=== PATIENT | female | born 2000 ===

== ENCOUNTER 2021-09-25 12:14 | Emergency (ER) | payer MEDICAID, SELFPAY ==
[2021-09-25 13:21] LABS: Influenza A PCR NEGATIVE (Negative); Influenza B PCR NEGATIVE (Negative); Resp Syncy Virus RNA Qual PCR NEGATIVE (Negative); SARS COV2 PCR INHOUSE NEGATIVE (Negative)
[2021-09-25 17:22] VITALS: BP 135/73; PULSE 99; TEMP 37.2; O2SAT 98; BMI 23.0
== END 2021-09-25 23:09 | disposition left against medical advice (07) ==
PROVIDERS: Emergency Medicine; Emergency Provider Emergency Medicine
DX: R11.2 Nausea with vomiting, unspecified (principal); R19.7 Diarrhea, unspecified; Z20.822 Contact with and (suspected) exposure to COVID-19
CPT/HCPCS: 0241U; 99282; 99283

== ENCOUNTER 2023-07-13 08:10 | Emergency (ER) | payer MEDICAID, SELFPAY ==
--- NOTE | ~2023-07-13 | CT_ITS ---
EXAMINATION: CT ABDOMEN AND PELVIS WITHOUT CONTRAST CLINICAL INFORMATION: Left flank pain. COMPARISON: None available. TECHNIQUE: Multidetector volumetric imaging was performed from the superior aspect of the liver through the pubic symphysis. Sagittal and coronal reformatted images were obtained on the technologist's workstation. This CT examination was performed using dose optimization techniques as appropriate, variously including the following: *Automated exposure control *Adjustment of mA and/or kV according to patient size (this includes techniques or standardized protocols for targeted exams where dose is matched to indication/reason for exam; i.e. extremities or head) *Use of iterative reconstruction technique DLP: 406 mGy-cm FINDINGS: LUNG BASES: Normal. No pulmonary consolidation or pleural effusion. LIVER: The liver has normal size, shape, and attenuation. No evidence of liver mass. GALLBLADDER AND BILIARY TREE: Gallbladder is without radiopaque stones, wall thickening or pericholecystic fluid. No dilated bile ducts. PANCREAS: Normal. No edema, pancreatic ductal dilatation or mass. SPLEEN: Normal. ADRENAL GLANDS: Normal. KIDNEYS AND URETERS: The kidneys have normal size and cortical thickness. No perinephric edema or fluid collection. No urolithiasis or hydroureteronephrosis. BLADDER: Normal. No calculi or wall thickening. BOWEL AND PERITONEUM: Stomach is unremarkable. No dilated loops of bowel. The appendix is normal. No overt bowel wall thickening or mesenteric fat stranding. No pneumoperitoneum. ABDOMINAL WALL: Unremarkable. VASCULATURE: Normal for noncontrast examination. Incidentally noted is a retroaortic course of the left renal vein. LYMPH NODES: No pathologic sized lymph nodes in the abdomen or pelvis. No inguinal lymphadenopathy. PELVIC VISCERA: Uterus and adnexa have a normal appearance on this noncontrast examination. Small amount of free fluid is present in the posterior cul-de-sac. MUSCULOSKELETAL: Unremarkable. CT/CT abdomen pelvis wo IV con IMPRESSION: * No evidence of nephrolithiasis or hydronephrosis. No specific source of left flank pain is identified. * Small amount of free fluid is present within the posterior cul-de-sac of the pelvis. This is likely from recent rupture of an ovarian follicle.
[2023-07-13 08:15] VITALS: BP 104/60; PULSE 71; RESP 16; TEMP 36.7; O2SAT 100; BMI 23.5
--- NOTE | 2023-07-13 08:36 | ED.GENADULT ---
HPI - General Adult General Chief complaint: General Medical Stated complaint: abd pain Time Seen by Provider: 07/13/23 08:32 Source: patient and family (mother) Mode of arrival: ambulatory Limitations: no limitations History of Present Illness HPI narrative: Patient is a 23-year-old female presenting to the emergency department with complaint of sudden onset left flank pain, nausea, vomiting, and diarrhea since 04:30 am. Reports emesis is non-bloody, non-bilious. Denies any hematochezia. States pain is radiating to left lower abdomen. Also reports foul-smelling urine. Patient denies history of kidney stones.Mother reported personal history of kidney stones. Patient denies fevers. She denies any chest pain, dyspnea, palpitations. MD complaint: left flank pain Onset (ago): hour(s) Location: left Radiation: abdomen Severity: severe Severity scale (1-10): >10 Quality: sharp Pain Consistency: constant Relieving factors: none Exacerbating factors: none Associated symptoms: nausea/vomiting Treatments prior to arrival: none Related Data Previous Rx's Medication Instructions Recorded cefpodoxime 200 mg tablet 200 mg PO BID #28 tabs 07/13/23 ondansetron 4 mg disintegrating 4 mg PO Q8H PRN nausea and 07/13/23 tablet vomiting #10 tabs Allergies Allergy/AdvReac Type Severity Reaction Status Date / Time SEASONAL ALLERGIES Allergy Intermediate NASAL Uncoded 06/17/20 16:55 CONGESTION Review of Systems Review of Systems: As per HPI Yes all other systems are reviewed and are negative Constitutional: Constitutional: Reports as per HPI [facility] Social History Social History Advance Directives: No Advance Directives Information Provided: Yes Physical Exam ED Vital Signs: Vital Signs - 24 hr 07/13/23 08:15 07/13/23 08:54 07/13/23 09:33 Temperature 98.0 F 98.1 F Pulse Rate 71 57 55 Respiratory Rate 16 20 15 Blood Pressure 104/60 125/71 103/55 L Pulse Oximetry 100 98 99 Oxygen Delivery Method Room Air Room Air BMI result Body Mass Index 23.5 Vital signs have been reviewed and appear to be correct. Blood pressure normal. Heart rate normal. Respiratory rate normal. Temperature normal. Oxygen saturation normal. Const General: cooperative, healthy appearing and no acute distress Orientation/consciousness: oriented to person, oriented to place, oriented to time and patient oriented x3 Limitations: no limitations [facility] Head: Yes normocephalic and Yes atraumatic Ears: external ears normal General nose exam: Normal external nose present Face and sinus: Yes face symmetric Mouth: oropharynx normal and moist mucous membranes Throat: Yes uvula midline Eyes Pupils: Equal, round and reactive pupils present Neck Neck: Yes normal visual inspection and Yes supple Resp Effort & Inspection: normal respiratory effort and able to speak in complete sentences Auscultation: clear to auscultation bilaterally Cardio Rate: regular rate Rhythm: regular rhythm Heart sounds: S1 normal heart sound present and S2 normal heart sound present GI Inspection: Yes normal to inspection Palpation (GI): Soft to palpation and Tenderness to palpation present (GI) in the LLQ and in the LUQ Auscultation: normoactive bowel sounds General: Yes CVA tenderness on the left Back/Spine/Pelvis Back: CVA tenderness Skin General skin exam: elasticity normal and turgor normal Neuro General: oriented to person, oriented to place, oriented to time, patient oriented x3, moves all extremities, no focal motor deficits and CN's II-XI intact bilaterally Cranial nerves: Yes Equal, round and reactive pupils present Cognition (Neuro): normal cognition Extrem General: Yes full ROM, Yes no pedal edema and Yes no calf tenderness Psych Mental Status: mental status grossly normal Affect: normal affect Thought process: Normal thought process present Medications Administered Discontinued Medications Generic Name Dose Route Start Last Admin Trade Name Freq PRN Reason Stop Dose Admin Ceftriaxone Sodium 1 gm/ 50 mls @ 100 mls/hr 07/13/23 09:46 07/13/23 10:05 Sodium Chloride IV 07/13/23 10:15 100 mls/hr ONCE ONE Administration Morphine Sulfate 4 mg 07/13/23 08:55 07/13/23 09:00 Morphine Sulfate 4 Mg/Ml Cartridge IVPUSH 07/13/23 08:56 4 mg ONCE ONE Administration Protocol Ondansetron HCl 4 mg 07/13/23 08:53 07/13/23 09:00 Ondansetron Hcl 4 Mg/2 Ml Vial IVPUSH 07/13/23 08:54 4 mg ONCE ONE Administration Medical Decision Making Medical Decision Making [facility] Narrative: Patient is a 23-year-old female presenting to the emergency department with complaint of sudden onset left flank pain, nausea, vomiting, and diarrhea since 04:30 am. On exam patient is awake, A+Ox3, VS WNL, afebrile, normal neurological exam without focal deficits, physical exam findings as above. Given reported symptoms and physical exam findings, initial differential includes UTI, pyelonephritis, renal or ureteral calculi, gastroenteritis. Labs notable for leukocytosis without left shift, no significant electrolyte imbalances. urine positive for 2+ leukocytes, 3+ blood, greater than 50 wbc's, trace bacteria. Ceftriaxone ordered at this time for UTI/pyelo but will obtain CT to rule out calculi. CT notable for no evidence of calculi so symptoms likely related to pyelonephritis. My interpretation is in agreement with the radiologist's interpretation. Patient is afebrile with stable vital signs. Has been able to tolerate PO fluids in the ED. results discussed with patient and mother at bedside no questions answered. Return precautions discussed. Will discharge home With prescriptions for Zofran and cefpodoxime. discussed with patient the importance of completing full course of antibiotics. Instructed patient to follow-up with primary care provider this week. patient and mother verbalized understanding of and agreement with plan. Differential Diagnosis Differential Diagnoses: The differential diagnosis associated with the presentation includes As per MDM. Admission/Observation Consideration of admission/observation: Escalation of care including admission/observation considered Considered for pain management Lab Data [facility] Lab Attestation statement: I reviewed the patient's lab results. as per MDM. 07/13/23 08:35 07/13/23 08:35 Labs: Lab Results 07/13/23 07/13/23 07/13/23 Range/Units 08:23 08:35 08:57 WBC 15.2 H (4.8-10.8) X10*3/uL RBC 4.85 (4.20-5.50) X10*6/uL Hgb 15.1 (12.0-16.0) g/dl Hct 44.7 (37.0-47.0) % MCV 92.2 (80.0-98.0) fL MCH 31.1 (27.0-33.0) pg MCHC 33.8 (31.0-35.0) g/dl RDW 12.7 (11.0-16.0) % Plt Count 242 (160-400) X10*3/uL MPV 11.9 (9.4-12.3) fL Immature Gran % (Auto) 0.5 H (0.0-0.4) % Neut % (Auto) 71.0 (45-73) % Lymph % (Auto) 18.3 L (20-40) % [place] % (Auto) 8.8 (2-11) % Eos % (Auto) 0.7 (0-4) % Baso % (Auto) 0.7 (0-2) % Lymph # (Auto) 2.8 (1.2-4.9) X10*3/uL [place] # (Auto) 1.3 H (0.1-1.2) X10*3/uL Eos # (Auto) 0.1 (0.0-0.4) X10*3/uL Baso # (Auto) 0.1 (0.0-0.2) X10*3/uL Abs Immat Gran (auto) 0.08 H (0.00-0.03) X10*3/uL Absolute Neuts (auto) 10.8 H (2.0-8.3) x10*3/uL Absolute Nucleated RBC 0.000 (0.0-0.012) X10*3/uL Nucleated RBC % (auto) 0.0 (0.0-0.2) /100WBC Hold Purple Top SEE NOTE Sodium 139 (135-145) mmol/L Potassium 3.3 (3.3-5.1) mmol/L Chloride 106 (96-108) mmol/L Carbon Dioxide 19 L (22-29) mmol/L Anion Gap 17 (12-20) BUN 10 (9-16) mg/dL Creatinine 0.89 (0.5-1.4) mg/dL Estim Creat Clear Calc 81.9 Estimated GFR > 60 Random Glucose 111 (60-115) mg/dL Calcium 10.3 H (8.4-10.2) mg/dL Total Bilirubin 0.3 (0.0-1.0) mg/dL AST 21 (5-31) U/L ALT 13 (0-31) U/L Alkaline Phosphatase 68 (39-117) U/L Total Protein 8.5 H (6.5-8.0) g/dL Albumin 4.8 (3.5-5.0) g/dL Urine Color Yellow Urine Appearance Cloudy Urine pH 8.5 (5.0-9.0) Ur Specific [place] 1.015 (1.005-1.025) Urine Protein 100 (2+) H (Neg-Trace) mg/dL Urine Glucose (UA) Negative (Negative) mg/dL Urine Ketones Negative (Negative) mg/dL Urine Blood Large (3+) H (Negative) Urine Nitrite Negative (Negative) Ur Leukocyte Esterase Moderate (2+) H (Negative) Urine RBC >20 H (0-2) /HPF Urine WBC >50 H (0-5) /HPF Ur Squamous Epith Cells 0-2 (0-2) /HPF Urine Bacteria Trace (None Seen) Hyaline Casts 0-2 (0-2) /LPF Urine Test NEGATIVE (NEGATIVE) Independent Interpretation I performed an independent interpretation of an: CT Scan Interpretation: No evidence of calc Radiology Impression Discussion of test interpretation with radiology: I have reviewed the radiologist's reading. Radiologist Impression: CT/CT abdomen pelvis wo IV con IMPRESSION: * No evidence of nephrolithiasis or hydronephrosis. No specific source of left flank pain is identified. * Small amount of free fluid is present within the posterior cul-de-sac of the pelvis. This is likely from recent rupture of an ovarian follicle. Independent Historian Clinical information obtained from an independent historian. History obtained from or confirmed by: Parent ( mother) External Record Review External record reviewed: Inpatient record, Office record and Outpatient record Prescription Management I considered prescription management with: Antibiotic and Other Discharge Plan Discharge Clinical Impression: Pyelonephritis Patient Disposition: Home, Self-Care Instructions: Kidney Infection (ED) Additional Instructions: You have been evaluated in the emergency department today for your urinary symptoms and flank pain. Your evaluation, including urinalysis, suggests that your symptoms are due to a kidney infection, also called pyelonephritis. Please take your prescribed antibiotics for the full course of medication as directed. Please follow-up with your primary care provider within 2 days. Return to the emergency department if you experience fevers 100.4? F or greater, worsening or uncontrolled pain, vomiting, flank pain, or for any other concerning symptoms. Prescriptions: New ondansetron 4 mg tablet,disintegrating 4 mg PO Q8H PRN (Reason: nausea and vomiting) Qty: 10 0RF cefpodoxime 200 mg tablet 200 mg PO BID Qty: 28 0RF Rx Instructions: must administer with a meal/food
[2023-07-13 08:41] LABS: MANUAL DIFF FLAG NO
[2023-07-13 08:50] LABS: Basophils Absolute Auto 0.1 X10*3/uL (0.0-0.2); Basophils Percent Auto 0.7 % (0-2); Eosinophils Absolute Auto 0.1 X10*3/uL (0.0-0.4); Eosinophils Percent Auto 0.7 % (0-4); Hematocrit 44.7 % (37.0-47.0); Hemoglobin 15.1 g/dl (12.0-16.0); Imm Gran Abs Auto 0.08 X10*3/uL (0.00-0.03); Imm Gran Pct Auto 0.5 % (0.0-0.4); Lymphocytes Absolute Auto 2.8 X10*3/uL (1.2-4.9); Lymphocytes Percent Auto 18.3 % (20-40); Mean Corpuscular HGB Conc 33.8 g/dl (31.0-35.0); Mean Corpuscular Hemoglobin 31.1 pg (27.0-33.0); Mean Corpuscular Volume 92.2 fL (80.0-98.0); Mean Platelet Volume 11.9 fL (9.4-12.3); Monocytes Absolute Auto 1.3 X10*3/uL (0.1-1.2); Monocytes Percent Auto 8.8 % (2-11); Neutrophils Absolute Auto 10.8 x10*3/uL (2.0-8.3); Platelet Count 242 X10*3/uL (160-400); Red Blood Count 4.85 X10*6/uL (4.20-5.50); Red Cell Distribution Width 12.7 % (11.0-16.0); White Blood Count 15.2 X10*3/uL (4.8-10.8)
[2023-07-13 08:54] VITALS: BP 125/71; PULSE 57; RESP 20; TEMP 36.7; O2SAT 98
[2023-07-13] MEDS: Morphine Sulfate 4 MG/ML CARTRIDGE IVPUSH (09:00)
[2023-07-13] MEDS: ondansetron HCL 4 MG/2 ML VIAL IVPUSH (09:00)
[2023-07-13 09:01] LABS: Alanine Aminotransferase 13 U/L (0-31); Albumin Level 4.8 g/dL (3.5-5.0); Alkaline Phosphatase 68 U/L (39-117); Anion Gap 17 (12-20); Aspartate Amino Transferase 21 U/L (5-31); Bilirubin Total 0.3 mg/dL (0.0-1.0); Blood Urea Nitrogen 10 mg/dL (9-16); Calcium 10.3 mg/dL (8.4-10.2); Carbon Dioxide 19 mmol/L (22-29); Chloride 106 mmol/L (96-108); Creatinine Clr Calc Pharmacy 81.9; Estimated Glomerular Filt Rate > 60; Glucose Random 111 mg/dL (60-115); Potassium 3.3 mmol/L (3.3-5.1); Sodium 139 mmol/L (135-145); Total Protein 8.5 g/dL (6.5-8.0)
[2023-07-13 09:09] LABS: Appearance Urine Cloudy; Color Urine Yellow; Glucose Urine UA Negative (Negative); Leukocyte Esterase Urine Moderate (2+) (Negative); Nitrite Urine Negative (Negative); PH 8.5 (5.0-9.0); Specific Gravity - Urine 1.015 (1.005-1.025); UMIC TRIGGER UACC YES; Urine Blood Large (3+) (Negative); Urine Ketones Negative (Negative); Urine Protein 100 (2+) mg/dL (Neg-Trace)
[2023-07-13 09:14] LABS: Bacteria Urine Trace (None Seen); Hyaline Casts Urine 0-2 /LPF (0-2); RBC Urine >20 /HPF (0-2); Squamous Epithelial Cell Urine 0-2 /HPF (0-2); UACC Culture Trigger YES; WBC Urine >50 /HPF (0-5)
[2023-07-13 09:33] VITALS: BP 103/55; PULSE 55; RESP 15; O2SAT 99
[2023-07-13] MEDS: cefTRIAXone sodium 1 GM in 0.9 % Sodium Chloride 50 ML IV (10:05)
[2023-07-13 10:12] LABS: UPreg QC Valid YES; Urine Pregnancy NEGATIVE (NEGATIVE)
--- NOTE | 2023-07-13 10:33 | PC.NURSE ---
laughing and smiling, nad, skin wpd, speech clear, steady gait, aware of care plan, ct complete
[2023-07-13 15:27] LABS: HCG Quantitative < 2 mIU/mL
== END 2023-07-13 11:54 | disposition home or self-care (01) ==
PROVIDERS: Registered Nurse Emergency; Emergency Provider Student in an Organized Health Care Education/Training Program
DX: N12 Tubulo-interstitial nephritis, not specified as acute or chronic (principal); R10.9 Unspecified abdominal pain
CPT/HCPCS: 36415; 74176; 80053; 81001; 81025; 84702; 85025; 87086; 87088; 87186; 96374; 96375; 99283; 99284; J0696; J2270; J2405

== ENCOUNTER 2023-11-12 13:15 | Emergency (ER) | payer MEDICAID, SELFPAY ==
[2023-11-12 13:48] VITALS: BP 131/86; PULSE 92; RESP 22; TEMP 37.1; O2SAT 99; BMI 26.6
--- NOTE | 2023-11-12 13:49 | ED_ITS ---
HPI - General Adult General Chief complaint: General Medical Stated complaint: body is numb/pain Time Seen by Provider: 11/12/23 14:01 History of Present Illness HPI narrative: Patient is a 23-year-old female presents today with having total body numbness generalized malaise. Denies any coughing congestion. Patient is worried that she got lymphoma. She has been looking into the Internet she found a possible mass in her groin. He thinks he has more. Feels tingling sensation crying very upset came to the emergency department. No significant past medical history in the past. Currently on no medication. Related Data Previous Rx's Medication Instructions Recorded cefpodoxime 200 mg tablet 200 mg PO BID #28 tabs 07/13/23 ondansetron 4 mg disintegrating 4 mg PO Q8H PRN nausea and 07/13/23 tablet vomiting #10 tabs nirmatrelvir 300 mg (150 mg See Rx Instructions PO .COMPLEX 11/12/23 x2)-ritonavir 100 mg tablet,dose #30 ea pack (Paxlovid) Allergies Allergy/AdvReac Type Severity Reaction Status Date / Time SEASONAL ALLERGIES Allergy Intermediate NASAL Uncoded 11/12/23 13:53 CONGESTION Review of Systems 2 Review of Systems: No fever no chills no chest pain. Feels tingling in all her extremities. [facility] Past Medical History Attestation statement: The following information was validated with the patient. Social History Social History Smoked in Last 30 Days: Yes Use of substances other than those prescribed or required for medical reasons: Yes Advance Directives: No Advance Directives Information Provided: No Patient : No Physical Exam ED Vital Signs: Vital Signs - 24 hr 11/12/23 13:48 11/12/23 16:29 Temperature 98.8 F 100.4 F Pulse Rate 92 72 Respiratory Rate 22 H 16 Blood Pressure 131/86 110/50 L Pulse Oximetry 99 97 Oxygen Delivery Method Room Air Room Air BMI result Body Mass Index 26.6 Appearance: Alert. Oriented X3. No acute distress. Eyes: Pupils equal, round and reactive to light. ENT: Pharynx normal. Neck: Normal inspection. Neck supple. No lymph nodes noted. No crepitus CVS: Normal heart rate and rhythm. Pulses normal. Normal S1 and S2 Respiratory: No respiratory distress. Breath sounds normal. No Wheezing. No rales Abdomen: Soft and nontender. No rigidity. No distention. good BS x4 exam examined her groin with tech ryan present. There is lymph nodes that was palpable bilaterally none of which is over a cm in size. Clearly mobile. Skin: Skin warm and dry. Normal skin color. Normal skin turgor. Extremities: No lower extremity edema. Neurovascular intact to all extremities. No Lacerations. No Rash Neuro: Oriented X 3. No motor deficit. No sensory deficit. Moving all extermities. No slurred speech Course Course Course Narrative: RME performed by Haylee Romero PA-C. Patient is a 23 year old assigned female at presenting to the emergency department with full body aches. Detailed physical exam and review of systems are deferred to the metal furniture panel coverer. Labs and swabs ordered. Patient placed back in the waiting room pending room availability and results. Medications Administered Discontinued Medications Generic Name Dose Route Start Last Admin Trade Name Freq PRN Reason Stop Dose Admin Diazepam 5 mg 11/12/23 14:08 11/12/23 14:29 Diazepam 10 Mg/2 Ml Cartridge IVPUSH 11/12/23 14:09 5 mg STAT STA Administration Sodium Chloride 1,000 mls @ 999 mls/hr 11/12/23 14:15 11/12/23 15:30 Ns IV 11/12/23 15:15 Infused .Q1H1M RUDY Infusion Ketorolac Tromethamine 30 mg 11/12/23 16:35 11/12/23 16:42 Ketorolac Tromethamine 30 Mg/Ml Vial IVPUSH 11/12/23 16:36 30 mg ONCE ONE Administration Ondansetron HCl 4 mg 11/12/23 14:08 11/12/23 14:29 Ondansetron Hcl 4 Mg/2 Ml Vial IVPUSH 11/12/23 14:09 4 mg ONCE ONE Administration Medical Decision Making Medical Decision Making [facility] Narrative: Positive coughing upper respiratory symptoms patient also complaining of lymph nodes in the groin. I examined patient's groin with tech Ryan present. There is some lymph node that is mobile. Patient's urine showed no signs of infection. Patient COVID positive she has coughing upper respiratory symptoms. She is worried about lymphoma. Patient's electrolytes were normal. White count was normal. With a slight shift consistent with having an infection. No signs of lymphoma will still have patient follow-up on an outpatient basis. Upon explaining to the patient about her discharge she stated the worst of her symptoms started about 04:00 this morning. Ask patient again if he she took her vaccine. Patient stated that she never had COVID vaccine. Will go ahead and start patient on Paxlovid. A prescription was prescribed to the pharmacy of patient's choice. Currently in stable condition. Differential Diagnosis Upper respiratory tract infection COVID UTI , anxiety Admission/Observation Consideration of admission/observation: Escalation of care including admission/observation considered Lab Data [facility] Lab Attestation statement: I reviewed the patient's lab results. 11/12/23 14:18 11/12/23 14:18 Labs: Lab Results 11/12/23 11/12/23 Range/Units 14:17 14:18 WBC 10.4 (4.8-10.8) X10*3/uL RBC 4.42 (4.20-5.50) X10*6/uL Hgb 13.6 (12.0-16.0) g/dl Hct 39.6 (37.0-47.0) % MCV 89.6 (80.0-98.0) fL MCH 30.8 (27.0-33.0) pg MCHC 34.3 (31.0-35.0) g/dl RDW 13.4 (11.0-16.0) % Plt Count 171 D (160-400) X10*3/uL MPV 12.1 (9.4-12.3) fL Immature Gran % (Auto) 0.4 (0.0-0.4) % Neut % (Auto) 84.4 H (45-73) % Lymph % (Auto) 5.3 L (20-40) % [place] % (Auto) 9.1 (2-11) % Eos % (Auto) 0.3 (0-4) % Baso % (Auto) 0.5 (0-2) % Lymph # (Auto) 0.6 L (1.2-4.9) X10*3/uL [place] # (Auto) 1.0 (0.1-1.2) X10*3/uL Eos # (Auto) 0.0 (0.0-0.4) X10*3/uL Baso # (Auto) 0.1 (0.0-0.2) X10*3/uL Abs Immat Gran (auto) 0.04 H (0.00-0.03) X10*3/uL Absolute Neuts (auto) 8.8 H (2.0-8.3) x10*3/uL Absolute Nucleated RBC 0.000 (0.0-0.012) X10*3/uL Nucleated RBC % (auto) 0.0 (0.0-0.2) /100WBC Sodium 137 (135-145) mmol/L Potassium 3.4 (3.3-5.1) mmol/L Chloride 106 (96-108) mmol/L Carbon Dioxide 20 L (22-29) mmol/L Anion Gap 14 (12-20) BUN 9 (9-16) mg/dL Creatinine 0.88 (0.5-1.4) mg/dL Estim Creat Clear Calc 92.9 Estimated GFR > 60 Random Glucose 104 (60-115) mg/dL Calcium 9.4 D (8.4-10.2) mg/dL Magnesium 1.5 L (1.6-2.6) mg/dL Total Bilirubin 0.3 (0.0-1.0) mg/dL AST 17 (5-31) U/L ALT 10 (0-31) U/L Alkaline Phosphatase 57 (39-117) U/L Total Protein 7.6 (6.5-8.0) g/dL Albumin 4.3 (3.5-5.0) g/dL Beta HCG, Quant < 2 mIU/mL Urine Color RED Urine Appearance Turbid Urine pH 7.0 (5.0-9.0) Ur Specific [place] 1.025 (1.005-1.025) Urine Protein 300 (3+) H (Neg-Trace) mg/dL Urine Glucose (UA) Negative (Negative) mg/dL Urine Ketones 40 (Negative) mg/dL Urine Blood Large (3+) H (Negative) Urine Nitrite Negative (Negative) Ur Leukocyte Esterase Negative (Negative) Urine RBC >20 H (0-2) /HPF Urine WBC 6-10 (0-5) /HPF Ur Squamous Epith Cells 6-10 (0-2) /HPF Urine Bacteria 2+ (None Seen) Hyaline Casts 0-2 (0-2) /LPF COVID-19 (JACQUE) Positive A (Negative) COVID-19 Clin Com See Note Influenza Type A (SEBASTIAN) Negative (Negative) Influenza Type B (SEBASTIAN) Negative (Negative) Influenza A & B Note See Note Independent Historian Clinical information obtained from an independent historian. History obtained from or confirmed by: Parent Prescription Management No need for antibiotics. No need for antivirals. Patient's symptom improved. Will discharge patient home. Patient is vaccinated. She is 23 years old she has normal O2 sat she has not obese. [place] at this time antiviral not warranted especially were not exactly sure how many days she has had the coughing upper respiratory symptoms. Correction patient states now that she has not vaccinated. She knows her symptoms got much worse since 04:00. Will go ahead and give patient antiviral medication Discharge Plan Discharge Clinical Impression: COVID Patient Disposition: Home, Self-Care Prescriptions: New Paxlovid 300 mg (150 mg x 2)-100 mg tablets,dose pack See Rx Instructions .ROUTE .COMPLEX Qty: 30 0RF Rx Instructions: take TWO 150 mg tablets of nirmatrelvir with ONE 100 mg tablet of ritonavir twice daily for 5 days No Action ondansetron 4 mg tablet,disintegrating 4 mg PO Q8H PRN (Reason: nausea and vomiting) Qty: 10 0RF cefpodoxime 200 mg tablet 200 mg PO BID Qty: 28 0RF Rx Instructions: must administer with a meal/food
--- NOTE | 2023-11-12 14:20 | PC.NURSE ---
20gIV placed in the left AC - labs obtained/sent to lab.
[2023-11-12 14:26] LABS: MANUAL DIFF FLAG NO
[2023-11-12] MEDS: ondansetron HCL 4 MG/2 ML VIAL IVPUSH (14:29)
[2023-11-12] MEDS: diazePAM 10 MG/2 ML CARTRIDGE 5 MG IVPUSH (14:29)
[2023-11-12] MEDS: 0.9 % Sodium Chloride 1,000 ML 999 ML IV (14:29)
--- NOTE | 2023-11-12 14:30 | PC.NURSE ---
medication/IVF administered per provider order. effectiveness pending at this time.
[2023-11-12 14:32] LABS: Basophils Absolute Auto 0.1 X10*3/uL (0.0-0.2); Basophils Percent Auto 0.5 % (0-2); Eosinophils Percent Auto 0.3 % (0-4); Hematocrit 39.6 % (37.0-47.0); Hemoglobin 13.6 g/dl (12.0-16.0); Imm Gran Abs Auto 0.04 X10*3/uL (0.00-0.03); Imm Gran Pct Auto 0.4 % (0.0-0.4); Lymphocytes Absolute Auto 0.6 X10*3/uL (1.2-4.9); Lymphocytes Percent Auto 5.3 % (20-40); Mean Corpuscular HGB Conc 34.3 g/dl (31.0-35.0); Mean Corpuscular Hemoglobin 30.8 pg (27.0-33.0); Mean Corpuscular Volume 89.6 fL (80.0-98.0); Mean Platelet Volume 12.1 fL (9.4-12.3); Monocytes Percent Auto 9.1 % (2-11); Neutrophils Absolute Auto 8.8 x10*3/uL (2.0-8.3); Neutrophils Percent Auto 84.4 % (45-73); Platelet Count 171 X10*3/uL (160-400); Red Blood Count 4.42 X10*6/uL (4.20-5.50); Red Cell Distribution Width 13.4 % (11.0-16.0); White Blood Count 10.4 X10*3/uL (4.8-10.8)
[2023-11-12 14:35] LABS: COVID-19 Test Positive (Negative); IDNOW Serial# 08D9AD1C
[2023-11-12 14:36] LABS: Appearance Urine Turbid; Color Urine RED; Glucose Urine UA Negative (Negative); Leukocyte Esterase Urine Negative (Negative); Nitrite Urine Negative (Negative); Specific Gravity - Urine 1.025 (1.005-1.025); UMIC TRIGGER UACC YES; Urine Blood Large (3+) (Negative); Urine Ketones 40 mg/dL (Negative); Urine Protein 300 (3+) mg/dL (Neg-Trace)
[2023-11-12 14:44] LABS: Bacteria Urine 2+ (None Seen); Hyaline Casts Urine 0-2 /LPF (0-2); RBC Urine >20 /HPF (0-2); UACC Culture Trigger YES
[2023-11-12 14:44] LABS: IDNOW Serial# 152EDE1D; Influenza A Negative (Negative); Influenza B2 Negative (Negative)
[2023-11-12 14:48] LABS: Alanine Aminotransferase 10 U/L (0-31); Albumin Level 4.3 g/dL (3.5-5.0); Alkaline Phosphatase 57 U/L (39-117); Anion Gap 14 (12-20); Aspartate Amino Transferase 17 U/L (5-31); Bilirubin Total 0.3 mg/dL (0.0-1.0); Blood Urea Nitrogen 9 mg/dL (9-16); Calcium 9.4 mg/dL (8.4-10.2); Carbon Dioxide 20 mmol/L (22-29); Chloride 106 mmol/L (96-108); Creatinine Clr Calc Pharmacy 92.9; Estimated Glomerular Filt Rate > 60; Glucose Random 104 mg/dL (60-115); HCG Quantitative < 2 mIU/mL; Magnesium 1.5 mg/dL (1.6-2.6); Potassium 3.4 mmol/L (3.3-5.1); Sodium 137 mmol/L (135-145); Total Protein 7.6 g/dL (6.5-8.0)
[2023-11-12 16:29] VITALS: BP 110/50; PULSE 72; RESP 16; TEMP 38; O2SAT 97
--- NOTE | 2023-11-12 16:29 | PC.NURSE ---
pt febrile w/ oral temp of 100.4. otherwise vss and up to date aside from pt being slightly hypotensive. pt still verbalizing 10/10 headache and back pain at this time. respirations remain even and unlabored. call mireles placed within reach.
[2023-11-12] MEDS: Ketorolac Tromethamine 30 MG/ML VIAL IVPUSH (16:42)
--- NOTE | 2023-11-12 16:43 | PC.NURSE ---
medication administered per provider order. effectiveness pending.
== END 2023-11-12 17:28 | disposition home or self-care (01) ==
PROVIDERS: Physician Assistant Medical; Emergency Provider Emergency Medicine Emergency Medical Services
DX: U07.1 COVID-19 (principal); M79.10 Myalgia, unspecified site; R53.81 Other malaise; Z79.899 Other long term (current) drug therapy
CPT/HCPCS: 80053; 81001; 83735; 84702; 85025; 87086; 87502; 87635; 96361; 96374; 96375; 99284; J1885; J2405; J3360

== ENCOUNTER 2024-04-23 15:26 | Outpatient (REF) | payer MEDICAID, SELFPAY ==
[2024-04-23 16:16] LABS: MANUAL DIFF FLAG NO
[2024-04-23 16:32] LABS: Basophils Absolute Auto 0.1 X10*3/uL (0.0-0.2); Basophils Percent Auto 0.7 % (0-2); Eosinophils Absolute Auto 0.1 X10*3/uL (0.0-0.4); Eosinophils Percent Auto 0.8 % (0-4); Hematocrit 41.2 % (37.0-47.0); Hemoglobin 14.1 g/dl (12.0-16.0); Imm Gran Abs Auto 0.05 X10*3/uL (0.00-0.03); Imm Gran Pct Auto 0.5 % (0.0-0.4); Lymphocytes Absolute Auto 2.3 X10*3/uL (1.2-4.9); Lymphocytes Percent Auto 21.7 % (20-40); Mean Corpuscular HGB Conc 34.2 g/dl (31.0-35.0); Mean Corpuscular Hemoglobin 31.4 pg (27.0-33.0); Mean Corpuscular Volume 91.8 fL (80.0-98.0); Mean Platelet Volume 12.4 fL (9.4-12.3); Monocytes Absolute Auto 0.9 X10*3/uL (0.1-1.2); Neutrophils Absolute Auto 7.3 x10*3/uL (2.0-8.3); Neutrophils Percent Auto 68.3 % (45-73); Platelet Count 241 X10*3/uL (160-400); Red Blood Count 4.49 X10*6/uL (4.20-5.50); Red Cell Distribution Width 13.5 % (11.0-16.0); White Blood Count 10.7 X10*3/uL (4.8-10.8)
[2024-04-23 17:13] LABS: TSH reflex Free T4 0.66 uIU/mL (0.32-4.0)
[2024-04-24 05:17] LABS: HIV AB/AG Nonreactive (Nonreactive); HIV Num 1 0.05 S/CO (0.00-0.99); ~Hepatitis C Antibody Nonreactive (Nonreactive)
[2024-04-25 06:53] LABS: RPR Rapid Plasma Reagin NON-REACTIVE (NON-REACTIVE)
== END 2024-04-23 15:27 | disposition home or self-care (01) ==
LOC: HO.HHCL 15:26
PROVIDERS: Visit Provider General Practice
DX: Z11.3 Encounter for screening for infections with a predominantly sexual mode of transmission (principal)
CPT/HCPCS: 36415; 84443; 85025; 86592; 86803; 87389

== ENCOUNTER 2024-07-04 21:18 | Emergency (ER) | payer MEDICAID, SELFPAY ==
--- NOTE | ~2024-07-04 | US_ITS ---
EXAMINATION: US OBSTETRICAL ULTRASOUND CLINICAL INFORMATION: Six-week question of COMPARISON: None available. LMP: 05/20/2024, but uncertain. Gestational age by maternal dates is 6 weeks 3 days. Estimated date of delivery by maternal dates is 12/25/2024. TECHNIQUE: Ultrasound of the maternal pelvis is performed using transabdominal and transvaginal transducers. Transvaginal imaging is performed due to inadequate visualization transabdominally. M-mode Doppler is also performed. FINDINGS: A tiny fluid collection question sac is present in the endometrial canal measuring 3.5 mm which would correspond to a gestational age of only 4 weeks 6 days. There is no pole or yolk sac seen. No heart activity is detected MATERNAL ADNEXA: The right maternal ovary measures 2.4 x 1.5 x 1.2 cm. The left maternal ovary measures 2.6 x 2.0 x 2.5 cm. A 1.3 x 1.1 x 1.4 cm corpus luteal cyst appears to be present with a single large or dominant follicle measuring 1.6 cm. There is no significant maternal adnexal mass. There is a tiny bit of fluid seen in the cul-de-sac. US/US OB <= 14 weeks fetus IMPRESSION: A gestational sac is present without a pole. Correlation with beta hCG levels is recommended, as nonvisualization of a pole could be due to an early stage of . Alternatively, lack of pole may also be seen with missed or ectopic , although no adnexal mass is seen to strongly suggest ectopic . Short-term sonographic follow-up and serial beta hCG levels are recommended to assess for development of a pole. Electronically signed by: Andi Aguirre MD 07/05/2024 12:02 AM EDT
[2024-07-04 21:24] VITALS: BP 128/86; PULSE 95; O2SAT 98
[2024-07-04 21:30] VITALS: BP 112/73; PULSE 95; RESP 16; TEMP 36.4; O2SAT 100
[2024-07-04 21:34] VITALS: BP 112/73; PULSE 95; RESP 16; TEMP 36.4; O2SAT 100; BMI 23.0
--- NOTE | 2024-07-04 21:36 | ED_ITS ---
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 no history of ovarian cyst Related Data Previous Rx's ?Medication ?Instructions ?Recorded cefpodoxime 200 mg tablet 200 mg PO BID #28 tabs 07/13/23 ondansetron 4 mg disintegrating 4 mg PO Q8H PRN nausea and 07/13/23 tablet vomiting #10 tabs nirmatrelvir 300 mg (150 mg See Rx Instructions PO .COMPLEX 11/12/23 x2)-ritonavir 100 mg tablet,dose #30 ea pack (Paxlovid) nitrofurantoin 100 mg PO BID #20 caps 07/04/24 monohydrate/macrocrystals 100 mg capsule (Macrobid) Allergies Allergy/AdvReac Type Severity Reaction Status Date / Time SEASONAL ALLERGIES Allergy Intermediate NASAL Uncoded 07/04/24 21:35 CONGESTION Review of Systems Review of Systems Yes all other systems are reviewed and are negative [facility] Social History Social History Alcohol intake: current Alcohol intake frequency: holidays/special occasions only Smoked in Last 30 Days: Yes Use of substances other than those prescribed or required for medical reasons: Yes Substance Use Type: Marijuana Advance Directives: No Advance Directives Information Provided: Yes Do you have a plan to hurt others: No Plan Physical Exam ED Vital Signs: Vital Signs - 24 hr 07/04/24 21:30 07/04/24 21:34 07/04/24 23:42 Temperature 97.5 F 97.5 F 0 F L Pulse Rate 95 95 0 L Respiratory Rate 16 16 0 L Blood Pressure 112/73 112/73 0/0 L Pulse Oximetry 100 100 0 L Oxygen Delivery Method Room Air Room Air BMI result Body Mass Index 23.0 Appearance: Alert. Oriented X3. No acute distress. Eyes: PERRLA, No Nystagmus ENT: Pharynx normal. Oral Mucosa moist Neck: Normal inspection. Neck supple. CVS: Normal heart rate and rhythm. Pulses normal. Respiratory: No respiratory distress. Equal air entry bilateral, no wheezing/rales/rhonchi Abdomen: Soft and mild suprapubic tenderness Bowel sounds are present, no mass palpable, no CVA tenderness Skin: Skin warm and dry. Normal skin color. Normal skin turgor. Extremities: No lower extremity edema. No calf tenderness Neuro: Oriented X 3. Medical Decision Making Differential Diagnosis Differential Diagnoses: The differential diagnosis associated with the presentation includes UTI/ectopic/miscarriage Lab Data [facility] Lab Attestation statement: I reviewed the patient's lab results. 07/04/24 21:56 07/04/24 21:56 Labs: Lab Results 07/04/24 07/04/24 Range/Units 21:42 21:56 WBC 18.4 H (4.8-10.8) X10*3/uL RBC 4.33 (4.20-5.50) X10*6/uL Hgb 13.7 (12.0-16.0) g/dl Hct 38.9 (37.0-47.0) % MCV 89.8 (80.0-98.0) fL MCH 31.6 (27.0-33.0) pg MCHC 35.2 H (31.0-35.0) g/dl RDW 13.1 (11.0-16.0) % Plt Count 273 (160-400) X10*3/uL MPV 11.4 (9.4-12.3) fL Immature Gran % (Auto) 0.5 H (0.0-0.4) % Neut % (Auto) 79.6 H (45-73) % Lymph % (Auto) 12.2 L (20-40) % [place] % (Auto) 7.0 (2-11) % Eos % (Auto) 0.2 (0-4) % Baso % (Auto) 0.5 (0-2) % Lymph # (Auto) 2.3 (1.2-4.9) X10*3/uL [place] # (Auto) 1.3 H (0.1-1.2) X10*3/uL Eos # (Auto) 0.0 (0.0-0.4) X10*3/uL Baso # (Auto) 0.1 (0.0-0.2) X10*3/uL Abs Immat Gran (auto) 0.09 H (0.00-0.03) X10*3/uL Absolute Neuts (auto) 14.6 H (2.0-8.3) x10*3/uL Absolute Nucleated RBC 0.000 (0.0-0.012) X10*3/uL Nucleated RBC % (auto) 0.0 (0.0-0.2) /100WBC Sodium 135 (135-145) mmol/L Potassium 3.5 (3.3-5.1) mmol/L Chloride 106 (96-108) mmol/L Carbon Dioxide 20 L (22-29) mmol/L Anion Gap 13 (12-20) BUN 10 (9-16) mg/dL Creatinine 0.80 (0.5-1.4) mg/dL Estim Creat Clear Calc 90.4 Estimated GFR > 60 Random Glucose 110 (60-115) mg/dL Calcium 9.7 (8.4-10.2) mg/dL Total Bilirubin 0.7 (0.0-1.0) mg/dL Direct Bilirubin 0.3 (0.0-0.5) mg/dL AST 15 (5-31) U/L ALT 11 (0-31) U/L Alkaline Phosphatase 69 (39-117) U/L Total Protein 8.1 H (6.5-8.0) g/dL Albumin 4.6 (3.5-5.0) g/dL Lipase 11 (8-78) U/L Beta HCG, Quant 2092 mIU/mL Urine Color Dark Yellow Urine Appearance Turbid Urine pH 5.5 (5.0-9.0) Ur Specific [place] 1.020 (1.005-1.025) Urine Protein 300 (3+) H (Neg-Trace) mg/dL Urine Glucose (UA) Negative (Negative) mg/dL Urine Ketones 80 (Negative) mg/dL Urine Blood Large (3+) H (Negative) Urine Nitrite Negative (Negative) Ur Leukocyte Esterase Moderate (2+) H (Negative) Urine RBC >20 H (0-2) /HPF Urine WBC >50 H (0-5) /HPF Ur Squamous Epith Cells 3-5 (0-2) /HPF Urine Bacteria None Seen (None Seen) Hyaline Casts 0-2 (0-2) /LPF Urine Test POSITIVE H (NEGATIVE) Radiology Impression Discussion of test interpretation with radiology: I have reviewed the radiologist's reading. Radiologist Impression: [address] [address] Ultrasound Report Signed Patient: Autumn Aggarwal MR#: [id number] : 2000 Acct:[id number] Age/Sex: 24 / F ADM Date: 07/04/24 Loc: HO.ED Attending Dr: Ordering Physician: lFako Patel MD Date of Service: 07/04/24 Procedure(s): US OB <= 14 weeks fetus Accession Number(s): [id number] cc: [facility]; Flako Patel MD~ EXAMINATION: US OBSTETRICAL ULTRASOUND CLINICAL INFORMATION: Six-week question of COMPARISON: None available. LMP: 05/20/2024, but uncertain. Gestational age by maternal dates is 6 weeks 3 days. Estimated date of delivery by maternal dates is 12/25/2024. TECHNIQUE: Ultrasound of the maternal pelvis is performed using transabdominal and transvaginal transducers. Transvaginal imaging is performed due to inadequate visualization transabdominally. M-mode Doppler is also performed. FINDINGS: A tiny fluid collection question sac is present in the endometrial canal measuring 3.5 mm which would correspond to a gestational age of only 4 weeks 6 days. There is no pole or yolk sac seen. No heart activity is detected MATERNAL ADNEXA: The right maternal ovary measures 2.4 x 1.5 x 1.2 cm. The left maternal ovary measures 2.6 x 2.0 x 2.5 cm. A 1.3 x 1.1 x 1.4 cm corpus luteal cyst appears to be present with a single large or dominant follicle measuring 1.6 cm. There is no significant maternal adnexal mass. There is a tiny bit of fluid seen in the cul-de-sac. US/US OB <= 14 weeks fetus IMPRESSION: A gestational sac is present without a pole. Correlation with beta hCG levels is recommended, as nonvisualization of a pole could be due to an early stage of . Alternatively, lack of pole may also be seen with missed or ectopic , although no adnexal mass is seen to strongly suggest ectopic . Short-term sonographic follow-up and serial beta hCG levels are recommended to assess for development of a pole. Electronically signed by: Andi Aguirre MD 07/05/2024 12:02 AM EDT Medications Administered Discontinued Medications Generic Name Dose Route Start Last Admin Trade Name Freq PRN Reason Stop Dose Admin Acetaminophen 650 mg 07/04/24 22:16 07/04/24 23:22 Acetaminophen 325 Mg Tablet PO 07/04/24 22:17 Not Given ONCE ONE Nitrofurantoin Macrocrystals 100 mg 07/04/24 22:15 07/04/24 23:22 Nitrofurantoin Monohyd/M-Cryst 100 Mg Capsule PO 07/04/24 22:16 100 mg ONCE ONE Administration Discharge Plan Discharge Clinical Impression: Early stage of , Urinary tract infection Patient Disposition: Home, Self-Care Instructions: (ED), Urinary Tract Infection in (ED) Additional Instructions: Drink plenty of fluids Take antibiotic as prescribed 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 Prescriptions: New nitrofurantoin monohyd/m-cryst [Macrobid] 100 mg capsule 100 mg PO BID Qty: 20 0RF Rx Instructions: must administer with a meal/food No Action ondansetron 4 mg tablet,disintegrating 4 mg PO Q8H PRN (Reason: nausea and vomiting) Qty: 10 0RF cefpodoxime 200 mg tablet 200 mg PO BID Qty: 28 0RF Rx Instructions: must administer with a meal/food Paxlovid 300 mg (150 mg x 2)-100 mg tablets,dose pack See Rx Instructions .ROUTE .COMPLEX Qty: 30 0RF Rx Instructions: take TWO 150 mg tablets of nirmatrelvir with ONE 100 mg tablet of ritonavir twice daily for 5 days Interventions: ED Discharge Assessment Last Done: 07/04/24 23:42 Discharge Date/Time: 07/04/24 23:45 Print Language: Surinamese
[2024-07-04 21:51] LABS: Appearance Urine Turbid; Color Urine Dark Yellow; Glucose Urine UA Negative (Negative); Leukocyte Esterase Urine Moderate (2+) (Negative); Nitrite Urine Negative (Negative); PH 5.5 (5.0-9.0); UMIC TRIGGER UACC YES; UPreg QC Valid YES; Urine Blood Large (3+) (Negative); Urine Ketones 80 mg/dL (Negative); Urine Pregnancy POSITIVE (NEGATIVE); Urine Protein 300 (3+) mg/dL (Neg-Trace)
[2024-07-04 21:59] LABS: Bacteria Urine None Seen (None Seen); Hyaline Casts Urine 0-2 /LPF (0-2); RBC Urine >20 /HPF (0-2); UACC Culture Trigger YES; WBC Urine >50 /HPF (0-5)
[2024-07-04 22:05] LABS: Hemoglobin 13.7 g/dl (12.0-16.0); Mean Platelet Volume 11.4 fL (9.4-12.3); WBC ABN SCTR 1
[2024-07-04 22:10] LABS: Basophils Absolute Auto 0.1 X10*3/uL (0.0-0.2); Basophils Percent Auto 0.5 % (0-2); Eosinophils Percent Auto 0.2 % (0-4); Hematocrit 38.9 % (37.0-47.0); Imm Gran Abs Auto 0.09 X10*3/uL (0.00-0.03); Imm Gran Pct Auto 0.5 % (0.0-0.4); Lymphocytes Absolute Auto 2.3 X10*3/uL (1.2-4.9); Lymphocytes Percent Auto 12.2 % (20-40); Mean Corpuscular HGB Conc 35.2 g/dl (31.0-35.0); Mean Corpuscular Hemoglobin 31.6 pg (27.0-33.0); Mean Corpuscular Volume 89.8 fL (80.0-98.0); Monocytes Absolute Auto 1.3 X10*3/uL (0.1-1.2); Neutrophils Absolute Auto 14.6 x10*3/uL (2.0-8.3); Neutrophils Percent Auto 79.6 % (45-73); Platelet Count 273 X10*3/uL (160-400); Red Blood Count 4.33 X10*6/uL (4.20-5.50); Red Cell Distribution Width 13.1 % (11.0-16.0)
[2024-07-04 22:14] LABS: WBC ABN SCTR FOR CBC 1; White Blood Count 18.4 X10*3/uL (4.8-10.8)
[2024-07-04 22:15] LABS: MANUAL DIFF FLAG NO
[2024-07-04 22:34] LABS: Alanine Aminotransferase 11 U/L (0-31); Albumin Level 4.6 g/dL (3.5-5.0); Alkaline Phosphatase 69 U/L (39-117); Anion Gap 13 (12-20); Aspartate Amino Transferase 15 U/L (5-31); Bilirubin Direct 0.3 mg/dL (0.0-0.5); Bilirubin Total 0.7 mg/dL (0.0-1.0); Blood Urea Nitrogen 10 mg/dL (9-16); Calcium 9.7 mg/dL (8.4-10.2); Carbon Dioxide 20 mmol/L (22-29); Chloride 106 mmol/L (96-108); Creatinine Clr Calc Pharmacy 90.4; Estimated Glomerular Filt Rate > 60; Glucose Random 110 mg/dL (60-115); Lipase 11 U/L (8-78); Potassium 3.5 mmol/L (3.3-5.1); Sodium 135 mmol/L (135-145); Total Protein 8.1 g/dL (6.5-8.0)
[2024-07-04 22:35] LABS: HCG Quantitative 2092 mIU/mL
[2024-07-04] MEDS: Nitrofurantoin Monohyd/M-Cryst 100 MG CAPSULE PO (23:22)
[2024-07-04 23:42] VITALS: BP 0/0; PULSE 0; RESP 0; TEMP -17.7; TEMP 0; O2SAT 0
== END 2024-07-04 23:45 | disposition home or self-care (01) ==
LOC: HO.ED 23:40
PROVIDERS: Emergency Provider Internal Medicine
DX: O23.41 Unspecified infection of urinary tract in pregnancy, first trimester (principal); N39.0 Urinary tract infection, site not specified; Z3A.01 Less than 8 weeks gestation of pregnancy
CPT/HCPCS: 36415; 76801; 80048; 80076; 81001; 81025; 83690; 84702; 85025; 87086; 87088; 87186; 99284

== ENCOUNTER 2024-07-17 15:15 | Outpatient (REF) | payer MEDICAID, SELFPAY ==
--- NOTE | ~2024-07-17 | US_ITS ---
EXAMINATION: US OBSTETRICAL PELVIC AND TRANSVAGINAL CLINICAL INFORMATION: First trimester with spotting. Evaluate for viability. COMPARISON: [employer] ultrasound dated 07/04/2024. LMP: Uncertain. TECHNIQUE: Transabdominal and transvaginal imaging was obtained. FINDINGS: There is a single intrauterine gestational sac with visible yolk sac. The gestational sac measures approximately 1.5 cm, which corresponds to gestational age of 6 weeks 3 days. Small echogenic focus adjacent to the yolk sac without a definite pole. This measures approximately 0.1 cm and could indicate a pole, too early to characterize. Hypoechoic focus along the inferior aspect of the gestational sac measuring up to 2.1 x 0.7 x 1.3 cm, consistent with subchorionic hemorrhage. Findings are new when compared to the prior examination. MATERNAL ADNEXA: The right maternal ovary measures 1.8 x 1.2 x 1.4 cm. The left maternal ovary measures 2.7 x 1.3 x 3.1 cm. There is no significant maternal adnexal mass. No maternal pelvic ascites. US/US OB pelvic and transvaginal IMPRESSION: 1. Intrauterine gestational sac with interval development of a yolk sac. Tiny echogenic focus adjacent to the sac, which could represent a tiny pole, too small to characterize. 2. Subchorionic hemorrhage along the inferior aspect of the gestational sac measuring up to 2.1 cm, new when compared to the prior examination. 3. Serial beta hCG and short-term interval follow-up ultrasound is recommended in approximately 7 days to help further evaluate for viability and development of a pole. Electronically signed by: Chapo Brower MD 07/18/2024 09:05 AM EDT
[2024-07-17 16:25] LABS: MANUAL DIFF FLAG NO
[2024-07-17 16:29] LABS: Basophils Absolute Auto 0.1 X10*3/uL (0.0-0.2); Basophils Percent Auto 0.7 % (0-2); Eosinophils Absolute Auto 0.1 X10*3/uL (0.0-0.4); Eosinophils Percent Auto 0.6 % (0-4); Hematocrit 39.5 % (37.0-47.0); Hemoglobin 13.5 g/dl (12.0-16.0); Imm Gran Abs Auto 0.03 X10*3/uL (0.00-0.03); Imm Gran Pct Auto 0.3 % (0.0-0.4); Lymphocytes Absolute Auto 2.3 X10*3/uL (1.2-4.9); Lymphocytes Percent Auto 21.1 % (20-40); Mean Corpuscular HGB Conc 34.2 g/dl (31.0-35.0); Mean Corpuscular Hemoglobin 31.4 pg (27.0-33.0); Mean Corpuscular Volume 91.9 fL (80.0-98.0); Mean Platelet Volume 11.7 fL (9.4-12.3); Monocytes Absolute Auto 0.7 X10*3/uL (0.1-1.2); Monocytes Percent Auto 6.4 % (2-11); Neutrophils Absolute Auto 7.6 x10*3/uL (2.0-8.3); Neutrophils Percent Auto 70.9 % (45-73); Platelet Count 234 X10*3/uL (160-400); Red Cell Distribution Width 13.2 % (11.0-16.0); White Blood Count 10.7 X10*3/uL (4.8-10.8)
[2024-07-17 17:39] LABS: HCG Quantitative 36352 mIU/mL
== END 2024-07-17 15:16 | disposition home or self-care (01) ==
LOC: HO.HMGCX 15:15
PROVIDERS: PCP Student in an Organized Health Care Education/Training Program; Visit Provider Student in an Organized Health Care Education/Training Program
DX: Z34.90 Encounter for supervision of normal pregnancy, unspecified, unspecified trimester (principal)
CPT/HCPCS: 36415; 76801; 76817; 84702; 85025

== ENCOUNTER 2024-07-22 11:09 | Outpatient (AMB) | payer MEDICAID, SELFPAY ==
[2024-07-22 11:10] VITALS: BP 98/60; BMI 23.0
--- NOTE | 2024-07-22 11:10 | MHC.OFFVIS ---
Vital Signs 07/22/24 11:10 Height 5 ft 3 in Weight 130 lb BMI 23.0 BP 98/60 Intake Visit Reasons: ob Problem visit Mortgage Loan Originator Required: No Information Interpreted: non-clinical & clinical Accompanied by: Mother Allergies SEASONAL ALLERGIES Allergy (Intermediate, Uncoded 07/22/24 11:13) NASAL CONGESTION Is last menstrual period known: Yes HPI Comments Details: Presenting for emergency room follow-up complaining of mild pelvic cramping and or mild spotting. On vitamins OB ultrasound done on 07/17 showed the following: IMPRESSION: 1. Intrauterine gestational sac with interval development of a yolk sac. Tiny echogenic focus adjacent to the sac, which could represent a tiny pole, too small to characterize. 2. Subchorionic hemorrhage along the inferior aspect of the gestational sac measuring up to 2.1 cm, new when compared to the prior examination. 3. Serial beta hCG and short-term interval follow-up ultrasound is recommended in approximately 7 days to help further evaluate for viability and development of a pole. 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 Review of Systems Const All systems reviewed & are unremarkable except as noted in HPI and below Physical Exam Vital Signs: Last Vital Signs BP 98/60 07/22/24 11:10 BMI result Body Mass Index 23.0 General: Yes no CVA tenderness External Female Exam: normal external appearance and normal appearance of the urethra Speculum Exam - Vagina: normal appearance of the vagina, normal palpation, no lesions and no masses Speculum Exam - Cervix: normal appearance of the cervix, normal palpation, no lesions, no masses and nontender Bimanual exam- vagina & uterus: normal bimanual exam, normal palpation, uterine size normal, normal palpation, uterine shape normal, No Cervical tenderness present and non-tender Bimanual Exam- Adnexa, other: normal adnexae Back/Spine/Pelvis Back: no CVA tenderness Assessment & Plan Assessment & Plan (1) Early stage of : Comment: History of pyelonephritis last Subchorionic hemorrhage on early ultrasound Code(s): Z34.90 - Encounter for supervision of normal , unspecified, unspecified trimester Category: Medical Plan: Urine dip done in the office was negative because of her history of previous pyelonephritis last . Discussed with the patient the finding on ultrasound showing subchorionic hemorrhage and no pole, recommended repeat ultrasound on 07/28 for viability. SAB warnings given to patient, she is to call or go to emergency room in case of pelvic cramping and or bleeding vitamin tablet p.o. q.d. Instructions given the patient to schedule an ultrasound and a follow-up appointment in 10 days. All questions answered, the patient verbalized understanding Orders: Orders US OB <= 14 weeks fetus 07/28/24 Z34.90 - Encounter for supervision of normal , unspecified, unspecified trimester Medications: Discontinued ondansetron Discontinued Reason: Patient Completed Course 4 mg PO Q8H PRN 10 tabs 0RF nausea and vomiting nirmatrelvir-ritonavir 300 mg (150 mg x 2)-100 mg (Paxlovid) Discontinued Reason: Patient Completed Course take TWO 150 mg tablets of nirmatrelvir with ONE 100 mg tablet of ritonavir twice daily for 5 days 30 ea 0RF nitrofurantoin monohyd/m-cryst 100 mg (Macrobid) must administer with a meal/food Discontinued Reason: Patient Completed Course 100 mg PO BID 20 caps 0RF cefpodoxime must administer with a meal/food Discontinued Reason: Patient Completed Course 200 mg PO BID 28 tabs 0RF Coding Level of Care Code Est Pt Level 3 (26299) Diagnoses Early stage of Z34.90
== END 2024-07-22 11:41 | disposition home or self-care (01) ==
PROVIDERS: PCP Student in an Organized Health Care Education/Training Program; Visit Provider Obstetrics & Gynecology
DX: Z34.90 Encounter for supervision of normal pregnancy, unspecified, unspecified trimester (principal)
CPT/HCPCS: 99213

== ENCOUNTER 2024-07-22 11:09 | Outpatient (REF) | payer MEDICAID, SELFPAY ==
[2024-07-23 12:18] LABS: CT PCR NOT DETECTED (Not Detect.); NG PCR NOT DETECTED (Not Detect.)
== END 2024-07-22 11:10 | disposition home or self-care (01) ==
LOC: HO.LNP 11:09
PROVIDERS: PCP Student in an Organized Health Care Education/Training Program; Visit Provider Obstetrics & Gynecology
DX: Z34.90 Encounter for supervision of normal pregnancy, unspecified, unspecified trimester (principal)
CPT/HCPCS: 87086; 87491; 87591; 99212

== ENCOUNTER 2024-07-28 13:53 | Outpatient (REF) | payer MEDICAID, SELFPAY ==
--- NOTE | ~2024-07-28 | US_ITS ---
EXAMINATION: US OBSTETRICAL ULTRASOUND CLINICAL INFORMATION: ; for dating and viability. COMPARISON: Prior ultrasound examinations dated 07/28/2024, 07/17/2024 and 07/04/2024. LMP: 05/10/2024. Gestational age by maternal dates is 11 weeks and 2 days. Estimated date of delivery by maternal dates is 02/14/2025. TECHNIQUE: Ultrasound of the maternal pelvis is performed using transabdominal and transvaginal transducers. Transvaginal imaging is performed due to inadequate visualization transabdominally. M-mode Doppler is also performed. FINDINGS: There is a single intrauterine gestational sac with visible yolk sac and no embryo/fetus or cardiac activity. There is no significant subchorionic hemorrhage or hematoma. HR: None detected. Mean sac diameter: 1.79 cm (6 weeks and 5 days +/- 4 days). [place] (estimated date of delivery): 03/18/2025 +/- 4 days. MATERNAL ADNEXA: The right maternal ovary measures 3.0 x 1.7 x 1.4 cm. The left maternal ovary measures 3.4 x 1.9 x 2.2 cm. There is no significant maternal adnexal mass. No maternal pelvic ascites. US/US OB pelvic and transvaginal IMPRESSION: Again, an intrauterine gestational sac is seen, with mean sac diameter measurement consistent with a 6 week and 5 day intrauterine gestation. No pole or heart rate is noted, raising the possibility of a blighted ovum. Recommend clinical correlation, including serial beta hCG measurements and short-term follow-up obstetrical ultrasound to assess for viability and appearance of a pole. Electronically signed by: Leo Serrano MD 08/12/2024 05:02 PM [facility]EL[facility]
== END 2024-07-28 13:54 | disposition home or self-care (01) ==
LOC: HO.US 13:53
PROVIDERS: PCP Student in an Organized Health Care Education/Training Program; Visit Provider Obstetrics & Gynecology
DX: Z3A.01 Less than 8 weeks gestation of pregnancy (principal)
CPT/HCPCS: 76801; 76817

== ENCOUNTER 2024-07-30 12:55 | Outpatient (REF) | payer MEDICAID, SELFPAY ==
[2024-07-30 15:11] LABS: HCG Quantitative 52473 mIU/mL
== END 2024-07-30 12:56 | disposition home or self-care (01) ==
LOC: HO.LAB 12:55
PROVIDERS: PCP Student in an Organized Health Care Education/Training Program; Visit Provider Obstetrics & Gynecology
DX: Z34.01 Encounter for supervision of normal first pregnancy, first trimester (principal); Z3A.00 Weeks of gestation of pregnancy not specified
CPT/HCPCS: 36415; 84702; 99212

== ENCOUNTER 2024-07-30 12:55 | Outpatient (AMB) | payer MEDICAID, SELFPAY ==
[2024-07-30 13:02] VITALS: BP 130/72; BMI 23.0
--- NOTE | 2024-07-30 13:02 | MHC.OFFVIS ---
Vital Signs 07/30/24 13:02 Height 5 ft 3 in Weight 130 lb 2 oz BMI 23.0 BP 130/72 Blood Pressure Location Rt brachial Position Sitting Intake Visit Reasons: OB US follow up Allergies SEASONAL ALLERGIES Allergy (Intermediate, Uncoded 07/30/24 13:06) NASAL CONGESTION HPI Comments Details: Presenting for ultrasound follow-up with no complaints no pelvic cramping and or bleeding. Blood type A positive, GC/CT negative HCG on 07/17 was 36,352 Repeat OB Ultrasound done on 07/28 , 11 days from previous ultrasound where it showed an IUP and subchorionic hemorrhage was gestational sac and yolk sac no , official report not available. Unofficial reading shows gestational sac with a yolk sac seen no pole no heart rate min sac diameter is 1.179 cm, mentioned to 6 weeks and 5 days of gestation On vitamin 1 tablet p.o. q.d. 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 Review of Systems Const All systems reviewed & are unremarkable except as noted in HPI and below Reports as per HPI and Reports no additional complaints GI Reports no additional complaints Reports no additional complaints Assessment & Plan Assessment & Plan (1) Early stage of : Comment: History of pyelonephritis last No pole, no heart rate, MSD 17.9 mm Code(s): Z34.90 - Encounter for supervision of normal , unspecified, unspecified trimester Category: Medical Plan: Discussed with the patient the results the ultrasound showing no pole no heart rate 11 days from previous ultrasound with gestational sac and yolk sac,, pointing towards possible SAB In addition discussed with the patient the size of mean sac diameter being below the cut of 0.25 mm, the radiologic ultrasonographic criteria for missed AB SAB warning of the patient she is to call or come back to emergency room in case of cramping and or bleeding Instructions given the patient to have HCG today and in 48 hours and schedule a repeat ultrasound on 08/01 and follow-up appointment afterwards All questions answered, the patient verbalized understanding Orders: Orders US OB pelvic and transvaginal 08/04/24 Z34.90 - Encounter for supervision of normal , unspecified, unspecified trimester HCG Quantitative Today Z34.90 - Encounter for supervision of normal , unspecified, unspecified trimester HCG Quantitative 08/01/24 Z34.90 - Encounter for supervision of normal , unspecified, unspecified trimester Coding Level of Care Code Est Pt Level 3 (60902) Diagnoses Early stage of Z34.90
== END 2024-07-30 13:24 | disposition home or self-care (01) ==
LOC: HO.HWS 12:55
PROVIDERS: PCP Student in an Organized Health Care Education/Training Program; Visit Provider Obstetrics & Gynecology
DX: Z34.90 Encounter for supervision of normal pregnancy, unspecified, unspecified trimester (principal)
CPT/HCPCS: 99213

== ENCOUNTER 2024-08-01 12:02 | Outpatient (REF) | payer MEDICAID, SELFPAY ==
[2024-08-01 15:04] LABS: HCG Quantitative 48742 mIU/mL
== END 2024-08-01 12:03 | disposition home or self-care (01) ==
LOC: HO.LAB 12:02
PROVIDERS: PCP General Practice; Visit Provider Obstetrics & Gynecology
DX: Z34.90 Encounter for supervision of normal pregnancy, unspecified, unspecified trimester (principal)
CPT/HCPCS: 36415; 84702

== ENCOUNTER 2024-08-04 12:33 | Outpatient (REF) | payer MEDICAID, SELFPAY ==
--- NOTE | ~2024-08-04 | US_ITS ---
EXAMINATION: US OBSTETRICAL ULTRASOUND CLINICAL INFORMATION: Follow-up absent pole. COMPARISON: Prior pelvic ultrasound examinations, most recently 07/28/2024. LMP: 05/10/2024. Gestational age by maternal dates is 12 weeks and 2 days. Estimated date of delivery by maternal dates is 02/14/2025. TECHNIQUE: Ultrasound of the maternal pelvis is performed using transabdominal and transvaginal transducers. Transvaginal imaging is performed due to inadequate visualization transabdominally. M-mode Doppler is also performed. FINDINGS: There is a single intrauterine gestational sac with visible yolk sac, and no embryo/fetus or cardiac activity. There is no significant subchorionic hemorrhage or hematoma. There is a small amount of nonspecific free fluid within the endocervical canal. HR: None detected. Mean sac diameter: 1.66 cm (6 weeks and 4 days +/- 4 days). [place] (estimated date of delivery): 03/26/2025 +/- 4 days. MATERNAL ADNEXA: The right maternal ovary measures 1.2 x 2.0 x 1.2 cm. The left maternal ovary measures 1.6 x 2.3 x 1.1 cm. There is no significant maternal adnexal mass. There is a small amount of nonspecific free fluid in the cul-de-sac. US/US OB pelvic and transvaginal IMPRESSION: An intrauterine gestational sac is redemonstrated, with mean sac diameter measurements consistent with a 6 week and 4 day intrauterine gestation. Again, there is no pole or heart rate, suggesting a possible blighted ovum. Recommend continued obstetrical evaluation and management, including serial beta-hCG levels and short-term follow-up ultrasound imaging as clinically indicated. Electronically signed by: Leo Serrano MD 08/12/2024 05:34 PM [facility]
== END 2024-08-04 12:34 | disposition home or self-care (01) ==
LOC: HO.US 12:33
PROVIDERS: PCP Student in an Organized Health Care Education/Training Program; Visit Provider Obstetrics & Gynecology
DX: Z34.90 Encounter for supervision of normal pregnancy, unspecified, unspecified trimester (principal)
CPT/HCPCS: 76801; 76817

== ENCOUNTER 2024-08-05 10:46 | Outpatient (AMB) | payer MEDICAID, SELFPAY ==
[2024-08-05 11:09] VITALS: BP 120/66; BMI 23.8
--- NOTE | 2024-08-05 11:09 | A.OFFVIS_ITS ---
Vital Signs 08/05/24 11:09 Height 5 ft 3 in Weight 134 lb 6 oz BMI 23.8 BP 120/66 Blood Pressure Location Rt brachial Position Sitting Intake Visit Reasons: OB US/labs follow up Allergies SEASONAL ALLERGIES Allergy (Intermediate, Uncoded 08/05/24 11:09) NASAL CONGESTION HPI Comments Details: Presenting for follow-up. No pelvic cramping and or bleeding. On vitamin 1 tablet p.o. q.d. On 07/17 HCG on 07/17 was 36,352 OB ultrasound done showed the following: IMPRESSION: 1. Intrauterine gestational sac with interval development of a yolk sac. Tiny echogenic focus adjacent to the sac, which could represent a tiny pole, too small to characterize. 2. Subchorionic hemorrhage along the inferior aspect of the gestational sac measuring up to 2.1 cm, new when compared to the prior examination. 3. Serial beta hCG and short-term interval follow-up ultrasound is recommended in approximately 7 days to help further evaluate for viability and development of a pole. Discussed with the patient the finding on ultrasound showing subchorionic hemorrhage and no pole, recommended repeat ultrasound on 07/28 for viability. SAB warnings given to patient, she is to call or go to emergency room in case of pelvic cramping and or bleeding 07/28 OB ultrasound was done, no official report was available at thetime of the visit, unofficial reading showed gestational sac with yolk sac seen with questionable pole appears similar to previous exam on 07/17 without a heart rate ,mean sac diameter measuring 1.79 cm, commensurate with 6 weeks and 5 days of gestation period During the visit , discussed with the patient the results the ultrasound showing no pole no heart rate 11 days from previous ultrasound with gestational sac and yolk sac, pointing towards possible SAB. In addition discussed with the patient the size of mean sac diameter being below the cut off point of 25 mm, the radiologic ultrasonographic criteria for missed AB . Recommended to repeat HCG and another hCG level in 48 hours and schedule a repeat ultrasound on 08/01 and follow-up appointment afterwards . On 07/30 hCG was 52,473 On 08/01 hCG went down to 48,742 Blood type A positive GC/CT were negative On 08/04, repeat pelvic ultrasound was done, official reading is not available At the time of the visit but unofficial reading showed the following: Gestational sac measuring 6 weeks and 4 days of gestation with a mean sac diameter measuring 1.66 cm previously measuring 1.79 cm, commansurate with 6 weeks and 5 days of gestation.No pole seen. No heart rate detected . 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 Review of Systems Const All systems reviewed & are unremarkable except as noted in HPI and below Reports as per HPI and Reports no additional complaints GI Reports no additional complaints Reports no additional complaints Physical Exam Vital Signs: Last Vital Signs BP 120/66 08/05/24 11:09 BMI result Body Mass Index 23.8 Assessment & Plan Assessment & Plan (1) Missed : Code(s): O02.1 - Missed Category: Medical Plan: Discussed with the patient the finding on ultrasound showing absence of an embryo with a heartbeat more than 11 days after a scan that showed gestational sac with a yolk sac is a diagnostic finding for failure by ultrasound according to the Society of radiologists in ultrasound multi specialty consensus conference on early 1st trimester diagnosis of miscarriage and exclusion of a viable intrauterine . Discussed with the patient options of treatment including expectant management, medical termination of or suction D&C. Discussed with the patient the following options: Option 1: Expectant management consists of watchful waiting for tissue to pass. Clinical issues that were addressed & discussed with the patient include the following but not limited to: -frequency of follow-up visits should be every 1-2 weeks until completion. -confirmation of an empty uterus will follow-up afterwards. -the time at which consideration for a different treatment being not more than 2-3 weeks of expectant management, -options if the does not pass include medical versus surgical treatment . -and any symptoms that require prompt evaluation including but not limited to: vaginal bleeding, pelvic pain, fever, nausea or vomiting and others. -In addition, discussed with the patient complications of expectant management including but not limited to: incomplete emptying, hemorrhage and infection which warrants timely evaluation and likely progression to medication was surgical management . -Discussed with the patient a rare possible complication with expectant mentioned called DIC, I explained to the patient that with prolonged expectant management demise can lead to hematological abnormality causing increase in bleeding tendency and other complications, the risk of which is around 10% at 4 weeks post diagnosis and can increase with further delayed management. Explained to the patient the DIC is a very serious condition that he, as care for an prompt management to prevent significant morbidity and mortality. Option 2. Medical termination of : Explained to the patient that with mifepristone and misoprostol, this option results in a higher rate of successful termination of , lower risk of bleeding and infection and surgical intervention. Comprehensive counseling about the expected experience, symptoms, recovery, and the possibility of needing a surgical procedure if medication is unsuccessful was provided. I reviewed typical symptoms and the experience of passing gestational tissue with the patient. I emphasized concerning symptoms to watch for, to call the office or go to emergency room for including but not limited: If nothing /no symptoms occurred after taking both medications , severe abdominal pain that persists after passing tissue, persistent pain without bleeding or tissue passage, bleeding that does not decrease after passing tissue, or soaking two maxi pads per hour for two consecutive hours. Lastly, I explained to the patient that after taking Misoprostol, is likely to occur within the next several hours, with a 93% proportion of patients aborting within four hours after taking vaginal Misoprostol. Options 3 includes suction D&C , which is a surgical procedure done in the operating room under anesthesia , discussed with the patient benefits and the risks of the surgical procedure . Explained to the patient the risks including but not limited to: Risk of bleeding, infection, uterine perforation and possible injury to bladder, bowel, ureter, blood vessels , possible need for blood transfusion, possible development of intrauterine adhesions affecting future fertility . At the end the patient became upset and angry questioning the diagnosis of a missed and the management over the last 2 weeks and the lack of medical intervention to alter the outcome . At this point, I offered the patient to refer her for a 2nd opinion with [facility] as soon as possible for the confirmation of the diagnosis and to discuss the different management options, the patient walked out without a follow-up appointment. A letter summarizing the clinical situation and discussion regarding options of treatment was sent to the patient's Will reach out to schedule an a close follow-up appointment and/or schedule a 2nd opinion as soon as possible at [facility]. Coding Level of Care Code Est Pt Level 3 (03586) Diagnoses Missed O02.1
== END 2024-08-05 11:47 | disposition home or self-care (01) ==
LOC: HO.HWS 10:46
PROVIDERS: PCP General Practice; Visit Provider Obstetrics & Gynecology
DX: O02.1 Missed abortion (principal)
CPT/HCPCS: 99213

== ENCOUNTER → 2024-08-05 10:46 | Outpatient (BNVA) | payer MEDICAID, SELFPAY | PROVIDERS: PCP General Practice; Visit Provider Obstetrics & Gynecology | DX: O02.1 Missed abortion (principal); Z3A.01 Less than 8 weeks gestation of pregnancy | CPT/HCPCS: 99212 ==

== ENCOUNTER 2024-08-13 10:34 | Emergency (ER) | payer MEDICAID, SELFPAY ==
--- NOTE | ~2024-08-13 | US_ITS ---
EXAMINATION: US TRANSVAGINAL US TRANSABDOMINAL INDICATION: miscarriage. COMPARISON: Pelvic ultrasound 08/04/2024. TECHNIQUE: Transabdominal and transvaginal pelvic ultrasound was performed. Color and spectral Doppler evaluation of the vasculature. FINDINGS: UTERUS: Anteverted. Uterus measures 10 x 4.8 x 5.3 cm (cervix to fundus x AP x transverse). No gestational sac identified. The upper endometrial stripe measures 0.7 cm. Endometrial products are seen to be moving into the lower uterine segment as compared to 08/04/24. RIGHT OVARY: Not visualized. LEFT OVARY: Not visualized. US/US OB pelvic and transvaginal IMPRESSION: Absence of intrauterine gestational sac with movement of endometrial products into the lower uterine segment. Findings are most consistent with spontaneous . Electronically signed by: Chani Tam DO 08/13/2024 05:01 PM [facility]
--- NOTE | 2024-08-13 10:40 | ED.GENADULT ---
HPI - General Adult General Chief complaint: Vaginal Bleeding Stated complaint: possible miscarriage Time Seen by Provider: 08/13/24 10:40 Source: patient, family (patient's mother) and EMS Mode of arrival: EMS Limitations: no limitations History of Present Illness ED Provider: Haylee Romero PA-C HPI narrative: Patient is a 24 year old assigned female at with a history of current presenting to the emergency department today with abdominal pain and vaginal bleeding. Patient states that she is approximately 7 weeks and is now having much worse lower abdominal pain and vaginal bleeding. Patient states that she passed a large clot that she bagged and brought with her. Patient denies any dizziness, lightheadedness, fever, chills, blurry vision, double vision, loss of vision, chest pain, difficulty breathing, shortness of breath, back pain, night sweats, pain with urination, increased urinary frequency, increased urinary urgency, blood in her stool, syncope or a near syncopal episode, recent trauma or falls, bowel incontinence, bladder incontinence, or any other complaints at this time. Relieving factors: none Exacerbating factors: none Associated symptoms: nausea/vomiting Treatments prior to arrival: none Related Data Home Medications ?Medication ?Instructions ?Recorded ?Confirmed vit no.95-ferrous 1 tab PO DAILY 07/30/24 fumarate 28 mg-folic acid 800 mcg tablet () Allergies Allergy/AdvReac Type Severity Reaction Status Date / Time SEASONAL ALLERGIES Allergy Intermediate NASAL Uncoded 08/13/24 10:59 CONGESTION Review of Systems Constitutional: Constitutional: Reports no additional constitutional complaints, Denies chills, Denies fever(s) and Denies night sweats Eyes: Eyes: Reports no additional eye complaints, Denies blurry vision, Denies change in vision, Denies diplopia, Denies eye discharge, Denies loss of vision and Denies eye pain ENT: Denies dizziness Cardiovascular: Cardiovascular: Reports no additional cardiovascular complaints, Denies chest pain, Denies lightheadedness, Denies Loss of Consciousness and Denies dyspnea Respiratory: Respiratory: Reports no additional respiratory complaints and Denies dyspnea Gastrointestinal: Gastrointestinal: Reports no additional gastrointestinal complaints, Reports abdominal pain, Denies melena, Denies hematochezia, Denies change in bowel habits, Denies change in stool character, Reports nausea and Reports vomiting Genitourinary: Genitourinary: Denies hematuria, Denies urinary frequency, Denies dysuria, Denies urinary incontinence, Denies urinary hesitancy and Denies urinary urgency Comments: vaginal bleeding Musculoskeletal: Musculoskeletal: Reports no additional musculoskeletal complaints, Denies numbness and Denies tingling Neurologic: Denies dizziness, Denies loss of vision, Denies numbness and Denies tingling Psychiatric: Psychiatric: Reports no additional psychiatric complaints Endocrine: Endocrine: Reports no additional endocrine complaints Hematologic/Lymphatic: Hematologic/Lymphatic: Reports no additional hematologic/lymphatic complaints Allergic/Immunologic: Allergic/Immunologic: Reports no additional allergic/immunologic complaints PMFSH Past Medical History Attestation statement: The following information was validated with the patient. (all information validated with the patient's mother) Source: old records reviewed, obtained from family (patient's mother provided additional history and confirmed the history provided by the patient) and nursing notes reviewed Family History Family History Mother Uterus cancer Maternal Aunt Breast cancer Father HTN (hypertension) Diabetes Maternal Grandfather HTN (hypertension) Maternal Grandfather Diabetes Social History Social History Household Members: Family Housing: Apartment Alcohol intake: former Patient Tobacco Use Status: Current everyday Tobacco user Cigarettes Per Day: 2 Years Smoked: 4 Smoked in Last 30 Days: No Use of substances other than those prescribed or required for medical reasons: No Substance Use Type: Marijuana Advance Directives: No Advance Directives Information Provided: Yes Patient : Yes Current occupational status: employed 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 [employer] Physical Exam ED Vital Signs: Vital Signs - 24 hr 08/13/24 10:48 08/13/24 10:53 08/13/24 12:00 Temperature 98.1 F Pulse Rate 68 70 51 Respiratory Rate 18 12 Blood Pressure 108/59 L 115/58 L 108/67 Pulse Oximetry 100 100 100 Oxygen Delivery Method Room Air Room Air Room Air 08/13/24 14:55 Temperature 98.1 F Pulse Rate 51 Respiratory Rate 12 Blood Pressure 108/67 Pulse Oximetry 100 Oxygen Delivery Method Room Air BMI result Body Mass Index 22.1 Const General: cooperative, no acute distress, alert and awake Nutritional Appearance: well nourished Orientation/consciousness: patient oriented x3 Limitations: no limitations HENMT Head: Yes normal to inspection and Yes atraumatic Ears: hearing grossly normal bilaterally and external ears normal General nose exam: Normal external nose present, no nasal discharge noted and no epistaxis Face and sinus: Yes normal facial exam, No abrasion and No laceration Mouth: Normal oral and palatal mucosa present, no drooling and no muffled voice Eyes General: appearance normal, both eyes and all related structures Periorbital: periorbital findings normal Eyelids: Yes eyelids normal Conjunctivae: conjunctivae normal Pupils: Equal, round and reactive pupils present EOM: EOMs intact bilaterally Neck Neck: Yes normal visual inspection, Yes full ROM and Yes no lymphadenopathy Chest Chest palpation & inspection: normal inspection of the chest Resp Effort & Inspection: normal respiratory effort and able to speak in complete sentences GI Inspection: Yes normal to inspection Neuro General: patient oriented x3 and moves all extremities Cranial nerves: Yes Equal, round and reactive pupils present Cognition (Neuro): normal cognition Extrem General: Yes normal to inspection, Yes full ROM and Yes capillary refill normal Psych Appearance: grossly normal Mental Status: mental status grossly normal Affect: normal affect Attitude: cooperative Thought process: Normal thought process present Thought content: Normal thought content present Insight: Good insight present (Psych) Medications Administered Discontinued Medications Generic Name Dose Route Start Last Admin Trade Name Freq PRN Reason Stop Dose Admin Sodium Chloride 1,000 mls @ 999 mls/hr 08/13/24 11:30 08/13/24 13:38 Ns IV 08/13/24 12:30 Infused .Q1H1M RUDY Infusion Metoclopramide HCl 10 mg 08/13/24 11:51 08/13/24 12:46 Metoclopramide Hcl 10 Mg/2 Ml Vial IVPUSH 08/13/24 11:52 10 mg ONCE ONE Administration Morphine Sulfate 4 mg 08/13/24 10:40 08/13/24 10:52 Morphine Sulfate 4 Mg/Ml Cartridge IVPUSH 08/13/24 10:41 4 mg ONCE ONE Administration Protocol Medical Decision Making Medical Decision Making MDM Narrative: Patient is a 24 year old assigned female at with a history of current presenting to the emergency department today with abdominal pain and vaginal bleeding. Patient's physical exam was as noted in the physical exam portion of this note. Patient's blood work showed an elevated WBC count and decreasing HCG. Patient's US showed evidence of a complete miscarriage. I consulted with Dr. Morris, the OBGYN filtration plant mechanic, who came and examined the patient. He stated that he was able to remove some tissue and would monitor her closely then re-examine in 2 hours. Upon re-examination he stated the bleeding was controlled and the patient was clear for discharge. I explained my physical exam findings as well as all test results to the patient and the patient's mother. I answered all questions asked by the patient and the patient's mother. Patient received IV morphine, reglan, and zofran which, upon re-evaluation, she stated it helped her symptoms significantly. I stressed the importance of the patient taking her medication as directed (either prescribed or as the over the counter packaging recommends). I stressed the importance of the patient following up with her primary care provider and an OBGYN. I stressed the importance of the patient returning to the emergency department immediately if her symptoms were to worsen or if she were to develop any dizziness, shortness of breath, difficulty breathing, chest pain, blurry vision, loss of vision, nausea, vomiting, abdominal pain, fever, chills, back pain, or any other complaints. Patient and the patient's mother verbalized agreement and understanding with this treatment plan and discharge. The tissue / clot the patient brought to the department was sent down to pathology. Differential Diagnosis Differential Diagnoses: The differential diagnosis associated with the presentation includes Incomplete Miscarriage Admission/Observation Consideration of admission/observation: Escalation of care including admission/observation considered Patient would have been admitted to the hospital had her work up had any findings where hospital admission was appropriate and her clinical presentation warranted hospital admission. Consult Healthcare Provider Management of the patient was discussed with: Machine Assembler (spoke with the OBGYN as noted in the MDM Rationale portion of this note.) Lab Data [facility] Lab Attestation statement: I reviewed the patient's lab results. My interpretation of these results are in the MDM Rationale portion of this note. 08/13/24 11:47 08/13/24 11:47 Labs: Lab Results 08/13/24 Range/Units 11:47 WBC 18.0 H (4.8-10.8) X10*3/uL RBC 4.08 L (4.20-5.50) X10*6/uL Hgb 13.0 (12.0-16.0) g/dl Hct 37.7 (37.0-47.0) % MCV 92.4 (80.0-98.0) fL MCH 31.9 (27.0-33.0) pg MCHC 34.5 (31.0-35.0) g/dl RDW 13.5 (11.0-16.0) % Plt Count 221 (160-400) X10*3/uL MPV 11.4 (9.4-12.3) fL Immature Gran % (Auto) 0.8 H (0.0-0.4) % Neut % (Auto) 88.1 H (45-73) % Lymph % (Auto) 6.3 L (20-40) % Whitfield % (Auto) 4.1 (2-11) % Eos % (Auto) 0.3 (0-4) % Baso % (Auto) 0.4 (0-2) % Lymph # (Auto) 1.1 L (1.2-4.9) X10*3/uL Whitfield # (Auto) 0.7 (0.1-1.2) X10*3/uL Eos # (Auto) 0.1 (0.0-0.4) X10*3/uL Baso # (Auto) 0.1 (0.0-0.2) X10*3/uL Abs Immat Gran (auto) 0.14 H (0.00-0.03) X10*3/uL Absolute Neuts (auto) 15.9 H (2.0-8.3) x10*3/uL Absolute Nucleated RBC 0.000 (0.0-0.012) X10*3/uL Nucleated RBC % (auto) 0.0 (0.0-0.2) /100WBC Sodium 138 (135-145) mmol/L Potassium 3.8 (3.3-5.1) mmol/L Chloride 110 H (96-108) mmol/L Carbon Dioxide 19 L (22-29) mmol/L Anion Gap 13 (12-20) BUN 7 L (9-16) mg/dL Creatinine 0.70 (0.5-1.4) mg/dL Estim Creat Clear Calc 103.4 Estimated GFR > 60 Random Glucose 127 H (60-115) mg/dL Calcium 9.3 (8.4-10.2) mg/dL Magnesium 1.6 (1.6-2.6) mg/dL Total Bilirubin 0.5 (0.0-1.0) mg/dL AST 20 (5-31) U/L ALT 14 (0-31) U/L Alkaline Phosphatase 51 (39-117) U/L Total Protein 7.5 (6.5-8.0) g/dL Albumin 4.4 (3.5-5.0) g/dL Beta HCG, Quant 33455 mIU/mL Blood Type A Positive Antibody Screen NEGATIVE Independent Interpretation I performed an independent interpretation of an: Ultrasound Interpretation: My interpretation is in agreement with the radiologist's impression of this imaging study. EXAMINATION: US TRANSVAGINAL US TRANSABDOMINAL INDICATION: miscarriage. COMPARISON: Pelvic ultrasound 08/04/2024. TECHNIQUE: Transabdominal and transvaginal pelvic ultrasound was performed. Color and spectral Doppler evaluation of the vasculature. FINDINGS: UTERUS: Anteverted. Uterus measures 10 x 4.8 x 5.3 cm (cervix to fundus x AP x transverse). No gestational sac identified. The upper endometrial stripe measures 0.7 cm. Endometrial products are seen to be moving into the lower uterine segment as compared to 08/04/24. RIGHT OVARY: Not visualized. LEFT OVARY: Not visualized. US/US OB pelvic and transvaginal IMPRESSION: Absence of intrauterine gestational sac with movement of endometrial products into the lower uterine segment. Findings are most consistent with spontaneous . Electronically signed by: Chani Tam DO 08/13/2024 05:01 PM [facility] [place] Dictated By: Chani Tam Signed By: Electronically signed by Chani Tam 08/13/24 [id number] Independent Historian Clinical information obtained from an independent historian. History obtained from or confirmed by: Parent (patient's mother provided additional history and confirmed the history provided by the patient.) and EMS (EMS provided additional history and confirmed the history provided by the patient) Discharge Plan Discharge Clinical Impression: Incomplete miscarriage Patient Disposition: Home, Self-Care Instructions: Miscarriage (ED) Additional Instructions: Follow up with your primary care provider and an OBGYN. Return to the emergency department immediately if your symptoms worsen or if you develop any dizziness, shortness of breath, difficulty breathing, chest pain, blurry vision, loss of vision, nausea, vomiting, abdominal pain, fever, chills, back pain, or any other complaints. Prescriptions: No Action PNV cmb#95-ferrous fumarate-FA [] 28 mg iron- 800 mcg tablet 1 tab PO DAILY Referrals: [facility] [Primary Care Provider] - Anthony Morris MD [Physician] - (Call to establish and follow up with an OBGYN. ) Stand Alone Forms: Work/School Release Interventions: ED Discharge Assessment Last Done: 08/13/24 14:55 Discharge Date/Time: 08/13/24 14:57 Print Language: Other
[2024-08-13 10:45] VITALS: BP 130/80; PULSE 76; O2SAT 99
[2024-08-13 10:48] VITALS: BP 108/59; PULSE 68; O2SAT 100
[2024-08-13] MEDS: Morphine Sulfate 4 MG/ML CARTRIDGE IVPUSH (10:52)
[2024-08-13 10:53] VITALS: BP 115/58; PULSE 70; RESP 18; O2SAT 100; BMI 22.1
--- NOTE | 2024-08-13 11:20 | P.CONOB_ITS ---
INVOICE CHECKER - CN: HPI Data of Consult Consult date: 08/13/24 Primary Care Provider: [facility] Consult Narrative Narrative: I was consulted on Autumn Aggarwal who is a 24 year old female presented to emergency room with heavy vaginal bleeding and passage of products of conception and blood clots with pelvic cramping, the cramps and bleeding started at 07:00 this morning. On 08/04 the patient had pelvic ultrasound which showed the following: IMPRESSION: An intrauterine gestational sac is redemonstrated, with mean sac diameter measurements consistent with a 6 week and 4 day intrauterine gestation. Again, there is no pole or heart rate, suggesting a possible blighted ovum. Recommend continued obstetrical evaluation and management, including serial beta-hCG levels and short-term follow-up ultrasound imaging as clinically indicated. On 07/30 hCG was 52,473 On 08/01 hCG went down to 48,742 Blood type A positive GC/CT were negative On 08/05/24 The patient was seen in the office for a visit and was counseled with different options of treatment including expectant management, medical termination of or suction D&C, at the end of the counseling the patient left without follow-up appointment and after multiple phone calls the patient declined follow-up treatment and a 2nd opinion. 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 Meds Allergies Allergy/AdvReac Type Severity Reaction Status Date / Time SEASONAL ALLERGIES Allergy Intermediate NASAL Uncoded 08/13/24 10:59 CONGESTION Active Medications: Current Medications Sodium Chloride (Ns) 1,000 mls @ 999 mls/hr IV .Q1H1M RUDY Stop: 08/13/24 12:30 Home Medications ?Medication ?Instructions ?Recorded ?Confirmed ?Last Taken ?Type vit no.95-ferrous 1 tab PO DAILY 07/30/24 Unknown History fumarate 28 mg-folic acid 800 mcg tablet () INVOICE CHECKER Physical Exam Vitals Vital signs: Pulse Resp BP Pulse Ox O2 Del Method 70 18 115/58 L 100 Room Air 08/13/24 10:53 08/13/24 10:53 08/13/24 10:53 08/13/24 10:53 08/13/24 10:53 BMI result Body Mass Index 22.1 Abdomen Auscultation/Inspection/Palpation: Soft, Non-distended and No tenderness Female Genitalia (Pelvic) Vulva: No lesions Lesion: Pustule Cervix: Grossly normal Uterus: Normal size Adnexa/Parametria: Adnexal Tenderness: Bilateral, Adnexal Mass: Bilateral, Parametrial Tenderness: Bilateral and Parametrial Mass: Bilateral Additional Comments: Blood per vagina, tissues coming out of the cervical os were removed using ring forceps INVOICE CHECKER - Results Labs 08/13/24 11:47 08/13/24 11:47 Assessment and Plan (1) SAB (spontaneous ): Status: Acute Plan 11:00 real-time ultrasound at the bedside showed products of conception/blood clot moving from the fundus to the lower uterine segment/cervix 11:35 pelvic exam showed blood per vagina, products of conception coming out of the cervical os were pulled out of the cervix, bleeding stopped, pathology sent 12:24 the patient has been doing well with no cramping and no more bleeding, repeat pelvic exam no blood per vagina. Discussed with the patient that impression is complete at this point, the Plan is to observe the patient the coming 2 hours if bleeding/cramping recurs will consider suction D&C 14:40 the patient is doing well with no more bleeding or cramping. Recommended to discharge the patient home. Instructions given the patient to schedule a follow-up appointment in the office in 1 week with repeat hCG quantitative in an effort to follow it down to non level. Instructions given the patient to call if fever above 100.4, pelvic cramping and or bleeding, nausea or vomiting. All questions answered, the patient verbalized understanding and agreed with the plan
[2024-08-13] MEDS: 0.9 % Sodium Chloride 1,000 ML 999 ML IV (11:57)
[2024-08-13 11:59] LABS: MANUAL DIFF FLAG NO
[2024-08-13 12:00] VITALS: BP 108/67; PULSE 51; RESP 12; TEMP 36.7; O2SAT 100
[2024-08-13 12:00] LABS: Basophils Absolute Auto 0.1 X10*3/uL (0.0-0.2); Basophils Percent Auto 0.4 % (0-2); Eosinophils Absolute Auto 0.1 X10*3/uL (0.0-0.4); Eosinophils Percent Auto 0.3 % (0-4); Hematocrit 37.7 % (37.0-47.0); Imm Gran Abs Auto 0.14 X10*3/uL (0.00-0.03); Imm Gran Pct Auto 0.8 % (0.0-0.4); Lymphocytes Absolute Auto 1.1 X10*3/uL (1.2-4.9); Lymphocytes Percent Auto 6.3 % (20-40); Mean Corpuscular HGB Conc 34.5 g/dl (31.0-35.0); Mean Corpuscular Hemoglobin 31.9 pg (27.0-33.0); Mean Corpuscular Volume 92.4 fL (80.0-98.0); Mean Platelet Volume 11.4 fL (9.4-12.3); Monocytes Absolute Auto 0.7 X10*3/uL (0.1-1.2); Monocytes Percent Auto 4.1 % (2-11); Neutrophils Absolute Auto 15.9 x10*3/uL (2.0-8.3); Neutrophils Percent Auto 88.1 % (45-73); Platelet Count 221 X10*3/uL (160-400); Red Blood Count 4.08 X10*6/uL (4.20-5.50); Red Cell Distribution Width 13.5 % (11.0-16.0)
[2024-08-13 12:22] LABS: Alanine Aminotransferase 14 U/L (0-31); Albumin Level 4.4 g/dL (3.5-5.0); Alkaline Phosphatase 51 U/L (39-117); Anion Gap 13 (12-20); Aspartate Amino Transferase 20 U/L (5-31); Bilirubin Total 0.5 mg/dL (0.0-1.0); Blood Urea Nitrogen 7 mg/dL (9-16); Calcium 9.3 mg/dL (8.4-10.2); Carbon Dioxide 19 mmol/L (22-29); Chloride 110 mmol/L (96-108); Creatinine Clr Calc Pharmacy 103.4; Estimated Glomerular Filt Rate > 60; Glucose Random 127 mg/dL (60-115); Magnesium 1.6 mg/dL (1.6-2.6); Potassium 3.8 mmol/L (3.3-5.1); Sodium 138 mmol/L (135-145); Total Protein 7.5 g/dL (6.5-8.0)
[2024-08-13 12:28] LABS: HCG Quantitative 13471 mIU/mL
[2024-08-13] MEDS: Metoclopramide HCl 10 MG/2 ML VIAL IVPUSH (12:46)
--- NOTE | 2024-08-13 13:56 | PC.NURSE ---
Patient sitting upright in bed observed with smile on face talking on phone and denies any pain or discomfort at this time. Patient relief of pain, nausea and headache. minimal discharge on bed of about 5ML blood. patient denies any other clots coming out. will continue to monitor closely.
[2024-08-13 14:55] VITALS: BP 108/67; PULSE 51; RESP 12; TEMP 36.7; O2SAT 100
== END 2024-08-13 14:57 | disposition home or self-care (01) ==
PROVIDERS: Physician Assistant Medical; Emergency Provider Student in an Organized Health Care Education/Training Program
DX: O03.4 Incomplete spontaneous abortion without complication (principal); O21.0 Mild hyperemesis gravidarum; Z3A.01 Less than 8 weeks gestation of pregnancy; Z79.899 Other long term (current) drug therapy
CPT/HCPCS: 36415; 76801; 76817; 80053; 83735; 84702; 85025; 86850; 86900; 86901; 88305; 96361; 96374; 96375; 99284; J2270; J2765

== ENCOUNTER → 2024-08-13 11:16 | Outpatient (BNV) | payer MEDICAID, SELFPAY | PROVIDERS: Emergency Provider Student in an Organized Health Care Education/Training Program; Visit Provider Obstetrics & Gynecology | DX: O03.9 Complete or unspecified spontaneous abortion without complication (principal) | CPT/HCPCS: 99283 ==

== ENCOUNTER 2024-08-19 09:01 | Outpatient (REF) | payer MEDICAID, SELFPAY ==
[2024-08-19 09:51] LABS: HCG Quantitative 331 mIU/mL
== END 2024-08-19 09:02 | disposition home or self-care (01) ==
LOC: HO.LAB 09:01
PROVIDERS: PCP General Practice; Visit Provider Obstetrics & Gynecology
DX: O03.9 Complete or unspecified spontaneous abortion without complication (principal); N96 Recurrent pregnancy loss; Z30.09 Encounter for other general counseling and advice on contraception
CPT/HCPCS: 36415; 84702; 99212

== ENCOUNTER 2024-08-19 09:32 | Outpatient (AMB) | payer MEDICAID, SELFPAY ==
--- NOTE | 2024-08-19 09:34 | A.OFFVIS_ITS ---
Vital Signs 08/19/24 09:36 BP 102/62 Intake Visit Reasons: HCG follow up Financial Investment Manager: Financial Investment Manager Present (Ashly) Accompanied by: Mother Allergies SEASONAL ALLERGIES Allergy (Intermediate, Uncoded 08/13/24 10:59) NASAL CONGESTION HPI Comments Details: Presenting for emergency room follow-up after complete doing well with no complaints minimal pelvic cramping and bleeding. 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 All the pros, cons, risks and benefits of each were discussed with the patient. The patient decided to do nothing at this point. Instructions given the patient to use condoms till hCG is down to 0. All questions answered, the patient verbalized understanding (3) Complete : Code(s): O03.9 - Complete or unspecified spontaneous without complication Category: Medical Plan: Will repeat hCG in a week. Instructions given the patient to call in case of pe lvic cramping and or bleeding, fever above 100.4 and to schedule 1 week hCG follow-up appointment. All questions answered, the patient verbalized understanding. Orders: Orders HCG Quantitative 1 Week O03.9 - Complete or unspecified spontaneous without complication Referrals Reproductive Endocrinology N96 - Recurrent loss Coding Level of Care Code Est Pt Level 3 (70389) Diagnoses Recurrent loss N96 Family planning Z30.09 Complete O03.9
[2024-08-19 09:36] VITALS: BP 102/62
== END 2024-08-19 10:01 | disposition home or self-care (01) ==
LOC: HO.HWS 09:32
PROVIDERS: PCP General Practice; Visit Provider Obstetrics & Gynecology
DX: N96 Recurrent pregnancy loss (principal); Z30.09 Encounter for other general counseling and advice on contraception; O03.9 Complete or unspecified spontaneous abortion without complication
CPT/HCPCS: 99213

== ENCOUNTER 2024-08-25 16:08 | Outpatient (REF) | payer MEDICAID, SELFPAY ==
[2024-08-25 17:43] LABS: HCG Quantitative 53 mIU/mL
== END 2024-08-25 16:09 | disposition home or self-care (01) ==
LOC: HO.LAB 16:08
PROVIDERS: PCP General Practice; Visit Provider Obstetrics & Gynecology
DX: O03.9 Complete or unspecified spontaneous abortion without complication (principal)
CPT/HCPCS: 36415; 84702

== ENCOUNTER 2024-08-26 12:35 | Outpatient (AMB) | payer MEDICAID, SELFPAY ==
--- NOTE | 2024-08-26 12:36 | MHC.OFFVIS ---
Intake Visit Reasons: tv hcg follow up ok per Dr. morris Allergies SEASONAL ALLERGIES Allergy (Intermediate, Uncoded 08/13/24 10:59) NASAL CONGESTION HPI Comments Details: The patient is scheduled tele health visit for follow-up hCG. Doing well with no complaints no pelvic cramping and or bleeding. HCG done yesterday dropped to 53 from 333 on 08/19. 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 Review of Systems Const All systems reviewed & are unremarkable except as noted in HPI and below Reports as per HPI and Reports no additional complaints GI Reports no additional complaints Reports no additional complaints Telehealth Telehealth Telehealth Platform: Telephone Location of provider rendering services: practice address Location of patient: address on file Patient Identification confirmed using: Name, : Yes Telehealth method: video Patient verbally consented to treatment: Yes Patient verbally consented to billing insurance company: Yes Patient informed of any privacy concerns related to visit: Yes Assessment & Plan Assessment & Plan (1) Complete : Code(s): O03.9 - Complete or unspecified spontaneous without complication Category: Medical Plan: Repeat hCG ordered in a week. Instructions given the patient to call in case of pelvic cramping and or bleeding, fever above 100.4 and to have hCG drawn and to schedule 1 week hCG follow-up appointment. Discussed with the patient the different options of control including control pills/Nuvaring, Depo Medroxy Progesterone Acetate, IUD ( levonorgestrel, Copper), sterilization. All the pros, cons, risks and benefits of each were discussed with the patient. The patient decided to do nothing at this point. Instructions given the patient to use condoms till hCG is down to 0. All questions answered, the patient verbalized understandingll questions answered, the patient verbalized understanding I spent a total of 20 minutes reviewing the chart, talking to the patient via video and documenting in the medical record. Orders: Orders HCG Quantitative Today O03.9 - Complete or unspecified spontaneous without complication Coding Level of Care Code Tele Est Pt Level 3 (74427) Diagnoses Complete O03.9
== END 2024-08-26 13:46 | disposition home or self-care (01) ==
LOC: HO.HWS 12:35
PROVIDERS: PCP General Practice; Visit Provider Obstetrics & Gynecology
DX: O03.9 Complete or unspecified spontaneous abortion without complication (principal)
CPT/HCPCS: 99213

== ENCOUNTER → 2024-08-26 12:35 | Outpatient (BNVA) | payer MEDICAID, SELFPAY | PROVIDERS: PCP General Practice; Visit Provider Obstetrics & Gynecology ==

== ENCOUNTER 2024-09-02 12:07 | Outpatient (REF) | payer MEDICAID, SELFPAY ==
[2024-09-02 12:45] LABS: HCG Quantitative 16 mIU/mL
== END 2024-09-02 12:08 | disposition home or self-care (01) ==
LOC: HO.LAB 12:07
PROVIDERS: PCP Student in an Organized Health Care Education/Training Program; Visit Provider Obstetrics & Gynecology
DX: O03.9 Complete or unspecified spontaneous abortion without complication (principal)
CPT/HCPCS: 36415; 84702

== ENCOUNTER 2024-09-02 14:16 | Outpatient (AMB) | payer MEDICAID, SELFPAY ==
--- NOTE | 2024-09-02 14:18 | A.OFFVIS_ITS ---
Intake Visit Reasons: HCG follow up Allergies SEASONAL ALLERGIES Allergy (Intermediate, Uncoded 08/13/24 10:59) NASAL CONGESTION HPI Comments Details: The patient is scheduled tele health visit for follow-up hCG. Doing well with no complaints no pelvic cramping and or bleeding. 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 Review of Systems Const All systems reviewed & are unremarkable except as noted in HPI and below Reports as per HPI and Reports no additional complaints GI Reports no additional complaints Reports no additional complaints Telehealth Telehealth Telehealth Platform: Telephone Location of provider rendering services: practice address Location of patient: address on file Patient Identification confirmed using: Name, : Yes Telehealth method: video Patient verbally consented to treatment: Yes Patient verbally consented to billing insurance company: Yes Patient informed of any privacy concerns related to visit: Yes Assessment & Plan Assessment & Plan (1) Complete : Code(s): O03.9 - Complete or unspecified spontaneous without complication Category: Medical Plan: Discussed with the patient the results of hCG down to 16, recommended repeat hCG in 2 weeks to follow it down to 0. Signs and symptoms of incomplete were discussed with the patient. Instructions given the patient to call in case of irregular menstrual cycles or pelvic cramping. All questions answered, the patient verbalized understanding. I spent a total of 20 minutes reviewing the chart, talking to the patient via video and documenting in the medical record. Orders: Orders HCG Quantitative 2 Weeks O03.9 - Complete or unspecified spontaneous without complication Coding Level of Care Code Tele Est Pt Level 3 (75538) Diagnoses Complete O03.9
== END 2024-09-02 14:51 | disposition home or self-care (01) ==
LOC: HO.HWS 14:16
PROVIDERS: PCP Student in an Organized Health Care Education/Training Program; Visit Provider Obstetrics & Gynecology
DX: O03.9 Complete or unspecified spontaneous abortion without complication (principal)
CPT/HCPCS: 99213

== ENCOUNTER 2024-09-10 09:12 | Outpatient (REF) | payer MEDICAID, SELFPAY ==
[2024-09-10 09:49] LABS: HCG Quantitative 6 mIU/mL
== END 2024-09-10 09:13 | disposition home or self-care (01) ==
LOC: HO.LAB 09:12
PROVIDERS: PCP Student in an Organized Health Care Education/Training Program; Visit Provider Obstetrics & Gynecology
DX: O03.9 Complete or unspecified spontaneous abortion without complication (principal)
CPT/HCPCS: 36415; 84702; 99212; 99459

== ENCOUNTER 2024-09-10 09:28 | Outpatient (AMB) | payer MEDICAID, SELFPAY ==
--- NOTE | 2024-09-10 09:38 | MHC.OFFVIS ---
Intake Visit Reasons: STD test /HCG follow up Accompanied by: Mother Allergies SEASONAL ALLERGIES Allergy (Intermediate, Uncoded 08/13/24 10:59) NASAL CONGESTION HPI Comments Details: Presenting for hCG follow-up. HCG done today was 6. 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 Review of Systems Const All systems reviewed & are unremarkable except as noted in HPI and below Physical Exam General: Yes no CVA tenderness External Female Exam: normal external appearance and normal appearance of the urethra Speculum Exam - Vagina: normal appearance of the vagina, normal palpation, no lesions and no masses Speculum Exam - Cervix: normal appearance of the cervix, normal palpation, no lesions, no masses and nontender Bimanual exam- vagina & uterus: normal bimanual exam, normal palpation, uterine size normal, normal palpation, uterine shape normal, No Cervical tenderness present and non-tender Bimanual Exam- Adnexa, other: normal adnexae Back/Spine/Pelvis Back: no CVA tenderness Assessment & Plan Assessment & Plan (1) Complete : Code(s): O03.9 - Complete or unspecified spontaneous without complication Category: Medical Plan: Discussed with the patient the results hCG down to 6, recommended instructions given the patient to repeat hCG in 2 weeks. All questions answered, the patient verbalized understanding (2) Screen for STD (sexually transmitted disease): Code(s): Z11.3 - Encounter for screening for infections with a predominantly sexual mode of transmission Category: Medical Plan: STD screening tests done includes: BV panel for trichomonas, GC/CT will send patient for serology std screening for HIV, RPR, Hep b s Ag, HepC Ab. Instructions given the patient to schedule a follow-up appointment for repeat serology screen in 6 months for possible false negatives. Orders: Orders HCG Quantitative 2 Weeks O03.9 - Complete or unspecified spontaneous without complication Hepatitis C Antibody Today Z20.2 - Contact with and (suspected) exposure to infections with a predominantly sexual mode of transmission Hepatitis B Surface Antigen Today Z20.2 - Contact with and (suspected) exposure to infections with a predominantly sexual mode of transmission HIV Ab/Ag Today Z20.2 - Contact with and (suspected) exposure to infections with a predominantly sexual mode of transmission Syphilis Screen Today Z20.2 - Contact with and (suspected) exposure to infections with a predominantly sexual mode of transmission Coding Level of Care Code Est Pt Level 3 (34907) Diagnoses Complete O03.9 Screen for STD (sexually transmitted disease) Z11.3
== END 2024-09-10 10:21 | disposition home or self-care (01) ==
LOC: HO.HWS 09:28
PROVIDERS: PCP Student in an Organized Health Care Education/Training Program; Visit Provider Obstetrics & Gynecology
DX: O03.9 Complete or unspecified spontaneous abortion without complication (principal); Z11.3 Encounter for screening for infections with a predominantly sexual mode of transmission
CPT/HCPCS: 99213

== ENCOUNTER 2024-09-10 10:45 | Outpatient (REF) | payer MEDICAID, SELFPAY ==
[2024-09-11 02:32] LABS: CT PCR NOT DETECTED (Not Detect.); NG PCR NOT DETECTED (Not Detect.)
[2024-09-11 08:56] LABS: Bacterial Vaginosis PCR POSITIVE (Negative); Candida Group PCR NOT DETECTED (Not Detect); Candida glab krusei PCR NOT DETECTED (Not Detect); Trichomonas vaginalis PCR NOT DETECTED (Not Detect)
== END 2024-09-10 10:46 | disposition home or self-care (01) ==
LOC: HO.LNP 10:45
PROVIDERS: Visit Provider Obstetrics & Gynecology
DX: Z11.3 Encounter for screening for infections with a predominantly sexual mode of transmission (principal)
CPT/HCPCS: 0352U; 87491; 87591

== ENCOUNTER 2024-11-06 19:07 | Emergency (ER) | payer MEDICAID, SELFPAY ==
--- NOTE | ~2024-11-06 | US_ITS ---
CLINICAL HISTORY: right pelvic pain US OB 1st trimester transabdominal and transvaginal Comparison: None Findings: Partially imaged uterus is anteverted and measures 6.5 cm long axis. Majority of the cervix is obscured. Indeterminate cystic structure may represent gestational sac of early intrauterine gestation (less than 5 weeks). No definite pole or yolk sac at this time. Differential considerations include pseudo sac in the setting of ectopic and early findings of rare heterotopic . Reported last menstrual period is 10/03/2024. The right kidney measures 3.3 x 1.5 x 1.4 cm. Of the left kidney measures 4.1 x 2.7 x 2.5 cm. Follicles demonstrated in both ovaries. No definite ectopic or heterotopic is confirmed by ultrasound. Small amount of free fluid is nonspecific within the imaged pelvis. IMPRESSION: 1. Cystic structure in the endometrium is indeterminate. No definite pole or heart rate to confirm intrauterine gestation at this time. Recommend continued trending quantitative beta HCG data. Timing for follow-up pelvic ultrasound can be determined on a clinical basis. 2. No ultrasound findings of ovarian torsion. 3. Mild free fluid in the pelvis. This document has been electronically signed by: Osvaldo Tan MD on 11/07/2024 01:37:29
[2024-11-06 19:13] VITALS: BP 111/54; PULSE 85; RESP 18; TEMP 37.6; O2SAT 99; BMI 23.2
--- NOTE | 2024-11-06 19:20 | ED.ABDPAIN ---
HPI - Abdominal Pain General Chief Complaint: Abdominal Pain Stated Complaint: flu like symptoms Time Seen by Provider: 11/06/24 23:17 Source: patient, RN notes reviewed and old records reviewed Mode of arrival: ambulatory Limitations: no limitations History of Present Illness ED Provider: Latoya WILKINS narrative: 24-year-old female presents for evaluation of lower abdominal pain that radiates to her back. She reports that she woke up this morning with nausea vomiting and describes it as ?morning sickness. ? The patient states that she was aware that she was with a last menstrual cycle being 10/03/24 She is with 4 previous spontaneous miscarriages She denies any fevers, chills pain She does not have any history of ectopic pregnancies Her pain is 4/10 She also has some burning with urination and concerned for a UTI Denies any vaginal bleeding or discharge Related Data Home Medications ?Medication ?Instructions ?Recorded ?Confirmed vit no.95-ferrous 1 tab PO DAILY 07/30/24 fumarate 28 mg-folic acid 800 mcg tablet () Allergies Allergy/AdvReac Type Severity Reaction Status Date / Time SEASONAL ALLERGIES Allergy Intermediate NASAL Uncoded 11/06/24 19:16 CONGESTION Review of Systems Constitutional: Reports chills and Denies headache(s) Eyes: Denies blurry vision Denies vertigo, Denies dizziness and Denies headache(s) Cardiovascular: Denies chest pain and Denies dyspnea Respiratory: Denies cough and Denies dyspnea Gastrointestinal: Reports abdominal pain, Reports nausea and Reports vomiting Musculoskeletal: Denies back pain Denies vertigo, Denies dizziness and Denies headache(s) Psychiatric: Denies anxiety PMFSH Family History Family History Mother Uterus cancer Maternal Aunt Breast cancer Father HTN (hypertension) Diabetes Maternal Grandfather HTN (hypertension) Maternal Grandfather Diabetes Social History Social History Household Members: Family Housing: Apartment Alcohol intake: former Patient Tobacco Use Status: Current everyday Tobacco user Cigarettes Per Day: 2 Years Smoked: 4 Substance Use Type: Marijuana Advance Directives: No Advance Directives Information Provided: Yes Do you have a plan to hurt others: No Plan Current occupational status: employed 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 Physical Exam ED Vital Signs: Vital Signs - 24 hr 11/06/24 19:13 02/06/25 22:53 Temperature 99.6 F 98.0 F Pulse Rate 85 84 Respiratory Rate 18 16 Blood Pressure 111/54 L 127/70 Pulse Oximetry 99 99 Oxygen Delivery Method Room Air Room Air BMI result Body Mass Index 23.2 Const General: healthy appearing, comfortable, no acute distress, alert and awake Nutritional Appearance: well nourished Orientation/consciousness: patient oriented x3 HENMT Head: Yes normocephalic and Yes atraumatic Eyes Eyelids: Yes eyelids normal Conjunctivae: conjunctivae normal Sclerae: sclerae normal Corneas: corneas normal Pupils: Equal, round and reactive pupils present EOM: EOMs intact bilaterally Neck Neck: Yes full ROM Resp Effort & Inspection: normal respiratory effort, able to speak in complete sentences and not labored Cardio Rate: regular rate Rhythm: regular rhythm GI Inspection: No distended Palpation (GI): Soft to palpation, not firm, Tenderness to palpation present (GI) in the LLQ, in the RLQ and suprapubicly, no guarding and not rigid Skin General skin exam: elasticity normal Neuro General: patient oriented x3 Cranial nerves: Yes Equal, round and reactive pupils present and Yes Bilaterally intact EOM present Cognition (Neuro): normal cognition Extrem Other: Moving all extremities well without any obvious deformities Course Course Course Narrative: This is a rapid medical exam performed by Imani Galvez PA-C. The patient is a 24-year-old female with a history of multiple miscarriages, who presents with nausea vomiting diarrhea. Patient's symptoms started today. Denies cough and cold symptoms, fever or sick contacts with similar symptoms. We will be screening basic labs, viral panel. The patient is stable and can return to the waiting room pending her full medical assessment. Reevaluation(s) Reevaluation #1: Ultrasound shows a likely intrauterine with a gestational sac but no pole. This may be related to early . The patient will be discharged to follow up with her OBGYN. She was given strict return precautions and advised to have repeat hCG in 48-72 hours Time: 01:35 Medical Decision Making Medical Decision Making MDM Narrative: 24-year-old female presents for evaluation of lower abdominal pain. She was with an hCG of 2282. Given that she has lower abdominal pain that radiates to the back, there is concern for ectopic. Her vital signs are stable and she was quite early in . We will get an ultrasound to evaluate for ectopic . I add on a urinalysis as the patient complains of UTI symptoms with burning and frequency as well as foul-smelling urine. Her labs are quite unremarkable. Differential Diagnosis Differential Diagnoses: The differential diagnosis associated with the presentation includes Ectopic UTI Pyelonephritis Lab Data MDM Lab Attestation statement: I reviewed the patient's lab results. Leukocytosis to 14.5 which may be reactive to , no significant anemia. Normal platelet count. No significant electrolyte abnormalities warranting intervention 11/06/24 21:09 11/06/24 21:10 Labs: Lab Results 11/06/24 11/06/24 11/07/24 Range/Units 21:09 21:10 00:56 WBC 14.5 H (4.8-10.8) X10*3/uL RBC 4.26 (4.20-5.50) X10*6/uL Hgb 13.4 (12.0-16.0) g/dl Hct 39.5 (37.0-47.0) % MCV 92.7 (80.0-98.0) fL MCH 31.5 (27.0-33.0) pg MCHC 33.9 (31.0-35.0) g/dl RDW 12.4 (11.0-16.0) % Plt Count 236 (160-400) X10*3/uL MPV 11.4 (9.4-12.3) fL Immature Gran % (Auto) 0.5 H (0.0-0.4) % Neut % (Auto) 85.0 H (45-73) % Lymph % (Auto) 7.4 L (20-40) % [place] % (Auto) 6.6 (2-11) % Eos % (Auto) 0.2 (0-4) % Baso % (Auto) 0.3 (0-2) % Lymph # (Auto) 1.1 L (1.2-4.9) X10*3/uL [place] # (Auto) 1.0 (0.1-1.2) X10*3/uL Eos # (Auto) 0.0 (0.0-0.4) X10*3/uL Baso # (Auto) 0.1 (0.0-0.2) X10*3/uL Abs Immat Gran (auto) 0.07 H (0.00-0.03) X10*3/uL Absolute Neuts (auto) 12.3 H (2.0-8.3) x10*3/uL Absolute Nucleated RBC 0.000 (0.0-0.012) X10*3/uL Nucleated RBC % (auto) 0.0 (0.0-0.2) /100WBC Sodium 135 (135-145) mmol/L Potassium 4.2 (3.3-5.1) mmol/L Chloride 107 (96-108) mmol/L Carbon Dioxide 21 L (22-29) mmol/L Anion Gap 11 L (12-20) BUN 9 (9-16) mg/dL Creatinine 0.66 (0.5-1.4) mg/dL Estim Creat Clear Calc 109.7 Estimated GFR > 60 Random Glucose 90 (60-115) mg/dL Calcium 9.1 (8.4-10.2) mg/dL Magnesium 1.8 (1.6-2.6) mg/dL Total Bilirubin 0.7 (0.0-1.0) mg/dL AST 25 (5-31) U/L ALT 15 (0-31) U/L Alkaline Phosphatase 61 (39-117) U/L Total Protein 7.9 (6.5-8.0) g/dL Albumin 4.4 (3.5-5.0) g/dL Beta HCG, Quant 2262 mIU/mL Urine Color Dark Yellow Urine Appearance Clear Urine pH 5.5 (5.0-9.0) Ur Specific [place] >= 1.030 H (1.005-1.025) Urine Protein Trace (Neg-Trace) mg/dL Urine Glucose (UA) Negative (Negative) mg/dL Urine Ketones 40 (Negative) mg/dL Urine Blood Negative (Negative) Urine Nitrite Negative (Negative) Ur Leukocyte Esterase Negative (Negative) Urine RBC 0-2 (0-2) /HPF Urine WBC 0-5 (0-5) /HPF Ur Squamous Epith Cells 11-20 (0-2) /HPF Urine Bacteria Trace (None Seen) Hyaline Casts 0-2 (0-2) /LPF Influenza Type A (PCR) NEGATIVE (Negative) Influenza Type B (PCR) NEGATIVE (Negative) RSV RNA Qual (PCR) NEGATIVE (Negative) SARS-CoV-2 RNA (RT-PCR) NEGATIVE (Negative) Discharge Plan Discharge Clinical Impression: Patient Disposition: Home, Self-Care Instructions: (ED) Additional Instructions: Your ultrasound shows what looks like an intrauterine , but it is too early to tell for sure Should have a repeat hCG in 48-72 hours Return to the ER sooner if you are having worsening lower abdominal pain You may take Tylenol for pain, avoid ibuprofen or aspirin. Avoid drinking alcohol I recommend that you start taking vitamins daily Follow-up with your OBGYN Prescriptions: No Action PNV cmb#95-ferrous fumarate-FA [] 28 mg iron- 800 mcg tablet 1 tab PO DAILY Print Language: Argentine
[2024-11-06 21:14] LABS: MANUAL DIFF FLAG NO
[2024-11-06 21:21] LABS: Basophils Absolute Auto 0.1 X10*3/uL (0.0-0.2); Basophils Percent Auto 0.3 % (0-2); Eosinophils Percent Auto 0.2 % (0-4); Hematocrit 39.5 % (37.0-47.0); Hemoglobin 13.4 g/dl (12.0-16.0); Imm Gran Abs Auto 0.07 X10*3/uL (0.00-0.03); Imm Gran Pct Auto 0.5 % (0.0-0.4); Lymphocytes Absolute Auto 1.1 X10*3/uL (1.2-4.9); Lymphocytes Percent Auto 7.4 % (20-40); Mean Corpuscular HGB Conc 33.9 g/dl (31.0-35.0); Mean Corpuscular Hemoglobin 31.5 pg (27.0-33.0); Mean Corpuscular Volume 92.7 fL (80.0-98.0); Mean Platelet Volume 11.4 fL (9.4-12.3); Monocytes Percent Auto 6.6 % (2-11); Neutrophils Absolute Auto 12.3 x10*3/uL (2.0-8.3); Platelet Count 236 X10*3/uL (160-400); Red Blood Count 4.26 X10*6/uL (4.20-5.50); Red Cell Distribution Width 12.4 % (11.0-16.0); White Blood Count 14.5 X10*3/uL (4.8-10.8)
[2024-11-06 21:59] LABS: Alanine Aminotransferase 15 U/L (0-31); Albumin Level 4.4 g/dL (3.5-5.0); Alkaline Phosphatase 61 U/L (39-117); Anion Gap 11 (12-20); Aspartate Amino Transferase 25 U/L (5-31); Bilirubin Total 0.7 mg/dL (0.0-1.0); Blood Urea Nitrogen 9 mg/dL (9-16); Calcium 9.1 mg/dL (8.4-10.2); Carbon Dioxide 21 mmol/L (22-29); Chloride 107 mmol/L (96-108); Creatinine Clr Calc Pharmacy 109.7; Estimated Glomerular Filt Rate > 60; Glucose Random 90 mg/dL (60-115); HCG Quantitative 2262 mIU/mL; Magnesium 1.8 mg/dL (1.6-2.6); Potassium 4.2 mmol/L (3.3-5.1); Sodium 135 mmol/L (135-145); Total Protein 7.9 g/dL (6.5-8.0)
[2024-11-06 22:53] VITALS: BP 127/70; PULSE 84; RESP 16; TEMP 36.7; O2SAT 99
[2024-11-06 22:53] LABS: Influenza A PCR NEGATIVE (Negative); Influenza B PCR NEGATIVE (Negative); Resp Syncy Virus RNA Qual PCR NEGATIVE (Negative); SARS COV2 PCR INHOUSE NEGATIVE (Negative)
[2024-11-07 01:01] LABS: Appearance Urine Clear; Color Urine Dark Yellow; Glucose Urine UA Negative (Negative); Leukocyte Esterase Urine Negative (Negative); Nitrite Urine Negative (Negative); PH 5.5 (5.0-9.0); Specific Gravity - Urine >= 1.030 (1.005-1.025); Urine Blood Negative (Negative); Urine Ketones 40 mg/dL (Negative); Urine Protein Trace mg/dL (Neg-Trace)
[2024-11-07 01:04] LABS: Bacteria Urine Trace (None Seen); Hyaline Casts Urine 0-2 /LPF (0-2); RBC Urine 0-2 /HPF (0-2); WBC Urine 0-5 /HPF (0-5)
[2024-11-07 01:40] VITALS: BP 137/66; PULSE 67; RESP 18; TEMP 37.2; O2SAT 100
[2024-11-07 01:47] VITALS: BP 137/66; PULSE 67; RESP 18; TEMP 37.2; O2SAT 100
== END 2024-11-07 01:48 | disposition home or self-care (01) ==
PROVIDERS: Physician Assistant; Physician Assistant Medical; Emergency Provider Emergency Medicine; PCP Student in an Organized Health Care Education/Training Program
DX: R10.2 Pelvic and perineal pain (principal); M54.50 Low back pain, unspecified; R11.2 Nausea with vomiting, unspecified; F17.210 Nicotine dependence, cigarettes, uncomplicated; Z03.818 Encounter for observation for suspected exposure to other biological agents ruled out; Z79.899 Other long term (current) drug therapy
CPT/HCPCS: 0241U; 36415; 76801; 76817; 80053; 81001; 83735; 84702; 85025; 99283; 99284

== ENCOUNTER 2024-11-11 12:52 | Outpatient (REF) | payer MEDICAID, SELFPAY ==
--- OUTSIDE RECORDS SUMMARY | 2024-11-11 13:55 | XMS_ITS | Encounter Summary ---
Author Organization [employer] Address [address] [place] [address] Care Team Providers Care Manager Dental Name Role Phone Shaneka Howard MD Primary Care Provider [phone] Encounter Details Date Type Department Care Team ([facility] st Contact Info) Description 11/06/2024 Orders Only GENERIC EXTERNAL DATA DEPARTMENT Provider, Generic External Data Social History Tobacco Use Types Packs/Day Years Used Date Smoking Tobacco: Every Day Cigarettes Depression Answer Date Recorded Patient Health Questionnaire-9 Score 24 04/23/2024 Patient Health Questionnaire-9 Score 24 04/23/2024 Last PHQ-9: Questionnaire Data Not on file 0 04/23/2024 Housing Stability Answer Date Recorded What is your housing situation today? I do not have housing (Staying with others, in a hotel, in a care home, living outside on the street, on a beach, in a car, or in a park 12/26/[address] you li ve. Do you have problems with any of the following? Not on file 12/26/2023 Food Insecurity Answer Date Recorded Within the past 12 months, y ou worried that your food would run out before you got money to buy more: Never True 12/26/2023 Within the past 12 months,th e food you bought just didn't last and you didn't have enough money to get more: Never True Transportation Answer Date Recorded In the past 12 months, has l ack of transportation kept you from medical appts, meetings, work or from getting things needed for daily living? No 12/26/2023 Depression Answer Date Recorded Patient Health Questionnaire-2 Score 6 04/23/2024 Comments Yes Sex and Gender Information Value Date Recorded Sex Assigned at Female 07/31/2022 10:16 AM EDT Legal Sex Female 10:16 AM EDT Gender Identity Female 07/31/2022 10:16 AM EDT Sexual Orientation Straight 07/31/2022 10 :16 AM EDT documented as of this encounter Plan of Treatment Not on file documented as of this encounter Procedures Procedure Name Priority Date/Time Associated Diagnosis Comments US OB PELVIS TRANSVAGINAL Routine 11/07/2024 1:37 AM EST HCG, TOTAL, QN Routine 11/06/2024 9:10 PM EST MAGNESIUM Routine 11/06/2024 9:10 PM EST COMPREHENSIVE METABOLIC PANEL Routine 11/06/2024 9:10 PM EST SARS COV2/INFLUENZA A/B AND RSV RNA QL NAAT Routine 11/06/2024 9:09 PM EST CBC WITH AUTO DIFFERENTIAL Routine 11/06/2024 9:09 PM EST documented in this encounter Results * US OB Pelvis with Transvaginal (11/07/2024 1:37 AM EST) Anatomical Region Laterality Modality Pelvis Ultrasound 11/07/2024 1:37 AM EST Narrative 11/07/2024 1:39 AM EST ? [facility] ?[address] ?[place] [address] ? Ultrasound Report ? Signed ? Patient: Jasen,Autumn ?MR#: [id number] ?? 68 ? : 2000 ?Acct:[id number] ? Age/Sex: 24 / F ?ADM Date: 11/06/24 ? Loc: HO.ED ? Attending Dr: ? Ordering Physician: Praful Klein ?? Date of Service: 11/06/24 ?? Procedure(s): US OB pelvic and transvaginal ?? Accession Number(s): [id number] ? cc: Praful Klein; Kaylen Juarez MD ? CLINICAL HISTORY: right pelvic pain ? US OB 1st trimester transabdominal and transvaginal ? Comparison: None ? Findings: ?? Partially imaged uterus is anteverted and measures 6.5 cm long axis. ?? Majority of the cervix is obscured. Indeterminate cystic structure may ?? represent gestational sac of early intrauterine gestation (less than 5 ?? weeks). No definite pole or yolk sac at this time. Differential ?? considerations include pseudo sac in the setting of ectopic and ?? early findings of rare heterotopic . Reported last menstrual ?? period is 10/03/2024. ?? The right kidney measures 3.3 x 1.5 x 1.4 cm. ?? Of the left kidney measures 4.1 x 2.7 x 2.5 cm. ?? Follicles demonstrated in both ovaries. No definite ectopic or heterotopic ?? is confirmed by ultrasound. ?? Small amount of free fluid is nonspecific within the imaged pelvis. ? IMPRESSION: ?? 1. Cystic structure in the endometrium is indeterminate. No definite ?? pole or heart rate to confirm intrauterine gestation at this time. ?? Recommend continued trending quantitative beta HCG data. Timing for ?? follow-up pelvic ultrasound can be determined on a clinical basis. ?? 2. No ultrasound findings of ovarian torsion. ?? 3. Mild free fluid in the pelvis. ? This document has been electronically signed by: Osvaldo Tan MD on ?? 11/07/2024 01:37:29 ? Dictated By: ?Osvaldo Tan MD ? Signed By: ?<Electronically signed by Osvaldo Tan MD in OV> ? 11/07/24138 ? DD/ 6 ? TD/TT: 11/07/24136 ? Hospice Educator: ? Procedure Note Priscilla Fonseca - 11/07/[address] [address] Ultrasound Report Signed Patient: Jamal Aggarwal#: [id number] : 2000Acct:[id number] Age/Sex: 24 / FADM Date: 11/06/24 Loc: HO.ED Attending Dr: Ordering Physician: Praful Klein Date of Service: 11/06/24 Procedure(s): US OB pelvic and transvaginal Accession Number(s): [id number] cc: Praful Klein; Kaylen Juarez MD CLINICAL HISTORY: right pelvic pain US OB 1st trimester transabdominal and transvaginal Comparison: None Findings: Partially imaged uterus is anteverted and measures 6.5 cm long axis. Majority of the cervix is obscured. Indeterminate cystic structure may represent gestational sac of early intrauterine gestation (less than 5 weeks). No definite pole or yolk sac at this time. Differential considerations include pseudo sac in the setting of ectopic and early findings of rare heterotopic . Reported last menstrual period is 10/03/2024. The right kidney measures 3.3 x 1.5 x 1.4 cm. Of the left kidney measures 4.1 x 2.7 x 2.5 cm. Follicles demonstrated in both ovaries. No definite ectopic or heterotopic is confirmed by ultrasound. Small amount of free fluid is nonspecific within the imaged pelvis. IMPRESSION: 1. Cystic structure in the endometrium is indeterminate. No definite pole or heart rate to confirm intrauterine gestation at this time. Recommend continued trending quantitative beta HCG data. Timing for follow-up pelvic ultrasound can be determined on a clinical basis. 2. No ultrasound findings of ovarian torsion. 3. Mild free fluid in the pelvis. This document has been electronically signed by: Osvaldo Tan MD on 11/07/2024 01:37:29 Dictated By: Osvaldo Tan MD Signed By: <Electronically signed by Osvaldo Tan MD in OV> 11/07/24138 DD/ 6 TD/TT: 11/07/24136 Hospice Educator: us [facility] External Provider IMG US PROCEDURES Edited Result - Final * hCG, Total, Quantitative (11/06/2024 9:10 PM EST) HCG Quantitative 2,262 mIU/mL [facility] Comment:Weeks post LMP Appro ximate hCG(Last Menstrual Period) Range (mIU/ml)3 - 4 weeks 9 - 1304 - 5 weeks 75 - 2,6005 - 6 weeks 850 - 20,8006 - 7 weeks 4000 - 100,2007 - 12 weeks 11,500 - 289,70362 - 16 weeks 18,300 - 137,00574 - 29 weeks (2nd trimester) 1,400 - 53,05407 - 41 weeks (3rd trimester) 940 - 60,000The [employer] B- hCG assay is used for the early detection ofpregnancy; it cannot be used to diagnose any conditionunrelated to . If a B-hCG level is not supportedby the clinical evidence, results should be confirmed by analternative method (qualitative urine hCG, for example). 11/06/2024 9:10 PM EST 11/06/2024 9:13 PM EST Generic External Data Provider LAB BLOOD ORDERAB LES Final Result Performing Organization Address [facility]/ZIP Co de Phone Number [facility] [address] [place] [phone] * Magnesium (11/06/2024 9:10 PM EST) Pathologist [facility] Magnesium 1.8 1.6 - 2.6 mg/dL [facility] 11/06/2024 9:10 PM EST 11/06/2024 9:13 PM EST Generic External Data Provider LAB BLOOD ORDERAB LES Final Result Performing Organization Address [facility] Co de Phone Number [facility] [address] [place] [phone] * (ABNORMAL) Comprehensive Metabolic Panel (11/06/2024 9:10 PM EST) Pathologist [facility] Sodium 135 135 - 145 mmol/L [facility] Potassium 4.2 3.3 - 5.1 mmol/L [facility] Chloride 107 96 - 108 mmol/L [facility] Carbon Dioxide 21(L) 22 - 29 mmol/L [facility] Anion Gap 11(L) 12 - 20 [facility] Urea Nitrogen (BUN) 9 9 - 16 mg/dL [facility] Creatinine, Serum 0.66 0.5 - 1.4 mg/dL [facility] Creatinine Clr Calc Pharmacy 109.7 [facility] Comment:Provided height and weight: 160.02 cm,59.4 kg.eGFR (calculated from the MDRD study equation) and eCrCl(calculated from the Cockcroft-Gault equation) are based ondifferent parameters and may not yield comparable results.If eCrCl result is absurd, please check patient'sheight/weight. Estimated Glomerular Filt Rate >60 [facility] Comment:Chronic Kidney Disea se: Estimated GFR < 60 mL/min/1.61w3Hkpjee Kidney Disease: Estimated GFR < 15 mL/min/1.73m2 Glucose 90 60 - 115 mg/dL [facility] Calcium 9.1 8.4 - 10.2 mg/dL [facility] Bilirubin, Total 0.7 0.0 - 1.0 mg/dL [facility] Aspartate Amino Transferase 25 5 - 31 U/L [facility] Alanine Aminotransferase 15 0 - 31 U/L [facility] Total Protein 7.9 6.5 - 8.0 g/dL [facility] Albumin Level 4.4 3.5 - 5.0 g/dL [facility] Alkaline Phosphatase 61 39 - 117 U/L [facility] 11/06/2024 9:10 PM EST 11/06/2024 9:13 PM EST us Generic External Data Provider LAB BLOOD ORDERAB LES Final Result [facility] [address] [place] [phone] * SARS-CoV-2 RNA, Influenza A/B, and RSV RNA, Ql NAAT (11/06/2024 9:09 PM EST) Influenza A PCR NEGATIVE Negative [facility] Influenza B PCR NEGATIVE Negative [facility] Resp Syncy Virus RNA Qual PCR NEGATIVE Negative [facility] SARS COV2 PCR NEGATIVE Negative [facility] Comment:All test results mus t be correlated with clinical findings.Negative results do not preclude SARS-CoV2, influenza Avirus, influenza B virus and/or RSV infectionand should not be used as the sole basis for treatment orother patient management decisions. Negative results must becombined with clinical observations, patient history, andepidemiological information.This test has not been evaluated for monitoring treatment ofinfection.This test has been authorized by the FDA under an EmergencyUse Authorization (EUA) for use by authorized laboratories.Testing performed on the [employer] GeneXpert utilizingreal-time RT-PCR.All SARS CoV2 and positive influenza A/B results arereported to [facility]. 11/06/2024 9:09 PM EST 11/06/2024 9:13 PM EST us Generic External Data Provider LAB MICROBIOLOGY - GENERAL ORDERABLES Final Result [facility] [address] [place] [phone] * (ABNORMAL) CBC auto differential (11/06/2024 9:09 PM EST) White Blood Count 14.5(H) 4.8 - 10.8 X10*3/uL [facility] Red Blood Count 4.26 4.20 - 5.50 X10*6/uL [facility] Hemoglobin 13.4 12.0 - 16.0 g/dl [facility] Hematocrit 39.5 37.0 - 47.0 % [facility] Mean Corpuscular Volume 92.7 80.0 - 98.0 fL [facility] Mean Corpuscular Hemoglobin 31.5 27.0 - 33.0 pg [facility] Mean Corpuscular HGB Conc 33.9 31.0 - 35.0 g/dl [facility] Red Cell Distribution Width 12.4 11.0 - 16.0 % [facility] Platelet Count 236 160 - 400 X10*3/uL [facility] Mean Platelet Volume 11.4 9.4 - 12.3 fL [facility] Neutrophils Percent Auto 85.0(H) 45 - 73 % [facility] Imm Gran Pct Auto 0.5(H) 0.0 - 0.4 % [facility] Lymphocytes Percent Auto 7.4(L) 20 - 40 % [facility] Monocytes Percent Auto 6.6 2 - 11 % [facility] Eosinophils Percent Auto 0.2 0 - 4 % [facility] Basophils Percent Auto 0.3 0 - 2 % [facility] NRBC Pct Auto 0.0 0.0 - 0.2 /100WBC [facility] Neutrophils Absolute Auto 12.3(H) 2.0 - 8.3 x10*3/uL [facility] Imm Gran Abs Auto 0.07(H) 0.00 - 0.03 X10*3/uL [facility] Lymphocytes Absolute Auto 1.1(L) 1.2 - 4.9 X10*3/uL [facility] Monocytes Absolute Auto 1.0 0.1 - 1.2 X10*3/uL [facility] Eosinophils Absolute Auto 0.0 0.0 - 0.4 X10*3/uL [facility] Basophils Absolute Auto 0.1 0.0 - 0.2 X10*3/uL [facility] NRBC Abs Auto 0.000 0.0 - 0.012 X10*3/uL [facility] 11/06/2024 9:09 PM EST 11/06/2024 9:13 PM EST us Generic External Data Provider LAB BLOOD ORDERAB LES Final Result Performing Organization Address City/State/[facility] Co de Phone Number [facility] [address] [place] [phone] documented in this encounter Visit Diagnoses Not on filedocumented in this encounter Additional Health Concerns Assessment Noted Time PHQ-9 Depression Total Score: 24 024 2:26 PM EDT documented as of this encounter Care Teams Manager Dental Relationship Specialty Start Date End Date Shaneka Howard MD [address] [place] [address] PCP - General Family Medicine 11/14/23 documented as of this encounter
--- OUTSIDE RECORDS SUMMARY | 2024-11-11 13:55 | XMS_ITS | Encounter Summary ---
Author Organization [employer] Address [address] [place] [address] Care Team Providers Care Social Economist Name Role Phone [facility] Primary Care Provider [phone] Shaneka Howard MD Primary Care Provider [phone] Reason for Visit * Reason Onset Date Comments Nurse Triage 04/09/2023 Encounter Details Date Type Department Care Team ([facility] st Contact Info) Description 04/09/2023 Telephone [facility] MEDICINE [address] [place] [address] [facility] [address] [place] [address] Nurse Triage Social History Tobacco Use Types Packs/Day Years Used Date Smoking Tobacco: Every Day Cigarettes Comments Unknown Sex and Gender Information Value Date Recorded Sex Assigned at Female 07/31/2022 10:16 AM EDT Legal Sex Female 10:16 AM EDT Gender Identity Female 07/31/2022 10:16 AM EDT Sexual Orientation Straight 07/31/2022 10 :16 AM EDT documented as of this encounter Miscellaneous Notes * Telephone Encounter - Dorie Jorge RN - 04/09/2023 2:38 PM EDT Triage call , Pt didn't answer x2. Left voice message to call [facility] triage line at [phone] . * Telephone Encounter - Jaimie Solis - 04/09/2023 2:06 PM EDT Symptom: Skin Lump (left pelvic area) Outcome: Schedule an urgent appointment (within 4 hours) or talk to a nurse or provider soon Reason: Growing rapidly and Painful The caller accepted this outcome documented in this encounter Plan of Treatment Not on file documented as of this encounter Visit Diagnoses Not on filedocumented in this encounter Care Teams Social Economist Relationship Specialty Start Date End Date Gogo Giordano FNP [address] [place] [address] PCP - General Family Medicine 05/27/22 11/13/23 Shaneka Howard MD [address] [place] [address] PCP - General Family Medicine 11/14/23 documented as of this encounter
--- OUTSIDE RECORDS SUMMARY | 2024-11-11 13:55 | XMS_ITS | Encounter Summary ---
Author Organization [employer] Address [address] [place] [address] Care Team Providers Care Mill Recorder Name Role Phone Shaneka Howard MD Primary Care Provider [phone] Reason for Visit * Reason Onset Date Comments dental emergency/ 07/25/2024 Encounter Details Date Type Department Care Team ([facility] st Contact Info) Description 07/25/2024 Telephone [facility] D[facility] [address] [place] [address] Diana Rob DDS [address] [place] [address] dental emergency/ Social History Tobacco Use Types Packs/Day Years Used Date Smoking Tobacco: Every Day Cigarettes Depression Answer Date Recorded Patient Health Questionnaire-9 Score 24 04/23/2024 Patient Health Questionnaire-9 Score 24 04/23/2024 Last PHQ-9: Questionnaire Data Not on file 0 04/23/2024 Housing Stability Answer Date Recorded What is your housing situation today? I do not have housing (Staying with others, in a hotel, in a long term, living outside on the street, on a [...] encounter Miscellaneous Notes * Telephone Encounter - Key Bess - 07/25/2024 9:22 AM EDT Patient is coming in for emergency visit. Patient states she is about 2 months along in . Patient informed she must contact her OB and get information to office of what can and cannot be done. (Xrays, medication, dental work with novacaine and any other information they are able to providefor dental treatment). Provided fax number [phone] to have OB office send in clearance. Patient understands without information from OB office being sent in, treatment may be limited as to what provider can and cannot do and up to provider discretion as to how to treat DR documented in this encounter Plan of Treatment Not on file documented as of this encounter Visit Diagnoses Not on filedocumented in this encounter Additional Health Concerns Assessment Noted Time PHQ-9 Depression Total Score: 24 024 2:26 PM EDT documented as of this encounter Care Teams Mill Recorder Relationship Specialty Start Date End Date Shaneka Howard MD [address] [place] [address] PCP - General Family Medicine 11/14/23 documented as of this encounter
--- OUTSIDE RECORDS SUMMARY | 2024-11-11 13:55 | XMS_ITS | Clinical Summary ---
Demographics Address [address] [facility] [address] [place] [address] Home Phone Mobile Phone Preferred Language en Marital Status Single Hinduism Affiliation Unknown Race Other Race Ethnic Group or Author Organization [employer] Address [address] [place] [address] Care Team Providers Care Computer Technical Specialist Name Role Phone Shaneka Howard MD Primary Care Provider [phone] Allergies No known active allergies Medications * This document contains information received from the source organization and may not represent a complete record from that organization. cetirizine (ZyrTEC) 10 MG tablet Take 1 tablet (10 mg) by mouth Once per day. 90 tablet 3 4 04/23/20 25 Active Additional Information Patient not taking.Reported on 07/25/2024 28-0.8 MG tablet Take 1 tablet by mouth Once per day. 90 tablet 1 4 07/17/20 Active albuterol 108 (90 Base) MCG/ACT inhaler Inhale 1 puff every 6 (six) hours if needed for wheezing. 18 g 1 4 Active Active Problems Problem Noted Date Diagnosed Date 07/18/2024 Vaginal bleeding 07/18/2024 Assessment & Plan (07/18/2024 12:57 PM EDT): Pt abd exam is benign,reports ongoing vaginal spotting but improved Urinedisptick here is neg today, urine preg + -refuse ED evaluation today for ongoing bleeding -explained pt about possible miscarriage -explained alarm signs and symptoms -ordered today HCG blood and CBC -STAT pelvic/TV US -STAT DISMANTLER referral requested to referral at [facility] by pt prefernce- will inform pt results -start prenatals -has apt w PCP 08/01/2024 Other constipation 05/02/2024 Assessment & Plan (05/02/2024 10:33 AM EDT): Colace and miralax prn Infertility counseling 05/02/2024 Assessment & Plan (05/02/2024 10:35 AM EDT): Recommend PNV daily, decrease or better yet quit smoking and crack cocaine use Daily exercise Whole foods as much as possible Due for pap and STI screening, schedule pap next available Screening examination for STI 05/02/2024 Borderline personality disorder 04/23/2024 Assessment & Plan (04/29/2024 10:14 AM EDT): During [facility] Consult Autumn presenting with depressed mood, loss of interests/pleasure , changes in sleep difficulty falling asleep, change in appetite or weight reduce appetite, psychomotor retardation, trouble concentrating, thoughts of worthlessness or guilt, fatigue/loss of energy, inappropriate guilt , hopelessness, difficulty concentrating;unstable and intense interpersonal relationships, persistent and unstable self-image, chronic feeling of emptiness, inappropriate, intense and constant anger and affective instability due to irritability constant mood; for a period of 18+ mo, for all symptoms in the context of chronic mental health conditions. Autumn reports experiencing symptoms since younger years. She is unable to manage impulsivity and anger outburst. She was under DCF custody until she was 19 y/o and now she's currently living with her mother and step-dad. During today's consult, clinician engaged Autumn with active, reflective listening and validation of emotions. Explored coping mechanisms that she's willing to try. Autumn would like to get connected with services. Pt is aware of the negative impact that sxs have in her interpersonal relationships. Reviewed and assessed for risk, current stressors, and protective factors. PLAN: (check all that apply) New/Additional Services needed On-site non-integrated services Off-site services for Behavioral Health Integration Plan Internal Follow up with [facility] External OP therapy referral and OP psychiatry Referral Patient Self Plan Patient to utilize skills provided in intervention , Patient to reach out to [facility] team as needed, Patient to engage in OP therapy , and Patient to reach out to [facility] as needed Severe episode of recurrent major depressive disorder, without psychotic features 04/23/2024 Assessment & Plan (05/02/2024 10:35 AM EDT): BE performed today No acute safety concerns Referral for OP therapy and pysch prescriber Assessment & Plan (04/29/2024 10:14 AM EDT): During [facility] Consult Autumn presenting with depressed mood, loss of interests/pleasure , changes in sleep difficulty falling asleep, change in appetite or weight reduce appetite, psychomotor retardation, trouble concentrating, thoughts of worthlessness or guilt, fatigue/loss of energy, inappropriate guilt , hopelessness, difficulty concentrating;unstable and intense interpersonal relationships, persistent and unstable self-image, chronic feeling of emptiness, inappropriate, intense and constant anger and affective instability due to irritability constant mood; for a period of 18+ mo, for all symptoms in the context of chronic mental health conditions. Autumn reports experiencing symptoms since younger years. She is unable to manage impulsivity and anger outburst. She was under DCF custody until she was 19 y/o and now she's currently living with her mother and step-dad. During today's consult, clinician engaged Autumn with active, reflective listening and validation of emotions. Explored coping mechanisms that she's willing to try. Autumn would like to get connected with services. Pt is aware of the negative impact that raymundo have in her interpersonal relationships. Reviewed and assessed for risk, current stressors, and protective factors. PLAN: (check all that apply) New/Additional Services needed On-site non-integrated services Off-site services for Behavioral Health Integration Plan Internal Follow up with [facility] External OP BH therapy referral and OP psychiatry Referral Patient Self Plan Patient to utilize skills provided in intervention , Patient to reach out to [facility] team as needed, Patient to engage in OP therapy , and Patient to reach out to [facility] as needed Vitamin D deficiency 06/07/2018 Allergic rhinitis 06/18/2017 Mild intermittent asthma 11/27/2016 Developmental academic disorder 06/28/2015 Dyssomnia 06/08/2014 Impulse control disorder 06/08/2014 Comments Yes Encounters Date Type Department Care Team Description 11/07/2024 Orders Only GENERIC EXTERNAL DATA DEPARTMENT Provider, Generic External Data 11/06/2024 Orders Only GENERIC EXTERNAL DATA DEPARTMENT Provider, Generic External Data 10/09/2024 Telephone [facility] [address] [place] [phone] Janneth Dale [place] RECALL 09/29/2024 Telephone [facility] [address] [place] [address] [place] Hwang 09/10/2024 Orders Only GENERIC EXTERNAL DATA DEPARTMENT Provider, Generic External Data 09/08/2024 Telephone [facility] [address] [facility] [place] [address] [place] Hwang 09/02/2024 Orders Only GENERIC EXTERNAL DATA DEPARTMENT Provider, Generic External Data 08/25/2024 Orders Only GENERIC EXTERNAL DATA DEPARTMENT Provider, Generic External Data 08/19/2024 Orders Only GENERIC EXTERNAL DATA DEPARTMENT Provider, Generic External Data 08/13/2024 Orders Only GENERIC EXTERNAL DATA DEPARTMENT Provider, Generic External Data from Last 3 Months Immunizations Name Administration Dates Next Due DTaP 05/11/2006, 3,2001,08/27,2001 DTaP / HiB / IPV 06/10/2002, 2,2001,06/18 HPV 9-Valent 11/24/2015 HPV, Quadrivalent 11/17/2014,08/31/2014 Hep A, ped/adol, 2 dose 11/24/2015,08/31/2014 Hep B, Adolescent or Pediatric 2,2001,2001,05/07,2001 Hib (PRP-T) 06/10/2002, 2,2001,06/18 IPV 05/11/2006, 3,2001,06/18 Influenza injectable quadriv alent preservative free 11/14/2017,06/26/2016,11/24/2015,12/16 Influenza live intranasal qu adrivalent LIAV4 08/31/2014 MMR 05/11/2006,06/10/2002 Meningococcal MCV4P ACYW-135 04/06/2017,08/31/20 14 Pneumococcal Conjugate PCV 13 04/07/2003, 001 Pneumococcal Conjugate PCV 7 2001,06/18/20 01 Tdap 08/31/2014 Varicella 11/13/2011,06/10/2002 Family History Medical History Relation Name Comments Macular degeneration Maternal Grandmother Relation Name Status Comments Maternal Grandmother Social History Tobacco Use Types Packs/Day Years Used Date Smoking Tobacco: Every Day Cigarettes Tobacco Cessation:Ready to Q uit: Not Asked; Counseling Given: Not Answered Depression Answer Date Recorded Patient Health Questionnaire-9 Score 24 04/23/2024 Patient Health Questionnaire-9 Score 24 04/23/2024 Last PHQ-9: Questionnaire Data Not on file 0 04/23/2024 Housing Stability Answer Date Recorded What is your housing situation today? I do not have housing (Staying with others, in a hotel, in a longterm, living outside on the street, on a [...] Orientation Straight 07/31/2022 10 :16 AM EDT Last Filed Vital Signs Vital Sign Reading Time Taken Comments Blood Pressure 118/56 07/17/2024 1:12 PM EDT Pulse 64 07/17/2024 1:12 PM EDT Temperature 36.3 ??C (97.3 ??F) 07/17/2024 1:12 PM ED T Respiratory Rate 20 07/17/2024 1:12 PM EDT Oxygen Saturation 99% 07/17/2024 1:12 PM EDT Inhaled Oxygen Concentration - - Weight 60.1 kg (132 lb 9.6 oz) 07/17/2024 1:12 P M EDT Height 160 cm (5' 3 ) 07/17/2024 1:12 PM EDT Body Mass Index 23.49 07/17/2024 1:12 PM EDT Plan of Treatment Health Maintenance Due Date Last Done Comments Dental Oral Exam 2001 Dental Prophylaxis 2001 Dental X-Ray: Bitewings 2001 Dental X-Ray: Full Mouth 2001 Lipid Panel 2001 Pneumococcal Vaccine: Pediatrics (0 to 5 Years) and At-Risk Patients (6 to 49) Years) (1 of 1 - PPSV23) 2007 04/07/2003, 2001, 2001, Additional history exists Alcohol/Substance Use Screening 2013 Family Planning (PISQ) 2016 Pap Smear 2022 COVID-19 Vaccine ( - season) 2024 Influenza Vaccine (#1) 2024 8, 06/26/2016, 11/24/2015, Additional history exists DTaP/Tdap/Td Vaccines (7 - Td or Tdap) 08/31/2024 08/31/2014, 05/11/2006, 04/07/2003, Additional history exists Depression Monitoring (PHQ-9) 10/24/2024 04/23/2024, 04/23/2024 SDOH Screening 12/25/2024 12/26/2023 Depression Screening 04/23/2025 04/23/2024, 04/23/20 Chlamydia and Gonorrhea Screening 07/22/2025 07/22/2024, 11/01/2022, 12/25/2021 Tobacco Screening 07/25/2025 07/25/2024 Zoster Vaccines (1 of 2) 2051 RSV Patients and Patients Aged 60 years or older (1 - 1-dose 75+ series) 2076 HIB Vaccines Completed 06/10/2002, 06/01, 2001, Additional history exists Hepatitis B Vaccines Completed 08/22/2002, 2001, 2001, Additional history exists IPV Vaccines Completed 05/11/2006, 07/0 05/2003, 06/10/2002, Additional history exists HPV Vaccines Completed 11/24/2015, 11/01, 08/31/2014 Hepatitis A Vaccines Completed 11/24/2015, 08/31/20 14 Meningococcal Vaccine Completed 04/06/2017, 014 HIV Screening Completed 04/23/2024 Hepatitis C Screening Completed 04/23/2024 RSV under 20 months Aged Out No longe r eligible based on patient's age to complete this topic Rotavirus Vaccines Aged Out No longer eligible based on patient's age to complete this topic Procedures Procedure Name Priority Date/Time Associated Diagnosis Comments US OB PELVIS TRANSVAGINAL Routine 11/07/2024 1:37 AM EST URINALYSIS, COMPLETE, WITH REFLEX TO CULTURE Routine 11/07/2024 12:56 AM EST HCG, TOTAL, QN Routine 11/06/2024 9:10 PM EST MAGNESIUM Routine 11/06/2024 9:10 PM EST COMPREHENSIVE METABOLIC PANEL Routine 11/06/2024 9:10 PM EST CBC WITH AUTO DIFFERENTIAL Routine 11/06/2024 9:09 PM EST SARS COV2/INFLUENZA A/B AND RSV RNA QL NAAT Routine 11/06/2024 9:09 PM EST HCG, TOTAL, QN Routine 09/10/2024 9:23 AM EST HCG, TOTAL, QN Routine 09/02/2024 12:12 PM EST HCG, TOTAL, QN Routine 08/25/2024 4:32 PM EST HCG, TOTAL, QN Routine 08/19/2024 9:27 AM EST TYPE AND SCREEN Routine 08/13/2024 11:47 AM EST HCG, TOTAL, QN Routine 08/13/2024 11:47 AM EST MAGNESIUM Routine 08/13/2024 11:47 AM EST COMPREHENSIVE METABOLIC PANEL Routine 08/13/2024 11:47 AM EST CBC WITH AUTO DIFFERENTIAL Routine 08/13/2024 11:47 AM EST US OB PELVIS TRANSVAGINAL Routine 08/13/2024 11:11 AM EST GROSS AND MICROSCOPIC LEVEL 4 Routine 08/13/2024 10:54 AM EST CHLAMYDIA/N. GONORRHOEAE RNA, TMA, UROGENITAL Routine 07/22/2024 11:09 AM EDT HEPATITIS C AB W/REFL TO HCV RNA, QN, PCR Routine 04/23/2024 3:30 PM EDT Screening examination for STI HIV 1/2 ANTIGEN/ANTIBODY, FOURTH GENERATION W/RFL Routine 04/23/2024 3:30 PM EDT Screening examination for STI from Last 3 Months or Most Recently Relevant to Health Maintenance Results * US OB Pelvis with Transvaginal (11/07/2024 1:37 AM EST) Only the most recent of2 resultswithin the time period is included. Anatomical Region Laterality Modality Pelvis Ultrasound 11/07/2024 1:37 AM EST Narrative 11/07/2024 1:39 AM EST ? [facility] ?[address] ?[place] [address] ? Ultrasound Report ? Signed ? Patient: Jasen,Autumn ?MR#: [id number] ?? 68 ? : 2000 ?Acct:[id number] ? Age/Sex: 24 / F ?ADM Date: 02/06/25 ? Loc: HO.ED ? Attending Dr: ? Ordering Physician: Praful Klein ?? Date of Service: 11/06/24 ?? Procedure(s): US OB pelvic and transvaginal ?? Accession Number(s): [id number] ? cc: Praful Klein; Kayeln Juarez MD ? CLINICAL HISTORY: right pelvic [...] ?? 11/07/2024 01:37:29 ? Dictated By: ?Osvaldo Tna MD ? Signed By: ?<Electronically signed by Osvaldo Tan MD in OV> ? 11/07/24 0139 ? DD/ 6 ? TD/TT: 11/07/24136 ? Clamp Forklift Operator: ? Procedure Note Priscilla Fonseca - 11/07/[address] [address] Ultrasound Report Signed Patient: Autumn Aggarwal#: [id number] [birth year] : 2000Acct:[id number] Age/Sex: 24 / FADM Date: 11/06/24 Loc: HO.ED Attending Dr: Ordering Physician: Praful Klein Date of Service: 11/06/24 Procedure(s): US OB pelvic and transvaginal Accession Number(s): [id number] cc: Praful Klein; Kaylen Juarez MD CLINICAL [...] signed by Osvaldo Tan MD in OV> 11/07/24 0139 DD/ 6 TD/TT: 11/07/24136 Clamp Forklift Operator: us [facility] External Provider IMG US PROCEDURES Edited Result - Final * (ABNORMAL) Urinalysis, Complete, with Reflex to Culture (11/07/2024 12:56 AM EST) Color Urine Dark Yellow [facility] Appearance Urine Clear [facility] PH 5.5 5.0 - 9.0 [facility] Glucose Urine UA Negative Negative mg/dL [facility] Urine Blood Negative Negative [facility] Specific [place] - Urine >=1.030(H) 1.005 - 1.025 [facility] Urine Protein Trace Neg-Trace mg/dL [facility] Urine Ketones 40 Negative mg/dL [facility] Nitrite Urine Negative Negative [facility] Leukocyte Esterase Urine Negative Negative [facility] RBC Urine 0-2 0 - 2 /HPF [facility] Urine WBC 0-5 0 - 5 /HPF [facility] Urine Squamous Epithelial Cell 11-20 0 - 2 /HPF [facility] Urine Bacteria Trace None Seen [facility] Hyaline Casts, Urine 0-2 0 - 2 /LPF [facility] 11/07/2024 12:5 6 AM EST 11/07/2024 12:59 AM EST Narrative [facility] - 11/07/2024 1:08 AM EST Urine, Clean Catch us Generic External Data Provider LAB URINE ORDERAB LES Final Result [facility] [address] [place] [address] [phone] * hCG, Total, Quantitative (11/06/2024 9:10 PM EST) Only the most recent of6 resultswithin the time period is included. HCG Quantitative 2,262 mIU/mL [facility] Comment:Weeks post LMP Appro ximate hCG(Last Menstrual Period) Range (mIU/ml)3 - 4 weeks 9 - 1304 - 5 weeks 75 - 2,6005 - 6 weeks 850 - 20,8006 - 7 weeks 4000 - 100,2007 - 12 weeks 11,500 - 289,58177 - 16 weeks 18,300 - 137,54720 - 29 weeks (2nd trimester) 1,400 - 53,50740 - 41 weeks (3rd trimester) 940 - [...] ORDERAB LES Final Result Performing Organization Address [facility]/ZIP Co de Phone Number [facility] [address] [place] [phone] * Magnesium (11/06/2024 9:10 PM EST) Only the most recent of2 resultswithin the time period is included. Magnesium 1.8 1.6 - 2.6 mg/dL [facility] 11/06/2024 9:10 PM EST 11/06/2024 9:13 PM EST Generic External Data Provider LAB BLOOD ORDERAB LES Final Result Performing Organization Address [facility] Co de Phone Number [facility] [address] [place] [phone] * (ABNORMAL) Comprehensive Metabolic Panel (11/06/2024 9:10 PM EST) Only the most recent of2 resultswithin the time period is included. Sodium 135 135 - 145 mmol/L [facility] Potassium 4.2 3.3 - 5.1 mmol/L [facility] Chloride 107 96 - 108 mmol/L [facility] Carbon Dioxide 21(L) 22 - 29 mmol/L [facility] Anion Gap 11(L) 12 - 20 [facility] Urea Nitrogen (BUN) 9 9 - 16 mg/dL [facility] Creatinine, Serum 0.66 0.5 - 1.4 mg/dL [facility] Creatinine Clr Calc Pharmacy 109.7 [facility] Comment:Provided height and weight: 160.02 cm,59.4 kg.eGFR (calculated from the MDRD study equation) and eCrCl(calculated from the Cockcroft-Gault equation) are based ondifferent parameters and may not yield comparable results.If eCrCl result is absurd, please check patient'sheight/weight. Estimated Glomerular Filt Rate >60 [facility] Comment:Chronic Kidney Disea se: Estimated GFR < 60 mL/min/1.12w9Xemtke Kidney Disease: Estimated GFR < 15 mL/min/1.73m2 Glucose 90 60 - 115 mg/dL [facility] Calcium 9.1 8.4 - 10.2 mg/dL [facility] Bilirubin, Total 0.7 0.0 - 1.0 mg/dL [facility] Aspartate Amino Transferase 25 5 - 31 U/L [facility] Alanine Aminotransferase 15 0 - 31 U/L [facility] Total Protein 7.9 6.5 - 8.0 g/dL [facility] Albumin Level 4.4 3.5 - 5.0 g/dL [facility] Alkaline Phosphatase 61 39 - 117 U/L [facility] 11/06/2024 9:10 PM EST 11/06/2024 9:13 PM EST us Generic External Data Provider LAB BLOOD ORDERAB LES Final Result [facility] [address] [place] [phone] * SARS-CoV-2 RNA, Influenza A/B, and RSV RNA, Ql NAAT (11/06/2024 9:09 PM EST) Influenza A PCR NEGATIVE Negative [facility] Influenza B PCR NEGATIVE Negative [facility] Resp Syncy Virus RNA Qual PCR NEGATIVE Negative [facility] SARS COV2 PCR NEGATIVE Negative [facility] Comment:All test results mus t [...] use by authorized laboratories.Testing performed on the [facility] GeneXpert utilizingreal-time RT-PCR.All SARS CoV2 and positive influenza A/B results arereported to [facility]. 11/06/2024 9:09 PM EST 11/06/2024 9:13 PM EST us Generic External Data Provider LAB MICROBIOLOGY - GENERAL ORDERABLES Final Result [facility] [address] [place] [phone] * (ABNORMAL) CBC auto differential (11/06/2024 9:09 PM EST) Only the most recent of2 resultswithin the time period is included. White Blood Count 14.5(H) 4.8 - 10.8 X10*3/uL [facility] Red Blood Count 4.26 4.20 - 5.50 X10*6/uL [facility] Hemoglobin 13.4 12.0 - 16.0 g/dl [facility] Hematocrit 39.5 37.0 - 47.0 % [facility] Mean Corpuscular Volume 92.7 80.0 - 98.0 fL [facility] Mean Corpuscular Hemoglobin 31.5 27.0 - 33.0 pg [facility] Mean Corpuscular HGB Conc 33.9 31.0 - 35.0 g/dl [facility] Red Cell Distribution Width 12.4 11.0 - 16.0 % [facility] Platelet Count 236 160 - 400 X10*3/uL [facility] Mean Platelet Volume 11.4 9.4 - 12.3 fL [facility] Neutrophils Percent Auto 85.0(H) 45 - 73 % [facility] Imm Gran Pct Auto 0.5(H) 0.0 - 0.4 % [facility] Lymphocytes Percent Auto 7.4(L) 20 - 40 % [facility] Monocytes Percent Auto 6.6 2 - 11 % [facility] Eosinophils Percent Auto 0.2 0 - 4 % [facility] Basophils Percent Auto 0.3 0 - 2 % [facility] NRBC Pct Auto 0.0 0.0 - 0.2 /100WBC [facility] Neutrophils Absolute Auto 12.3(H) 2.0 - 8.3 x10*3/uL [facility] Imm Gran Abs Auto 0.07(H) 0.00 - 0.03 X10*3/uL [facility] Lymphocytes Absolute Auto 1.1(L) 1.2 - 4.9 X10*3/uL [facility] Monocytes Absolute Auto 1.0 0.1 - 1.2 X10*3/uL [facility] Eosinophils Absolute Auto 0.0 0.0 - 0.4 X10*3/uL [facility] Basophils Absolute Auto 0.1 0.0 - 0.2 X10*3/uL [facility] NRBC Abs Auto 0.000 0.0 - 0.012 X10*3/uL [facility] 11/06/2024 9:09 PM EST 11/06/2024 9:13 PM EST us Generic External Data Provider LAB BLOOD ORDERAB LES Final Result Performing Organization Address [facility]/ZIP Co de Phone Number [facility] [address] [place] [phone] * Type and screen (08/13/2024 11:47 AM EST) Blood Type AP [facility] Antibody Screen NEGATIVE [facility] 08/13/2024 11:4 7 AM EST 08/13/2024 12:00 PM EST Generic External Data Provider LAB BLOOD BANK TE ST ORDERABLES Final Result Performing Organization Address [facility] Co de Phone Number [facility] [address] [place] [address] [phone] * Gross and Microscopic Level 4 (08/13/2024 10:54 AM EST) 08/13/2024 10:5 4 AM EST 08/13/2024 11:39 AM EST Narrative [facility] - 08/15/2024 1:50 PM EST ----- ------- Name: Autumn Aggarwal ? Age/Sex: 24/F ? : 2000 Unit#: [id number] ?? Attend Dr: Sivan Little MD ?Re08/13/24 ?Status: DEP ER ?Location: HO.ED ? Disch: ? ----- ------- SPEC : [id number] ? RECD: 08/13/24-937 ? STATUS: ??SOUT ? REQ NUM: [id number] ? ELISA: 08/13/24-1054 ? SUBM DR: Haylee Romero ? ENTERED: ??08/13/24 ?SP TYPE: Surgical ? OTHR DR: [facility] ? ORDERED: ??Gross Micro L4 ? Diagnosis ?? Labeled products of conception , removal: ??Predominantly blood and fibrin material; no ?? chorionic villi or gestational tissue is seen. ? COMMENT: ??The specimen has been entirely submitted and microscopically examined. ?Clinical History Miscarriage ?Microscopic Description Microscopic sections reviewed. ? Material Received ?? POC collected in field ? Gross Description Received in formalin labeled ?POC? is a 5.0 x 4.0 x 0.5-0.8 cm aggregate of red-maroon clotted blood. ??Sectioning reveals homogeneous red-maroon clot. ??No membranous or papilliferous tissue is identified. ??No embryonic or tissue is identified. Top And Seat Cover Fitter sections are submitted in cassettes A1-A3. ??The remainder of the specimen is entirely submitted in cassettes A4-A14. CEDS Copies To: ?? Haylee Romero ?? [address] ?? [place] [address] ?? [phone] ?? [facility] ?? [address] ?? [place] [address] ?? ----- ------- Signed (signature on file) Lucia Menjivar MD 08/15/24 1350 ? ----- ------- ? END OF REPORT ? us Generic External Data Provider LAB CYTOLOGY LUIS ARMANDO REYES Final Result [facility] [address] [place] [phone] * Chlamydia/N. Gonorrhoeae RNA, TMA, Urogenitial (07/22/2024 11:09 AM EDT) [facility] CT PCR NOT DETECTED Not Detect. [facility] Comment:A not detected test result does not exclude the possibilityof infection because test results can be affected byimproper specimen collection, concurrent antibiotic therapy,or the number of organisms in the specimen which may bebelow the sensitivity of the test. As with many diagnostictests, results from the Xpert CT/NG assay should beinterpreted in conjunction with other laboratory andclinical data available to the clinician.Xpert CT/NG performance has not been evaluated in patientsless than 14 years of age. The assay should not be used forthe evaluationof suspected sexual abuse or for other medico-legalindications. Additional testing is recommended in anycircumstance when false positive or false negative resultscould lead to adverse medical, social or psychologicalconsequences. NG PCR NOT DETECTED Not Detect. [facility] Comment:A not detected test result does not exclude the possibilityof infection because test results can be affected byimproper specimen collection, concurrent antibiotic therapy,or the number of organisms in the specimen which may bebelow the sensitivity of the test. As with many diagnostictests, results from the Xpert CT/NG assay should beinterpreted in conjunction with other laboratory andclinical data available to the clinician.Xpert CT/NG performance has not been evaluated in patientsless than 14 years of age. The assay should not be used forthe evaluationof suspected sexual abuse or for other medico-legalindications. Additional testing is recommended in anycircumstance when false positive or false negative resultscould lead to adverse medical, social or psychologicalconsequences. 07/22/2024 11:0 9 AM EDT 07/22/2024 6:23 PM EDT Narrative [facility] - 07/23/2024 12:18 PM EDT Vaginal us Generic External Data Provider LAB MICROBIOLOGY - GENERAL ORDERABLES Final Result Performing Organization Address [facility] Co de Phone Number [facility] [address] [place] [phone] * Hepatitis C Antibody with Reflex to HCV, RNA, Quantitative, Real-Time PCR (04/23/2024 3:30 PM EDT) Pathologist [facility] Hepatitis C Antibody Nonreactive Nonreactive [facility] Comment:Antibodies to HCV no t detected; does not exclude early acuteHCV infection. Blood Venous blood specimen / Unknown 04/23/2024 3:30 PM EDT 04/23/2024 4:10 PM EDT us Shaneka Howard MD LAB BLOOD ORDERABLES Final Res ult Performing Organization Address [facility] Co de Phone Number [facility] [address] [place] [phone] * HIV-1/2 Antigen and Antibodies, Fourth Generation, with Reflexes (04/23/2024 3:30 PM EDT) HIV AB/AG Nonreactive Nonreactive [facility] Comment:HIV-1 p24 Ag and/or HIV-1/HIV-2 Ab not detected.A test result that is nonreactive does not exclude thepossibility of exposure to or infection with HIV-1 and/orHIV-2. Nonreactive results in this assay for individualswith prior exposure to HIV-1 and/or HIV-2 may be due toantigen and antibody levels that are below the limit ofdetection of this assay.The [employer] HIV Ag/Ab Combo assay result andsupplemental assay results should be interpreted inconjunction with the patient's clinical presentation,history and other laboratory results. If the results areinconsistent with clinical evidence, additional testing issuggested to confirm the result. Blood Venous blood specimen / Unknown 04/23/2024 3:30 PM EDT 04/23/2024 4:10 PM EDT us Shaneka Howard MD LAB BLOOD ORDERABLES Final Res ult [facility] [address] [place] [phone] [phone] from Last 3 Months or Most Recently Relevant to Health Maintenance Insurance C[employer] [employer]ICA[employer] STAND ADULT Care Teams Computer Technical Specialist Relationship Specialty Start Date End Date Shaneka Howard MD [address] [place] [phone] PCP - General Family Medicine 11/14/23
--- OUTSIDE RECORDS SUMMARY | 2024-11-11 13:55 | XMS_ITS | Encounter Summary ---
Author Organization [employer] Address [address] [place] [address] Care Team Providers Care Engineer Remote Control Diesel Name Role Phone Shaneka Howard MD Primary Care Provider [phone] Reason for Visit * Reason Onset Date Comments Nurse Triage 11/14/2023 Encounter Details Date Type Department Care Team ([facility] st Contact Info) Description 11/14/2023 Telephone [facility] [address] [place] [address] [facility] [address] [place] [address] Nurse Triage Social History Tobacco Use Types [...] Telephone Encounter - Dorie Jorge RN - 11/14/2023 1:14 PM EST Triage call Pt reports skin lump in vaginal area, right side . Pt reports it is painful, larger than a marble and it is difficult to go about daily activities due to the pain. Pt reports has had thisbefore and it just went away at that time without complications. Now this lump is not going away. Pt is advised to come to [facility] today open till 8pm and provider can see Pt. Home care advised and insurance is not verified as active, Pt is advised to contact insurance first. Pt reponds I was already told about this . Pt also requests not to call on [phone] number it is an emergency number. Protocol Used: Boil (Skin Abscess) (Adult) Protocol-Based Disposition: See in Office or Video Visit Today or Tomorrow Video visit not offered Positive Triage Question: * Patient wants to be seen * All higher-acuity triage questions were negative Care Advice Discussed: * Reassurance and Education - Boil * Treatment - General * Treatment for a Boil - Apply Moist Heat * Pain Medicines * Preventing Spread to Yourself and Others * Reasons To Call Back - Severe pain or fever occurs - Widespread rash occurs - You become worse * Telephone Encounter - Sudheer Mann - 11/14/2023 12:18 PM EST Symptom: Skin Lump Outcome: Schedule an urgent appointment (within 4 hours) or talk to a nurse or provider soon Reason: Red and larger than 1 inch The caller accepted this outcome documented in this encounter Plan of Treatment Not on file documented as of this encounter Visit Diagnoses Not on filedocumented in this encounter Care Teams Engineer Remote Control Diesel Relationship Specialty Start Date End Date Shaneka Howard MD [address] [place] [address] PCP - General Family Medicine 11/14/23 documented as of this encounter
--- OUTSIDE RECORDS SUMMARY | 2024-11-11 13:55 | XMS_ITS | Encounter Summary ---
Author Organization [employer] Address [address] [place] [address] Care Team Providers Care Grade Teacher Name Role Phone Shaneka Howard MD Primary Care Provider [phone] Encounter Details Date Type Department Care Team ([facility] st Contact Info) Description 11/07/2024 Orders Only GENERIC EXTERNAL DATA [...] with others, in a hotel, in a [facility], living outside on the street, on a [...] Procedure Name Priority Date/Time Associated Diagnosis Comments URINALYSIS, COMPLETE, WITH REFLEX TO CULTURE Routine 11/07/2024 12:56 AM EST documented in this encounter Results * (ABNORMAL) Urinalysis, Complete, with Reflex to Culture (11/07/2024 12:56 AM EST) Color Urine Dark Yellow [facility] Appearance Urine Clear [facility] PH 5.5 5.0 - 9.0 [facility] Glucose Urine UA Negative Negative mg/dL [facility] Urine Blood Negative Negative [facility] Specific [place] - Urine >=1.030(H) 1.005 - 1.025 [facility] Urine Protein Trace Neg-Trace mg/dL [facility] Urine Ketones 40 Negative mg/dL [facility] Nitrite Urine Negative Negative [facility] Leukocyte Esterase Urine Negative Negative [facility] RBC Urine 0-2 0 - 2 /HPF [facility] Urine WBC 0-5 0 - 5 /HPF [facility] Urine Squamous Epithelial Cell 11-20 0 - 2 /HPF [facility] Urine Bacteria Trace None Seen [facility] Hyaline Casts, Urine 0-2 0 - 2 /LPF [facility] 11/07/2024 12:5 6 AM EST 11/07/2024 12:59 AM EST Narrative [facility] - 11/07/2024 1:08 AM EST Urine, Clean Catch us Generic External Data Provider LAB URINE ORDERAB LES Final Result [facility] [address] [place] [address] [phone] documented in this encounter Visit Diagnoses Not on filedocumented in this encounter Additional Health Concerns Assessment Noted Time PHQ-9 Depression Total Score: 04/23/ 024 2:26 PM EDT documented as of this encounter Care Teams Grade Teacher Relationship Specialty Start Date End Date Shaneka Howard MD [address] [place] [phone] PCP - General Family Medicine 11/14/23 documented as of this encounter
--- OUTSIDE RECORDS SUMMARY | 2024-11-11 13:56 | XMS_ITS | Clinical Summary ---
Author Organization [facility] ity Address [address] [place] [address] Care Team Providers Care Computer Aided Design Drafter Name Role Phone Unavailable Primary Care Provider Unavailabl e Social History Tobacco Use Types Packs/Day Years Used Date Smoking Tobacco: Never Assessed Comments Unknown Sex and Gender Information Value Date Recorded Sex Assigned at Not on file Legal Sex Female 4:52 AM EST Gender Identity Not on file Sexual Orientation Not on file Plan of Treatment Health Maintenance Due Date Last Done Comments Gonorrhea/Chlamydia Screening 2001 DTaP,Tdap,and Td Vaccines (6 - Tdap) 2012 05/11/2006, 04/07/2003, 06/10/2002, Additional history exists HPV Vaccines (1 - 3-dose series) 2016 Meningococcal B Vacine (1 of 2 - Standard) 2017 Cervical Cancer Screening: Pap Smear 2022 COVID-19 Vaccine (2023- season) 2024 Influenza Vaccine (#1) 2024 HIB Vaccines Completed 06/10/2002, 10/02, 2001, Additional history exists Hepatitis B Vaccines Completed 08/22/2002, 2001, 2001 Pneumococcal Vaccine: Pediatrics (0 to 5 Years) and At-Risk Patients (6 to 64 Years) Completed 04/07/2003, 2001, 2001, Additional history exists IPV Vaccines Completed 05/11/2006, 05/2003, 06/10/2002, Additional history exists MMR Vaccines Completed 05/11/2006, 06/10/2002 Varicella Vaccines Completed 11/13/2011, 06/10/2002 Hepatitis A Vaccines Aged Out No long er eligible based on patient's age to complete this topic Meningococcal ACWY Vaccine Aged Out N o longer eligible based on patient's age to complete this topic RSV Immunization Patients Under 20 months Aged Out No longer eligible based on patient's age to complete this topic
[2024-11-11 14:12] LABS: HCG Quantitative 6184 mIU/mL
[2024-11-12 03:45] LABS: Syphilis Screen Nonreactive (Nonreactive)
[2024-11-12 03:52] LABS: HBsAGNum1 0.39 S/CO (0.00-0.99); HIV AB/AG Nonreactive (Nonreactive); HIV Num 1 0.07 S/CO (0.00-0.99); Hepatitis B Surface Antigen Negative (Negative); ~HepC Num1 0.22 S/CO (0.00-0.79); ~Hepatitis C Antibody Nonreactive (Nonreactive)
== END 2024-11-11 12:53 | disposition home or self-care (01) ==
LOC: HO.LAB 12:52
PROVIDERS: PCP General Practice; Visit Provider Obstetrics & Gynecology
DX: O03.9 Complete or unspecified spontaneous abortion without complication (principal); Z20.2 Contact with and (suspected) exposure to infections with a predominantly sexual mode of transmission
CPT/HCPCS: 36415; 84702; 86780; 86803; 87340; 87389

== ENCOUNTER 2024-11-12 09:46 | Outpatient (REF) | payer MEDICAID, SELFPAY ==
--- NOTE | ~2024-11-12 | US_ITS ---
EXAMINATION: US OBSTETRICAL ULTRASOUND CLINICAL INFORMATION: Encounter for supervision off normal COMPARISON: November 06, 2024. LMP: 10/03/2024. Gestational age by maternal dates is 5 weeks and 5 days. Estimated date of delivery by maternal dates is 07/10/2025. TECHNIQUE: Real-time transabdominal and transvaginal obstetrical pelvic ultrasound performed using grayscale and color Doppler technique. FINDINGS: There is an intrauterine ovoid shaped gestational sac which measures 1.4 cm in maximum dimension. No yolk sac. No pole/embryo. MATERNAL ADNEXA: The right maternal ovary measures 2 x 1 x 1 cm. No solid or cystic lesion. There is flow on color Doppler interrogation to the ovary. The left maternal ovary measures 4 x 3 x 3 cm. There is a 1.9 cm anechoic lesion without flow on color Doppler interrogation. There is flow on color Doppler interrogation of the ovary. There is no significant maternal adnexal mass. No maternal pelvic ascites. US/US OB pelvic and transvaginal IMPRESSION: Empty intrauterine gestational sac. No yolk sac or pole. Recommend correlation with subsequent calcification beta-hCG. No ovarian torsion. Electronically signed by: Jorje Villalta MD 11/12/2024 10:58 AM EST
--- OUTSIDE RECORDS SUMMARY | 2024-11-12 11:18 | XMS_ITS | Clinical Summary ---
Demographics Address [address] [place] [address] Home Phone Mobile Phone Preferred Language en Marital Status Single Adventist Affiliation Unknown Race Other Race Ethnic Group or Author Organization [employer] Address [address] [place] [address] Care Team Providers Care Statistics Manager Name Role Phone Shaneka Howard MD Primary Care Provider [phone] Allergies No known active allergies Medications * [...] blood and CBC -STAT pelvic/TV US -STAT DATA CENTER TECHNICIAN referral requested to referral at [facility] by pt prefernce- will inform pt [...] & Plan (04/29/2024 10:14 AM EDT): During [facility] Consult Autumn presenting with depressed mood, [...] Health Integration Plan Internal Follow up with [facility] External OP therapy referral and OP psychiatry Referral Patient Self Plan Patient to utilize skills provided in intervention , Patient to reach out to [facility] team as needed, Patient to engage in [...] Health Integration Plan Internal Follow up with [facility] External OP BH therapy referral and OP psychiatry Referral Patient Self Plan Patient to utilize skills provided in intervention , Patient to reach out to [facility] team as needed, Patient to engage in OP therapy , and Patient to reach out to [facility] as needed Vitamin D deficiency 06/07/2018 Allergic rhinitis 06/18/2017 Mild intermittent asthma 11/27/2016 Developmental academic disorder 06/28/2015 Dyssomnia 06/08/2014 Impulse control disorder 06/08/2014 Comments Yes Encounters Date Type Department Care Team Description 11/12/2024 Orders Only [facility] External Provider, [facility] 11/11/2024 Orders Only GENERIC EXTERNAL DATA DEPARTMENT Provider, Generic External Data 11/07/2024 Orders Only GENERIC EXTERNAL DATA DEPARTMENT Provider, Generic External Data 11/06/2024 Orders Only GENERIC EXTERNAL DATA DEPARTMENT Provider, Generic External Data 10/09/2024 Telephone [facility] [address] [place] [address] Chito Janneth, [place] REC[place] 09/29/2024 Telephone [facility] ADULT DENTAL [address] [place] [address] Ja[place], [place] 09/10/2024 Orders Only GENERIC EXTERNAL DATA DEPARTMENT Provider, Generic External Data 09/08/2024 Telephone [facility] ADULT DENTAL [address] [place] [address] Ja[place], [place] 09/02/2024 Orders Only GENERIC EXTERNAL DATA DEPARTMENT [...] with others, in a hotel, in a assisted, living outside on the street, on a [...] 2016 Pap Smear 2022 COVID-19 Vaccine ( season) 2024 Influenza Vaccine (#1) 2024 8, [...] Completed 05/11/2006, 05/2003, 06/10/2002, Additional history exists HPV Vaccines Completed 11/24/2015, 11/01, 08/31/2014 Hepatitis A Vaccines Completed 11/24/2015, 08/31/20 14 Meningococcal Vaccine Completed 04/06/2017, 014 HIV Screening Completed 11/11/2024, 04/23/2024 Hepatitis C Screening Completed 11/11/2024, 024 RSV under 20 months Aged Out No longe r eligible based on patient's age to complete this topic Rotavirus Vaccines Aged Out No longer eligible based on patient's age to complete this topic Procedures Procedure Name Priority Date/Time Associated Diagnosis Comments US OB PELVIS TRANSVAGINAL Routine 11/12/2024 10:10 AM EST HEPATITIS B SURFACE ANTIGEN, EIA Routine 11/11/2024 1:05 PM EST HIV 1/2 ANTIGEN/ANTIBODY, FOURTH GENERATION W/RFL Routine 11/11/2024 1:05 PM EST HEPATITIS C ANTIBODY Routine 11/11/2024 1:05 PM EST SYPHILIS SCREEN Routine 11/11/2024 1:05 PM EST HCG, TOTAL, QN Routine 11/11/2024 1:05 PM EST US OB PELVIS TRANSVAGINAL Routine 11/07/2024 1:37 [...] TMA, UROGENITAL Routine 07/22/2024 11:09 AM EDT from Last 3 Months or Most Recently Relevant to Health Maintenance Results * US OB Pelvis with Transvaginal (11/12/2024 10:10 AM EST) Only the most recent of3 resultswithin the time period is included. Anatomical Region Laterality Modality Pelvis Ultrasound 11/12/2024 10:1 0 AM EST Narrative 11/12/2024 11:01 AM EST ? [facility] ?[address] ?[place], [place] [address] ? Ultrasound Report ? Signed ? Patient: Jasen,Autumn ?MR#: [id number] ?? 68 ? : 2000 ?Acct:[id number] ? Age/Sex: 24 / F ?ADM Date: 11/12/24 ? Loc: HO.US ? Attending Dr: Anthony Morris MD ? Ordering Physician: Anthony Morris MD ?? Date of Service: 11/12/24 ?? Procedure(s): US OB pelvic and transvaginal ?? Accession Number(s): [id number] ? cc: Shaneka Howard; Anthony Morris MD ? EXAMINATION: ? US OBSTETRICAL ULTRASOUND ? CLINICAL INFORMATION: ? Encounter for supervision off normal ? COMPARISON: ? November 06, 2024. ? LMP: 10/03/2024. ?? Gestational age by maternal dates is 5 weeks and 5 days. ?? Estimated date of delivery by maternal dates is 07/10/2025. ? TECHNIQUE: ?? Real-time transabdominal and transvaginal obstetrical pelvic ultrasound ?? performed using grayscale and color Doppler technique. ? FINDINGS: ?? There is an intrauterine ovoid shaped gestational sac which measures ?? 1.4 cm in maximum dimension. No yolk sac. No pole/embryo. ? MATERNAL ADNEXA: ? The right maternal ovary measures 2 x 1 x 1 cm. ??No solid or cystic ?? lesion. There is flow on color Doppler interrogation to the ovary. ? The left maternal ovary measures 4 x 3 x 3 cm. ??There is a 1.9 cm ?? anechoic lesion without flow on color Doppler interrogation. There is ?? flow on color Doppler interrogation of the ovary. ? There is no significant maternal adnexal mass. ??No maternal pelvic ?? ascites. ? US/US OB pelvic and transvaginal ?? IMPRESSION: ?? Empty intrauterine gestational sac. No yolk sac or pole. ?? Recommend correlation with subsequent calcification beta-hCG. ?? No ovarian torsion. ? Electronically signed by: ??Jorje Villalta MD ??11/12/2024 10:58 AM ?? EST ? Dictated By: ?Jorje Asif MD ? Signed By: ?<Electronically signed by Jorje Aiken MD in OV> ? 11/12/24 1058 ? DD/ 1010 ? TD/TT: 11/12/24 1029 ? Mine Technician: ? Procedure Note Donotuseinterpreter, Image - 11/12/[address] [address] Ultrasound Report Signed Patient: Jamal Aggarwal#: [id number] : 2000Acct:[id number] Age/Sex: 24 / FADM Date: 11/12/24 Loc: HO.US Attending Dr: Anthony Morris MD Ordering Physician: Anthony Morris MD Date of Service: 11/12/24 Procedure(s): US OB pelvic and transvaginal Accession Number(s): [id number] cc: Shaneka Howard; Anthony Morris MD EXAMINATION: US OBSTETRICAL ULTRASOUND CLINICAL INFORMATION: Encounter for supervision off normal COMPARISON: November 06, 2024. LMP: 10/03/2024. Gestational age by maternal dates is 5 weeks and 5 days. Estimated date of delivery by maternal dates is 07/10/2025. TECHNIQUE: Real-time transabdominal and transvaginal obstetrical pelvic ultrasound performed using grayscale and color Doppler technique. FINDINGS: There is an intrauterine ovoid shaped gestational sac which measures 1.4 cm in maximum dimension. No yolk sac. No pole/embryo. MATERNAL ADNEXA: The right maternal ovary measures 2 x 1 x 1 cm. No solid or cystic lesion. There is flow on color Doppler interrogation to the ovary. The left maternal ovary measures 4 x 3 x 3 cm. There is a 1.9 cm anechoic lesion without flow on color Doppler interrogation. There is flow on color Doppler interrogation of the ovary. There is no significant maternal adnexal mass. No maternal pelvic ascites. US/US OB pelvic and transvaginal IMPRESSION: Empty intrauterine gestational sac. No yolk sac or pole. Recommend correlation with subsequent calcification beta-hCG. No ovarian torsion. Electronically signed by: Jorje Villalta MD 11/12/2024 10:58 AM EST Dictated By: Jorje Asif MD Signed By: <Electronically signed by Jorje Aiken MDin OV> 11/12/24 1058 DD/ 1010 TD/TT: 11/12/24 1029 Mine Technician: [facility] External Provider IMG US PROCEDURES Final Result * Syphilis Screen (11/11/2024 1:05 PM EST) Syphilis Screen Nonreactive Nonreactive [facility] 11/11/2024 1:05 PM EST 11/11/2024 1:05 PM EST Generic External Data Provider LAB BLOOD ORDERAB LES Final Result Performing Organization Address [facility] Co de Phone Number [facility] [address] [place] [address] [phone] * Hepatitis C Ab (11/11/2024 1:05 PM EST) Pathologist [facility] Hepatitis C Antibody Nonreactive Nonreactive [facility] Comment:Antibodies to HCV no t detected; does not exclude early acuteHCV infection. 11/11/2024 1:05 PM EST 11/11/2024 1:05 PM EST Generic External Data Provider LAB BLOOD ORDERAB LES Final Result Performing Organization Address [facility] Co de Phone Number [facility] [address] [place] [phone] * Hepatitis B surface antigen, EIA (11/11/2024 1:05 PM EST) Hepatitis B Surface Ag Negative Negative [facility] 11/11/2024 1:05 PM EST 11/11/2024 1:05 PM EST us Generic External Data Provider LAB BLOOD ORDERAB LES Final Result Performing Organization Address [facility] Co de Phone Number [facility] [address] [place] [address] [phone] * HIV-1/2 Antigen and Antibodies, Fourth Generation, with Reflexes (11/11/2024 1:05 PM EST) HIV AB/AG Nonreactive Nonreactive [facility] Comment:HIV-1 p24 Ag and/or HIV-1/HIV-2 Ab not detected.A test result that is nonreactive does not exclude thepossibility of exposure to or infection with HIV-1 and/orHIV-2. Nonreactive results in this assay for individualswith prior exposure to HIV-1 and/or HIV-2 may be due toantigen and antibody levels that are below the limit ofdetection of this assay.The [employer] HIV Ag/Ab Combo assay result andsupplemental assay results should be interpreted inconjunction with the patient's clinical presentation,history and other laboratory results. If the results areinconsistent with clinical evidence, additional testing issuggested to confirm the result. 11/11/2024 1:05 PM EST 11/11/2024 1:05 PM EST us Generic External Data Provider LAB BLOOD ORDERAB LES Final Result Performing Organization Address City/[facility]/ZIP Co de Phone Number [facility] [address] [place] [address] [phone] * hCG, Total, Quantitative (11/11/2024 1:05 PM EST) Only the most recent of7 resultswithin the time period is included. HCG Quantitative 6,184 mIU/mL [facility] Comment:Weeks post LMP Appro ximate hCG(Last Menstrual Period) Range (mIU/ml)3 - 4 weeks 9 - 1304 - 5 weeks 75 - 2,6005 - 6 weeks 850 - 20,8006 - 7 weeks 4000 - 100,2007 - 12 weeks 11,500 - 289,58531 - 16 weeks 18,300 - 137,68822 - 29 weeks (2nd trimester) 1,400 - 53,96250 - 41 weeks (3rd trimester) 940 - 60,000The [employer] B- hCG assay is used for the early detection ofpregnancy; it cannot be used to diagnose any conditionunrelated to . If a B-hCG level is not supportedby the clinical evidence, results should be confirmed by analternative method (qualitative urine hCG, for example). 11/11/2024 1:05 PM EST 11/11/2024 1:05 PM EST us Generic External Data Provider LAB BLOOD ORDERAB LES Final Result [facility] [address] [place] [phone] * (ABNORMAL) Urinalysis, Complete, with Reflex to Culture (11/07/2024 12:56 AM EST) Color Urine Dark Yellow [facility] Appearance Urine Clear [facility] PH 5.5 5.0 - 9.0 [facility] Glucose Urine UA Negative Negative mg/dL [facility] Urine Blood Negative Negative [facility] Specific Whiteside - Urine >=1.030(H) 1.005 - 1.025 [facility] Urine Protein Trace Neg-Trace mg/dL [facility] Urine Ketones 40 Negative mg/dL [facility] Nitrite Urine Negative Negative [facility] Leukocyte Esterase Urine Negative Negative [facility] RBC Urine 0-2 0 - 2 /HPF [facility] Urine WBC 0-5 0 - 5 /HPF [facility] Urine Squamous Epithelial Cell 11-20 0 - 2 /HPF [facility] Urine Bacteria Trace None Seen [facility] Hyaline Casts, Urine 0-2 0 - 2 /LPF [facility] 11/07/2024 12:5 6 AM EST 11/07/2024 12:59 AM EST Narrative [facility] - 11/07/2024 1:08 AM EST Urine, Clean Catch Generic External Data Provider LAB URINE ORDERAB LES Final Result Performing Organization Address [facility] Co de Phone Number [facility] [address] [place] [phone] * Magnesium (11/06/2024 9:10 PM EST) Only the most recent of2 resultswithin the time period is included. Magnesium 1.8 1.6 - 2.6 mg/dL [facility] 11/06/2024 9:10 PM EST 11/06/2024 9:13 PM EST Generic External Data Provider LAB BLOOD ORDERAB LES Final Result Performing Organization Address [facility] de Phone Number [facility] [address] [place] [phone] * (ABNORMAL) Comprehensive Metabolic Panel (11/06/2024 9:10 PM EST) Only the most recent of2 resultswithin the time period is included. Sodium 135 135 - 145 mmol/L [facility] Potassium 4.2 3.3 - 5.1 mmol/L [facility] Chloride 107 96 - 108 mmol/L [facility] Carbon Dioxide 21(L) 22 - 29 mmol/L [facility] Anion Gap 11(L) 12 - 20 [facility] Urea Nitrogen (BUN) 9 9 - 16 mg/dL [facility] Creatinine, Serum 0.66 0.5 - 1.4 mg/dL [facility] Creatinine Clr Calc Pharmacy 109.7 [facility] Comment:Provided height and weight: 160.02 cm,59.4 kg.eGFR (calculated from the MDRD study equation) and eCrCl(calculated from the Cockcroft-Gault equation) are based ondifferent parameters and may not yield comparable results.If eCrCl result is absurd, please check patient'sheight/weight. Estimated Glomerular Filt Rate >60 [facility] Comment:Chronic Kidney Disea se: Estimated GFR < 60 mL/min/1.19c5Vnapdg Kidney Disease: Estimated GFR < 15 mL/min/1.73m2 Glucose 90 60 - 115 mg/dL [facility] Calcium 9.1 8.4 - 10.2 mg/dL [facility] Bilirubin, Total 0.7 0.0 - 1.0 mg/dL [facility] Aspartate Amino Transferase 25 5 - 31 U/L [facility] Alanine Aminotransferase 15 0 - 31 U/L [facility] Total Protein 7.9 6.5 - 8.0 g/dL [facility] Albumin Level 4.4 3.5 - 5.0 g/dL [facility] Alkaline Phosphatase 61 39 - 117 U/L [facility] 11/06/2024 9:10 PM EST 11/06/2024 9:13 PM EST us Generic External Data Provider LAB BLOOD ORDERAB LES Final Result [facility] [address] [place] [phone] * SARS-CoV-2 RNA, Influenza A/B, and RSV RNA, Ql NAAT (11/06/2024 9:09 PM EST) Influenza A PCR NEGATIVE Negative [facility] Influenza B PCR NEGATIVE Negative [facility] Resp Syncy Virus RNA Qual PCR NEGATIVE Negative [facility] SARS COV2 PCR NEGATIVE Negative [facility] Comment:All test results mus t be [...] use by authorized laboratories.Testing performed on the [employer] GeneXpert utilizingreal-time RT-PCR.All SARS CoV2 and positive influenza A/B results arereported to [facility]. 11/06/2024 9:09 PM EST 11/06/2024 9:13 PM EST us Generic External Data Provider LAB MICROBIOLOGY - GENERAL ORDERABLES Final Result [facility] [address] [place] [address] [phone] * (ABNORMAL) CBC auto differential (11/06/2024 9:09 PM EST) Only the most recent of2 resultswithin the time period is included. White Blood Count 14.5(H) 4.8 - 10.8 X10*3/uL [facility] Red Blood Count 4.26 4.20 - 5.50 X10*6/uL [facility] Hemoglobin 13.4 12.0 - 16.0 g/dl [facility] Hematocrit 39.5 37.0 - 47.0 % [facility] Mean Corpuscular Volume 92.7 80.0 - 98.0 fL [facility] Mean Corpuscular Hemoglobin 31.5 27.0 - 33.0 pg [facility] Mean Corpuscular HGB Conc 33.9 31.0 - 35.0 g/dl [facility] Red Cell Distribution Width 12.4 11.0 - 16.0 % [facility] Platelet Count 236 160 - 400 X10*3/uL [facility] Mean Platelet Volume 11.4 9.4 - 12.3 fL [facility] Neutrophils Percent Auto 85.0(H) 45 - 73 % [facility] Imm Gran Pct Auto 0.5(H) 0.0 - 0.4 % [facility] Lymphocytes Percent Auto 7.4(L) 20 - 40 % [facility] Monocytes Percent Auto 6.6 2 - 11 % [facility] Eosinophils Percent Auto 0.2 0 - 4 % [facility] Basophils Percent Auto 0.3 0 - 2 % [facility] NRBC Pct Auto 0.0 0.0 - 0.2 /100WBC [facility] Neutrophils Absolute Auto 12.3(H) 2.0 - 8.3 x10*3/uL [facility] Imm Gran Abs Auto 0.07(H) 0.00 - 0.03 X10*3/uL [facility] Lymphocytes Absolute Auto 1.1(L) 1.2 - 4.9 X10*3/uL [facility] Monocytes Absolute Auto 1.0 0.1 - 1.2 X10*3/uL [facility] Eosinophils Absolute Auto 0.0 0.0 - 0.4 X10*3/uL [facility] Basophils Absolute Auto 0.1 0.0 - 0.2 X10*3/uL [facility] NRBC Abs Auto 0.000 0.0 - 0.012 X10*3/uL [facility] 11/06/2024 9:09 PM EST 11/06/2024 9:13 PM EST us Generic External Data Provider LAB BLOOD ORDERAB LES Final Result Performing Organization Address [facility]/ZIP Co de Phone Number [facility] [address] [place] [phone] * Type and screen (08/13/2024 11:47 AM EST) Blood Type AP [facility] Antibody Screen NEGATIVE [facility] 08/13/2024 11:4 7 AM EST 08/13/2024 12:00 PM EST Generic External Data Provider LAB BLOOD BANK TE ST ORDERABLES Final Result Performing Organization Address [facility] Co de Phone Number [facility] [address] [place] [address] [phone] * Gross and Microscopic Level 4 (08/13/2024 10:54 AM EST) 08/13/2024 10:5 4 AM EST 08/13/2024 11:39 AM EST Narrative [facility] - 08/15/2024 1:50 PM EST ----- ------- Name: Autumn Aggarwal ? Age/Sex: 24/F ? : 2000 Unit#: [id number] ?? Attend Dr: Sivan Little MD ?Re08/13/24 ?Status: DEP ER ?Location: HO.ED ? Disch: ? ----- ------- SPEC : [id number] ? RECD: 08/13/24-839 ? STATUS: ??SOUT ? REQ NUM: [id number] ? ELISA: 08/13/24-1054 ? SUBM DR: Haylee Romero ? ENTERED: ??08/13/24-1138 ?SP TYPE: Surgical ? OTHR : [facility] ? ORDERED: ??Gross Micro L4 ? Diagnosis [...] identified. ??No embryonic or tissue is identified. Trimming Machine Operator sections are submitted in cassettes [id number]. ??The remainder of the specimen is entirely submitted in cassettes [id number]. CEDS Copies To: ?? Haylee Romero ?? [address] ?? [place] [address] ?? [phone] ?? [facility] ?? [address] ?? [place] [address] ?? ----- ------- Signed (signature on file) Lucia Menjivar MD 08/15/24 1350 ? ----- ------- ? END OF REPORT ? us Generic External Data Provider LAB CYTOLOGY LUIS ARMANDO REYES Final Result [facility] [address] [place] [phone] * Chlamydia/N. Gonorrhoeae RNA, TMA, Urogenitial (07/22/2024 11:09 AM EDT) [facility] CT PCR NOT DETECTED Not Detect. [facility] Comment:A not detected test result [...] psychologicalconsequences. NG PCR NOT DETECTED Not Detect. [facility] Comment:A not detected test result [...] AM EDT 07/22/2024 6:23 PM EDT Narrative [facility] - 07/23/2024 12:18 PM EDT Vaginal us Generic External Data Provider LAB MICROBIOLOGY - GENERAL ORDERABLES Final Result Performing Organization Address City/State/[facility] Co de Phone Number [facility] [address] [place] [phone] from Last 3 Months or Most Recently Relevant to Health Maintenance Insurance [facility] MEDICAID STAND ADULT Care Teams Statistics Manager Relationship Specialty Start Date End Date Shaneka Howard MD [address] [place] [phone] PCP - General Family Medicine 11/14/23
--- OUTSIDE RECORDS SUMMARY | 2024-11-12 11:18 | XMS_ITS | Encounter Summary ---
Author Organization [employer] Address [address] [place] [address] Care Team Providers Care Fireworks Maker Name Role Phone Shaneka Howard MD Primary Care Provider Reason for Visit * Reason Onset Date Comments Nurse Triage 11/14/2023 Encounter Details Date Type Department Care Team ([facility] st Contact Info) Description 11/14/2023 Telephone [facility] [address] [place] [address] [facility] [address] [place] [address] Nurse Triage Social History Tobacco Use Types [...] away. Pt is advised to come to [facility] today open till 8pm and provider can see Pt. Home care advised and insurance is not verified as active, Pt is advised to contact insurance first. Pt reponds I was already told about this . Pt also requests not to call on [phone] number it is an emergency number. Protocol [...] on filedocumented in this encounter Care Teams Fireworks Maker Relationship Specialty Start Date End Date Shaneka Howard MD [address] [place] [address] PCP - General Family Medicine 11/14/23 documented as of this encounter
--- OUTSIDE RECORDS SUMMARY | 2024-11-12 11:18 | XMS_ITS | Encounter Summary ---
Author Organization [employer] Address [address] 7[address] [place] [address] Care Team Providers Care Data Capture Specialist Name Role Phone Shaneka Howard MD Primary Care Provider [phone] Encounter Details Date Type Department Care Team ([facility] st Contact Info) Description 11/11/2024 Orders Only GENERIC EXTERNAL DATA DEPARTMENT [...] Procedure Name Priority Date/Time Associated Diagnosis Comments SYPHILIS SCREEN Routine 11/11/2024 1:05 PM EST HEPATITIS C ANTIBODY Routine 11/11/2024 1:05 PM EST HEPATITIS B SURFACE ANTIGEN, EIA Routine 11/11/2024 1:05 PM EST HIV 1/2 ANTIGEN/ANTIBODY, FOURTH GENERATION W/RFL Routine 11/11/2024 1:05 PM EST HCG, TOTAL, QN Routine 11/11/2024 1:05 PM EST documented in this encounter Results * Hepatitis B surface antigen, EIA (11/11/2024 1:05 PM EST) Hepatitis B Surface Ag Negative Negative [facility] 11/11/2024 1:05 PM EST 11/11/2024 1:05 PM EST us Generic External Data Provider LAB BLOOD ORDERAB LES Final Result [facility] [address] [place] [phone] * HIV-1/2 Antigen and Antibodies, Fourth Generation, with Reflexes (11/11/2024 1:05 PM EST) HIV AB/AG Nonreactive Nonreactive [facility] Comment:HIV-1 p24 Ag and/or HIV-1/HIV-2 Ab not detected.A test result that is nonreactive does not exclude thepossibility of exposure to or infection with HIV-1 and/orHIV-2. Nonreactive results in this assay for individualswith prior exposure to HIV-1 and/or HIV-2 may be due toantigen and antibody levels that are below the limit ofdetection of this assay.The [employer] HIV Ag/Ab Combo assay result andsupplemental assay results should be interpreted inconjunction with the patient's clinical presentation,history and other laboratory results. If the results areinconsistent with clinical evidence, additional testing issuggested to confirm the result. 11/11/2024 1:05 PM EST 11/11/2024 1:05 PM EST Generic External Data Provider LAB BLOOD ORDERAB LES Final Result Performing Organization Address [facility] Co de Phone Number [facility] [address] [place] [phone] * Hepatitis C Ab (11/11/2024 1:05 PM EST) [facility] Hepatitis C Antibody Nonreactive Nonreactive [facility] Comment:Antibodies to HCV no t detected; does not exclude early acuteHCV infection. 11/11/2024 1:05 PM EST 11/11/2024 1:05 PM EST Generic External Data Provider LAB BLOOD ORDERAB LES Final Result Performing Organization Address [facility] Phone Number [facility] [address] [place] [phone] * Syphilis Screen (11/11/2024 1:05 PM EST) [facility] Syphilis Screen Nonreactive Nonreactive [facility] 11/11/2024 1:05 PM EST 11/11/2024 1:05 PM EST Generic External Data Provider LAB BLOOD ORDERAB LES Final Result Performing Organization Address [facility] de Phone Number [facility] [address] [place] [phone] * hCG, Total, Quantitative (11/11/2024 1:05 PM EST) HCG Quantitative 6,184 mIU/mL [facility] Comment:Weeks post LMP Appro ximate hCG(Last Menstrual Period) Range (mIU/ml)3 - 4 weeks 9 - 1304 - 5 weeks 75 - 2,6005 - 6 weeks 850 - 20,8006 - 7 weeks 4000 - 100,2007 - 12 weeks 11,500 - 289,59932 - 16 weeks 18,300 - 137,45468 - 29 weeks (2nd trimester) 1,400 - 53,14296 - 41 weeks (3rd trimester) 940 - [...] Provider LAB BLOOD ORDERAB LES Final Result [facility] [address] [place] [address] [phone] documented in this encounter Visit Diagnoses Not on filedocumented in this encounter Additional Health Concerns Assessment Noted Time PHQ-9 Depression Total Score: 24 04/23/ 024 2:26 PM EDT documented as of this encounter Care Teams Data Capture Specialist Relationship Specialty Start Date End Date Shaneka Howard MD [address] [place] [address] PCP - General Family Medicine 11/14/23 documented as of this encounter
--- OUTSIDE RECORDS SUMMARY | 2024-11-12 11:18 | XMS_ITS | Encounter Summary ---
Author Organization [employer] Address [address] 7[address] [place] [address] Care Team Providers Care Reference Librarian Name Role Phone Shaneka Howard MD Primary Care Provider [phone] Reason for Visit * Reason Onset Date Comments dental emergency/ 07/25/2024 Encounter Details Date Type Department Care Team ([facility] st Contact Info) Description 07/25/2024 Telephone [facility] [address] [place] [address] Diana Rob DDS [address] [place] [address] dental emergency/ Social History Tobacco Use Types [...] with others, in a hotel, in a jail, living outside on the street, on a [...] to providefor dental treatment). Provided fax number [phone] to have OB office send in clearance. [...] documented as of this encounter Care Teams Reference Librarian Relationship Specialty Start Date End Date Shaneka Howard MD [address] [place] [address] PCP - General Family Medicine 11/14/23 documented as of this encounter
--- OUTSIDE RECORDS SUMMARY | 2024-11-12 11:18 | XMS_ITS | Clinical Summary ---
Author Organization [facility] ity Address [address] [place] [address] Care Team Providers Care Cut And Print Machine Operator Name Role Phone Unavailable Primary Care Provider [...]
--- OUTSIDE RECORDS SUMMARY | 2024-11-12 11:18 | XMS_ITS | Encounter Summary ---
Author Organization [employer] Address [address] 7[address] [place] [address] Care Team Providers Care Flat Cutter Name Role Phone Shaneka Howard MD Primary Care Provider [phone] Encounter Details Date Type Department Care Team ([facility] st Contact Info) Description 11/06/2024 Orders Only [...] with others, in a hotel, in a correction, living outside on the street, on a [...] EST Narrative 11/07/2024 1:39 AM EST ? [facility] ?[address] ?[place] [address] ? Ultrasound Report ? Signed ? Patient: Jasen,Autumn ?MR#: [id number] ?? 68 ? : 2000 ?Acct:[id number] ? Age/Sex: 24 / F ?ADM Date: 11/06/24 ? Loc: HO.ED ? Attending Dr: ? Ordering Physician: Praful Klein ?? Date of Service: 11/06/24 ?? Procedure(s): US OB pelvic and transvaginal ?? Accession Number(s): [id number] ? cc: Praful Klein; Kaylen Juarez MD [...] ? DD/ 6 ? TD/TT: 11/07/24136 ? Pneumatic Riveter: ? Procedure Note Priscilla Fonseca - 11/07/[address] [address] Ultrasound Report Signed Patient: Jamal Aggarwal#: [id number] 68 : 2000Acct:[id number] Age/Sex: 24 / FADM Date: 11/06/24 Loc: HO.ED Attending Dr: Ordering Physician: Praful Klein Date of Service: 11/06/24 Procedure(s): US OB pelvic and transvaginal Accession Number(s): [id number] cc: Praful Klein; Kaylen Juarez MD CLINICAL [...] in OV> 11/07/24138 DD/ 6 TD/TT: 11/07/24136 Pneumatic Riveter: us [facility] External Provider IMG US PROCEDURES Edited Result - Final * hCG, Total, Quantitative (11/06/2024 9:10 PM EST) HCG Quantitative 2,262 mIU/mL [facility] Comment:Weeks post LMP Appro ximate hCG(Last Menstrual Period) Range (mIU/ml)3 - 4 weeks 9 - 1304 - 5 weeks 75 - 2,6005 - 6 weeks 850 - 20,8006 - 7 weeks 4000 - 100,2007 - 12 weeks 11,500 - 289,85065 - 16 weeks 18,300 - 137,88776 - 29 weeks (2nd trimester) 1,400 - 53,81526 - 41 weeks (3rd trimester) 940 - [...] ORDERAB LES Final Result Performing Organization Address [facility]/ZIP Co de Phone Number [facility] [address] [place] [phone] * Magnesium (11/06/2024 9:10 PM EST) Pathologist [facility] Magnesium 1.8 1.6 - 2.6 mg/dL [facility] 11/06/2024 9:10 PM EST 11/06/2024 9:13 PM EST Generic External Data Provider LAB BLOOD ORDERAB LES Final Result Performing Organization Address [facility] Co de Phone Number [facility] [address] [place] [phone] * (ABNORMAL) Comprehensive Metabolic Panel (11/06/2024 9:10 PM EST) Pathologist [facility] Sodium 135 135 - 145 mmol/L [facility] Potassium 4.2 3.3 - 5.1 mmol/L [facility] Chloride 107 96 - 108 mmol/L [facility] Carbon Dioxide 21(L) 22 - 29 mmol/L [facility] Anion Gap 11(L) 12 - 20 [facility] Urea Nitrogen (BUN) 9 9 - 16 mg/dL [facility] Creatinine, Serum 0.66 0.5 - 1.4 mg/dL [facility] Creatinine Clr Calc Pharmacy 109.7 [facility] Comment:Provided height and weight: 160.02 cm,59.4 kg.eGFR (calculated from the MDRD study equation) and eCrCl(calculated from the Cockcroft-Gault equation) are based ondifferent parameters and may not yield comparable results.If eCrCl result is absurd, please check patient'sheight/weight. Estimated Glomerular Filt Rate >60 [facility] Comment:Chronic Kidney Disea se: Estimated GFR < 60 mL/min/1.76e8[place] Kidney Disease: Estimated GFR < 15 mL/min/1.73m2 Glucose 90 60 - 115 mg/dL [facility] Calcium 9.1 8.4 - 10.2 mg/dL [facility] Bilirubin, Total 0.7 0.0 - 1.0 mg/dL [facility] Aspartate Amino Transferase 25 5 - 31 U/L [facility] Alanine Aminotransferase 15 0 - 31 U/L [facility] Total Protein 7.9 6.5 - 8.0 g/dL [facility] Albumin Level 4.4 3.5 - 5.0 g/dL [facility] Alkaline Phosphatase 61 39 - 117 U/L [facility] 11/06/2024 9:10 PM EST 11/06/2024 9:13 PM EST us Generic External Data Provider LAB BLOOD ORDERAB LES Final Result [facility] [address] [place] [phone] * SARS-CoV-2 RNA, Influenza A/B, and RSV RNA, Ql NAAT (11/06/2024 9:09 PM EST) Influenza A PCR NEGATIVE Negative [facility] Influenza B PCR NEGATIVE Negative [facility] Resp Syncy Virus RNA Qual PCR NEGATIVE Negative [facility] SARS COV2 PCR NEGATIVE Negative [facility] Comment:All test results mus t be [...] use by authorized laboratories.Testing performed on the [employer] GeneXpert utilizingreal-time RT-PCR.All SARS CoV2 and positive influenza A/B results arereported to [facility]. 11/06/2024 9:09 PM EST 11/06/2024 9:13 PM EST us Generic External Data Provider LAB MICROBIOLOGY - GENERAL ORDERABLES Final Result [facility] [address] [place] [phone] * (ABNORMAL) CBC auto differential (11/06/2024 9:09 PM EST) White Blood Count 14.5(H) 4.8 - 10.8 X10*3/uL [facility] Red Blood Count 4.26 4.20 - 5.50 X10*6/uL [facility] Hemoglobin 13.4 12.0 - 16.0 g/dl [facility] Hematocrit 39.5 37.0 - 47.0 % [facility] Mean Corpuscular Volume 92.7 80.0 - 98.0 fL [facility] Mean Corpuscular Hemoglobin 31.5 27.0 - 33.0 pg [facility] Mean Corpuscular HGB Conc 33.9 31.0 - 35.0 g/dl [facility] Red Cell Distribution Width 12.4 11.0 - 16.0 % [facility] Platelet Count 236 160 - 400 X10*3/uL [facility] Mean Platelet Volume 11.4 9.4 - 12.3 fL [facility] Neutrophils Percent Auto 85.0(H) 45 - 73 % [facility] Imm Gran Pct Auto 0.5(H) 0.0 - 0.4 % [facility] Lymphocytes Percent Auto 7.4(L) 20 - 40 % [facility] Monocytes Percent Auto 6.6 2 - 11 % [facility] Eosinophils Percent Auto 0.2 0 - 4 % [facility] Basophils Percent Auto 0.3 0 - 2 % [facility] NRBC Pct Auto 0.0 0.0 - 0.2 /100WBC [facility] Neutrophils Absolute Auto 12.3(H) 2.0 - 8.3 x10*3/uL [facility] Imm Gran Abs Auto 0.07(H) 0.00 - 0.03 X10*3/uL [facility] Lymphocytes Absolute Auto 1.1(L) 1.2 - 4.9 X10*3/uL [facility] Monocytes Absolute Auto 1.0 0.1 - 1.2 X10*3/uL [facility] Eosinophils Absolute Auto 0.0 0.0 - 0.4 X10*3/uL [facility] Basophils Absolute Auto 0.1 0.0 - 0.2 X10*3/uL [facility] NRBC Abs Auto 0.000 0.0 - 0.012 X10*3/uL [facility] 11/06/2024 9:09 PM EST 11/06/2024 9:13 PM EST us Generic External Data Provider LAB BLOOD ORDERAB LES Final Result Performing Organization Address City/State/[facility] Co de Phone Number [facility] [address] [place] [phone] documented in this encounter Visit Diagnoses Not on filedocumented in this encounter Additional Health Concerns Assessment Noted Time PHQ-9 Depression Total Score: 24 024 2:26 PM EDT documented as of this encounter Care Teams Flat Cutter Relationship Specialty Start Date End Date Shaneka Howard MD [address] [place] [address] PCP - General Family Medicine 11/14/23 documented as of this encounter
--- OUTSIDE RECORDS SUMMARY | 2024-11-12 11:18 | XMS_ITS | Encounter Summary ---
Author Organization [employer] Address [address] [place] [address] Care Team Providers Care Business Analyst Ecommerce Name Role Phone Shaneka Howard MD Primary Care Provider [phone] Encounter Details Date Type Department Care Team ([facility] st Contact Info) Description 11/07/2024 Orders Only [...] with others, in a hotel, in a penitentiary, living outside on the street, on a [...] 12:56 AM EST) Color Urine Dark Yellow [facility] Appearance Urine Clear [facility] PH 5.5 5.0 - 9.0 [facility] Glucose Urine UA Negative Negative mg/dL [facility] Urine Blood Negative Negative [facility] Specific Gilbert - Urine >=1.030(H) 1.005 - 1.025 [facility] Urine Protein Trace Neg-Trace mg/dL [facility] Urine Ketones 40 Negative mg/dL [facility] Nitrite Urine Negative Negative [facility] Leukocyte Esterase Urine Negative Negative [facility] RBC Urine 0-2 0 - 2 /HPF [facility] Urine WBC 0-5 0 - 5 /HPF [facility] Urine Squamous Epithelial Cell 11-20 0 - 2 /HPF [facility] Urine Bacteria Trace None Seen [facility] Hyaline Casts, Urine 0-2 0 - 2 /LPF [facility] 11/07/2024 12:5 6 AM EST 11/07/2024 12:59 AM EST Narrative [facility] - 11/07/2024 1:08 AM EST Urine, Clean Catch us Generic External Data Provider LAB URINE ORDERAB LES Final Result [facility] [address] [place] [phone] documented in this encounter Visit Diagnoses Not on filedocumented in this encounter Additional Health Concerns Assessment Noted Time PHQ-9 Depression Total Score: 04/23/ 024 2:26 PM EDT documented as of this encounter Care Teams Business Analyst Ecommerce Relationship Specialty Start Date End Date Shaneka Howard MD [address] [place] [address] PCP - General Family Medicine 11/14/23 documented as of this encounter
--- OUTSIDE RECORDS SUMMARY | 2024-11-12 11:18 | XMS_ITS | Encounter Summary ---
Author Organization [employer] Address [address] 7t [place] [address] Care Team Providers Care Sterile Processing Technologist Name Role Phone [facility] Primary Care Provider [phone] Shaneka Howard MD Primary Care Provider [phone] Reason for Visit * Reason Onset Date Comments Nurse Triage 04/09/2023 Encounter Details Date Type Department Care Team ([facility] st Contact Info) Description 04/09/2023 Telephone [facility] [address] [place] [address] [facility] [address] [place] [address] Nurse Triage Social History Tobacco Use Types [...] answer x2. Left voice message to call [facility] triage line at [phone] . * Telephone Encounter - Jaimie Solis [...] on filedocumented in this encounter Care Teams Sterile Processing Technologist Relationship Specialty Start Date End Date Gogo Giordano FNP [address] [place] [address] PCP - General Family Medicine 05/27/22 11/13/23 Shaneka Howard MD [address] [place] [address] PCP - General Family Medicine 11/14/23 documented as of this encounter
== END 2024-11-12 09:47 | disposition home or self-care (01) ==
LOC: HO.US 09:46
PROVIDERS: PCP General Practice; Visit Provider Obstetrics & Gynecology
DX: Z34.90 Encounter for supervision of normal pregnancy, unspecified, unspecified trimester (principal)
CPT/HCPCS: 76801; 76817; 99212

== ENCOUNTER 2024-11-12 10:44 | Outpatient (AMB) | payer MEDICAID, SELFPAY ==
[2024-11-12 10:51] VITALS: BP 118/66; BMI 23.0
--- NOTE | 2024-11-12 10:51 | A.OFFVIS_ITS ---
Vital Signs 11/12/24 10:51 Height 5 ft 3 in Weight 130 lb BMI 23.0 BP 118/66 Intake Visit Reasons: Ultrasound results Pig Machine Operator Required: No Information Interpreted: non-clinical & clinical Accompanied by: Mother Allergies SEASONAL ALLERGIES Allergy (Intermediate, Uncoded 11/06/24 19:16) NASAL CONGESTION HPI Comments Details: Presenting for ultrasound follow-up. The patient is doing well with no complaints no pelvic cramping and or bleeding. Ultrasound done today showed the following: IMPRESSION: Empty intrauterine gestational sac. No yolk sac or pole. Recommend correlation with subsequent calcification beta-hCG. No ovarian torsion. 11/06 hCG 2262 11/11 hCG 6084 Blood type is A positive [facility] Family History Mother Uterus cancer Maternal Aunt Breast cancer Father HTN (hypertension) Diabetes Maternal Grandfather HTN (hypertension) Maternal Grandfather Diabetes Social History Household Members: Family Housing: Apartment Alcohol intake: former Patient Tobacco Use Status: Current everyday Tobacco user Cigarettes Per Day: 2 Years Smoked: 4 Substance Use Type: Marijuana Current occupational status: employed Current occupation: [employer]RE[employer] Physical Exam Vital Signs: Last Vital Signs BP 118/66 11/12/24 10:51 BMI result Body Mass Index 23.0 Assessment & Plan Assessment & Plan (1) Early stage of : Code(s): Z34.90 - Encounter for supervision of normal , unspecified, unspecified trimester Category: Medical Plan: Discussed with the patient the results the ultrasound showing an empty gestational sac with no pole or yolk sac. Explained to the patient the differential diagnosis includes but not limited to early , threatened AB or ectopic because of possibility of pseudo sac, in addition, explained to the patient the importance of repeat hCG quantitative tomorrow on 11/13/2024 (order placed) and the importance of the timing of beta hCG quantitative specifically not to be done more than 48 hours from previous hCG quantitative level. Instructions given the patient to have her hCG done tomorrow and schedule a follow-up appointment afterwards. Recommended vitamin 1 tablet p.o. q.d. SAB/ectopic warnings given to patient, instructions were given to patient to call or go to emergency room in case of vaginal bleeding and /or pelvic cramping and to schedule follow-up appointment tomorrow. The patient is upset about possibility of abnormal possible recurrent miscarriage or ectopic . All questions answered, the patient v erbalized understanding Orders: Orders HCG Quantitative 11/13/24 Z34.90 - Encounter for supervision of normal , unspecified, unspecified trimester Coding Level of Care Code Est Pt Level 3 (25382) Diagnoses Early stage of Z34.90
--- OUTSIDE RECORDS SUMMARY | 2024-11-12 12:32 | XMS_ITS | Encounter Summary ---
Author Organization [employer] Address [address] [place] [address] Care Team Providers Care Blood Typer Name Role Phone Shaneka Howard MD Primary Care Provider [phone] Reason for Visit * Reason Onset Date Comments dental emergency/ 07/25/2024 Encounter Details Date Type Department Care Team ([facility] st Contact Info) Description 07/25/[address] [facility] [address] [place] [address] Diana Rob DDS [address] [place] [address] dental emergency/ Social History Tobacco Use Types [...] with others, in a hotel, in a halfway, living outside on the street, on a [...] to providefor dental treatment). Provided fax number [phone] to have OB office send in clearance. [...] documented as of this encounter Care Teams Blood Typer Relationship Specialty Start Date End Date Shaneka Howard MD [address] [place] [address] PCP - General Family Medicine 11/14/23 documented as of this encounter
--- OUTSIDE RECORDS SUMMARY | 2024-11-12 12:32 | XMS_ITS | Encounter Summary ---
Author Organization [employer] Address [address] [place] [address] Care Team Providers Care Supervisor Gate Services Name Role Phone Shaneka Howard MD Primary Care Provider [phone] Reason for Visit * Reason Onset Date Comments Nurse Triage 11/14/2023 Encounter Details Date Type Department Care Team ([facility] st Contact Info) Description 11/14/2023 Telephone [facility] [address] [place] [address] [facility] [address] [place] [address] Nurse Triage Social History Tobacco Use Types [...] away. Pt is advised to come to [facility] today open till 8pm and provider can see Pt. Home care advised and insurance is not verified as active, Pt is advised to contact insurance first. Pt reponds I was already told about this . Pt also requests not to call on [phone] number it is an emergency number. Protocol [...] on filedocumented in this encounter Care Teams Supervisor Gate Services Relationship Specialty Start Date End Date Shaneka Howard MD [address] [place] [address] PCP - General Family Medicine 11/14/23 documented as of this encounter
--- OUTSIDE RECORDS SUMMARY | 2024-11-12 12:32 | XMS_ITS | Encounter Summary ---
Demographics Address [address] [place] [address] Home Phone Mobile Phone Preferred Language en Marital Status Single Orthodoxy Affiliation Unknown Race Other Race Ethnic Group or Author Organization [employer] Address [address] [place] [address] Care Team Providers Care Technology Resource Teacher Name Role Phone Shaneka Howard MD Primary Care Provider [phone] Encounter Details Date Type Department Care Team ([facility] st Contact Info) Description 11/12/2024 Orders Only [facility] External Provider, [facility] Social History Tobacco Use Types Packs/Day Years Used Date Smoking Tobacco: Every Day Cigarettes Depression Answer Date Recorded Patient Health Questionnaire-9 Score 24 04/23/2024 Patient Health Questionnaire-9 Score 24 04/23/2024 Last PHQ-9: Questionnaire Data Not on file 0 04/23/2024 Housing Stability Answer Date Recorded What is your housing situation today? I do not have housing (Staying with others, in a hotel, in a detention, living outside on the street, on a [...] PELVIS TRANSVAGINAL Routine 11/12/2024 10:10 AM EST documented in this encounter Results * US OB Pelvis with Transvaginal (11/12/2024 10:10 AM EST) Anatomical Region Laterality Modality Pelvis Ultrasound 11/12/2024 10:1 0 AM EST Narrative 11/12/2024 11:01 AM EST ? [facility] ?[address] ?[place] [address] ? Ultrasound Report ? Signed ? Patient: Autumn Aggarwal ?MR#: [id number] ?? 68 ? : 2000 ?Acct:[id number] ? Age/Sex: 24 / F ?ADM Date: 11/12/24 ? Loc: HO.US ? Attending Dr: Anthony Morris MD ? Ordering Physician: Anthony Morris MD ?? Date of Service: 11/12/24 ?? Procedure(s): US OB pelvic and transvaginal ?? Accession Number(s): [id number] ? cc: Shaneka Howard; Anthony Morris MD [...] DD/ 1010 ? TD/TT: 11/12/24 1029 ? Air Tank Assembler: ? Procedure Note Donotdottyinterpreter, Image - 11/12/2024 [place] [address] Ultrasound Report Signed Patient: Jamal Aggarwal#: [id number] 68 : 2000Acct:[id number] Age/Sex: 24 / FADM Date: 11/12/24 Loc: HO.US Attending Dr: Anthony Morris MD Ordering Physician: Anthony Morris MD Date of Service: 11/12/24 Procedure(s): US OB pelvic and transvaginal Accession Number(s): [id number] cc: Shaneka Howard; Anthony Morris MD EXAMINATION: [...] 11/12/24 1058 DD/ 1010 TD/TT: 11/12/24 1029 Air Tank Assembler: [facility] External Provider IMG US PROCEDURES Final Result documented in this encounter Visit Diagnoses Not on filedocumented in this encounter Additional Health Concerns Assessment Noted Time PHQ-9 Depression Total Score: 04/23/ 024 2:26 PM EDT documented as of this encounter Care Teams Technology Resource Teacher Relationship Specialty Start Date End Date Shaneka Howard MD [address] [place] [phone] PCP - General Family Medicine 11/14/23 documented as of this encounter
--- OUTSIDE RECORDS SUMMARY | 2024-11-12 12:32 | XMS_ITS | Clinical Summary ---
Demographics Address [address] [place] [address] Home Phone Mobile Phone Preferred Language en Marital Status Single Anabaptist Affiliation Unknown Race Other Race Ethnic Group or Author Organization [employer] Address [address] [place] [address] Care Team Providers Care Group Fitness Assistant Department Head Name Role Phone Shaneka Howard MD Primary Care Provider [phone] Allergies No known active allergies Medications * [...] blood and CBC -STAT pelvic/TV US -STAT MASTER PILOT referral requested to referral at [facility] by pt prefernce- will inform pt [...] & Plan (04/29/2024 10:14 AM EDT): During [facility] Consult Autumn presenting with depressed mood, loss [...] Health Integration Plan Internal Follow up with [facility] External OP therapy referral and OP psychiatry Referral Patient Self Plan Patient to utilize skills provided in intervention , Patient to reach out to [facility] team as needed, Patient to [...] Health Integration Plan Internal Follow up with [facility] External OP BH therapy referral and OP psychiatry Referral Patient Self Plan Patient to utilize skills provided in intervention , Patient to reach out to [facility] team as needed, Patient to engage in OP therapy , and Patient to reach out to [facility] as needed Vitamin D deficiency 06/07/2018 Allergic rhinitis 06/18/2017 Mild intermittent asthma 11/27/2016 Developmental academic disorder 06/28/2015 Dyssomnia 06/08/2014 Impulse control disorder 06/08/2014 Comments Yes Encounters Date Type Department Care Team Description 11/12/2024 Orders Only [facility] External Provider, [facility] 11/11/2024 Orders Only GENERIC EXTERNAL DATA DEPARTMENT Provider, Generic External Data 11/07/2024 Orders Only GENERIC EXTERNAL DATA DEPARTMENT Provider, Generic External Data 11/06/2024 Orders Only GENERIC EXTERNAL DATA DEPARTMENT Provider, Generic External Data 10/09/2024 Telephone [facility] MEDICINE [address] [place] [address] Chito Janneth, [place] 09/29/2024 Telephone [facility] ADULT DENTAL [address] [place] [address] Ja[place], [place] 09/10/2024 Orders Only GENERIC EXTERNAL DATA DEPARTMENT Provider, Generic External Data 09/08/2024 Telephone [facility] ADULT DENTAL [address] [place] [address] Jaiden, [place] 09/02/2024 Orders Only GENERIC EXTERNAL [...] with others, in a hotel, in a senior living, living outside on the street, on a [...] EST Narrative 11/12/2024 11:01 AM EST ? [facility] ?[address] ?[place], [place] [address] ? Ultrasound Report ? Signed ? Patient: Jasen,Autumn ?MR#: [id number] ?? 68 ? : 2000 ?Acct:[id number] ? Age/Sex: 24 / F ?ADM Date: 11/12/24 ? Loc: HO.US ? Attending Dr: Anthony Morris MD ? Ordering Physician: Anthony Morris MD ?? Date of Service: 11/12/24 ?? Procedure(s): US OB pelvic and transvaginal ?? Accession Number(s): [id number] ? cc: Shaneka Howard; Anthony Morris MD [...] DD/ 1010 ? TD/TT: 11/12/24 1029 ? Advertiser: ? Procedure Note Donotuseinterpreter, Image - 11/12/[address] [address] Ultrasound Report Signed Patient: Jamal Aggarwal#: [id number] : 2000Acct:[id number] Age/Sex: 24 / FADM Date: 11/12/24 Loc: HO.US Attending Dr: Anthony Morris MD Ordering Physician: Anthony Morris MD Date of Service: 11/12/24 Procedure(s): US OB pelvic and transvaginal Accession Number(s): [id number] cc: Shaneka Howard; Anthony Morris MD EXAMINATION: [...] 11/12/24 1058 DD/ 1010 TD/TT: 11/12/24 1029 Advertiser: [facility] External Provider IMG US PROCEDURES Final Result * Syphilis Screen (11/11/2024 1:05 PM EST) Syphilis Screen Nonreactive Nonreactive [facility] 11/11/2024 1:05 PM EST 11/11/2024 1:05 PM EST Generic External Data Provider LAB BLOOD ORDERAB LES Final Result Performing Organization Address [facility] Co de Phone Number [facility] [address] [place] [address] [phone] * Hepatitis C Ab (11/11/2024 1:05 PM EST) Pathologist [facility] Hepatitis C Antibody Nonreactive Nonreactive [facility] Comment:Antibodies to HCV no t detected; does not exclude early acuteHCV infection. 11/11/2024 1:05 PM EST 11/11/2024 1:05 PM EST Generic External Data Provider LAB BLOOD ORDERAB LES Final Result Performing Organization Address [facility] Co de Phone Number [facility] [address] [place] [phone] * Hepatitis B surface antigen, EIA (11/11/2024 1:05 PM EST) Hepatitis B Surface Ag Negative Negative [facility] 11/11/2024 1:05 PM EST 11/11/2024 1:05 PM EST us Generic External Data Provider LAB BLOOD ORDERAB LES Final Result Performing Organization Address [facility] Co de Phone Number [facility] [address] [place] [address] [phone] * HIV-1/2 Antigen and Antibodies, Fourth Generation, with Reflexes (11/11/2024 1:05 PM EST) HIV AB/AG Nonreactive Nonreactive [facility] Comment:HIV-1 p24 Ag and/or HIV-1/HIV-2 Ab not detected.A test result that is nonreactive does not exclude thepossibility of exposure to or infection with HIV-1 and/orHIV-2. Nonreactive results in this assay for individualswith prior exposure to HIV-1 and/or HIV-2 may be due toantigen and antibody levels that are below the limit ofdetection of this assay.The [employer] HIV Ag/Ab Combo assay result andsupplemental assay results should be interpreted inconjunction with the patient's clinical presentation,history and other laboratory results. If the results areinconsistent with clinical evidence, additional testing issuggested to confirm the result. 11/11/2024 1:05 PM EST 11/11/2024 1:05 PM EST us Generic External Data Provider LAB BLOOD ORDERAB LES Final Result Performing Organization Address City/[facility]/ZIP Co de Phone Number [facility] [address] [place] [address] [phone] * hCG, Total, Quantitative (11/11/2024 1:05 PM EST) Only the most recent of7 resultswithin the time period is included. HCG Quantitative 6,184 mIU/mL [facility] Comment:Weeks post LMP Appro ximate hCG(Last Menstrual Period) Range (mIU/ml)3 - 4 weeks 9 - 1304 - 5 weeks 75 - 2,6005 - 6 weeks 850 - 20,8006 - 7 weeks 4000 - 100,2007 - 12 weeks 11,500 - 289,98630 - 16 weeks 18,300 - 137,77864 - 29 weeks (2nd trimester) 1,400 - 53,24308 - 41 weeks (3rd trimester) 940 - [...] Provider LAB BLOOD ORDERAB LES Final Result [facility] [address] [place] [phone] * (ABNORMAL) Urinalysis, Complete, with Reflex to Culture (11/07/2024 12:56 AM EST) Color Urine Dark Yellow [facility] Appearance Urine Clear [facility] PH 5.5 5.0 - 9.0 [facility] Glucose Urine UA Negative Negative mg/dL [facility] Urine Blood Negative Negative [facility] Specific [place] - Urine >=1.030(H) 1.005 - 1.025 [facility] Urine Protein Trace Neg-Trace mg/dL [facility] Urine Ketones 40 Negative mg/dL [facility] Nitrite Urine Negative Negative [facility] Leukocyte Esterase Urine Negative Negative [facility] RBC Urine 0-2 0 - 2 /HPF [facility] Urine WBC 0-5 0 - 5 /HPF [facility] Urine Squamous Epithelial Cell 11-20 0 - 2 /HPF [facility] Urine Bacteria Trace None Seen [facility] Hyaline Casts, Urine 0-2 0 - 2 /LPF [facility] 11/07/2024 12:5 6 AM EST 11/07/2024 12:59 AM EST Narrative [facility] - 11/07/2024 1:08 AM EST Urine, Clean Catch Generic External Data Provider LAB URINE ORDERAB LES Final Result Performing Organization Address [facility] Co de Phone Number [facility] [address] [place] [phone] * Magnesium (11/06/2024 9:10 PM EST) Only the most recent of2 resultswithin the time period is included. Magnesium 1.8 1.6 - 2.6 mg/dL [facility] 11/06/2024 9:10 PM EST 11/06/2024 9:13 PM EST Generic External Data Provider LAB BLOOD ORDERAB LES Final Result Performing Organization Address [facility] de Phone Number [facility] [address] [place] [phone] * (ABNORMAL) Comprehensive Metabolic Panel (11/06/2024 9:10 PM EST) Only the most recent of2 resultswithin the time period is included. Sodium 135 135 - 145 mmol/L [facility] Potassium 4.2 3.3 - 5.1 mmol/L [facility] Chloride 107 96 - 108 mmol/L [facility] Carbon Dioxide 21(L) 22 - 29 mmol/L [facility] Anion Gap 11(L) 12 - 20 [facility] Urea Nitrogen (BUN) 9 9 - 16 mg/dL [facility] Creatinine, Serum 0.66 0.5 - 1.4 mg/dL [facility] Creatinine Clr Calc Pharmacy 109.7 [facility] Comment:Provided height and weight: 160.02 cm,59.4 kg.eGFR (calculated from the MDRD study equation) and eCrCl(calculated from the Cockcroft-Gault equation) are based ondifferent parameters and may not yield comparable results.If eCrCl result is absurd, please check patient'sheight/weight. Estimated Glomerular Filt Rate >60 [facility] Comment:Chronic Kidney Disea se: Estimated GFR < 60 mL/min/1.47d5Xmawpo Kidney Disease: Estimated GFR < 15 mL/min/1.73m2 Glucose 90 60 - 115 mg/dL [facility] Calcium 9.1 8.4 - 10.2 mg/dL [facility] Bilirubin, Total 0.7 0.0 - 1.0 mg/dL [facility] Aspartate Amino Transferase 25 5 - 31 U/L [facility] Alanine Aminotransferase 15 0 - 31 U/L [facility] Total Protein 7.9 6.5 - 8.0 g/dL [facility] Albumin Level 4.4 3.5 - 5.0 g/dL [facility] Alkaline Phosphatase 61 39 - 117 U/L [facility] 11/06/2024 9:10 PM EST 11/06/2024 9:13 PM EST us Generic External Data Provider LAB BLOOD ORDERAB LES Final Result [facility] [address] [place] [phone] * SARS-CoV-2 RNA, Influenza A/B, and RSV RNA, Ql NAAT (11/06/2024 9:09 PM EST) Influenza A PCR NEGATIVE Negative [facility] Influenza B PCR NEGATIVE Negative [facility] Resp Syncy Virus RNA Qual PCR NEGATIVE Negative [facility] SARS COV2 PCR NEGATIVE Negative [facility] Comment:All test results mus t [...] use by authorized laboratories.Testing performed on the [employer] GeneXpert utilizingreal-time RT-PCR.All SARS CoV2 and positive influenza A/B results arereported to [facility]. 11/06/2024 9:09 PM EST 11/06/2024 9:13 PM EST us Generic External Data Provider LAB MICROBIOLOGY - GENERAL ORDERABLES Final Result [facility] [address] [place] [address] [phone] * (ABNORMAL) CBC auto differential (11/06/2024 9:09 PM EST) Only the most recent of2 resultswithin the time period is included. White Blood Count 14.5(H) 4.8 - 10.8 X10*3/uL [facility] Red Blood Count 4.26 4.20 - 5.50 X10*6/uL [facility] Hemoglobin 13.4 12.0 - 16.0 g/dl [facility] Hematocrit 39.5 37.0 - 47.0 % [facility] Mean Corpuscular Volume 92.7 80.0 - 98.0 fL [facility] Mean Corpuscular Hemoglobin 31.5 27.0 - 33.0 pg [facility] Mean Corpuscular HGB Conc 33.9 31.0 - 35.0 g/dl [facility] Red Cell Distribution Width 12.4 11.0 - 16.0 % [facility] Platelet Count 236 160 - 400 X10*3/uL [facility] Mean Platelet Volume 11.4 9.4 - 12.3 fL [facility] Neutrophils Percent Auto 85.0(H) 45 - 73 % [facility] Imm Gran Pct Auto 0.5(H) 0.0 - 0.4 % [facility] Lymphocytes Percent Auto 7.4(L) 20 - 40 % [facility] Monocytes Percent Auto 6.6 2 - 11 % [facility] Eosinophils Percent Auto 0.2 0 - 4 % [facility] Basophils Percent Auto 0.3 0 - 2 % [facility] NRBC Pct Auto 0.0 0.0 - 0.2 /100WBC [facility] Neutrophils Absolute Auto 12.3(H) 2.0 - 8.3 x10*3/uL [facility] Imm Gran Abs Auto 0.07(H) 0.00 - 0.03 X10*3/uL [facility] Lymphocytes Absolute Auto 1.1(L) 1.2 - 4.9 X10*3/uL [facility] Monocytes Absolute Auto 1.0 0.1 - 1.2 X10*3/uL [facility] Eosinophils Absolute Auto 0.0 0.0 - 0.4 X10*3/uL [facility] Basophils Absolute Auto 0.1 0.0 - 0.2 X10*3/uL [facility] NRBC Abs Auto 0.000 0.0 - 0.012 X10*3/uL [facility] 11/06/2024 9:09 PM EST 11/06/2024 9:13 PM EST us Generic External Data Provider LAB BLOOD ORDERAB LES Final Result Performing Organization Address [facility]/ZIP Co de Phone Number [facility] [address] [place] [phone] * Type and screen (08/13/2024 11:47 AM EST) Blood Type AP [facility] Antibody Screen NEGATIVE [facility] 08/13/2024 11:4 7 AM EST 08/13/2024 12:00 PM EST Generic External Data Provider LAB BLOOD BANK TE ST ORDERABLES Final Result Performing Organization Address [facility] Co de Phone Number [facility] [address] [place] [address] [phone] * Gross and Microscopic Level 4 (08/13/2024 10:54 AM EST) 08/13/2024 10:5 4 AM EST 08/13/2024 11:39 AM EST Narrative [facility] - 08/15/2024 1:50 PM EST ----- ------- Name: Autumn Aggarwal ? Age/Sex: 24/F ? : 2000 Unit#: [id number] ?? Attend Dr: Sivan Little MD ?Re08/13/24 ?Status: DEP ER ?Location: HO.ED ? Disch: ? ----- ------- SPEC : [id number] ? RECD: 08/13/24-529 ? STATUS: ??SOUT ? REQ NUM: [id number] ? ELISA: 08/13/24-1054 ? SUBM DR: Haylee Romero ? ENTERED: ??08/13/24-1138 ?SP TYPE: Surgical ? OTHR : [facility] ? ORDERED: ??Gross Micro L4 ? [...] identified. ??No embryonic or tissue is identified. Carbon Cutter sections are submitted in cassettes [id number]. ??The remainder of the specimen is entirely submitted in cassettes [id number]. CEDS Copies To: ?? Haylee Romero ?? [address] ?? [place] [address] ?? [phone] ?? [facility] ?? [address] ?? [place] [address] ?? ----- ------- Signed (signature on file) Lucia Menjivar MD 08/15/24 1350 ? ----- ------- ? END OF REPORT ? us Generic External Data Provider LAB CYTOLOGY LUIS ARMANDO REYES Final Result [facility] [address] [place] [phone] * Chlamydia/N. Gonorrhoeae RNA, TMA, Urogenitial (07/22/2024 11:09 AM EDT) [facility] CT PCR NOT DETECTED Not Detect. [facility] Comment:A not detected test result [...] psychologicalconsequences. NG PCR NOT DETECTED Not Detect. [facility] Comment:A not detected test result [...] AM EDT 07/22/2024 6:23 PM EDT Narrative [facility] - 07/23/2024 12:18 PM EDT Vaginal us Generic External Data Provider LAB MICROBIOLOGY - GENERAL ORDERABLES Final Result Performing Organization Address City/State/[facility] Co de Phone Number [facility] [address] [place] [phone] from Last 3 Months or Most Recently Relevant to Health Maintenance Insurance C[facility] MEDICAID STAND ADULT Care Teams Group Fitness Assistant Department Head Relationship Specialty Start Date End Date Shaneka Howard MD [address] [place] [phone] PCP - General Family Medicine 11/14/23
--- OUTSIDE RECORDS SUMMARY | 2024-11-12 12:32 | XMS_ITS | Encounter Summary ---
Author Organization [employer] Address [address] [place] [address] Care Team Providers Care Motel Keeper Name Role Phone Shaneka Howard MD Primary Care Provider [phone] Encounter Details Date Type Department Care Team ([facility] st Contact Info) Description 11/11/2024 Orders Only [...] with others, in a hotel, in a retirement, living outside on the street, on a [...] EST) Hepatitis B Surface Ag Negative Negative [facility] 11/11/2024 1:05 PM EST 11/11/2024 1:05 PM EST us Generic External Data Provider LAB BLOOD ORDERAB LES Final Result [facility] [address] [place] [phone] * HIV-1/2 Antigen and Antibodies, Fourth Generation, with Reflexes (11/11/2024 1:05 PM EST) HIV AB/AG Nonreactive Nonreactive [facility] Comment:HIV-1 p24 Ag and/or HIV-1/HIV-2 Ab not detected.A test result that is nonreactive does not exclude thepossibility of exposure to or infection with HIV-1 and/orHIV-2. Nonreactive results in this assay for individualswith prior exposure to HIV-1 and/or HIV-2 may be due toantigen and antibody levels that are below the limit ofdetection of this assay.The [employer] HIV Ag/Ab Combo assay result andsupplemental assay results should be interpreted inconjunction with the patient's clinical presentation,history and other laboratory results. If the results areinconsistent with clinical evidence, additional testing issuggested to confirm the result. 11/11/2024 1:05 PM EST 11/11/2024 1:05 PM EST Generic External Data Provider LAB BLOOD ORDERAB LES Final Result Performing Organization Address [facility] Co de Phone Number [facility] [address] [place] [phone] * Hepatitis C Ab (11/11/2024 1:05 PM EST) [facility] Hepatitis C Antibody Nonreactive Nonreactive [facility] Comment:Antibodies to HCV no t detected; does not exclude early acuteHCV infection. 11/11/2024 1:05 PM EST 11/11/2024 1:05 PM EST Generic External Data Provider LAB BLOOD ORDERAB LES Final Result Performing Organization Address [facility] Phone Number [facility] [address] [place] [phone] * Syphilis Screen (11/11/2024 1:05 PM EST) [facility] Syphilis Screen Nonreactive Nonreactive [facility] 11/11/2024 1:05 PM EST 11/11/2024 1:05 PM EST Generic External Data Provider LAB BLOOD ORDERAB LES Final Result Performing Organization Address [facility] de Phone Number [facility] [address] [place] [phone] * hCG, Total, Quantitative (11/11/2024 1:05 PM EST) HCG Quantitative 6,184 mIU/mL [facility] Comment:Weeks post LMP Appro ximate hCG(Last Menstrual Period) Range (mIU/ml)3 - 4 weeks 9 - 1304 - 5 weeks 75 - 2,6005 - 6 weeks 850 - 20,8006 - 7 weeks 4000 - 100,2007 - 12 weeks 11,500 - 289,68460 - 16 weeks 18,300 - 137,80775 - 29 weeks (2nd trimester) 1,400 - 53,88596 - 41 weeks (3rd trimester) 940 - [...] Provider LAB BLOOD ORDERAB LES Final Result [facility] [address] [place] [address] [phone] documented in this encounter Visit Diagnoses Not on filedocumented in this encounter Additional Health Concerns Assessment Noted Time PHQ-9 Depression Total Score: 24 04/23/ 024 2:26 PM EDT documented as of this encounter Care Teams Motel Keeper Relationship Specialty Start Date End Date Shaneka Howard MD [address] [place] [address] PCP - General Family Medicine 11/14/23 documented as of this encounter
--- OUTSIDE RECORDS SUMMARY | 2024-11-12 12:32 | XMS_ITS | Encounter Summary ---
Author Organization [employer] Address [address] [place] [address] Care Team Providers Care Perianesthesia Manager Name Role Phone Shaneka Howard MD Primary Care Provider [phone] Encounter Details Date Type Department Care Team ([facility] st Contact Info) Description 11/06/2024 Orders Only [...] with others, in a hotel, in a usp, living outside on the street, on a [...] EST Narrative 11/07/2024 1:39 AM EST ? [facility] ?[address] ?[place] [address] ? Ultrasound Report ? Signed ? Patient: Jasen,Autumn ?MR#: [id number] ?? [id number] ? : 2000 ?Acct:[id number] ? Age/Sex: 24 / F ?ADM Date: 11/06/24 ? Loc: HO.ED ? Attending Dr: ? Ordering Physician: Praful Klein ?? Date of Service: 11/06/24 ?? Procedure(s): US OB pelvic and transvaginal ?? Accession Number(s): [id number] ? cc: Praful Klein; Kaylen Juarez MD [...] ? DD/ 6 ? TD/TT: 11/07/24136 ? Soft Drink Powder Mixer: ? Procedure Note Priscilla Fonseca - 11/07/[address] [address] Ultrasound Report Signed Patient: Jamal Aggarwal#: [id number] 68 : 2000Acct:[id number] Age/Sex: 24 / FADM Date: 11/06/24 Loc: HO.ED Attending Dr: Ordering Physician: Praful Klein Date of Service: 11/06/24 Procedure(s): US OB pelvic and transvaginal Accession Number(s): [id number] cc: Praful Klein; Kaylen Juarez MD CLINICAL [...] in OV> 11/07/24138 DD/ 6 TD/TT: 11/07/24136 Soft Drink Powder Mixer: us [facility] External Provider IMG US PROCEDURES Edited Result - Final * hCG, Total, Quantitative (11/06/2024 9:10 PM EST) HCG Quantitative 2,262 mIU/mL [facility] Comment:Weeks post LMP Appro ximate hCG(Last Menstrual Period) Range (mIU/ml)3 - 4 weeks 9 - 1304 - 5 weeks 75 - 2,6005 - 6 weeks 850 - 20,8006 - 7 weeks 4000 - 100,2007 - 12 weeks 11,500 - 289,65470 - 16 weeks 18,300 - 137,52975 - 29 weeks (2nd trimester) 1,400 - 53,74939 - 41 weeks (3rd trimester) 940 - [...] Final Result Performing Organization Address [facility]/ZIP Co de Phone Number [facility] [address] [place] [phone] * Magnesium (11/06/2024 9:10 PM EST) Pathologist [facility] Magnesium 1.8 1.6 - 2.6 mg/dL [facility] 11/06/2024 9:10 PM EST 11/06/2024 9:13 PM EST Generic External Data Provider LAB BLOOD ORDERAB LES Final Result Performing Organization Address [facility] Co de Phone Number [facility] [address] [place] [phone] * (ABNORMAL) Comprehensive Metabolic Panel (11/06/2024 9:10 PM EST) Pathologist [facility] Sodium 135 135 - 145 mmol/L [facility] Potassium 4.2 3.3 - 5.1 mmol/L [facility] Chloride 107 96 - 108 mmol/L [facility] Carbon Dioxide 21(L) 22 - 29 mmol/L [facility] Anion Gap 11(L) 12 - 20 [facility] Urea Nitrogen (BUN) 9 9 - 16 mg/dL [facility] Creatinine, Serum 0.66 0.5 - 1.4 mg/dL [facility] Creatinine Clr Calc Pharmacy 109.7 [facility] Comment:Provided height and weight: 160.02 cm,59.4 kg.eGFR (calculated from the MDRD study equation) and eCrCl(calculated from the Cockcroft-Gault equation) are based ondifferent parameters and may not yield comparable results.If eCrCl result is absurd, please check patient'sheight/weight. Estimated Glomerular Filt Rate >60 [facility] Comment:Chronic Kidney Disea se: Estimated GFR < 60 mL/min/[id number] Kidney Disease: Estimated GFR < 15 mL/min/1.73m2 Glucose 90 60 - 115 mg/dL [facility] Calcium 9.1 8.4 - 10.2 mg/dL [facility] Bilirubin, Total 0.7 0.0 - 1.0 mg/dL [facility] Aspartate Amino Transferase 25 5 - 31 U/L [facility] Alanine Aminotransferase 15 0 - 31 U/L [facility] Total Protein 7.9 6.5 - 8.0 g/dL [facility] Albumin Level 4.4 3.5 - 5.0 g/dL [facility] Alkaline Phosphatase 61 39 - 117 U/L [facility] 11/06/2024 9:10 PM EST 11/06/2024 9:13 PM EST us Generic External Data Provider LAB BLOOD ORDERAB LES Final Result [facility] [address] [place] [phone] * SARS-CoV-2 RNA, Influenza A/B, and RSV RNA, Ql NAAT (11/06/2024 9:09 PM EST) Influenza A PCR NEGATIVE Negative [facility] Influenza B PCR NEGATIVE Negative [facility] Resp Syncy Virus RNA Qual PCR NEGATIVE Negative [facility] SARS COV2 PCR NEGATIVE Negative [facility] Comment:All test results mus t [...] use by authorized laboratories.Testing performed on the [employer] GeneXpert utilizingreal-time RT-PCR.All SARS CoV2 and positive influenza A/B results arereported to [facility]. 11/06/2024 9:09 PM EST 11/06/2024 9:13 PM EST us Generic External Data Provider LAB MICROBIOLOGY - GENERAL ORDERABLES Final Result [facility] [address] [place] [phone] * (ABNORMAL) CBC auto differential (11/06/2024 9:09 PM EST) White Blood Count 14.5(H) 4.8 - 10.8 X10*3/uL [facility] Red Blood Count 4.26 4.20 - 5.50 X10*6/uL [facility] Hemoglobin 13.4 12.0 - 16.0 g/dl [facility] Hematocrit 39.5 37.0 - 47.0 % [facility] Mean Corpuscular Volume 92.7 80.0 - 98.0 fL [facility] Mean Corpuscular Hemoglobin 31.5 27.0 - 33.0 pg [facility] Mean Corpuscular HGB Conc 33.9 31.0 - 35.0 g/dl [facility] Red Cell Distribution Width 12.4 11.0 - 16.0 % [facility] Platelet Count 236 160 - 400 X10*3/uL [facility] Mean Platelet Volume 11.4 9.4 - 12.3 fL [facility] Neutrophils Percent Auto 85.0(H) 45 - 73 % [facility] Imm Gran Pct Auto 0.5(H) 0.0 - 0.4 % [facility] Lymphocytes Percent Auto 7.4(L) 20 - 40 % [facility] Monocytes Percent Auto 6.6 2 - 11 % [facility] Eosinophils Percent Auto 0.2 0 - 4 % [facility] Basophils Percent Auto 0.3 0 - 2 % [facility] NRBC Pct Auto 0.0 0.0 - 0.2 /100WBC [facility] Neutrophils Absolute Auto 12.3(H) 2.0 - 8.3 x10*3/uL [facility] Imm Gran Abs Auto 0.07(H) 0.00 - 0.03 X10*3/uL [facility] Lymphocytes Absolute Auto 1.1(L) 1.2 - 4.9 X10*3/uL [facility] Monocytes Absolute Auto 1.0 0.1 - 1.2 X10*3/uL [facility] Eosinophils Absolute Auto 0.0 0.0 - 0.4 X10*3/uL [facility] Basophils Absolute Auto 0.1 0.0 - 0.2 X10*3/uL [facility] NRBC Abs Auto 0.000 0.0 - 0.012 X10*3/uL [facility] 11/06/2024 9:09 PM EST 11/06/2024 9:13 PM EST us Generic External Data Provider LAB BLOOD ORDERAB LES Final Result Performing Organization Address City/State/[facility] Co de Phone Number [facility] [address] [place] [phone] documented in this encounter Visit Diagnoses Not on filedocumented in this encounter Additional Health Concerns Assessment Noted Time PHQ-9 Depression Total Score: 24 024 2:26 PM EDT documented as of this encounter Care Teams Perianesthesia Manager Relationship Specialty Start Date End Date Shaneka Howard MD [address] [place] [address] PCP - General Family Medicine 11/14/23 documented as of this encounter
--- OUTSIDE RECORDS SUMMARY | 2024-11-12 12:32 | XMS_ITS | Encounter Summary ---
Author Organization [employer] Address [address] [facility] [address] [place] [address] Care Team Providers Care Hypoid Gear Generator Name Role Phone [facility] Primary Care Provider [phone] Shaneka Howard MD Primary Care Provider [phone] Reason for Visit * Reason Onset Date Comments Nurse Triage 04/09/2023 Encounter Details Date Type Department Care Team ([facility] st Contact Info) Description 04/09/2023 Telephone [facility] MEDICINE [address] [place] [address] [facility] [address] [place] [address] Nurse Triage Social History Tobacco Use Types [...] answer x2. Left voice message to call [facility] triage line at [phone] . * Telephone Encounter - Jaimie Solis [...] on filedocumented in this encounter Care Teams Hypoid Gear Generator Relationship Specialty Start Date End Date Gogo Giordano FNP [address] [place] [address] PCP - General Family Medicine 05/27/22 11/13/23 Shaneka Howard MD [address] [place] [address] PCP - General Family Medicine 11/14/23 documented as of this encounter
--- OUTSIDE RECORDS SUMMARY | 2024-11-12 12:33 | XMS_ITS | Clinical Summary ---
Author Organization [facility] ity Address [address] [place] [address] Care Team Providers Care Electrician Bus Name Role Phone Unavailable Primary Care Provider [...]
--- OUTSIDE RECORDS SUMMARY | 2024-11-12 12:33 | XMS_ITS | Encounter Summary ---
Author Organization [employer] Address [address] [place] [address] Care Team Providers Care Tractor Technician Name Role Phone Shaneka Howard MD Primary Care Provider [phone] Encounter Details Date Type Department Care Team ([facility] st Contact Info) Description 11/07/2024 Orders [...] with others, in a hotel, in a chcf, living outside on the street, on a [...] 12:56 AM EST) Color Urine Dark Yellow [facility] Appearance Urine Clear [facility] PH 5.5 5.0 - 9.0 [facility] Glucose Urine UA Negative Negative mg/dL [facility] Urine Blood Negative Negative [facility] Specific [place] - Urine >=1.030(H) 1.005 - 1.025 [facility] Urine Protein Trace Neg-Trace mg/dL [facility] Urine Ketones 40 Negative mg/dL [facility] Nitrite Urine Negative Negative [facility] Leukocyte Esterase Urine Negative Negative [facility] RBC Urine 0-2 0 - 2 /HPF [facility] Urine WBC 0-5 0 - 5 /HPF [facility] Urine Squamous Epithelial Cell 11-20 0 - 2 /HPF [facility] Urine Bacteria Trace None Seen [facility] Hyaline Casts, Urine 0-2 0 - 2 /LPF [facility] 11/07/2024 12:5 6 AM EST 11/07/2024 12:59 AM EST Narrative [facility] - 11/07/2024 1:08 AM EST Urine, Clean Catch us Generic External Data Provider LAB URINE ORDERAB LES Final Result [facility] [address] [place] [phone] documented in this encounter Visit Diagnoses Not on filedocumented in this encounter Additional Health Concerns Assessment Noted Time PHQ-9 Depression Total Score: 04/23/ 024 2:26 PM EDT documented as of this encounter Care Teams Tractor Technician Relationship Specialty Start Date End Date Shaneka Howard MD [address] [place] [address] PCP - General Family Medicine 11/14/23 documented as of this encounter
== END 2024-11-12 11:21 | disposition home or self-care (01) ==
LOC: HO.HWS 10:44
PROVIDERS: PCP General Practice; Visit Provider Obstetrics & Gynecology
DX: Z34.90 Encounter for supervision of normal pregnancy, unspecified, unspecified trimester (principal)
CPT/HCPCS: 99213

== ENCOUNTER 2024-11-13 11:03 | Outpatient (REF) | payer MEDICAID, SELFPAY ==
--- OUTSIDE RECORDS SUMMARY | 2024-11-13 12:06 | XMS_ITS | Encounter Summary ---
Author Organization [employer] Address [address] [facility] [address] [place] [address] Care Team Providers Care Driver Service Technician Name Role Phone [facility] Primary Care Provider [phone] Shaneka Howard MD Primary Care Provider [phone] Reason for Visit * Reason Onset Date Comments Nurse Triage 04/09/2023 Encounter Details Date Type Department Care Team ([facility] st Contact Info) Description 04/09/2023 Telephone [facility] MEDICINE [address] [place] [address] [facility] [address] [place] [address] Nurse Triage Social History Tobacco Use Types [...] answer x2. Left voice message to call [facility] triage line at [phone] . * Telephone Encounter - Jaimie Solis [...] on filedocumented in this encounter Care Teams Driver Service Technician Relationship Specialty Start Date End Date Gogo Giordano FNP [address] [place] [address] PCP - General Family Medicine 05/27/22 11/13/23 Shaneka Howard MD [address] [place] [address] PCP - General Family Medicine 11/14/23 documented as of this encounter
--- OUTSIDE RECORDS SUMMARY | 2024-11-13 12:06 | XMS_ITS | Clinical Summary ---
Demographics Address [address] [place] [address] Home Phone Mobile Phone Preferred Language en Marital Status Single Sikh Affiliation Unknown Race Other Race Ethnic Group or Author Organization [employer] Address [address] [place] [address] Care Team Providers Care Machine Packager Name Role Phone Shaneka Howard MD Primary Care Provider [phone] Allergies No known active allergies Medications * [...] blood and CBC -STAT pelvic/TV US -STAT E COMMERCE PROJECT MANAGER referral requested to referral at [facility] by pt prefernce- will inform pt [...] & Plan (04/29/2024 10:14 AM EDT): During [facility] Consult Autumn presenting with depressed mood, [...] Health Integration Plan Internal Follow up with [facility] External OP therapy referral and OP psychiatry Referral Patient Self Plan Patient to utilize skills provided in intervention , Patient to reach out to [facility] team as needed, Patient to engage in [...] Health Integration Plan Internal Follow up with [facility] External OP BH therapy referral and OP psychiatry Referral Patient Self Plan Patient to utilize skills provided in intervention , Patient to reach out to [facility] team as needed, Patient to engage in OP therapy , and Patient to reach out to [facility] as needed Vitamin D deficiency 06/07/2018 Allergic rhinitis 06/18/2017 Mild intermittent asthma 11/27/2016 Developmental academic disorder 06/28/2015 Dyssomnia 06/08/2014 Impulse control disorder 06/08/2014 Comments Yes Encounters Date Type Department Care Team Description 11/12/2024 Orders Only [facility] External Provider, [facility] 11/11/2024 Orders Only GENERIC EXTERNAL DATA DEPARTMENT Provider, Generic External Data 11/07/2024 Orders Only GENERIC EXTERNAL DATA DEPARTMENT Provider, Generic External Data 11/06/2024 Orders Only GENERIC EXTERNAL DATA DEPARTMENT Provider, Generic External Data 10/09/2024 Telephone [facility] MEDICINE [address] [place] [place] [address] Chito Janneth, [place] 09/29/2024 Telephone [facility] ADULT DENTAL [address] [place] [address] Ja[place], [place] 09/10/2024 Orders Only GENERIC EXTERNAL DATA DEPARTMENT Provider, Generic External Data 09/08/2024 Telephone [facility] ADULT DENTAL [address] [place] [place] [address] Jaiden, [place] 09/02/2024 Orders Only GENERIC EXTERNAL [...] EST Narrative 11/12/2024 11:01 AM EST ? [facility] ?[address] ?[place], [place] [address] ? Ultrasound Report ? Signed ? Patient: Jasen,Autumn ?MR#: [id number] ?? 68 ? : 2000 ?Acct:[id number] ? Age/Sex: 24 / F ?ADM Date: 11/12/24 ? Loc: HO.US ? Attending Dr: Anthony Morris MD ? Ordering Physician: Anthony Morris MD ?? Date of Service: 11/12/24 ?? Procedure(s): US OB pelvic and transvaginal ?? Accession Number(s): [id number] ? cc: Shaneka Howard; Anthony Morris MD [...] DD/ 1010 ? TD/TT: 11/12/24 1029 ? Director Automotive: ? Procedure Note Donotuseinterpreter, Image - 11/12/[address] [address] Ultrasound Report Signed Patient: Jamal Aggarwal#: [id number] 68 : 2000Acct:[id number] Age/Sex: 24 / FADM Date: 11/12/24 Loc: HO.US Attending Dr: Anthony Morris MD Ordering Physician: Anthony Morris MD Date of Service: 11/12/24 Procedure(s): US OB pelvic and transvaginal Accession Number(s): [id number] cc: Shaneka Howard; Anthony Morris MD EXAMINATION: [...] 11/12/24 1058 DD/ 1010 TD/TT: 11/12/24 1029 Director Automotive: [facility] External Provider IMG US PROCEDURES Final Result * Syphilis Screen (11/11/2024 1:05 PM EST) Syphilis Screen Nonreactive Nonreactive [facility] 11/11/2024 1:05 PM EST 11/11/2024 1:05 PM EST Generic External Data Provider LAB BLOOD ORDERAB LES Final Result Performing Organization Address [facility] Co de Phone Number [facility] [address] [place] [address] [phone] * Hepatitis C Ab (11/11/2024 1:05 PM EST) Pathologist [facility] [place] Hepatitis C Antibody Nonreactive Nonreactive [facility] Comment:Antibodies to HCV no t detected; does not exclude early acuteHCV infection. 11/11/2024 1:05 PM EST 11/11/2024 1:05 PM EST Generic External Data Provider LAB BLOOD ORDERAB LES Final Result Performing Organization Address [facility] Co de Phone Number [facility] [address] [place] [phone] * Hepatitis B surface antigen, EIA (11/11/2024 1:05 PM EST) Hepatitis B Surface Ag Negative Negative [facility] 11/11/2024 1:05 PM EST 11/11/2024 1:05 PM EST us Generic External Data Provider LAB BLOOD ORDERAB LES Final Result Performing Organization Address [facility] Co de Phone Number [facility] [address] [place] [address] [phone] * HIV-1/2 Antigen and Antibodies, Fourth Generation, with Reflexes (11/11/2024 1:05 PM EST) HIV AB/AG Nonreactive Nonreactive [facility] Comment:HIV-1 p24 Ag and/or HIV-1/HIV-2 Ab not detected.A test result that is nonreactive does not exclude thepossibility of exposure to or infection with HIV-1 and/orHIV-2. Nonreactive results in this assay for individualswith prior exposure to HIV-1 and/or HIV-2 may be due toantigen and antibody levels that are below the limit ofdetection of this assay.The ImageSpike HIV Ag/Ab Combo assay result andsupplemental assay results should be interpreted inconjunction with the patient's clinical presentation,history and other laboratory results. If the results areinconsistent with clinical evidence, additional testing issuggested to confirm the result. 11/11/2024 1:05 PM EST 11/11/2024 1:05 PM EST us Generic External Data Provider LAB BLOOD ORDERAB LES Final Result Performing Organization Address City/[facility]/ZIP Co de Phone Number [facility] [address] [place] [address] [phone] * hCG, Total, Quantitative (11/11/2024 1:05 PM EST) Only the most recent of7 resultswithin the time period is included. HCG Quantitative 6,184 mIU/mL [facility] Comment:Weeks post LMP Appro ximate hCG(Last Menstrual Period) Range (mIU/ml)3 - 4 weeks 9 - 1304 - 5 weeks 75 - 2,6005 - 6 weeks 850 - 20,8006 - 7 weeks 4000 - 100,2007 - 12 weeks 11,500 - 289,84341 - 16 weeks 18,300 - 137,66658 - 29 weeks (2nd trimester) 1,400 - 53,37507 - 41 weeks (3rd trimester) 940 - [...] Provider LAB BLOOD ORDERAB LES Final Result [facility] [address] [place] [phone] * (ABNORMAL) Urinalysis, Complete, with Reflex to Culture (11/07/2024 12:56 AM EST) Color Urine Dark Yellow [facility] Appearance Urine Clear [facility] PH 5.5 5.0 - 9.0 [facility] Glucose Urine UA Negative Negative mg/dL [facility] Urine Blood Negative Negative [facility] Specific [place] - Urine >=1.030(H) 1.005 - 1.025 [facility] Urine Protein Trace Neg-Trace mg/dL [facility] Urine Ketones 40 Negative mg/dL [facility] Nitrite Urine Negative Negative [facility] Leukocyte Esterase Urine Negative Negative [facility] RBC Urine 0-2 0 - 2 /HPF [facility] Urine WBC 0-5 0 - 5 /HPF [facility] Urine Squamous Epithelial Cell 11-20 0 - 2 /HPF [facility] Urine Bacteria Trace None Seen [facility] Hyaline Casts, Urine 0-2 0 - 2 /LPF [facility] 11/07/2024 12:5 6 AM EST 11/07/2024 12:59 AM EST Narrative [facility] - 11/07/2024 1:08 AM EST Urine, Clean Catch Generic External Data Provider LAB URINE ORDERAB LES Final Result Performing Organization Address [facility] Co de Phone Number [facility] [address] [place] [phone] * Magnesium (11/06/2024 9:10 PM EST) Only the most recent of2 resultswithin the time period is included. Magnesium 1.8 1.6 - 2.6 mg/dL [facility] 11/06/2024 9:10 PM EST 11/06/2024 9:13 PM EST Generic External Data Provider LAB BLOOD ORDERAB LES Final Result Performing Organization Address [facility] de Phone Number [facility] [address] [place] [phone] * (ABNORMAL) Comprehensive Metabolic Panel (11/06/2024 9:10 PM EST) Only the most recent of2 resultswithin the time period is included. Sodium 135 135 - 145 mmol/L [facility] Potassium 4.2 3.3 - 5.1 mmol/L [facility] Chloride 107 96 - 108 mmol/L [facility] Carbon Dioxide 21(L) 22 - 29 mmol/L [facility] Anion Gap 11(L) 12 - 20 [facility] Urea Nitrogen (BUN) 9 9 - 16 mg/dL [facility] Creatinine, Serum 0.66 0.5 - 1.4 mg/dL [facility] Creatinine Clr Calc Pharmacy 109.7 [facility] Comment:Provided height and weight: 160.02 cm,59.4 kg.eGFR (calculated from the MDRD study equation) and eCrCl(calculated from the Cockcroft-Gault equation) are based ondifferent parameters and may not yield comparable results.If eCrCl result is absurd, please check patient'sheight/weight. Estimated Glomerular Filt Rate >60 [facility] Comment:Chronic Kidney Disea se: Estimated GFR < 60 mL/min/1.22m8Zddpmm Kidney Disease: Estimated GFR < 15 mL/min/1.73m2 Glucose 90 60 - 115 mg/dL [facility] Calcium 9.1 8.4 - 10.2 mg/dL [facility] Bilirubin, Total 0.7 0.0 - 1.0 mg/dL [facility] Aspartate Amino Transferase 25 5 - 31 U/L [facility] Alanine Aminotransferase 15 0 - 31 U/L [facility] Total Protein 7.9 6.5 - 8.0 g/dL [facility] Albumin Level 4.4 3.5 - 5.0 g/dL [facility] Alkaline Phosphatase 61 39 - 117 U/L [facility] 11/06/2024 9:10 PM EST 11/06/2024 9:13 PM EST us Generic External Data Provider LAB BLOOD ORDERAB LES Final Result [facility] [address] [place] [phone] * SARS-CoV-2 RNA, Influenza A/B, and RSV RNA, Ql NAAT (11/06/2024 9:09 PM EST) Influenza A PCR NEGATIVE Negative [facility] Influenza B PCR NEGATIVE Negative [facility] Resp Syncy Virus RNA Qual PCR NEGATIVE Negative [facility] SARS COV2 PCR NEGATIVE Negative [facility] Comment:All test results mus t be [...] use by authorized laboratories.Testing performed on the [employer] GeneXpert utilizingreal-time RT-PCR.All SARS CoV2 and positive influenza A/B results arereported to [facility]. 11/06/2024 9:09 PM EST 11/06/2024 9:13 PM EST us Generic External Data Provider LAB MICROBIOLOGY - GENERAL ORDERABLES Final Result [facility] [address] [place] [address] [phone] * (ABNORMAL) CBC auto differential (11/06/2024 9:09 PM EST) Only the most recent of2 resultswithin the time period is included. White Blood Count 14.5(H) 4.8 - 10.8 X10*3/uL [facility] Red Blood Count 4.26 4.20 - 5.50 X10*6/uL [facility] Hemoglobin 13.4 12.0 - 16.0 g/dl [facility] Hematocrit 39.5 37.0 - 47.0 % [facility] Mean Corpuscular Volume 92.7 80.0 - 98.0 fL [facility] Mean Corpuscular Hemoglobin 31.5 27.0 - 33.0 pg [facility] Mean Corpuscular HGB Conc 33.9 31.0 - 35.0 g/dl [facility] Red Cell Distribution Width 12.4 11.0 - 16.0 % [facility] Platelet Count 236 160 - 400 X10*3/uL [facility] Mean Platelet Volume 11.4 9.4 - 12.3 fL [facility] Neutrophils Percent Auto 85.0(H) 45 - 73 % [facility] Imm Gran Pct Auto 0.5(H) 0.0 - 0.4 % [facility] Lymphocytes Percent Auto 7.4(L) 20 - 40 % [facility] Monocytes Percent Auto 6.6 2 - 11 % [facility] Eosinophils Percent Auto 0.2 0 - 4 % [facility] Basophils Percent Auto 0.3 0 - 2 % [facility] NRBC Pct Auto 0.0 0.0 - 0.2 /100WBC [facility] Neutrophils Absolute Auto 12.3(H) 2.0 - 8.3 x10*3/uL [facility] Imm Gran Abs Auto 0.07(H) 0.00 - 0.03 X10*3/uL [facility] Lymphocytes Absolute Auto 1.1(L) 1.2 - 4.9 X10*3/uL [facility] Monocytes Absolute Auto 1.0 0.1 - 1.2 X10*3/uL [facility] Eosinophils Absolute Auto 0.0 0.0 - 0.4 X10*3/uL [facility] Basophils Absolute Auto 0.1 0.0 - 0.2 X10*3/uL [facility] NRBC Abs Auto 0.000 0.0 - 0.012 X10*3/uL [facility] 11/06/2024 9:09 PM EST 11/06/2024 9:13 PM EST us Generic External Data Provider LAB BLOOD ORDERAB LES Final Result Performing Organization Address [facility]/ZIP Co de Phone Number [facility] [address] [place] [phone] * Type and screen (08/13/2024 11:47 AM EST) Blood Type AP [facility] Antibody Screen NEGATIVE [facility] 08/13/2024 11:4 7 AM EST 08/13/2024 12:00 PM EST Generic External Data Provider LAB BLOOD BANK TE ST ORDERABLES Final Result Performing Organization Address [facility] Co de Phone Number [facility] [address] [place] [address] [phone] * Gross and Microscopic Level 4 (08/13/2024 10:54 AM EST) 08/13/2024 10:5 4 AM EST 08/13/2024 11:39 AM EST Narrative [facility] - 08/15/2024 1:50 PM EST ----- ------- Name: Autumn Aggarwal ? Age/Sex: 24/F ? : 2000 Unit#: [id number] ?? Attend Dr: Sivan Little MD ?Re08/13/24 ?Status: DEP ER ?Location: HO.ED ? Disch: ? ----- ------- SPEC : [id number] ? RECD: 08/13/24-297 ? STATUS: ??SOUT ? REQ NUM: [id number] ? ELISA: 08/13/24-1054 ? SUBM DR: Haylee Romero ? ENTERED: ??08/13/24-1138 ?SP TYPE: Surgical ? OTHR : [facility] ? ORDERED: ??Gross Micro L4 ? [...] identified. ??No embryonic or tissue is identified. Ui Programmer sections are submitted in cassettes A1-A3. ??The remainder of the specimen is entirely submitted in cassettes [id number]. CEDS Copies To: ?? Haylee Romero ?? [address] ?? [place] [address] ?? [phone] ?? [facility] ?? [address] ?? [place] [address] ?? ----- ------- Signed (signature on file) Lucia Menjivar MD 08/15/24 1350 ? ----- ------- ? END OF REPORT ? us Generic External Data Provider LAB CYTOLOGY LUIS ARMANDO REYES Final Result [facility] [address] [place] [phone] * Chlamydia/N. Gonorrhoeae RNA, TMA, Urogenitial (07/22/2024 11:09 AM EDT) [facility] CT PCR NOT DETECTED Not Detect. [facility] Comment:A not detected test result [...] psychologicalconsequences. NG PCR NOT DETECTED Not Detect. [facility] Comment:A not detected test result [...] AM EDT 07/22/2024 6:23 PM EDT Narrative [facility] - 07/23/2024 12:18 PM EDT Vaginal us Generic External Data Provider LAB MICROBIOLOGY - GENERAL ORDERABLES Final Result Performing Organization Address City/State/[facility] Co de Phone Number [facility] [address] [place] [phone] from Last 3 Months or Most Recently Relevant to Health Maintenance Insurance [facility] MEDICAID STAND ADULT Care Teams Machine Packager Relationship Specialty Start Date End Date Shaneka Howard MD [address] [place] [phone] PCP - General Family Medicine 11/14/23
--- OUTSIDE RECORDS SUMMARY | 2024-11-13 12:06 | XMS_ITS | Clinical Summary ---
Author Organization [facility] ity Address [address] [place] [address] Care Team Providers Care Or Scrub Tech Name Role Phone Unavailable Primary Care Provider [...]
--- OUTSIDE RECORDS SUMMARY | 2024-11-13 12:06 | XMS_ITS | Encounter Summary ---
Author Organization [employer] Address [address] 7[address] [place] [address] Care Team Providers Care Airplane Dispatch Clerk Name Role Phone Shaneka Howard MD Primary Care Provider [phone] Encounter Details Date Type Department Care Team ([facility] st Contact Info) Description 11/06/2024 Orders [...] EST Narrative 11/07/2024 1:39 AM EST ? [facility] ?[address] ?[place] [address] ? Ultrasound Report ? Signed ? Patient: Jasen,Autumn ?MR#: [id number] ?? 68 ? : 2000 ?Acct:[id number] ? Age/Sex: 24 / F ?ADM Date: 11/06/24 ? Loc: HO.ED ? Attending Dr: ? Ordering Physician: Praful Klein ?? Date of Service: 11/06/24 ?? Procedure(s): US OB pelvic and transvaginal ?? Accession Number(s): [id number] ? cc: Praful Klein; Kaylen Juarez MD [...] ? DD/ 6 ? TD/TT: 11/07/24136 ? Wired Sweatband Cutter: ? Procedure Note Priscilla Fonseca - 11/07/[address] [address] Ultrasound Report Signed Patient: Jamal Aggarwal#: [id number] [birth year] : 2000Acct:[id number] Age/Sex: 24 / FADM Date: 11/06/24 Loc: HO.ED Attending Dr: Ordering Physician: Praful Klein Date of Service: 11/06/24 Procedure(s): US OB pelvic and transvaginal Accession Number(s): [id number] cc: Praful Klein; Kaylen Juarez MD CLINICAL [...] in OV> 11/07/24138 DD/ 6 TD/TT: 11/07/24136 Wired Sweatband Cutter: us [facility] External Provider IMG US PROCEDURES Edited Result - Final * hCG, Total, Quantitative (11/06/2024 9:10 PM EST) HCG Quantitative 2,262 mIU/mL [facility] Comment:Weeks post LMP Appro ximate hCG(Last Menstrual Period) Range (mIU/ml)3 - 4 weeks 9 - 1304 - 5 weeks 75 - 2,6005 - 6 weeks 850 - 20,8006 - 7 weeks 4000 - 100,2007 - 12 weeks 11,500 - 289,79443 - 16 weeks 18,300 - 137,66370 - 29 weeks (2nd trimester) 1,400 - 53,45119 - 41 weeks (3rd trimester) 940 - [...] ORDERAB LES Final Result Performing Organization Address [facility]/ZIP Co de Phone Number [facility] [address] [place] [phone] * Magnesium (11/06/2024 9:10 PM EST) Pathologist [facility] Magnesium 1.8 1.6 - 2.6 mg/dL [facility] 11/06/2024 9:10 PM EST 11/06/2024 9:13 PM EST Generic External Data Provider LAB BLOOD ORDERAB LES Final Result Performing Organization Address [facility] Co de Phone Number [facility] [address] [place] [phone] * (ABNORMAL) Comprehensive Metabolic Panel (11/06/2024 9:10 PM EST) Pathologist [facility] Sodium 135 135 - 145 mmol/L [facility] Potassium 4.2 3.3 - 5.1 mmol/L [facility] Chloride 107 96 - 108 mmol/L [facility] Carbon Dioxide 21(L) 22 - 29 mmol/L [facility] Anion Gap 11(L) 12 - 20 [facility] Urea Nitrogen (BUN) 9 9 - 16 mg/dL [facility] Creatinine, Serum 0.66 0.5 - 1.4 mg/dL [facility] Creatinine Clr Calc Pharmacy 109.7 [facility] Comment:Provided height and weight: 160.02 cm,59.4 kg.eGFR (calculated from the MDRD study equation) and eCrCl(calculated from the Cockcroft-Gault equation) are based ondifferent parameters and may not yield comparable results.If eCrCl result is absurd, please check patient'sheight/weight. Estimated Glomerular Filt Rate >60 [facility] Comment:Chronic Kidney Disea se: Estimated GFR < 60 mL/min/1.50g6Hkhqwx Kidney Disease: Estimated GFR < 15 mL/min/1.73m2 Glucose 90 60 - 115 mg/dL [facility] Calcium 9.1 8.4 - 10.2 mg/dL [facility] Bilirubin, Total 0.7 0.0 - 1.0 mg/dL [facility] Aspartate Amino Transferase 25 5 - 31 U/L [facility] Alanine Aminotransferase 15 0 - 31 U/L [facility] Total Protein 7.9 6.5 - 8.0 g/dL [facility] Albumin Level 4.4 3.5 - 5.0 g/dL [facility] Alkaline Phosphatase 61 39 - 117 U/L [facility] 11/06/2024 9:10 PM EST 11/06/2024 9:13 PM EST us Generic External Data Provider LAB BLOOD ORDERAB LES Final Result [facility] [address] [place] [phone] * SARS-CoV-2 RNA, Influenza A/B, and RSV RNA, Ql NAAT (11/06/2024 9:09 PM EST) Influenza A PCR NEGATIVE Negative [facility] Influenza B PCR NEGATIVE Negative [facility] Resp Syncy Virus RNA Qual PCR NEGATIVE Negative [facility] SARS COV2 PCR NEGATIVE Negative [facility] Comment:All test results mus t [...] use by authorized laboratories.Testing performed on the [employer] GeneXpert utilizingreal-time RT-PCR.All SARS CoV2 and positive influenza A/B results arereported to [facility]. 11/06/2024 9:09 PM EST 11/06/2024 9:13 PM EST us Generic External Data Provider LAB MICROBIOLOGY - GENERAL ORDERABLES Final Result [facility] [address] [place] [phone] * (ABNORMAL) CBC auto differential (11/06/2024 9:09 PM EST) White Blood Count 14.5(H) 4.8 - 10.8 X10*3/uL [facility] Red Blood Count 4.26 4.20 - 5.50 X10*6/uL [facility] Hemoglobin 13.4 12.0 - 16.0 g/dl [facility] Hematocrit 39.5 37.0 - 47.0 % [facility] Mean Corpuscular Volume 92.7 80.0 - 98.0 fL [facility] Mean Corpuscular Hemoglobin 31.5 27.0 - 33.0 pg [facility] Mean Corpuscular HGB Conc 33.9 31.0 - 35.0 g/dl [facility] Red Cell Distribution Width 12.4 11.0 - 16.0 % [facility] Platelet Count 236 160 - 400 X10*3/uL [facility] Mean Platelet Volume 11.4 9.4 - 12.3 fL [facility] Neutrophils Percent Auto 85.0(H) 45 - 73 % [facility] Imm Gran Pct Auto 0.5(H) 0.0 - 0.4 % [facility] Lymphocytes Percent Auto 7.4(L) 20 - 40 % [facility] Monocytes Percent Auto 6.6 2 - 11 % [facility] Eosinophils Percent Auto 0.2 0 - 4 % [facility] Basophils Percent Auto 0.3 0 - 2 % [facility] NRBC Pct Auto 0.0 0.0 - 0.2 /100WBC [facility] Neutrophils Absolute Auto 12.3(H) 2.0 - 8.3 x10*3/uL [facility] Imm Gran Abs Auto 0.07(H) 0.00 - 0.03 X10*3/uL [facility] Lymphocytes Absolute Auto 1.1(L) 1.2 - 4.9 X10*3/uL [facility] Monocytes Absolute Auto 1.0 0.1 - 1.2 X10*3/uL [facility] Eosinophils Absolute Auto 0.0 0.0 - 0.4 X10*3/uL [facility] Basophils Absolute Auto 0.1 0.0 - 0.2 X10*3/uL [facility] NRBC Abs Auto 0.000 0.0 - 0.012 X10*3/uL [facility] 11/06/2024 9:09 PM EST 11/06/2024 9:13 PM EST us Generic External Data Provider LAB BLOOD ORDERAB LES Final Result Performing Organization Address City/State/[facility] Co de Phone Number [facility] [address] [place] [phone] [phone] documented in this encounter Visit Diagnoses Not on filedocumented in this encounter Additional Health Concerns Assessment Noted Time PHQ-9 Depression Total Score: 24 024 2:26 PM EDT documented as of this encounter Care Teams Airplane Dispatch Clerk Relationship Specialty Start Date End Date Shaneka Howard MD [address] [place] [address] PCP - General Family Medicine 11/14/23 documented as of this encounter
--- OUTSIDE RECORDS SUMMARY | 2024-11-13 12:06 | XMS_ITS | Encounter Summary ---
Author Organization [employer] Address [address] [place] [address] Care Team Providers Care Dynamic Etching Processor Name Role Phone Shaneka Howard MD Primary Care Provider [phone] Reason for Visit * Reason Onset Date Comments Nurse Triage 11/14/2023 Encounter Details Date Type Department Care Team ([facility] st Contact Info) Description 11/14/2023 Telephone [facility] [address] [place] [address] [facility] [address] [place] [address] Nurse Triage Social History Tobacco Use Types [...] away. Pt is advised to come to [facility] today open till 8pm and provider can see Pt. Home care advised and insurance is not verified as active, Pt is advised to contact insurance first. Pt reponds I was already told about this . Pt also requests not to call on [phone] number it is an emergency number. Protocol [...] on filedocumented in this encounter Care Teams Dynamic Etching Processor Relationship Specialty Start Date End Date Shaneka Howard MD [address] [place] [address] PCP - General Family Medicine 11/14/23 documented as of this encounter
--- OUTSIDE RECORDS SUMMARY | 2024-11-13 12:06 | XMS_ITS | Encounter Summary ---
Demographics Address [address] [place] [address] Home Phone Mobile Phone Preferred Language en Marital Status Single Roman Catholic Affiliation Unknown Race Other Race Ethnic Group or Author Organization [employer] Address [address] [facility] [address] [place] [address] Care Team Providers Care Night Clerk Name Role Phone Shaneka Howard MD Primary Care Provider [phone] Encounter Details Date Type Department Care Team ([facility] st Contact Info) Description 11/12/2024 Orders Only [facility] External Provider, [facility] Social History Tobacco Use Types Packs/Day Years Used Date Smoking Tobacco: Every Day Cigarettes Depression Answer Date Recorded Patient Health Questionnaire-9 Score 24 04/23/2024 Patient Health Questionnaire-9 Score 24 04/23/2024 Last PHQ-9: Questionnaire Data Not on file 0 04/23/2024 Housing Stability Answer Date Recorded What is your housing situation today? I do not have housing (Staying with others, in a hotel, in a group home, living outside on the street, on [...] EST Narrative 11/12/2024 11:01 AM EST ? [facility] ?[address] ?[place] [address] ? Ultrasound Report ? Signed ? Patient: Autumn Aggarwal ?MR#: [id number] ?? 68 ? : 2000 ?Acct:[id number] ? Age/Sex: 24 / F ?ADM Date: 11/12/24 ? Loc: HO.US ? Attending Dr: Anthony Morris MD ? Ordering Physician: Anthony Morris MD ?? Date of Service: 11/12/24 ?? Procedure(s): US OB pelvic and transvaginal ?? Accession Number(s): [id number] ? cc: Shaneka Howard; Anthony Morris MD [...] DD/ 1010 ? TD/TT: 11/12/24 1029 ? Airplane Captain: ? Procedure Note Donotdottyinterpreter, Image - 11/12/2024 [place] [address] Ultrasound Report Signed Patient: Jamal Aggarwal#: [id number] 68 : 2000Acct:[id number] Age/Sex: 24 / FADM Date: 11/12/24 Loc: HO.US Attending Dr: Anthony Morris MD Ordering Physician: Anthony Morris MD Date of Service: 11/12/24 Procedure(s): US OB pelvic and transvaginal Accession Number(s): [id number] cc: Shaneka Howard; Anthony Morris MD EXAMINATION: [...] 11/12/24 1058 DD/ 1010 TD/TT: 11/12/24 1029 Airplane Captain: [facility] External Provider IMG US PROCEDURES Final Result documented in this encounter Visit Diagnoses Not on filedocumented in this encounter Additional Health Concerns Assessment Noted Time PHQ-9 Depression Total Score: 04/23/ 024 2:26 PM EDT documented as of this encounter Care Teams Night Clerk Relationship Specialty Start Date End Date Shaneka Howard MD [address] [place] [phone] PCP - General Family Medicine 11/14/23 documented as of this encounter
--- OUTSIDE RECORDS SUMMARY | 2024-11-13 12:06 | XMS_ITS | Encounter Summary ---
Author Organization [employer] Address [address] [place] [address] Care Team Providers Care Advisor Advocate Angel Co Founder Name Role Phone Shaneka Howard MD Primary Care Provider [phone] Encounter Details Date Type Department Care Team ([facility] st Contact Info) Description 11/07/2024 Orders Only [...] 12:56 AM EST) Color Urine Dark Yellow [facility] Appearance Urine Clear [facility] PH 5.5 5.0 - 9.0 [facility] Glucose Urine UA Negative Negative mg/dL [facility] Urine Blood Negative Negative [facility] Specific [place] - Urine >=1.030(H) 1.005 - 1.025 [facility] Urine Protein Trace Neg-Trace mg/dL [facility] Urine Ketones 40 Negative mg/dL [facility] Nitrite Urine Negative Negative [facility] Leukocyte Esterase Urine Negative Negative [facility] RBC Urine 0-2 0 - 2 /HPF [facility] Urine WBC 0-5 0 - 5 /HPF [facility] Urine Squamous Epithelial Cell 11-20 0 - 2 /HPF [facility] Urine Bacteria Trace None Seen [facility] Hyaline Casts, Urine 0-2 0 - 2 /LPF [facility] 11/07/2024 12:5 6 AM EST 11/07/2024 12:59 AM EST Narrative [facility] - 11/07/2024 1:08 AM EST Urine, Clean Catch us Generic External Data Provider LAB URINE ORDERAB LES Final Result [facility] [address] [place] [phone] documented in this encounter Visit Diagnoses Not on filedocumented in this encounter Additional Health Concerns Assessment Noted Time PHQ-9 Depression Total Score: 04/23/ 024 2:26 PM EDT documented as of this encounter Care Teams Advisor Advocate Angel Co Founder Relationship Specialty Start Date End Date Shaneka Howard MD [address] [place] [address] PCP - General Family Medicine 11/14/23 documented as of this encounter
--- OUTSIDE RECORDS SUMMARY | 2024-11-13 12:06 | XMS_ITS | Encounter Summary ---
Author Organization [employer] Address [address] [place] [address] Care Team Providers Care Director Of Perioperative Services Name Role Phone Shaneka Howard MD Primary Care Provider [phone] Reason for Visit * Reason Onset Date Comments dental emergency/ 07/25/2024 Encounter Details Date Type Department Care Team ([facility] st Contact Info) Description 07/25/2024 Telephone [facility] ADULT DENTAL [address] [place] [address] Diana Rob DDS [address] [place] [address] dental emergency/ Social History Tobacco Use Types [...] with others, in a hotel, in a skilled nursing, living outside on the street, on a [...] to providefor dental treatment). Provided fax number [phone] to have OB office send in clearance. [...] documented as of this encounter Care Teams Director Of Perioperative Services Relationship Specialty Start Date End Date Shaneka Howard MD [address] [place] [address] PCP - General Family Medicine 11/14/23 documented as of this encounter
--- OUTSIDE RECORDS SUMMARY | 2024-11-13 12:06 | XMS_ITS | Encounter Summary ---
Author Organization [employer] Address [address] [facility] [address] [place] [address] Care Team Providers Care Machine Cloth Trimmer Name Role Phone Shaneka Howard MD Primary Care Provider [phone] Encounter Details Date Type Department Care Team ([facility] st Contact Info) Description 11/11/2024 Orders [...] with others, in a hotel, in a mcc, living outside on the street, on a [...] EST) Hepatitis B Surface Ag Negative Negative [facility] 11/11/2024 1:05 PM EST 11/11/2024 1:05 PM EST us Generic External Data Provider LAB BLOOD ORDERAB LES Final Result [facility] [address] [place] [phone] * HIV-1/2 Antigen and Antibodies, Fourth Generation, with Reflexes (11/11/2024 1:05 PM EST) HIV AB/AG Nonreactive Nonreactive [facility] Comment:HIV-1 p24 Ag and/or HIV-1/HIV-2 Ab not detected.A test result that is nonreactive does not exclude thepossibility of exposure to or infection with HIV-1 and/orHIV-2. Nonreactive results in this assay for individualswith prior exposure to HIV-1 and/or HIV-2 may be due toantigen and antibody levels that are below the limit ofdetection of this assay.The [employer] HIV Ag/Ab Combo assay result andsupplemental assay results should be interpreted inconjunction with the patient's clinical presentation,history and other laboratory results. If the results areinconsistent with clinical evidence, additional testing issuggested to confirm the result. 11/11/2024 1:05 PM EST 11/11/2024 1:05 PM EST Generic External Data Provider LAB BLOOD ORDERAB LES Final Result Performing Organization Address [facility] Co de Phone Number [facility] [address] [place] [phone] * Hepatitis C Ab (11/11/2024 1:05 PM EST) [facility] Hepatitis C Antibody Nonreactive Nonreactive [facility] Comment:Antibodies to HCV no t detected; does not exclude early acuteHCV infection. 11/11/2024 1:05 PM EST 11/11/2024 1:05 PM EST Generic External Data Provider LAB BLOOD ORDERAB LES Final Result Performing Organization Address [facility] Phone Number [facility] [address] [place] [phone] * Syphilis Screen (11/11/2024 1:05 PM EST) [facility] Syphilis Screen Nonreactive Nonreactive [facility] 11/11/2024 1:05 PM EST 11/11/2024 1:05 PM EST Generic External Data Provider LAB BLOOD ORDERAB LES Final Result Performing Organization Address [facility] de Phone Number [facility] [address] [place] [phone] * hCG, Total, Quantitative (11/11/2024 1:05 PM EST) HCG Quantitative 6,184 mIU/mL [facility] Comment:Weeks post LMP Appro ximate hCG(Last Menstrual Period) Range (mIU/ml)3 - 4 weeks 9 - 1304 - 5 weeks 75 - 2,6005 - 6 weeks 850 - 20,8006 - 7 weeks 4000 - 100,2007 - 12 weeks 11,500 - 289,77763 - 16 weeks 18,300 - 137,61263 - 29 weeks (2nd trimester) 1,400 - 53,16242 - 41 weeks (3rd trimester) 940 - [...] Provider LAB BLOOD ORDERAB LES Final Result [facility] [address] [place] [phone] [phone] documented in this encounter Visit Diagnoses Not on filedocumented in this encounter Additional Health Concerns Assessment Noted Time PHQ-9 Depression Total Score: 24 04/23/ 024 2:26 PM EDT documented as of this encounter Care Teams Machine Cloth Trimmer Relationship Specialty Start Date End Date Shaneka Howard MD [address] [place] [address] PCP - General Family Medicine 11/14/23 documented as of this encounter
[2024-11-13 12:12] LABS: HCG Quantitative 9800 mIU/mL
[2024-11-14 11:33] LABS: Bacterial Vaginosis PCR POSITIVE (Negative); Candida Group PCR NOT DETECTED (Not Detect); Candida glab krusei PCR NOT DETECTED (Not Detect); Trichomonas vaginalis PCR NOT DETECTED (Not Detect)
[2024-11-14 13:58] LABS: CT PCR NOT DETECTED (Not Detect.); NG PCR NOT DETECTED (Not Detect.)
== END 2024-11-13 11:04 | disposition home or self-care (01) ==
LOC: HO.LAB 11:03
PROVIDERS: PCP General Practice; Visit Provider Obstetrics & Gynecology
DX: Z34.90 Encounter for supervision of normal pregnancy, unspecified, unspecified trimester (principal)
CPT/HCPCS: 36415; 81515; 84702; 87491; 87591

== ENCOUNTER 2024-11-13 12:33 | Outpatient (REF) | payer MEDICAID, SELFPAY | END 2024-11-13 12:34 | disposition home or self-care (01) | LOC: HO.LNP 12:33 | PROVIDERS: Visit Provider Obstetrics & Gynecology | DX: Z13.89 Encounter for screening for other disorder (principal) ==

== ENCOUNTER 2024-11-13 14:13 | Outpatient (REF) | payer MEDICAID, SELFPAY ==
--- NOTE | ~2024-11-13 | US_ITS ---
EXAMINATION: US OBSTETRICAL ULTRASOUND CLINICAL INFORMATION: Encounter for supervision abnormal . COMPARISON: November 12, 2024 demonstrated the and empty intrauterine gestational sac. LMP: 10/03/2024. Gestational age by maternal dates is 5 weeks and 5 days. Estimated date of delivery by maternal dates is 07/10/2025. TECHNIQUE: Real-time transabdominal and transvaginal obstetrical pelvic ultrasound performed using grayscale and color Doppler technique. FINDINGS: Single intrauterine gestational sac with a pole and a yolk sac. HR: 89 beats per minute. CRL (crown rump length): 0.22 cm (5 weeks and 6 days +/- 4 days). KALPANA (estimated date of delivery): 07/09/2025 +/- 4 days. MATERNAL ADNEXA: The right maternal ovary measures 3 x 2 x 3 cm. No solid or cystic lesion. Volume is 5 cc. The left maternal ovary measures 3 x 3 x 2 cm. Volume is 11 cc. There is a 2.2 cm cystic structure without flow on color Doppler interrogation or gross internal echoes. There is no significant maternal adnexal mass. No maternal pelvic ascites. US/US OB pelvic and transvaginal IMPRESSION: 1. Single , viable, intrauterine gestation with ultrasound gestational age of 5 weeks and 6 days +/- 4 days. Correlated with serial quantification of the beta-hCG. 2. Estimated date of delivery is 07/09/2025 +/- 4 days. 3. No maternal adnexal mass or pelvic ascites. Electronically signed by: Jorje Villalta MD 11/13/2024 03:29 PM CELINA
--- OUTSIDE RECORDS SUMMARY | 2024-11-13 14:15 | XMS_ITS | Encounter Summary ---
Author Organization [employer] Address [address] [place] [address] Care Team Providers Care Geochemical Manager Name Role Phone Shaneka Howard MD Primary Care Provider [phone] Reason for Visit * Reason Onset Date Comments dental emergency/ 07/25/2024 Encounter Details Date Type Department Care Team ([facility] st Contact Info) Description 07/25/2024 Telephone [facility] ADULT DENTAL [address] [place] [address] Diana Rob DDS [address] [place] [address] dental emergency/ Social History Tobacco Use Types [...] with others, in a hotel, in a intermediate, living outside on the street, on a [...] to providefor dental treatment). Provided fax number [phone] to have OB office send in clearance. [...] documented as of this encounter Care Teams Geochemical Manager Relationship Specialty Start Date End Date Shaneka Howard MD [address] [place] [address] PCP - General Family Medicine 11/14/23 documented as of this encounter
--- OUTSIDE RECORDS SUMMARY | 2024-11-13 14:15 | XMS_ITS | Encounter Summary ---
Demographics Address [address] [place] [address] Home Phone Mobile Phone Preferred Language en Marital Status Single Christian Affiliation Unknown Race Other Race Ethnic Group or Author Organization [employer] Address [address] [place] [address] Care Team Providers Care Eyelet Punch Operator Name Role Phone Shaneka Howard MD Primary Care Provider [phone] Encounter Details Date Type Department Care Team ([facility] st Contact Info) Description 11/12/2024 Orders Only [facility] External Provider, [facility] Social History Tobacco Use Types Packs/Day Years Used Date Smoking Tobacco: Every Day Cigarettes Depression Answer Date Recorded Patient Health Questionnaire-9 Score 24 04/23/2024 Patient Health Questionnaire-9 Score 24 04/23/2024 Last PHQ-9: Questionnaire Data Not on file 0 04/23/2024 Housing Stability Answer Date Recorded What is your housing situation today? I do not have housing (Staying with others, in a hotel, in a snf, living outside on the street, on a [...] EST Narrative 11/12/2024 11:01 AM EST ? [facility] ?[address] ?[place] [address] ? Ultrasound Report ? Signed ? Patient: Autumn Aggarwal ?MR#: [id number] ?? 68 ? : 2000 ?Acct:[id number] ? Age/Sex: 24 / F ?ADM Date: 11/12/24 ? Loc: HO.US ? Attending Dr: Anthony Morris MD ? Ordering Physician: Anthony Morris MD ?? Date of Service: 11/12/24 ?? Procedure(s): US OB pelvic and transvaginal ?? Accession Number(s): [id number] ? cc: Shaneka Howard; Anthony Morris MD [...] DD/ 1010 ? TD/TT: 11/12/24 1029 ? String Top Sealer: ? Procedure Note Donotdottyinterpreter, Image - 11/12/2024 [place] [address] Ultrasound Report Signed Patient: Jamal Aggarwal#: [id number] 68 : 2000Acct:[id number] Age/Sex: 24 / FADM Date: 11/12/24 Loc: HO.US Attending Dr: Anthony Morris MD Ordering Physician: Anthony Morris MD Date of Service: 11/12/24 Procedure(s): US OB pelvic and transvaginal Accession Number(s): [id number] cc: Shaneka Howard; Anthony Morris MD EXAMINATION: [...] 11/12/24 1058 DD/ 1010 TD/TT: 11/12/24 1029 String Top Sealer: [facility] External Provider IMG US PROCEDURES Final Result documented in this encounter Visit Diagnoses Not on filedocumented in this encounter Additional Health Concerns Assessment Noted Time PHQ-9 Depression Total Score: 04/23/ 024 2:26 PM EDT documented as of this encounter Care Teams Eyelet Punch Operator Relationship Specialty Start Date End Date Shaneka Howard MD [address] [place] [phone] PCP - General Family Medicine 11/14/23 documented as of this encounter
--- OUTSIDE RECORDS SUMMARY | 2024-11-13 14:16 | XMS_ITS | Clinical Summary ---
Author Organization [facility] ity Address [address] [place] [address] Care Team Providers Care Knife Glazer Name Role Phone Unavailable Primary Care Provider [...]
--- OUTSIDE RECORDS SUMMARY | 2024-11-13 14:16 | XMS_ITS | Encounter Summary ---
Author Organization [employer] Address [address] [facility] [address]t [place] [address] Care Team Providers Care Staff Psychiatrist Name Role Phone [facility] Primary Care Provider [phone] Shaneka Howard MD Primary Care Provider [phone] Reason for Visit * Reason Onset Date Comments Nurse Triage 04/09/2023 Encounter Details Date Type Department Care Team ([facility] st Contact Info) Description 04/09/2023 Telephone [facility] [address] [place] [address] [facility] [address] [place] [address] Nurse Triage Social History Tobacco Use Types [...] answer x2. Left voice message to call [facility] triage line at [phone] . * Telephone Encounter - Jaimie Solis [...] on filedocumented in this encounter Care Teams Staff Psychiatrist Relationship Specialty Start Date End Date Gogo Giordano FNP [address] [place] [address] PCP - General Family Medicine 05/27/22 11/13/23 Shaneka Howard MD [address] [place] [address] PCP - General Family Medicine 11/14/23 documented as of this encounter
--- OUTSIDE RECORDS SUMMARY | 2024-11-13 14:16 | XMS_ITS | Encounter Summary ---
Author Organization [employer] Address [address] [facility] [address] 7[address] [place] [address] Care Team Providers Care Geospatial Technician Name Role Phone Shaneka Howard MD Primary Care Provider [phone] Encounter Details Date Type Department Care Team ([facility] st Contact Info) Description 11/11/2024 Orders [...] with others, in a hotel, in a alf, living outside on the street, on a [...] EST) Hepatitis B Surface Ag Negative Negative [facility] 11/11/2024 1:05 PM EST 11/11/2024 1:05 PM EST us Generic External Data Provider LAB BLOOD ORDERAB LES Final Result [facility] [address] [place] [phone] * HIV-1/2 Antigen and Antibodies, Fourth Generation, with Reflexes (11/11/2024 1:05 PM EST) HIV AB/AG Nonreactive Nonreactive [facility] Comment:HIV-1 p24 Ag and/or HIV-1/HIV-2 Ab not detected.A test result that is nonreactive does not exclude thepossibility of exposure to or infection with HIV-1 and/orHIV-2. Nonreactive results in this assay for individualswith prior exposure to HIV-1 and/or HIV-2 may be due toantigen and antibody levels that are below the limit ofdetection of this assay.The [employer] HIV Ag/Ab Combo assay result andsupplemental assay results should be interpreted inconjunction with the patient's clinical presentation,history and other laboratory results. If the results areinconsistent with clinical evidence, additional testing issuggested to confirm the result. 11/11/2024 1:05 PM EST 11/11/2024 1:05 PM EST Generic External Data Provider LAB BLOOD ORDERAB LES Final Result Performing Organization Address [facility] Co de Phone Number [facility] [address] [place] [phone] * Hepatitis C Ab (11/11/2024 1:05 PM EST) [facility] Hepatitis C Antibody Nonreactive Nonreactive [facility] Comment:Antibodies to HCV no t detected; does not exclude early acuteHCV infection. 11/11/2024 1:05 PM EST 11/11/2024 1:05 PM EST Generic External Data Provider LAB BLOOD ORDERAB LES Final Result Performing Organization Address [facility] Phone Number [facility] [address] [place] [phone] * Syphilis Screen (11/11/2024 1:05 PM EST) [facility] Syphilis Screen Nonreactive Nonreactive [facility] 11/11/2024 1:05 PM EST 11/11/2024 1:05 PM EST Generic External Data Provider LAB BLOOD ORDERAB LES Final Result Performing Organization Address [facility] de Phone Number [facility] [address] [place] [phone] * hCG, Total, Quantitative (11/11/2024 1:05 PM EST) HCG Quantitative 6,184 mIU/mL [facility] Comment:Weeks post LMP Appro ximate hCG(Last Menstrual Period) Range (mIU/ml)3 - 4 weeks 9 - 1304 - 5 weeks 75 - 2,6005 - 6 weeks 850 - 20,8006 - 7 weeks 4000 - 100,2007 - 12 weeks 11,500 - 289,99305 - 16 weeks 18,300 - 137,70498 - 29 weeks (2nd trimester) 1,400 - 53,17900 - 41 weeks (3rd trimester) 940 - [...] Provider LAB BLOOD ORDERAB LES Final Result [facility] [address] [place] [address] [phone] documented in this encounter Visit Diagnoses Not on filedocumented in this encounter Additional Health Concerns Assessment Noted Time PHQ-9 Depression Total Score: 24 04/23/ 024 2:26 PM EDT documented as of this encounter Care Teams Geospatial Technician Relationship Specialty Start Date End Date Shaneka Howard MD [address] [place] [address] PCP - General Family Medicine 11/14/23 documented as of this encounter
--- OUTSIDE RECORDS SUMMARY | 2024-11-13 14:16 | XMS_ITS | Encounter Summary ---
Author Organization [employer] Address [address] [address] 7[address] [place] [address] Care Team Providers Care Sales Hunter Name Role Phone Shaneka Howard MD Primary Care Provider [phone] Encounter Details Date Type Department Care Team ([facility] st Contact Info) Description 11/06/2024 Orders Only [...] with others, in a hotel, in a custodial, living outside on the street, on a [...] EST Narrative 11/07/2024 1:39 AM EST ? [facility] ?[address] ?[place] [address] ? Ultrasound Report ? Signed ? Patient: Jasen,Autumn ?MR#: [id number] ?? 68 ? : 2000 ?Acct:[id number] ? Age/Sex: 24 / F ?ADM Date: 11/06/24 ? Loc: HO.ED ? Attending Dr: ? Ordering Physician: Praful Klein ?? Date of Service: 11/06/24 ?? Procedure(s): US OB pelvic and transvaginal ?? Accession Number(s): [id number] ? cc: Praful Klein; Kaylen Juarez MD [...] ? DD/ 6 ? TD/TT: 11/07/24136 ? Promotion Specialist: ? Procedure Note Priscilla Fonseca - 11/07/[address] [address] Ultrasound Report Signed Patient: Jamal Aggarwal#: [id number] 68 : 2000Acct:[id number] Age/Sex: 24 / FADM Date: 11/06/24 Loc: HO.ED Attending Dr: Ordering Physician: Praful Klein Date of Service: 11/06/24 Procedure(s): US OB pelvic and transvaginal Accession Number(s): [id number] cc: Praful Klein; Kaylen Jaurez MD CLINICAL HISTORY: right pelvic pain US [...] in OV> 11/07/24138 DD/ 6 TD/TT: 11/07/24136 Promotion Specialist: us [facility] External Provider IMG US PROCEDURES Edited Result - Final * hCG, Total, Quantitative (11/06/2024 9:10 PM EST) HCG Quantitative 2,262 mIU/mL [facility] Comment:Weeks post LMP Appro ximate hCG(Last Menstrual Period) Range (mIU/ml)3 - 4 weeks 9 - 1304 - 5 weeks 75 - 2,6005 - 6 weeks 850 - 20,8006 - 7 weeks 4000 - 100,2007 - 12 weeks 11,500 - 289,72389 - 16 weeks 18,300 - 137,18640 - 29 weeks (2nd trimester) 1,400 - 53,52966 - 41 weeks (3rd trimester) 940 - [...] Final Result Performing Organization Address [facility]/ZIP Co de Phone Number [facility] [address] [place] [phone] * Magnesium (11/06/2024 9:10 PM EST) Pathologist [facility] Magnesium 1.8 1.6 - 2.6 mg/dL [facility] 11/06/2024 9:10 PM EST 11/06/2024 9:13 PM EST Generic External Data Provider LAB BLOOD ORDERAB LES Final Result Performing Organization Address [facility] Co de Phone Number [facility] [address] [place] [phone] * (ABNORMAL) Comprehensive Metabolic Panel (11/06/2024 9:10 PM EST) Pathologist [facility] Sodium 135 135 - 145 mmol/L [facility] Potassium 4.2 3.3 - 5.1 mmol/L [facility] Chloride 107 96 - 108 mmol/L [facility] Carbon Dioxide 21(L) 22 - 29 mmol/L [facility] Anion Gap 11(L) 12 - 20 [facility] Urea Nitrogen (BUN) 9 9 - 16 mg/dL [facility] Creatinine, Serum 0.66 0.5 - 1.4 mg/dL [facility] Creatinine Clr Calc Pharmacy 109.7 [facility] Comment:Provided height and weight: 160.02 cm,59.4 kg.eGFR (calculated from the MDRD study equation) and eCrCl(calculated from the Cockcroft-Gault equation) are based ondifferent parameters and may not yield comparable results.If eCrCl result is absurd, please check patient'sheight/weight. Estimated Glomerular Filt Rate >60 [facility] Comment:Chronic Kidney Disea se: Estimated GFR < 60 mL/min/1.46r0Hzhcuy Kidney Disease: Estimated GFR < 15 mL/min/1.73m2 Glucose 90 60 - 115 mg/dL [facility] Calcium 9.1 8.4 - 10.2 mg/dL [facility] Bilirubin, Total 0.7 0.0 - 1.0 mg/dL [facility] Aspartate Amino Transferase 25 5 - 31 U/L [facility] Alanine Aminotransferase 15 0 - 31 U/L [facility] Total Protein 7.9 6.5 - 8.0 g/dL [facility] Albumin Level 4.4 3.5 - 5.0 g/dL [facility] Alkaline Phosphatase 61 39 - 117 U/L [facility] 11/06/2024 9:10 PM EST 11/06/2024 9:13 PM EST us Generic External Data Provider LAB BLOOD ORDERAB LES Final Result [facility] [address] [place] [phone] * SARS-CoV-2 RNA, Influenza A/B, and RSV RNA, Ql NAAT (11/06/2024 9:09 PM EST) Influenza A PCR NEGATIVE Negative [facility] Influenza B PCR NEGATIVE Negative [facility] Resp Syncy Virus RNA Qual PCR NEGATIVE Negative [facility] SARS COV2 PCR NEGATIVE Negative [facility] Comment:All test results mus t [...] use by authorized laboratories.Testing performed on the [employer] GeneXpert utilizingreal-time RT-PCR.All SARS CoV2 and positive influenza A/B results arereported to [facility]. 11/06/2024 9:09 PM EST 11/06/2024 9:13 PM EST us Generic External Data Provider LAB MICROBIOLOGY - GENERAL ORDERABLES Final Result [facility] [address] [place] [phone] * (ABNORMAL) CBC auto differential (11/06/2024 9:09 PM EST) White Blood Count 14.5(H) 4.8 - 10.8 X10*3/uL [facility] Red Blood Count 4.26 4.20 - 5.50 X10*6/uL [facility] Hemoglobin 13.4 12.0 - 16.0 g/dl [facility] Hematocrit 39.5 37.0 - 47.0 % [facility] Mean Corpuscular Volume 92.7 80.0 - 98.0 fL [facility] Mean Corpuscular Hemoglobin 31.5 27.0 - 33.0 pg [facility] Mean Corpuscular HGB Conc 33.9 31.0 - 35.0 g/dl [facility] Red Cell Distribution Width 12.4 11.0 - 16.0 % [facility] Platelet Count 236 160 - 400 X10*3/uL [facility] Mean Platelet Volume 11.4 9.4 - 12.3 fL [facility] Neutrophils Percent Auto 85.0(H) 45 - 73 % [facility] Imm Gran Pct Auto 0.5(H) 0.0 - 0.4 % [facility] Lymphocytes Percent Auto 7.4(L) 20 - 40 % [facility] Monocytes Percent Auto 6.6 2 - 11 % [facility] Eosinophils Percent Auto 0.2 0 - 4 % [facility] Basophils Percent Auto 0.3 0 - 2 % [facility] NRBC Pct Auto 0.0 0.0 - 0.2 /100WBC [facility] Neutrophils Absolute Auto 12.3(H) 2.0 - 8.3 x10*3/uL [facility] Imm Gran Abs Auto 0.07(H) 0.00 - 0.03 X10*3/uL [facility] Lymphocytes Absolute Auto 1.1(L) 1.2 - 4.9 X10*3/uL [facility] Monocytes Absolute Auto 1.0 0.1 - 1.2 X10*3/uL [facility] Eosinophils Absolute Auto 0.0 0.0 - 0.4 X10*3/uL [facility] Basophils Absolute Auto 0.1 0.0 - 0.2 X10*3/uL [facility] NRBC Abs Auto 0.000 0.0 - 0.012 X10*3/uL [facility] 11/06/2024 9:09 PM EST 11/06/2024 9:13 PM EST us Generic External Data Provider LAB BLOOD ORDERAB LES Final Result Performing Organization Address City/State/[facility] Co de Phone Number [facility] [address] [place] [phone] documented in this encounter Visit Diagnoses Not on filedocumented in this encounter Additional Health Concerns Assessment Noted Time PHQ-9 Depression Total Score: 24 024 2:26 PM EDT documented as of this encounter Care Teams Sales Hunter Relationship Specialty Start Date End Date Shaneka Howard MD [address] [place] [address] PCP - General Family Medicine 11/14/23 documented as of this encounter
--- OUTSIDE RECORDS SUMMARY | 2024-11-13 14:16 | XMS_ITS | Encounter Summary ---
Author Organization [employer] Address [address] [place] [address] Care Team Providers Care Postal Mail Carrier Name Role Phone Shaneka Howard MD Primary Care Provider [phone] Encounter Details Date Type Department Care Team ([facility] st Contact Info) Description 11/13/2024 Orders Only GENERIC EXTERNAL DATA DEPARTMENT Provider, [...] Procedure Name Priority Date/Time Associated Diagnosis Comments HCG, TOTAL, QN Routine 11/13/2024 11:40 AM EST documented in this encounter Results * hCG, Total, Quantitative (11/13/2024 11:40 AM EST) HCG Quantitative 9,800 mIU/mL [facility] Comment:Weeks post LMP Appro ximate hCG(Last Menstrual Period) Range (mIU/ml)3 - 4 weeks 9 - 1304 - 5 weeks 75 - 2,6005 - 6 weeks 850 - 20,8006 - 7 weeks 4000 - 100,2007 - 12 weeks 11,500 - 289,09595 - 16 weeks 18,300 - 137,20027 - 29 weeks (2nd trimester) 1,400 - 53,44962 - 41 weeks (3rd trimester) 940 - 60,000The [employer] B- hCG assay is used for the early detection ofpregnancy; it cannot be used to diagnose any conditionunrelated to . If a B-hCG level is not supportedby the clinical evidence, results should be confirmed by analternative method (qualitative urine hCG, for example). 11/13/2024 11:4 0 AM EST 11/13/2024 11:40 AM EST us Generic External Data Provider LAB BLOOD ORDERAB LES Final Result [facility] [address] [place] [phone] documented in this encounter Visit Diagnoses Not on filedocumented in this encounter Additional Health Concerns Assessment Noted Time PHQ-9 Depression Total Score: 24 07/24/2 024 2:26 PM EDT documented as of this encounter Care Teams Postal Mail Carrier Relationship Specialty Start Date End Date Shaneka Howard MD [address] [place] [phone] PCP - General Family Medicine 11/14/23 documented as of this encounter
--- OUTSIDE RECORDS SUMMARY | 2024-11-13 14:16 | XMS_ITS | Encounter Summary ---
Author Organization [employer] Address [address] [facility] [address] [place] [address] Care Team Providers Care Grab Jack Worker Name Role Phone Shaneka Howard MD Primary Care Provider [phone] Reason for Visit * Reason Onset Date Comments Nurse Triage 11/14/2023 Encounter Details Date Type Department Care Team ([facility] st Contact Info) Description 11/14/2023 Telephone [facility] [address] [place] [address] [facility] [address] [place] [address] Nurse Triage Social History Tobacco Use Types [...] away. Pt is advised to come to [facility] today open till 8pm and provider can see Pt. Home care advised and insurance is not verified as active, Pt is advised to contact insurance first. Pt reponds I was already told about this . Pt also requests not to call on [phone] number it is an emergency number. Protocol [...] on filedocumented in this encounter Care Teams Grab Jack Worker Relationship Specialty Start Date End Date Shaneka Howard MD [address] [place] [address] PCP - General Family Medicine 11/14/23 documented as of this encounter
--- OUTSIDE RECORDS SUMMARY | 2024-11-13 14:16 | XMS_ITS | Clinical Summary ---
Demographics Address [address] [place] [address] Home Phone Mobile Phone Preferred Language en Marital Status Single Rastafarian Affiliation Unknown Race Other Race Ethnic Group or Author Organization [email or web address] Address [address] [place] [address] Care Team Providers Care Meat Loiner Name Role Phone Shaneka Howard MD Primary Care Provider [phone] Allergies No known active allergies Medications * [...] blood and CBC -STAT pelvic/TV US -STAT SAFETY REPRESENTATIVE referral requested to referral at [facility] by pt prefernce- will inform pt [...] & Plan (04/29/2024 10:14 AM EDT): During [facility] Consult Autumn presenting with depressed mood, [...] Health Integration Plan Internal Follow up with [facility] External OP therapy referral and OP psychiatry Referral Patient Self Plan Patient to utilize skills provided in intervention , Patient to reach out to [facility] team as needed, Patient to [...] Health Integration Plan Internal Follow up with [facility] External OP BH therapy referral and OP psychiatry Referral Patient Self Plan Patient to utilize skills provided in intervention , Patient to reach out to [facility] team as needed, Patient to engage in OP therapy , and Patient to reach out to [facility] as needed Vitamin D deficiency 06/07/2018 Allergic rhinitis 06/18/2017 Mild intermittent asthma 11/27/2016 Developmental academic disorder 06/28/2015 Dyssomnia 06/08/2014 Impulse control disorder 06/08/2014 Comments Yes Encounters Date Type Department Care Team Description 11/13/2024 Orders Only GENERIC EXTERNAL DATA DEPARTMENT Provider, Generic External Data 11/12/2024 Orders Only [facility] External Provider, [facility] 11/11/2024 Orders Only GENERIC EXTERNAL DATA DEPARTMENT Provider, Generic External Data 11/07/2024 Orders Only GENERIC EXTERNAL DATA DEPARTMENT Provider, Generic External Data 11/06/2024 Orders Only GENERIC EXTERNAL DATA DEPARTMENT Provider, Generic External Data 10/09/2024 Telephone [facility] MEDICINE [address] [place] [address] DaleJanneth [place] RECALL 09/29/2024 Telephone [facility] ADULT DENTAL [address] [place] [address] Albania Hwang 09/10/2024 Orders Only GENERIC EXTERNAL DATA DEPARTMENT Provider, Generic External Data 09/08/2024 Telephone [facility] ADULT DENTAL [address] [place] [address] [place]ia Hwang 09/02/2024 Orders Only GENERIC EXTERNAL [...] TOTAL, QN Routine 11/13/2024 11:40 AM EST US OB PELVIS TRANSVAGINAL Routine 11/12/2024 10:10 [...] Recently Relevant to Health Maintenance Results * hCG, Total, Quantitative (11/13/2024 11:40 AM EST) Only the most recent of8 resultswithin the time period is included. HCG Quantitative 9,800 mIU/mL [facility] Comment:Weeks post LMP Appro ximate hCG(Last Menstrual Period) Range (mIU/ml)3 - 4 weeks 9 - 1304 - 5 weeks 75 - 2,6005 - 6 weeks 850 - 20,8006 - 7 weeks 4000 - 100,2007 - 12 weeks 11,500 - 289,15958 - 16 weeks 18,300 - 137,89492 - 29 weeks (2nd trimester) 1,400 - 53,19865 - 41 weeks (3rd trimester) 940 - [...] ORDERAB LES Final Result Performing Organization Address City/State/[facility] Co de Phone Number [facility] [address] [place] [phone] * US OB Pelvis with Transvaginal (11/12/2024 10:10 AM EST) Only the most recent of3 resultswithin the time period is included. Anatomical Region Laterality Modality Pelvis Ultrasound 11/12/2024 10:1 0 AM EST Narrative 11/12/2024 11:01 AM EST ? [facility] ?[address] ?[place] [address] ? Ultrasound Report ? Signed ? Patient: Jasen,Autumn ?MR#: [id number] ?? 68 ? : 2000 ?Acct:[id number] ? Age/Sex: 24 / F ?ADM Date: 02/12/25 ? Loc: HO.US ? Attending Dr: Anthony Morris MD ? Ordering Physician: Anthony Morris MD ?? Date of Service: 11/12/24 ?? Procedure(s): US OB pelvic and transvaginal ?? Accession Number(s): [id number] ? cc: Shaneka Howard; Anthony Morris MD [...] Villalta MD ??11/12/2024 10:58 AM ?? EST RP ? Dictated By: ?Jorje Asif MD ? Signed By: ?<Electronically signed by Jorje Aiken MD in OV> ? 11/12/24 1058 ? DD/ 1010 ? TD/TT: 11/12/24 1029 ? Bankruptcy Manager: ? Procedure Note Donotuseinterpreter, Image - 11/12/[address] [address] Ultrasound Report Signed Patient: Jamal Aggarwal#: [id number] : 2000Acct:[id number] Age/Sex: 24 / FADM Date: 11/12/24 Loc: HO.US Attending Dr: Anthony Morris MD Ordering Physician: Anthony Morris MD Date of Service: 11/12/24 Procedure(s): US OB pelvic and transvaginal Accession Number(s): [id number] cc: Shaneka Howard; Anthony Morris MD EXAMINATION: [...] 11/12/24 1058 DD/ 1010 TD/TT: 11/12/24 1029 Bankruptcy Manager: [facility] External Provider IMG US PROCEDURES Final Result * Syphilis Screen (11/11/2024 1:05 PM EST) Pathologist [facility] Syphilis Screen Nonreactive Nonreactive [facility] 11/11/2024 1:05 PM EST 11/11/2024 1:05 PM EST Generic External Data Provider LAB BLOOD ORDERAB LES Final Result Performing Organization Address [facility] Co de Phone Number [facility] [address] [place] [phone] * Hepatitis C Ab (11/11/2024 1:05 PM EST) [facility] Hepatitis C Antibody Nonreactive Nonreactive [facility] Comment:Antibodies to HCV no t detected; does not exclude early acuteHCV infection. 11/11/2024 1:05 PM EST 11/11/2024 1:05 PM EST Generic External Data Provider LAB BLOOD ORDERAB LES Final Result Performing Organization Address [facility] Co de Phone Number [facility] [address] [place] [phone] * Hepatitis B surface antigen, EIA (11/11/2024 1:05 PM EST) Pathologist [facility] Hepatitis B Surface Ag Negative Negative [facility] 11/11/2024 1:05 PM EST 11/11/2024 1:05 PM EST Generic External Data Provider LAB BLOOD ORDERAB LES Final Result Performing Organization Address [facility] de Phone Number [facility] [address] [place] [address] [phone] * HIV-1/2 Antigen and Antibodies, Fourth Generation, with Reflexes (11/11/2024 1:05 PM EST) HIV AB/AG Nonreactive Nonreactive [facility] Comment:HIV-1 p24 Ag and/or HIV-1/HIV-2 Ab not detected.A test result that is nonreactive does not exclude thepossibility of exposure to or infection with HIV-1 and/orHIV-2. Nonreactive results in this assay for individualswith prior exposure to HIV-1 and/or HIV-2 may be due toantigen and antibody levels that are below the limit ofdetection of this assay.The [employer] HIV Ag/Ab Combo assay result andsupplemental assay results should be interpreted inconjunction with the patient's clinical presentation,history and other laboratory results. If the results areinconsistent with clinical evidence, additional testing issuggested to confirm the result. 11/11/2024 1:05 PM EST 11/11/2024 1:05 PM EST us Generic External Data Provider LAB BLOOD ORDERAB LES Final Result [facility] [address] [place] [address] [phone] * (ABNORMAL) Urinalysis, Complete, with Reflex to Culture (11/07/2024 12:56 AM EST) Pathologist [facility] Color Urine Dark Yellow [facility] Appearance Urine Clear [facility] PH 5.5 5.0 - 9.0 [facility] Glucose Urine UA Negative Negative mg/dL [facility] Urine Blood Negative Negative [facility] Specific [place] - Urine >=1.030(H) 1.005 - 1.025 [facility] Urine Protein Trace Neg-Trace mg/dL [facility] Urine Ketones 40 Negative mg/dL [facility] Nitrite Urine Negative Negative [facility] Leukocyte Esterase Urine Negative Negative [facility] RBC Urine 0-2 0 - 2 /HPF [facility] Urine WBC 0-5 0 - 5 /HPF [facility] Urine Squamous Epithelial Cell 11-20 0 - 2 /HPF [facility] Urine Bacteria Trace None Seen [facility] Hyaline Casts, Urine 0-2 0 - 2 /LPF [facility] 11/07/2024 12:5 6 AM EST 11/07/2024 12:59 AM EST Narrative [facility] - 11/07/2024 1:08 AM EST Urine, Clean Catch us Generic External Data Provider LAB URINE ORDERAB LES Final Result Performing Organization Address City/[facility]/ZIP Co de Phone Number [facility] [address] [place] [phone] * Magnesium (11/06/2024 9:10 PM EST) Only the most recent of2 resultswithin the time period is included. Magnesium 1.8 1.6 - 2.6 mg/dL [facility] 11/06/2024 9:10 PM EST 11/06/2024 9:13 PM EST us Generic External Data Provider LAB BLOOD ORDERAB LES Final Result Performing Organization Address City/[facility]/ZIP Co de Phone Number [facility] [address] [place] [address] [phone] * (ABNORMAL) Comprehensive Metabolic Panel (11/06/2024 9:10 PM EST) Only the most recent of2 resultswithin the time period is included. Sodium 135 135 - 145 mmol/L [facility] Potassium 4.2 3.3 - 5.1 mmol/L [facility] Chloride 107 96 - 108 mmol/L [facility] Carbon Dioxide 21(L) 22 - 29 mmol/L [facility] Anion Gap 11(L) 12 - 20 [facility] Urea Nitrogen (BUN) 9 9 - 16 mg/dL [facility] Creatinine, Serum 0.66 0.5 - 1.4 mg/dL [facility] Creatinine Clr Calc Pharmacy 109.7 [facility] Comment:Provided height and weight: 160.02 cm,59.4 kg.eGFR (calculated from the MDRD study equation) and eCrCl(calculated from the Cockcroft-Gault equation) are based ondifferent parameters and may not yield comparable results.If eCrCl result is absurd, please check patient'sheight/weight. Estimated Glomerular Filt Rate >60 [facility] Comment:Chronic Kidney Disea se: Estimated GFR < 60 mL/min/1.91u9Jlwihz Kidney Disease: Estimated GFR < 15 mL/min/1.73m2 Glucose 90 60 - 115 mg/dL [facility] Calcium 9.1 8.4 - 10.2 mg/dL [facility] Bilirubin, Total 0.7 0.0 - 1.0 mg/dL [facility] Aspartate Amino Transferase 25 5 - 31 U/L [facility] Alanine Aminotransferase 15 0 - 31 U/L [facility] Total Protein 7.9 6.5 - 8.0 g/dL [facility] Albumin Level 4.4 3.5 - 5.0 g/dL [facility] Alkaline Phosphatase 61 39 - 117 U/L [facility] 11/06/2024 9:10 PM EST 11/06/2024 9:13 PM EST us Generic External Data Provider LAB BLOOD ORDERAB LES Final Result [facility] [address] [place] [address] [phone] * SARS-CoV-2 RNA, Influenza A/B, and RSV RNA, Ql NAAT (11/06/2024 9:09 PM EST) Influenza A PCR NEGATIVE Negative [facility] Influenza B PCR NEGATIVE Negative [facility] Resp Syncy Virus RNA Qual PCR NEGATIVE Negative [facility] SARS COV2 PCR NEGATIVE Negative [facility] Comment:All test results mus t [...] use by authorized laboratories.Testing performed on the [employer] GeneXpert utilizingreal-time RT-PCR.All SARS CoV2 and positive influenza A/B results arereported to [facility]. 11/06/2024 9:09 PM EST 11/06/2024 9:13 PM EST us Generic External Data Provider LAB MICROBIOLOGY - GENERAL ORDERABLES Final Result [facility] [address] [place] [address] [phone] * (ABNORMAL) CBC auto differential (11/06/2024 9:09 PM EST) Only the most recent of2 resultswithin the time period is included. White Blood Count 14.5(H) 4.8 - 10.8 X10*3/uL [facility] Red Blood Count 4.26 4.20 - 5.50 X10*6/uL [facility] Hemoglobin 13.4 12.0 - 16.0 g/dl [facility] Hematocrit 39.5 37.0 - 47.0 % [facility] Mean Corpuscular Volume 92.7 80.0 - 98.0 fL [facility] Mean Corpuscular Hemoglobin 31.5 27.0 - 33.0 pg [facility] Mean Corpuscular HGB Conc 33.9 31.0 - 35.0 g/dl [facility] Red Cell Distribution Width 12.4 11.0 - 16.0 % [facility] Platelet Count 236 160 - 400 X10*3/uL [facility] Mean Platelet Volume 11.4 9.4 - 12.3 fL [facility] Neutrophils Percent Auto 85.0(H) 45 - 73 % [facility] Imm Gran Pct Auto 0.5(H) 0.0 - 0.4 % [facility] Lymphocytes Percent Auto 7.4(L) 20 - 40 % [facility] Monocytes Percent Auto 6.6 2 - 11 % [facility] Eosinophils Percent Auto 0.2 0 - 4 % [facility] Basophils Percent Auto 0.3 0 - 2 % [facility] NRBC Pct Auto 0.0 0.0 - 0.2 /100WBC [facility] Neutrophils Absolute Auto 12.3(H) 2.0 - 8.3 x10*3/uL [facility] Imm Gran Abs Auto 0.07(H) 0.00 - 0.03 X10*3/uL [facility] Lymphocytes Absolute Auto 1.1(L) 1.2 - 4.9 X10*3/uL [facility] Monocytes Absolute Auto 1.0 0.1 - 1.2 X10*3/uL [facility] Eosinophils Absolute Auto 0.0 0.0 - 0.4 X10*3/uL [facility] Basophils Absolute Auto 0.1 0.0 - 0.2 X10*3/uL [facility] NRBC Abs Auto 0.000 0.0 - 0.012 X10*3/uL [facility] 11/06/2024 9:09 PM EST 11/06/2024 9:13 PM EST us Generic External Data Provider LAB BLOOD ORDERAB LES Final Result Performing Organization Address City/[facility]/ZIP Co de Phone Number [facility] [address] [place] [address] [phone] * Type and screen (08/13/2024 11:47 AM EST) Blood Type AP [facility] Antibody Screen NEGATIVE [facility] 08/13/2024 11:4 7 AM EST 08/13/2024 12:00 PM EST us Generic External Data Provider LAB BLOOD BANK TE ST ORDERABLES Final Result Performing Organization Address City/[facility]/ZIP Co de Phone Number [facility] [address] [place] [phone] * Gross and Microscopic Level 4 (08/13/2024 10:54 AM EST) 08/13/2024 10:5 4 AM EST 08/13/2024 11:39 AM EST Narrative [facility] - 08/15/2024 1:50 PM EST ----- ------- Name: Autumn Aggarwal ? Age/Sex: 24/F ? : 2000 Unit#: [id number] ?? Attend Dr: Sivan Little MD ?Re08/13/24 ?Status: DEP ER ?Location: HO.ED ? Disch: ? ----- ------- SPEC : [id number] ? RECD: 08/13/24-691 ? STATUS: ??SOUT ? REQ NUM: [id number] ? ELISA: 08/13/24-1054 ? SUBM DR: Haylee Romero ? ENTERED: ??08/13/24 ?SP TYPE: Surgical ? OTHR DR: [facility] ? ORDERED: ??Gross Micro L4 ? [...] identified. ??No embryonic or tissue is identified. Field Naturalist sections are submitted in cassettes [id number]. ??The remainder of the specimen is entirely submitted in cassettes [id number]. CEDS Copies To: ?? Haylee Romero ?? [address] ?? [place] [address] ?? [phone] ?? [facility] ?? [address] ?? [place] [address] ?? ----- ------- Signed (signature on file) Lucia Menjivar MD 08/15/24 1350 ? ----- ------- ? END OF REPORT ? us Generic External Data Provider LAB CYTOLOGY [facility] Final Result [facility] [address] [place] [address] [phone] * Chlamydia/N. Gonorrhoeae RNA, TMA, Urogenitial (07/22/2024 11:09 AM EDT) Pathologist [facility] CT PCR NOT DETECTED Not Detect. [facility] Comment:A not detected test result [...] psychologicalconsequences. NG PCR NOT DETECTED Not Detect. [facility] Comment:A not detected test result [...] AM EDT 07/22/2024 6:23 PM EDT Narrative [facility] - 07/23/2024 12:18 PM EDT Vaginal us Generic External Data Provider LAB MICROBIOLOGY - GENERAL ORDERABLES Final Result [facility] [address] [place] [address] [phone] from Last 3 Months or Most Recently Relevant to Health Maintenance Insurance [facility] C[place] ADULT Care Teams Meat Loiner Relationship Specialty Start Date End Date Shaneka Howard MD [address] [place] [phone] PCP - General Family Medicine 11/14/23
--- OUTSIDE RECORDS SUMMARY | 2024-11-13 14:16 | XMS_ITS | Encounter Summary ---
Author Organization [email or web address] Address [address] [place] [address] Care Team Providers Care Singer And Unloader Name Role Phone Shaneka Howard MD Primary Care Provider [phone] Encounter Details Date Type Department Care Team ([facility] st Contact Info) Description 11/07/2024 Orders Only [...] 12:56 AM EST) Color Urine Dark Yellow [facility] Appearance Urine Clear [facility] PH 5.5 5.0 - 9.0 [facility] Glucose Urine UA Negative Negative mg/dL [facility] Urine Blood Negative Negative [facility] Specific [place] - Urine >=1.030(H) 1.005 - 1.025 [facility] Urine Protein Trace Neg-Trace mg/dL [facility] Urine Ketones 40 Negative mg/dL [facility] Nitrite Urine Negative Negative [facility] Leukocyte Esterase Urine Negative Negative [facility] RBC Urine 0-2 0 - 2 /HPF [facility] Urine WBC 0-5 0 - 5 /HPF [facility] Urine Squamous Epithelial Cell 11-20 0 - 2 /HPF [facility] Urine Bacteria Trace None Seen [facility] Hyaline Casts, Urine 0-2 0 - 2 /LPF [facility] 11/07/2024 12:5 6 AM EST 11/07/2024 12:59 AM EST Narrative [facility] - 11/07/2024 1:08 AM EST Urine, Clean Catch us Generic External Data Provider LAB URINE ORDERAB LES Final Result [facility] [address] [place] [phone] documented in this encounter Visit Diagnoses Not on filedocumented in this encounter Additional Health Concerns Assessment Noted Time PHQ-9 Depression Total Score: 04/23/ 024 2:26 PM EDT documented as of this encounter Care Teams Singer And Unloader Relationship Specialty Start Date End Date Shaneka Howard MD [address] [place] [address] PCP - General Family Medicine 11/14/23 documented as of this encounter
== END 2024-11-13 14:14 | disposition home or self-care (01) ==
LOC: HO.US 14:13
PROVIDERS: PCP General Practice; Visit Provider Obstetrics & Gynecology
DX: Z34.90 Encounter for supervision of normal pregnancy, unspecified, unspecified trimester (principal)
CPT/HCPCS: 76801; 76817

== ENCOUNTER 2024-11-20 13:31 | Outpatient (REF) | payer MEDICAID, SELFPAY ==
--- NOTE | ~2024-11-20 | US_ITS ---
EXAMINATION: US OBSTETRICAL ULTRASOUND CLINICAL INFORMATION: Slow rising beta-hCG COMPARISON: 11/13/2024. 11/12/2024. 11/07/2024. 08/13/2024. LMP: 10/03/2024. Gestational age by maternal dates is 6 weeks and 6 days. Estimated date of delivery by maternal dates is 07/10/2025. TECHNIQUE: Ultrasound of the maternal pelvis is performed using transabdominal transducer. M-mode Doppler is also performed. FINDINGS: There is a single intrauterine gestational sac with visible yolk sac, embryo/fetus, and cardiac activity. There is no significant subchorionic hemorrhage or hematoma. HR: 123 beats per minute. CRL (crown rump length): 0.90 cm (6 weeks and 6 days +/- 4 days). KALPANA (estimated date of delivery): 07/10/2025 +/- 4 days. MATERNAL ADNEXA: The right maternal ovary measures 2.8 x 2.2 x 2.3 cm. Normal sonographic appearance. The left maternal ovary measures 4.1 x 1.9 x 2.9 cm. Normal sonographic appearance. 1.9 cm dominant follicular cyst. There is no significant maternal adnexal mass. No maternal pelvic ascites. US/US OB <= 14 weeks fetus IMPRESSION: 1. Single intrauterine gestation with ultrasound gestational age of 6 weeks and 6 days, +/- 4 days. 2. Estimated date of delivery is 07/10/2025, +/- 4 days. 3. No maternal adnexal mass or pelvic ascites. Electronically signed by: Jayden Marcus MD 11/20/2024 03:00 PM [facility]
--- OUTSIDE RECORDS SUMMARY | 2024-11-20 14:28 | XMS_ITS | Clinical Summary ---
Author Organization [facility] ity Address [address] [place] [address] Care Team Providers Care Ore Feeder Name Role Phone Unavailable Primary Care Provider [...]
== END 2024-11-20 13:32 | disposition home or self-care (01) ==
LOC: HO.US 13:31
PROVIDERS: PCP General Practice; Visit Provider Obstetrics & Gynecology
DX: O26.851 Spotting complicating pregnancy, first trimester (principal)
CPT/HCPCS: 76801; 99212

== ENCOUNTER 2024-11-20 14:32 | Outpatient (AMB) | payer MEDICAID, SELFPAY ==
--- NOTE | 2024-11-20 14:59 | MHC.OFFVIS ---
Intake Visit Reasons: vaginal discharge/u/s results Allergies SEASONAL ALLERGIES Allergy (Intermediate, Uncoded 11/06/24 19:16) NASAL CONGESTION HPI Comments Details: Presenting after the patient had an episode of vaginal spotting yesterday associated with pelvic cramping this morning, both symptoms has not completely resolved. Last GC and CT was in 11/13 was negative Blood type A positive ultrasound done today, no official report issued yet, 6 weeks and 6 days of gestation 123 beats per minute no other abnormalities PFSH Family History Mother Uterus cancer Maternal Aunt Breast cancer Father HTN (hypertension) Diabetes Maternal Grandfather HTN (hypertension) Maternal Grandfather Diabetes Social History Household Members: Family Housing: Apartment Alcohol intake: former Patient Tobacco Use Status: Current everyday Tobacco user Cigarettes Per Day: 2 Years Smoked: 4 Substance Use Type: Marijuana Current occupational status: employed Current occupation: [employer] Review of Systems Const All systems reviewed & are unremarkable except as noted in HPI and below Physical Exam General: Yes no CVA tenderness External Female Exam: normal external appearance and normal appearance of the urethra Speculum Exam - Vagina: normal appearance of the vagina, normal palpation, no lesions and no masses Speculum Exam - Cervix: normal appearance of the cervix, normal palpation, no lesions, no masses and nontender Bimanual exam- vagina & uterus: normal bimanual exam, normal palpation, uterine size normal, normal palpation, uterine shape normal, No Cervical tenderness present and non-tender Bimanual Exam- Adnexa, other: normal adnexae Back/Spine/Pelvis Back: no CVA tenderness Assessment & Plan Assessment & Plan (1) Spotting in first trimester: Code(s): O26.851 - Spotting complicating , first trimester Category: Medical Plan: Discussed with the patient the finding on ultrasound a live intrauterine gestation with heartbeat at 123 beats per minute, SAB warnings given the patient, she is to call or go to emergency room in case of vaginal bleeding and or pelvic cramping. vitamin 1 tablet p.o. q.d.. Vitamin B6 25 mg p.o. Q 6-8 hours p.r.n. nausea and vomiting sent to the patient's pharmacy. Instructions given the patient to follow-up in 2 weeks. The patient is interesting in starting care at [facility] will be calling for initial OB appointment. The list of all OBGYN practice at [facility] were provided the patient is for numbers. Medications: New pyridoxine (vitamin B6) (Vitamin B-6) may take every 6 - 8 hours for nausea 25 mg PO tid 30 days PRN 90 tabs 3RF nausea Coding Level of Care Code Est Pt Level 3 (96691) Diagnoses Spotting in first trimester O26.851
--- OUTSIDE RECORDS SUMMARY | 2024-11-20 15:44 | XMS_ITS | Encounter Summary ---
Author Organization [employer] Address [address] [place] [address] Care Team Providers Care Hospice Home Health Aide Name Role Phone Shaneka Howard MD Primary Care Provider [phone] Encounter Details Date Type Department Care Team ([facility] st Contact Info) Description 11/11/2024 [...] with others, in a hotel, in a nursing home, living outside on the street, on [...] EST) Hepatitis B Surface Ag Negative Negative [facility] 11/11/2024 1:05 PM EST 11/11/2024 1:05 PM EST us Generic External Data Provider LAB BLOOD ORDERAB LES Final Result [facility] [address] [place] [phone] * HIV-1/2 Antigen and Antibodies, Fourth Generation, with Reflexes (11/11/2024 1:05 PM EST) HIV AB/AG Nonreactive Nonreactive [facility] Comment:HIV-1 p24 Ag and/or HIV-1/HIV-2 Ab not detected.A test result that is nonreactive does not exclude thepossibility of exposure to or infection with HIV-1 and/orHIV-2. Nonreactive results in this assay for individualswith prior exposure to HIV-1 and/or HIV-2 may be due toantigen and antibody levels that are below the limit ofdetection of this assay.The [employer] HIV Ag/Ab Combo assay result andsupplemental assay results should be interpreted inconjunction with the patient's clinical presentation,history and other laboratory results. If the results areinconsistent with clinical evidence, additional testing issuggested to confirm the result. 11/11/2024 1:05 PM EST 11/11/2024 1:05 PM EST Generic External Data Provider LAB BLOOD ORDERAB LES Final Result Performing Organization Address [facility] Co de Phone Number [facility] [address] [place] [phone] * Hepatitis C Ab (11/11/2024 1:05 PM EST) [facility] Hepatitis C Antibody Nonreactive Nonreactive [facility] Comment:Antibodies to HCV no t detected; does not exclude early acuteHCV infection. 11/11/2024 1:05 PM EST 11/11/2024 1:05 PM EST Generic External Data Provider LAB BLOOD ORDERAB LES Final Result Performing Organization Address [facility] Phone Number [facility] [address] [place] [phone] * Syphilis Screen (11/11/2024 1:05 PM EST) [facility] Syphilis Screen Nonreactive Nonreactive [facility] 11/11/2024 1:05 PM EST 11/11/2024 1:05 PM EST Generic External Data Provider LAB BLOOD ORDERAB LES Final Result Performing Organization Address [facility] de Phone Number [facility] [address] [place] [phone] * hCG, Total, Quantitative (11/11/2024 1:05 PM EST) HCG Quantitative 6,184 mIU/mL [facility] Comment:Weeks post LMP Appro ximate hCG(Last Menstrual Period) Range (mIU/ml)3 - 4 weeks 9 - 1304 - 5 weeks 75 - 2,6005 - 6 weeks 850 - 20,8006 - 7 weeks 4000 - 100,2007 - 12 weeks 11,500 - 289,79199 - 16 weeks 18,300 - 137,47210 - 29 weeks (2nd trimester) 1,400 - 53,10451 - 41 weeks (3rd trimester) 940 - [...] Provider LAB BLOOD ORDERAB LES Final Result [facility] [address] [place] [address] [phone] documented in this encounter Visit Diagnoses Not on filedocumented in this encounter Additional Health Concerns Assessment Noted Time PHQ-9 Depression Total Score: 24 04/23/ 024 2:26 PM EDT documented as of this encounter Care Teams Hospice Home Health Aide Relationship Specialty Start Date End Date Shaneka Howard MD [address] [place] [address] PCP - General Family Medicine 11/14/23 documented as of this encounter
--- OUTSIDE RECORDS SUMMARY | 2024-11-20 15:44 | XMS_ITS | Encounter Summary ---
Author Organization [employer] Address [address] [place] [address] Care Team Providers Care Youth Career Specialist Name Role Phone [facility] Primary Care Provider [phone] Shaneka Howard MD Primary Care Provider [phone] Reason for Visit * Reason Onset Date Comments Nurse Triage 04/09/2023 Encounter Details Date Type Department Care Team ([facility] st Contact Info) Description 04/09/2023 Telephone [facility] [address] [place] [address] [facility] [address] [place] [address] Nurse Triage Social History Tobacco Use Types [...] answer x2. Left voice message to call [facility] triage line at [phone] . * Telephone Encounter - Jaimie Solis [...] on filedocumented in this encounter Care Teams Youth Career Specialist Relationship Specialty Start Date End Date Gogo Giordano FNP [address] [place] [address] PCP - General Family Medicine 05/27/22 11/13/23 Shaneka Howard MD [address] [place] [address] PCP - General Family Medicine 11/14/23 documented as of this encounter
--- OUTSIDE RECORDS SUMMARY | 2024-11-20 15:44 | XMS_ITS | Encounter Summary ---
Demographics Address [address] [place] [address] Home Phone Mobile Phone Preferred Language en Marital Status Single Quaker Affiliation Unknown Race Other Race Ethnic Group or Author Organization [employer] Address [address] [place] [address] Care Team Providers Care Oracle Database Architect Name Role Phone Shaneka Howard MD Primary Care Provider [phone] Encounter Details Date Type Department Care Team ([facility] st Contact Info) Description 11/12/2024 Orders Only [facility] External Provider, [facility] Social History Tobacco Use Types [...] Narrative 11/12/2024 11:01 AM EST ? [facility] ?[address] ?[place] [address] ? Ultrasound Report ? Signed ? Patient: Autumn Aggarwal ?MR#: [id number] ?? 68 ? : 2000 ?Acct:[id number] ? Age/Sex: 24 / F ?ADM Date: 11/12/24 ? Loc: HO.US ? Attending Dr: Anthony Morris MD ? Ordering Physician: Anthony Morris MD ?? Date of Service: 11/12/24 ?? Procedure(s): US OB pelvic and transvaginal ?? Accession Number(s): [id number] ? cc: Shaneka Howard; Anthony Morris MD [...] DD/ 1010 ? TD/TT: 11/12/24 1029 ? Computer Programming Professor: ? Procedure Note Donotdottyinterpreter, Image - 11/12/2024 [place] [address] Ultrasound Report Signed Patient: Jamal Aggarwal#: [id number] 68 : 2000Acct:[id number] Age/Sex: 24 / FADM Date: 11/12/24 Loc: HO.US Attending Dr: Anthony Morris MD Ordering Physician: Anthony Morris MD Date of Service: 11/12/24 Procedure(s): US OB pelvic and transvaginal Accession Number(s): [id number] cc: Shaneka Howard; Anthony Morris MD EXAMINATION: [...] 11/12/24 1058 DD/ 1010 TD/TT: 11/12/24 1029 Computer Programming Professor: [facility] External Provider IMG US PROCEDURES Final Result documented in this encounter Visit Diagnoses Not on filedocumented in this encounter Additional Health Concerns Assessment Noted Time PHQ-9 Depression Total Score: 04/23/ 024 2:26 PM EDT documented as of this encounter Care Teams Oracle Database Architect Relationship Specialty Start Date End Date Shaneka Howard MD [address] [place] [phone] PCP - General Family Medicine 11/14/23 documented as of this encounter
--- OUTSIDE RECORDS SUMMARY | 2024-11-20 15:44 | XMS_ITS | Encounter Summary ---
Demographics Address [address] [place] [address] Home Phone Mobile Phone Preferred Language en Marital Status Single Restoration Affiliation Unknown Race Other Race Ethnic Group or Author Organization [employer] Address [address] [place] [address] Care Team Providers Care Senior Packaging Engineer Name Role Phone Shaneka Howard MD Primary Care Provider Encounter Details Date Type Department Care Team ([facility] st Contact Info) Description 11/20/2024 Orders Only [facility] External Provider, [facility] Social History Tobacco Use Types Packs/Day [...] Priority Date/Time Associated Diagnosis Comments US OB <14 WEEKS FETUS Routine 11/20/2024 3:02 PM EST documented in this encounter Results * US OB <14 WEEKS FETUS (11/20/2024 3:02 PM EST) Anatomical Region Laterality Modality Ultrasound 11/20/2024 3:02 PM EST Narrative 11/20/2024 3:03 PM EST ? [facility] ?[address] ?[place] [address] ? Ultrasound Report ? Signed ? Patient: Autumn Aggarwal ?MR#: [id number] ?? 68 ? : 2000 ?Acct:[id number] ? Age/Sex: 24 / F ?ADM Date: 11/20/24 ? Loc: HO.US ? Attending Dr: Anthony Morris MD ? Ordering Physician: Anthony Morris MD ?? Date of Service: 11/20/24 ?? Procedure(s): US OB <= 14 weeks fetus ?? Accession Number(s): [id number] ? cc: Shaneka oHward; Anthony Morris MD ? EXAMINATION: ? US OBSTETRICAL ULTRASOUND ? CLINICAL INFORMATION: ? Slow rising beta-hCG ? COMPARISON: ? 11/13/2024. ?? 11/12/2024. ?? 11/07/2024. ?? 08/13/2024. ? LMP: 10/03/2024. ?? Gestational age by maternal dates is 6 weeks and 6 days. ?? Estimated date of delivery by maternal dates is 07/10/2025. ? TECHNIQUE: ?? Ultrasound of the maternal pelvis is performed using transabdominal ?? transducer. M-mode Doppler is also performed. ? FINDINGS: ?? There is a single intrauterine gestational sac with visible yolk sac, ?? embryo/fetus, and cardiac activity. ??There is no significant ?? subchorionic hemorrhage or hematoma. ? HR: ??123 beats per minute. ? CRL (crown rump length): ?? 0.90 cm (6 weeks and 6 days +/- 4 days). ? KALPANA (estimated date of delivery): ??07/10/2025 +/- 4 days. ? MATERNAL ADNEXA: ? The right maternal ovary measures 2.8 x 2.2 x 2.3 cm. ??Normal ?? sonographic appearance. ? The left maternal ovary measures 4.1 x 1.9 x 2.9 cm. ??Normal ?? sonographic appearance. 1.9 cm dominant follicular cyst. ? There is no significant maternal adnexal mass. ??No maternal pelvic ?? ascites. ? US/US OB <= 14 weeks fetus ?? IMPRESSION: ?? 1. Single intrauterine gestation with ultrasound gestational age of ??6 ?? weeks and 6 days, +/- 4 days. ?? 2. Estimated date of delivery is 07/10/2025, +/- 4 days. ?? 3. No maternal adnexal mass or pelvic ascites. ? Electronically signed by: ??Jayden Marcus MD ??11/20/2024 03:00 PM EST RP ? Dictated By: ?Jayden Marcus MD ? Signed By: ?<Electronically signed by Jayden Marcus MD in OV> ?11/20/24 1500 ? DD/ 1502 ? TD/TT: 11/20/24 1510 ? Lead Person: ? Procedure Note Priscilla Fonseca - 11/20/[address] [address] Ultrasound Report Signed Patient: Jamal Aggarwal#: [id number] 68 : 2000Acct:[id number] Age/Sex: 24 / FADM Date: 11/20/24 Loc: HO.US Attending Dr: Anthony Morris MD Ordering Physician: Anthony Morris MD Date of Service: 11/20/24 Procedure(s): US OB <= 14 weeks fetus Accession Number(s): [id number] cc: Shaneka Howard; Anthony Morris MD EXAMINATION: US OBSTETRICAL ULTRASOUND CLINICAL INFORMATION: Slow rising beta-hCG COMPARISON: 11/13/2024. 11/12/2024. 11/07/2024. 08/13/2024. LMP: 10/03/2024. Gestational age by maternal dates is 6 weeks and 6 days. Estimated date of delivery by maternal dates is 07/10/2025. TECHNIQUE: Ultrasound of the maternal pelvis is performed using transabdominal transducer. M-mode Doppler is also performed. FINDINGS: There is a single intrauterine gestational sac with visible yolk sac, embryo/fetus, and cardiac activity. There is no significant subchorionic hemorrhage or hematoma. HR: 123 beats per minute. CRL (crown rump length): 0.90 cm (6 weeks and 6 days +/- 4 days). KALPANA (estimated date of delivery): 07/10/2025 +/- 4 days. MATERNAL ADNEXA: The right maternal ovary measures 2.8 x 2.2 x 2.3 cm. Normal sonographic appearance. The left maternal ovary measures 4.1 x 1.9 x 2.9 cm. Normal sonographic appearance. 1.9 cm dominant follicular cyst. There is no significant maternal adnexal mass. No maternal pelvic ascites. US/US OB <= 14 weeks fetus IMPRESSION: 1. Single intrauterine gestation with ultrasound gestational age of 6 weeks and 6 days, +/- 4 days. 2. Estimated date of delivery is 07/10/2025, +/- 4 days. 3. No maternal adnexal mass or pelvic ascites. Electronically signed by: Jayden Marcus MD 11/20/2024 03:00 PM [facility] Dictated By: Jayden Marcus MD Signed By: <Electronically signed by Jayden Marcus MD in OV> 11/20/24 1500 DD/ 1502 TD/TT: 11/20/24 1510 Lead Person: [facility] External Provider IMG OB US PROCEDURES Final Result documented in this encounter Visit Diagnoses Not on filedocumented in this encounter Additional Health Concerns Assessment Noted Time PHQ-9 Depression Total Score: 24 024 2:26 PM EDT documented as of this encounter Care Teams Senior Packaging Engineer Relationship Specialty Start Date End Date Shaneka Howard MD [address] [place] [address] PCP - General Family Medicine 11/14/23 documented as of this encounter
--- OUTSIDE RECORDS SUMMARY | 2024-11-20 15:44 | XMS_ITS | Encounter Summary ---
Author Organization [employer] Address [address] [place] [address] Care Team Providers Care Administrative Library Assistant Name Role Phone Shaneka Howard MD Primary Care Provider [phone] Encounter Details Date Type Department Care Team ([facility] st Contact Info) Description 11/13/2024 [...] Diagnosis Comments US OB PELVIS TRANSVAGINAL Routine 11/13/2024 2:50 PM EST BACTERIAL VAGINOSIS PANEL Routine 11/13/2024 12:13 PM EST CHLAMYDIA/N. GONORRHOEAE RNA, TMA, UROGENITAL Routine 11/13/2024 12:13 PM EST HCG, TOTAL, QN Routine 11/13/2024 11:40 AM EST documented in this encounter Results * US OB Pelvis with Transvaginal (11/13/2024 2:50 PM EST) Anatomical Region Laterality Modality Pelvis Ultrasound 11/13/2024 2:50 PM EST Narrative 11/13/2024 3:32 PM EST ? [facility] ?[address] ?[place] [address] ? Ultrasound Report ? Signed ? Patient: Autumn Aggarwal ?MR#: [id number] ?? 68 ? : 2000 ?Acct:[id number] ? Age/Sex: 24 / F ?ADM Date: 11/13/24 ? Loc: HO.US ? Attending Dr: Anthony Morris MD ? Ordering Physician: Anthony Morris MD ?? Date of Service: 11/13/24 ?? Procedure(s): US OB pelvic and transvaginal ?? Accession Number(s): [id number] ? cc: Shaneka Howard; Anthony Morris MD ? EXAMINATION: ? US OBSTETRICAL ULTRASOUND ? CLINICAL INFORMATION: ? Encounter for supervision abnormal . ? COMPARISON: ? November 12, 2024 demonstrated the and empty intrauterine gestational ?? sac. ? LMP: 10/03/2024. ?? Gestational age by maternal dates is 5 weeks and 5 days. ?? Estimated date of delivery by maternal dates is 07/10/2025. ? TECHNIQUE: ?? Real-time transabdominal and transvaginal obstetrical pelvic ultrasound ?? performed using grayscale and color Doppler technique. ? FINDINGS: ?? Single intrauterine gestational sac with a pole and a yolk sac. ? HR: ??89 beats per minute. ? CRL (crown rump length): ?? 0.22 cm (5 weeks and 6 days +/- 4 days). ? KALPANA (estimated date of delivery): ??07/09/2025 +/- 4 days. ? MATERNAL ADNEXA: ? The right maternal ovary measures 3 x 2 x 3 cm. ??No solid or cystic ?? lesion. Volume is 5 cc. ? The left maternal ovary measures 3 x 3 x 2 cm. ??Volume is 11 cc. There ?? is a 2.2 cm cystic structure without flow on color Doppler ?? interrogation or gross internal echoes. ? There is no significant maternal adnexal mass. ??No maternal pelvic ?? ascites. ? US/US OB pelvic and transvaginal ?? IMPRESSION: ?? 1. Single , viable, intrauterine gestation with ultrasound gestational ?? age of ??5 weeks and 6 days +/- 4 days. Correlated with serial ?? quantification of the beta-hCG. ?? 2. Estimated date of delivery is 07/09/2025 +/- 4 days. ?? 3. No maternal adnexal mass or pelvic ascites. ? Electronically signed by: ??Jorje Villalta MD ??11/13/2024 03:29 PM ?? EST ? Dictated By: ?Jorje Asif MD ? Signed By: ?<Electronically signed by Jorje Aiken MD in OV> ? 11/13/24 1529 ? DD/ 1450 ? TD/TT: 11/13/24 1517 ? Flatbed Truck Driver: ? Procedure Note Raymundo, Priscilla - 11/13/2024 [place] [address] [place] [address] Ultrasound Report Signed Patient: Chela AggarwalVan#: [id number] 68 : 2000Acct:[id number] Age/Sex: 24 / FADM Date: 11/13/24 Loc: HO.US Attending Dr: Anthony Morris MD Ordering Physician: Anthony Morris MD Date of Service: 11/13/24 Procedure(s): US OB pelvic and transvaginal Accession Number(s): [id number] cc: Shaneka Howard; Anthony Morris MD EXAMINATION: US OBSTETRICAL ULTRASOUND CLINICAL INFORMATION: Encounter for supervision abnormal . COMPARISON: November 12, 2024 demonstrated the and empty intrauterine gestational sac. LMP: 10/03/2024. Gestational age by maternal dates is 5 weeks and 5 days. Estimated date of delivery by maternal dates is 07/10/2025. TECHNIQUE: Real-time transabdominal and transvaginal obstetrical pelvic ultrasound performed using grayscale and color Doppler technique. FINDINGS: Single intrauterine gestational sac with a pole and a yolk sac. HR: 89 beats per minute. CRL (crown rump length): 0.22 cm (5 weeks and 6 days +/- 4 days). KALPANA (estimated date of delivery): 07/09/2025 +/- 4 days. MATERNAL ADNEXA: The right maternal ovary measures 3 x 2 x 3 cm. No solid or cystic lesion. Volume is 5 cc. The left maternal ovary measures 3 x 3 x 2 cm. Volume is 11 cc. There is a 2.2 cm cystic structure without flow on color Doppler interrogation or gross internal echoes. There is no significant maternal adnexal mass. No maternal pelvic ascites. US/US OB pelvic and transvaginal IMPRESSION: 1. Single , viable, intrauterine gestation with ultrasound gestational age of 5 weeks and 6 days +/- 4 days. Correlated with serial quantification of the beta-hCG. 2. Estimated date of delivery is 07/09/2025 +/- 4 days. 3. No maternal adnexal mass or pelvic ascites. Electronically signed by: Jorje Villalta MD 11/13/2024 03:29 PM [facility] Dictated By: Jorje Asif MD Signed By: <Electronically signed by Jorje Aiken MDin OV> 11/13/24 1529 DD/ 1450 TD/TT: 11/13/24 1517 Flatbed Truck Driver: [facility] External Provider IMG US PROCEDURES Final Result * Chlamydia/N. Gonorrhoeae RNA, TMA, Urogenitial (11/13/2024 12:13 PM EST) CT PCR NOT DETECTED Not Detect. [facility] Comment:A not detected test result does [...] psychologicalconsequences. NG PCR NOT DETECTED Not Detect. [facility] Comment:A not detected test result does [...] lead to adverse medical, social or psychologicalconsequences. 11/13/2024 12:1 3 PM EST 11/13/2024 3:38 PM EST Narrative [facility] - 11/14/2024 1:58 PM EST Vaginal Generic External Data Provider LAB MICROBIOLOGY - GENERAL ORDERABLES Final Result Performing Organization Address [facility]/ZIP Co de Phone Number [facility] [address] [place] [address] [phone] * (ABNORMAL) Bacterial Vaginosis (11/13/2024 12:13 PM EST) TRICHOMONAS VAGINALIS DETECTION BY PCR NOT DETECTED Not Detect [facility] BACTERIAL VAGINOSIS DETECTION BY PCR POSITIVE(A) Negative [facility] Comment:The BV organism targ ets of the Xpert Xpress MVP test can becommensal in women; Xpert Xpress MVP positive results forbacterial vaginosis should be considered in conjunction withother clinical and patient information to determine thedisease status. Organisms that are not detected by the XpertXpress MVP test have also been reported to be associatedwith BV and aerobic vaginitis.The Xpert Xpress MVP test performance has not been evaluatedin patients under the age of 14. MUNA GROUP DETECTION BY PCR NOT DETECTED Not Detect [facility] Muna glab krusei PCR NOT DETECTED Not Detect [facility] 11/13/2024 12:1 3 PM EST 11/13/2024 3:38 PM EST [employer] External Data Provider LAB MICROBIOLOGY - GENERAL ORDERABLES Final Result Performing Organization Address [facility] Co de Phone Number [facility] [address] [place] [address] [phone] * hCG, Total, Quantitative (11/13/2024 11:40 AM EST) HCG Quantitative 9,800 mIU/mL [facility] Comment:Weeks post LMP Appro ximate hCG(Last Menstrual Period) Range (mIU/ml)3 - 4 weeks 9 - 1304 - 5 weeks 75 - 2,6005 - 6 weeks 850 - 20,8006 - 7 weeks 4000 - 100,2007 - 12 weeks 11,500 - 289,98492 - 16 weeks 18,300 - 137,00760 - 29 weeks (2nd trimester) 1,400 - 53,17949 - 41 weeks (3rd trimester) 940 - [...] Provider LAB BLOOD ORDERAB LES Final Result [facility] [address] [place] [phone] documented in this encounter Visit Diagnoses Not on filedocumented in this encounter Additional Health Concerns Assessment Noted Time PHQ-9 Depression Total Score: 024 2:26 PM EDT documented as of this encounter Care Teams Administrative Library Assistant Relationship Specialty Start Date End Date Shaneka Howard MD [address] [place] [phone] PCP - General Family Medicine 11/14/23 documented as of this encounter
--- OUTSIDE RECORDS SUMMARY | 2024-11-20 15:44 | XMS_ITS | Encounter Summary ---
Author Organization [employer] Address [address] [place] [address] Care Team Providers Care Tab Cutter Name Role Phone Shaneka Howard MD Primary Care Provider [phone] Reason for Visit * Reason Onset Date Comments dental emergency/ 07/25/2024 Encounter Details Date Type Department Care Team ([facility] st Contact Info) Description 07/25/2024 Telephone [facility] [address] [place] [address] Diana Rob DDS [address] [place] [address] dental emergency/ Social History Tobacco Use Types [...] others, in a hotel, in a senior care, living outside on the street, on a [...] to providefor dental treatment). Provided fax number [phone] to have OB office send in clearance. [...] documented as of this encounter Care Teams Tab Cutter Relationship Specialty Start Date End Date Shaneka Howard MD [address] [place] [address] PCP - General Family Medicine 11/14/23 documented as of this encounter
--- OUTSIDE RECORDS SUMMARY | 2024-11-20 15:44 | XMS_ITS | Encounter Summary ---
Author Organization [employer] Address [address] [place] [address] Care Team Providers Care Railroad Car Painter Name Role Phone Shaneka Howard MD Primary Care Provider [phone] Encounter Details Date Type Department Care Team ([facility] st Contact Info) Description 11/07/2024 [...] 12:56 AM EST) Color Urine Dark Yellow [facility] Appearance Urine Clear [facility] PH 5.5 5.0 - 9.0 [facility] Glucose Urine UA Negative Negative mg/dL [facility] Urine Blood Negative Negative [facility] Specific [place] - Urine >=1.030(H) 1.005 - 1.025 [facility] Urine Protein Trace Neg-Trace mg/dL [facility] Urine Ketones 40 Negative mg/dL [facility] Nitrite Urine Negative Negative [facility] Leukocyte Esterase Urine Negative Negative [facility] RBC Urine 0-2 0 - 2 /HPF [facility] Urine WBC 0-5 0 - 5 /HPF [facility] Urine Squamous Epithelial Cell 11-20 0 - 2 /HPF [facility] Urine Bacteria Trace None Seen [facility] Hyaline Casts, Urine 0-2 0 - 2 /LPF [facility] 11/07/2024 12:5 6 AM EST 11/07/2024 12:59 AM EST Narrative [facility] - 11/07/2024 1:08 AM EST Urine, Clean Catch us Generic External Data Provider LAB URINE ORDERAB LES Final Result [facility] [address] [place] [address] [phone] documented in this encounter Visit Diagnoses Not on filedocumented in this encounter Additional Health Concerns Assessment Noted Time PHQ-9 Depression Total Score: 04/23/ 024 2:26 PM EDT documented as of this encounter Care Teams Railroad Car Painter Relationship Specialty Start Date End Date Shaneka Howard MD [address] [place] [address] PCP - General Family Medicine 11/14/23 documented as of this encounter
--- OUTSIDE RECORDS SUMMARY | 2024-11-20 15:44 | XMS_ITS | Encounter Summary ---
Author Organization [employer] Address [address] [place] [address] Care Team Providers Care Wastewater Treatment Plant Chemist Name Role Phone Shaneka Howard MD Primary Care Provider [phone] Reason for Visit * Reason Onset Date Comments Nurse Triage 11/14/2023 Encounter Details Date Type Department Care Team ([facility] st Contact Info) Description 11/14/2023 Telephone [facility] MEDICINE [address] [place] [address] [facility] [address] [place] [address] Nurse Triage Social History Tobacco Use Types [...] away. Pt is advised to come to [facility] today open till 8pm and provider can see Pt. Home care advised and insurance is not verified as active, Pt is advised to contact insurance first. Pt reponds I was already told about this . Pt also requests not to call on [phone] number it is an emergency number. Protocol [...] on filedocumented in this encounter Care Teams Wastewater Treatment Plant Chemist Relationship Specialty Start Date End Date Shaneka Howard MD [address] [place] [address] PCP - General Family Medicine 11/14/23 documented as of this encounter
--- OUTSIDE RECORDS SUMMARY | 2024-11-20 15:44 | XMS_ITS | Clinical Summary ---
Demographics Address [address] [place] [address] Home Phone Mobile Phone Preferred Language en Marital Status Single Sikhism Affiliation Unknown Race Other Race Ethnic Group or Author Organization [employer] Address [address] [place] [address] Care Team Providers Care Assistant Branch Manager Name Role Phone Shaneka Howard MD Primary Care Provider [phone] Allergies No known active allergies Medications * [...] per day. 90 tablet 1 4 07/17/20 25 Active albuterol 108 (90 Base) MCG/ACT inhaler [...] blood and CBC -STAT pelvic/TV US -STAT CISSP referral requested to referral at [facility] by pt prefernce- will inform pt [...] & Plan (04/29/2024 10:14 AM EDT): During [facility] Consult Autumn presenting with depressed [...] Health Integration Plan Internal Follow up with [facility] External OP therapy referral and OP psychiatry Referral Patient Self Plan Patient to utilize skills provided in intervention , Patient to reach out to [facility] team as needed, Patient to engage [...] Health Integration Plan Internal Follow up with [facility] External OP BH therapy referral and OP psychiatry Referral Patient Self Plan Patient to utilize skills provided in intervention , Patient to reach out to [facility] team as needed, Patient to engage in OP therapy , and Patient to reach out to [facility] as needed Vitamin D deficiency 06/07/2018 Allergic rhinitis 06/18/2017 Mild intermittent asthma 11/27/2016 Developmental academic disorder 06/28/2015 Dyssomnia 06/08/2014 Impulse control disorder 06/08/2014 Comments Yes Encounters Date Type Department Care Team Description 11/20/2024 Orders Only [facility] External Provider, [facility] 11/13/2024 Orders Only GENERIC EXTERNAL DATA DEPARTMENT Provider, Generic External Data 11/12/2024 Orders Only [facility] External Provider, [facility] 11/11/2024 Orders Only GENERIC EXTERNAL DATA DEPARTMENT Provider, Generic External Data 11/07/2024 Orders Only GENERIC EXTERNAL DATA DEPARTMENT Provider, Generic External Data 11/06/2024 Orders Only GENERIC EXTERNAL DATA DEPARTMENT Provider, Generic External Data 10/09/2024 Telephone [facility] MEDICINE [address] [place] [address] Janneth Dale [place] RECALL 09/29/2024 Telephone [facility] ADULT DENTAL [address] [place] [address] [place] Hwang 09/10/2024 Orders Only GENERIC EXTERNAL DATA DEPARTMENT Provider, Generic External Data 09/08/2024 Telephone [facility] ADULT DENTAL [address] [place] [address] [place] Hwang 09/02/2024 Orders Only GENERIC EXTERNAL [...] 12/25/2024 12/26/2023 Depression Screening 04/23/2025 04/23/2024, 04/23/20 24 Tobacco Screening 07/25/2025 07/25/2024 Chlamydia and Gonorrhea Screening 11/13/2025 11/13/2024, 07/22/2024, 11/01/2022, Additional history exists Zoster Vaccines (1 of 2) 2051 RSV [...] WEEKS FETUS Routine 11/20/2024 3:02 PM EST US OB PELVIS TRANSVAGINAL Routine 11/13/2024 2:50 PM EST CHLAMYDIA/N. GONORRHOEAE RNA, TMA, UROGENITAL Routine 11/13/2024 12:13 PM EST BACTERIAL VAGINOSIS PANEL Routine 11/13/2024 12:13 PM EST HCG, TOTAL, [...] TOTAL, QN Routine 08/25/2024 4:32 PM EST from Last 3 Months Results * US OB <14 WEEKS FETUS (11/20/2024 3:02 PM EST) Anatomical Region Laterality Modality Ultrasound 11/20/2024 3:02 PM EST Narrative 11/20/2024 3:03 PM EST ? [facility] ?[address] ?[place] [address] ? Ultrasound Report ? Signed ? Patient: Jasen,Autumn ?MR#: [id number] ?? 68 ? : 2000 ?Acct:[id number] ? Age/Sex: 24 / F ?ADM Date: 02/20/25 ? Loc: HO.US ? Attending Dr: Anthony Morris MD ? Ordering Physician: Anthony Morris MD ?? Date of Service: 11/20/24 ?? Procedure(s): US OB <= 14 weeks fetus ?? Accession Number(s): [id number] ? cc: Shaneka Howard; Anthony Morris MD [...] DD/ 1502 ? TD/TT: 11/20/24 1510 ? Switch Foreman: ? Procedure Note Donotuseinterpreter, Image - 11/20/[address] [address] Ultrasound Report Signed Patient: Jamal Aggarwal#: [id number] 68 : 2000Acct:[id number] Age/Sex: 24 FADM Date: 11/20/24 Loc: HO.US Attending Dr: Anthony Morris MD Ordering Physician: Anthony Morris MD Date of Service: 11/20/24 Procedure(s): US OB <= 14 weeks fetus Accession Number(s): [id number] cc: Shaneka Howard; Anthony Morris MD EXAMINATION: [...] by: Jayden Marcus MD 11/20/2024 03:00 PM EST RP Dictated By: Jayden Marcus MD Signed By: <Electronically signed by Jayden Marcus MD in OV> 11/20/24 1500 DD/ 1502 TD/TT: 11/20/24 1510 Switch Foreman: [facility] External Provider IMG OB US PROCEDURES Final Result * US OB Pelvis with Transvaginal (11/13/2024 2:50 PM EST) Only the most recent of3 resultswithin the time period is included. Anatomical Region Laterality Modality Pelvis Ultrasound 11/13/2024 2:50 PM EST Narrative 11/13/2024 3:32 PM EST ? [facility] ?[address] ?[place] [address] ? Ultrasound Report ? Signed ? Patient: Autumn Aggarwal ?MR#: [id number] ?? 68 ? : 2000 ?Acct:[id number] ? Age/Sex: 24 / F ?ADM Date: 11/13/24 ? Loc: HO.US ? Attending Dr: Anthony Morris MD ? Ordering Physician: Anthony Morris MD ?? Date of Service: 11/13/24 ?? Procedure(s): US OB pelvic and transvaginal ?? Accession Number(s): [id number] ? cc: Shaneka Howard; Anthony Morris MD [...] Villalta MD ??11/13/2024 03:29 PM ?? EST RP ? Dictated By: ?Jorje Asif MD ? Signed By: ?<Electronically signed by Jorje Aiken MD in OV> ? 11/13/24 1529 ? DD/ 1450 ? TD/TT: 11/13/24 1517 ? Switch Foreman: ? Procedure Note Priscilla Fonseca - 11/13/[address] [address] Ultrasound Report Signed Patient: Jamal Aggarwal#: [id number] 68 : 2000Acct:[id number] Age/Sex: 24 / FADM Date: 11/13/24 Loc: HO.US Attending Dr: Anthony Morris MD Ordering Physician: Anthony Morris MD Date of Service: 11/13/24 Procedure(s): US OB pelvic and transvaginal Accession Number(s): [id number] cc: Shaneka Howard; Anthony Morris MD EXAMINATION: [...] by: Jorje Villalta MD 11/13/2024 03:29 PM [facility] Dictated By: Jorje Asif MD Signed By: <Electronically signed by Jorje Aiken MDin OV> 11/13/24 1529 DD/ 1450 TD/TT: 11/13/24 1517 Switch Foreman: us [facility] External Provider IMG US PROCEDURES Final Result * (ABNORMAL) Bacterial Vaginosis (11/13/2024 12:13 PM EST) Pathologist [facility] TRICHOMONAS VAGINALIS DETECTION BY PCR NOT DETECTED Not Detect [facility] BACTERIAL VAGINOSIS DETECTION BY PCR POSITIVE(A) Negative [facility] Comment:The BV organism targ ets of [...] DETECTION BY PCR NOT DETECTED Not Detect [facility] Muna glab krusei PCR NOT DETECTED Not Detect [facility] 11/13/2024 12:1 3 PM EST 11/13/2024 3:38 PM EST Generic External Data Provider LAB MICROBIOLOGY - GENERAL ORDERABLES Final Result Performing Organization Address City/State/[facility] Co de Phone Number [facility] [address] [place] [phone] * Chlamydia/N. Gonorrhoeae RNA, TMA, Urogenitial (11/13/2024 12:13 PM EST) Pathologist [facility] CT PCR NOT DETECTED Not Detect. [facility] Comment:A not detected test result [...] psychologicalconsequences. NG PCR NOT DETECTED Not Detect. [facility] Comment:A not detected test result [...] PM EST 11/13/2024 3:38 PM EST Narrative [facility] - 11/14/2024 1:58 PM EST Vaginal us Generic External Data Provider LAB MICROBIOLOGY - GENERAL ORDERABLES Final Result Performing Organization Address City/State/[facility] Co de Phone Number [facility] [address] [place] [phone] * hCG, Total, Quantitative (11/13/2024 11:40 AM EST) Only the most recent of6 resultswithin the time period is included. HCG Quantitative 9,800 mIU/mL [facility] Comment:Weeks post LMP Appro ximate hCG(Last Menstrual Period) Range (mIU/ml)3 - 4 weeks 9 - 1304 - 5 weeks 75 - 2,6005 - 6 weeks 850 - 20,8006 - 7 weeks 4000 - 100,2007 - 12 weeks 11,500 - 289,07109 - 16 weeks 18,300 - 137,93614 - 29 weeks (2nd trimester) 1,400 - 53,88594 - 41 weeks (3rd trimester) 940 - 60,000The [employer] B- hCG assay is used for the early detection ofpregnancy; it cannot be used to diagnose any conditionunrelated to . If a B-hCG level is not supportedby the clinical evidence, results should be confirmed by analternative method (qualitative urine hCG, for example). 11/13/2024 11:4 0 AM EST 11/13/2024 11:40 AM EST Generic External Data Provider LAB BLOOD ORDERAB LES Final Result Performing Organization Address [facility] Phone Number [facility] [address] [place] [phone] * Syphilis Screen (11/11/2024 1:05 PM EST) Syphilis Screen Nonreactive Nonreactive [facility] 11/11/2024 1:05 PM EST 11/11/2024 1:05 PM EST Generic External Data Provider LAB BLOOD ORDERAB LES Final Result Performing Organization Address [facility] Phone Number [facility] [address] [place] [phone] * Hepatitis C Ab (11/11/2024 1:05 PM EST) Hepatitis C Antibody Nonreactive Nonreactive [facility] Comment:Antibodies to HCV no t detected; does not exclude early acuteHCV infection. 11/11/2024 1:05 PM EST 11/11/2024 1:05 PM EST Generic External Data Provider LAB BLOOD ORDERAB LES Final Result Performing Organization Address [facility] Co de Phone Number [facility] [address] [place] [phone] * Hepatitis B surface antigen, EIA (11/11/2024 1:05 PM EST) Pathologist [facility] Hepatitis B Surface Ag Negative Negative [facility] 11/11/2024 1:05 PM EST 11/11/2024 1:05 PM EST us Generic External Data Provider LAB BLOOD ORDERAB LES Final Result Performing Organization Address City/[facility]/ZIP Co de Phone Number [facility] [address] [place] [phone] * HIV-1/2 Antigen and Antibodies, Fourth Generation, with Reflexes (11/11/2024 1:05 PM EST) [facility] HIV AB/AG Nonreactive Nonreactive [facility] Comment:HIV-1 p24 Ag and/or HIV-1/HIV-2 Ab not detected.A test result that is nonreactive does not exclude thepossibility of exposure to or infection with HIV-1 and/orHIV-2. Nonreactive results in this assay for individualswith prior exposure to HIV-1 and/or HIV-2 may be due toantigen and antibody levels that are below the limit ofdetection of this assay.The weave energyniUniversity of Wollongong HIV Ag/Ab Combo assay result andsupplemental assay results should be interpreted inconjunction with the patient's clinical presentation,history and other laboratory results. If the results areinconsistent with clinical evidence, additional testing issuggested to confirm the result. 11/11/2024 1:05 PM EST 11/11/2024 1:05 PM EST us Generic External Data Provider LAB BLOOD ORDERAB LES Final Result Performing Organization Address [facility] Co de Phone Number [facility] [address] [place] [phone] * (ABNORMAL) Urinalysis, Complete, with Reflex to Culture (11/07/2024 12:56 AM EST) Pathologist [facility] Color Urine Dark Yellow [facility] Appearance Urine Clear [facility] PH 5.5 5.0 - 9.0 [facility] Glucose Urine UA Negative Negative mg/dL [facility] Urine Blood Negative Negative [facility] Specific [place] - Urine >=1.030(H) 1.005 - 1.025 [facility] Urine Protein Trace Neg-Trace mg/dL [facility] Urine Ketones 40 Negative mg/dL [facility] Nitrite Urine Negative Negative [facility] Leukocyte Esterase Urine Negative Negative [facility] RBC Urine 0-2 0 - 2 /HPF [facility] Urine WBC 0-5 0 - 5 /HPF [facility] Urine Squamous Epithelial Cell 11-20 0 - 2 /HPF [facility] Urine Bacteria Trace None Seen [facility] Hyaline Casts, Urine 0-2 0 - 2 /LPF [facility] 11/07/2024 12:5 6 AM EST 11/07/2024 12:59 AM EST Narrative [facility] - 11/07/2024 1:08 AM EST Urine, Clean Catch us Generic External Data Provider LAB URINE ORDERAB LES Final Result Performing Organization Address [facility] Co de Phone Number [facility] [address] [place] [phone] * Magnesium (11/06/2024 9:10 PM EST) Magnesium 1.8 1.6 - 2.6 mg/dL [facility] 11/06/2024 9:10 PM EST 11/06/2024 9:13 PM EST us Generic External Data Provider LAB BLOOD ORDERAB LES Final Result Performing Organization Address [facility] de Phone Number [facility] [address] [place] [phone] * (ABNORMAL) Comprehensive Metabolic Panel (11/06/2024 9:10 PM EST) Sodium 135 135 - 145 mmol/L [facility] Potassium 4.2 3.3 - 5.1 mmol/L [facility] Chloride 107 96 - 108 mmol/L [facility] Carbon Dioxide 21(L) 22 - 29 mmol/L [facility] Anion Gap 11(L) 12 - 20 [facility] Urea Nitrogen (BUN) 9 9 - 16 mg/dL [facility] Creatinine, Serum 0.66 0.5 - 1.4 mg/dL [facility] Creatinine Clr Calc Pharmacy 109.7 [facility] Comment:Provided height and weight: 160.02 cm,59.4 kg.eGFR (calculated from the MDRD study equation) and eCrCl(calculated from the Cockcroft-Gault equation) are based ondifferent parameters and may not yield comparable results.If eCrCl result is absurd, please check patient'sheight/weight. Estimated Glomerular Filt Rate >60 [facility] Comment:Chronic Kidney Disea se: Estimated GFR < 60 mL/min/[id number] Kidney Disease: Estimated GFR < 15 mL/min/1.73m2 Glucose 90 60 - 115 mg/dL [facility] Calcium 9.1 8.4 - 10.2 mg/dL [facility] Bilirubin, Total 0.7 0.0 - 1.0 mg/dL [facility] Aspartate Amino Transferase 25 5 - 31 U/L [facility] Alanine Aminotransferase 15 0 - 31 U/L [facility] Total Protein 7.9 6.5 - 8.0 g/dL [facility] Albumin Level 4.4 3.5 - 5.0 g/dL [facility] Alkaline Phosphatase 61 39 - 117 U/L [facility] 11/06/2024 9:10 PM EST 11/06/2024 9:13 PM EST us Generic External Data Provider LAB BLOOD ORDERAB LES Final Result [facility] [address] [place] [phone] [phone] * SARS-CoV-2 RNA, Influenza A/B, and RSV RNA, Ql NAAT (11/06/2024 9:09 PM EST) [facility] Influenza A PCR NEGATIVE Negative [facility] Influenza B PCR NEGATIVE Negative [facility] Resp Syncy Virus RNA Qual PCR NEGATIVE Negative [facility] SARS COV2 PCR NEGATIVE Negative [facility] Comment:All test results mus t [...] use by authorized laboratories.Testing performed on the [employer] GeneXpert utilizingreal-time RT-PCR.All SARS CoV2 and positive influenza A/B results arereported to [facility]. 11/06/2024 9:09 PM EST 11/06/2024 9:13 PM EST us Generic External Data Provider LAB MICROBIOLOGY - GENERAL ORDERABLES Final Result [facility] [address] [place] [phone] [phone] * (ABNORMAL) CBC auto differential (11/06/2024 9:09 PM EST) [facility] White Blood Count 14.5(H) 4.8 - 10.8 X10*3/uL [facility] Red Blood Count 4.26 4.20 - 5.50 X10*6/uL [facility] Hemoglobin 13.4 12.0 - 16.0 g/dl [facility] Hematocrit 39.5 37.0 - 47.0 % [facility] Mean Corpuscular Volume 92.7 80.0 - 98.0 fL [facility] Mean Corpuscular Hemoglobin 31.5 27.0 - 33.0 pg [facility] Mean Corpuscular HGB Conc 33.9 31.0 - 35.0 g/dl [facility] Red Cell Distribution Width 12.4 11.0 - 16.0 % [facility] Platelet Count 236 160 - 400 X10*3/uL [facility] Mean Platelet Volume 11.4 9.4 - 12.3 fL [facility] Neutrophils Percent Auto 85.0(H) 45 - 73 % [facility] Imm Gran Pct Auto 0.5(H) 0.0 - 0.4 % [facility] Lymphocytes Percent Auto 7.4(L) 20 - 40 % [facility] Monocytes Percent Auto 6.6 2 - 11 % [facility] Eosinophils Percent Auto 0.2 0 - 4 % [facility] Basophils Percent Auto 0.3 0 - 2 % [facility] NRBC Pct Auto 0.0 0.0 - 0.2 /100WBC [facility] Neutrophils Absolute Auto 12.3(H) 2.0 - 8.3 x10*3/uL [facility] Imm Gran Abs Auto 0.07(H) 0.00 - 0.03 X10*3/uL [facility] Lymphocytes Absolute Auto 1.1(L) 1.2 - 4.9 X10*3/uL [facility] Monocytes Absolute Auto 1.0 0.1 - 1.2 X10*3/uL [facility] Eosinophils Absolute Auto 0.0 0.0 - 0.4 X10*3/uL [facility] Basophils Absolute Auto 0.1 0.0 - 0.2 X10*3/uL [facility] NRBC Abs Auto 0.000 0.0 - 0.012 X10*3/uL [facility] 11/06/2024 9:09 PM EST 11/06/2024 9:13 PM EST us Generic External Data Provider LAB BLOOD ORDERAB LES Final Result [facility] [address] [place], [place] [phone] from Last 3 Months Insurance [facility] MEDICAID STAND ADULT Care Teams Assistant Branch Manager Relationship Specialty Start Date End Date Shaneka Howard MD [address] [place] [phone] PCP - General Family Medicine 11/14/23
--- OUTSIDE RECORDS SUMMARY | 2024-11-20 15:44 | XMS_ITS | Encounter Summary ---
Author Organization [employer] Address [address] [place] [address] Care Team Providers Care Pig Lead Melter Helper Name Role Phone Shaneka Howard MD Primary Care Provider [phone] Encounter Details Date Type Department Care Team ([facility] st Contact Info) Description 11/06/2024 Orders [...] with others, in a hotel, in a long-term, living outside on the street, on a [...] EST Narrative 11/07/2024 1:39 AM EST ? [facility] ?[address] ?[place] [address] ? Ultrasound Report ? Signed ? Patient: Jasen,Autumn ?MR#: [id number] ?? 68 ? : 2000 ?Acct:[id number] ? Age/Sex: 24 / F ?ADM Date: 11/06/24 ? Loc: HO.ED ? Attending Dr: ? Ordering Physician: Praful Klein ?? Date of Service: 11/06/24 ?? Procedure(s): US OB pelvic and transvaginal ?? Accession Number(s): [id number] ? cc: Praful Klein; Kaylen Juarez MD [...] ? DD/ 6 ? TD/TT: 11/07/24136 ? Lieutenant General: ? Procedure Note Priscilla Fonseca - 11/07/[address] [address] Ultrasound Report Signed Patient: Jamal Aggarwal#: [id number] [birth year] : 2000Acct:[id number] Age/Sex: 24 / FADM Date: 11/06/24 Loc: HO.ED Attending Dr: Ordering Physician: Praful Klein Date of Service: 11/06/24 Procedure(s): US OB pelvic and transvaginal Accession Number(s): [id number] cc: Praful Klein; Kaylen Juarez MD CLINICAL [...] in OV> 11/07/24138 DD/ 6 TD/TT: 11/07/24136 Lieutenant General: us [facility] External Provider IMG US PROCEDURES Edited Result - Final * hCG, Total, Quantitative (11/06/2024 9:10 PM EST) HCG Quantitative 2,262 mIU/mL [facility] Comment:Weeks post LMP Appro ximate hCG(Last Menstrual Period) Range (mIU/ml)3 - 4 weeks 9 - 1304 - 5 weeks 75 - 2,6005 - 6 weeks 850 - 20,8006 - 7 weeks 4000 - 100,2007 - 12 weeks 11,500 - 289,12707 - 16 weeks 18,300 - 137,31291 - 29 weeks (2nd trimester) 1,400 - 53,50577 - 41 weeks (3rd trimester) 940 - [...] Final Result Performing Organization Address [facility]/ZIP Co de Phone Number [facility] [address] [place] [phone] * Magnesium (11/06/2024 9:10 PM EST) Pathologist [facility] Magnesium 1.8 1.6 - 2.6 mg/dL [facility] 11/06/2024 9:10 PM EST 11/06/2024 9:13 PM EST Generic External Data Provider LAB BLOOD ORDERAB LES Final Result Performing Organization Address [facility] Co de Phone Number [facility] [address] [place] [phone] * (ABNORMAL) Comprehensive Metabolic Panel (11/06/2024 9:10 PM EST) Pathologist [facility] Sodium 135 135 - 145 mmol/L [facility] Potassium 4.2 3.3 - 5.1 mmol/L [facility] Chloride 107 96 - 108 mmol/L [facility] Carbon Dioxide 21(L) 22 - 29 mmol/L [facility] Anion Gap 11(L) 12 - 20 [facility] Urea Nitrogen (BUN) 9 9 - 16 mg/dL [facility] Creatinine, Serum 0.66 0.5 - 1.4 mg/dL [facility] Creatinine Clr Calc Pharmacy 109.7 [facility] Comment:Provided height and weight: 160.02 cm,59.4 kg.eGFR (calculated from the MDRD study equation) and eCrCl(calculated from the Cockcroft-Gault equation) are based ondifferent parameters and may not yield comparable results.If eCrCl result is absurd, please check patient'sheight/weight. Estimated Glomerular Filt Rate >60 [facility] Comment:Chronic Kidney Disea se: Estimated GFR < 60 mL/min/1.63s6Ddxhyx Kidney Disease: Estimated GFR < 15 mL/min/1.73m2 Glucose 90 60 - 115 mg/dL [facility] Calcium 9.1 8.4 - 10.2 mg/dL [facility] Bilirubin, Total 0.7 0.0 - 1.0 mg/dL [facility] Aspartate Amino Transferase 25 5 - 31 U/L [facility] Alanine Aminotransferase 15 0 - 31 U/L [facility] Total Protein 7.9 6.5 - 8.0 g/dL [facility] Albumin Level 4.4 3.5 - 5.0 g/dL [facility] Alkaline Phosphatase 61 39 - 117 U/L [facility] 11/06/2024 9:10 PM EST 11/06/2024 9:13 PM EST us Generic External Data Provider LAB BLOOD ORDERAB LES Final Result [facility] [address] [place] [phone] * SARS-CoV-2 RNA, Influenza A/B, and RSV RNA, Ql NAAT (11/06/2024 9:09 PM EST) Influenza A PCR NEGATIVE Negative [facility] Influenza B PCR NEGATIVE Negative [facility] Resp Syncy Virus RNA Qual PCR NEGATIVE Negative [facility] SARS COV2 PCR NEGATIVE Negative [facility] Comment:All test results mus [...] use by authorized laboratories.Testing performed on the [email or web address] GeneXpert utilizingreal-time RT-PCR.All SARS CoV2 and positive influenza A/B results arereported to [facility]. 11/06/2024 9:09 PM EST 11/06/2024 9:13 PM EST us Generic External Data Provider LAB MICROBIOLOGY - GENERAL ORDERABLES Final Result [facility] [address] [place] [phone] * (ABNORMAL) CBC auto differential (11/06/2024 9:09 PM EST) White Blood Count 14.5(H) 4.8 - 10.8 X10*3/uL [facility] Red Blood Count 4.26 4.20 - 5.50 X10*6/uL [facility] Hemoglobin 13.4 12.0 - 16.0 g/dl [facility] Hematocrit 39.5 37.0 - 47.0 % [facility] Mean Corpuscular Volume 92.7 80.0 - 98.0 fL [facility] Mean Corpuscular Hemoglobin 31.5 27.0 - 33.0 pg [facility] Mean Corpuscular HGB Conc 33.9 31.0 - 35.0 g/dl [facility] Red Cell Distribution Width 12.4 11.0 - 16.0 % [facility] Platelet Count 236 160 - 400 X10*3/uL [facility] Mean Platelet Volume 11.4 9.4 - 12.3 fL [facility] Neutrophils Percent Auto 85.0(H) 45 - 73 % [facility] Imm Gran Pct Auto 0.5(H) 0.0 - 0.4 % [facility] Lymphocytes Percent Auto 7.4(L) 20 - 40 % [facility] Monocytes Percent Auto 6.6 2 - 11 % [facility] Eosinophils Percent Auto 0.2 0 - 4 % [facility] Basophils Percent Auto 0.3 0 - 2 % [facility] NRBC Pct Auto 0.0 0.0 - 0.2 /100WBC [facility] Neutrophils Absolute Auto 12.3(H) 2.0 - 8.3 x10*3/uL [facility] Imm Gran Abs Auto 0.07(H) 0.00 - 0.03 X10*3/uL [facility] Lymphocytes Absolute Auto 1.1(L) 1.2 - 4.9 X10*3/uL [facility] Monocytes Absolute Auto 1.0 0.1 - 1.2 X10*3/uL [facility] Eosinophils Absolute Auto 0.0 0.0 - 0.4 X10*3/uL [facility] Basophils Absolute Auto 0.1 0.0 - 0.2 X10*3/uL [facility] NRBC Abs Auto 0.000 0.0 - 0.012 X10*3/uL [facility] 11/06/2024 9:09 PM EST 11/06/2024 9:13 PM EST us Generic External Data Provider LAB BLOOD ORDERAB LES Final Result Performing Organization Address City/State/[facility] Co de Phone Number [facility] [address] [place] [phone] documented in this encounter Visit Diagnoses Not on filedocumented in this encounter Additional Health Concerns Assessment Noted Time PHQ-9 Depression Total Score: 24 024 2:26 PM EDT documented as of this encounter Care Teams Pig Lead Melter Helper Relationship Specialty Start Date End Date Shaneka Howard MD [address] [place] [address] PCP - General Family Medicine 11/14/23 documented as of this encounter
--- OUTSIDE RECORDS SUMMARY | 2024-11-20 15:44 | XMS_ITS | Clinical Summary ---
Author Organization [facility] ity Address [address] [place] [address] Care Team Providers Care Machine Ii Cutter Name Role Phone Unavailable Primary Care Provider [...]
== END 2024-11-20 15:16 | disposition home or self-care (01) ==
LOC: HO.HWS 14:32
PROVIDERS: PCP General Practice; Visit Provider Obstetrics & Gynecology
DX: O26.851 Spotting complicating pregnancy, first trimester (principal)
CPT/HCPCS: 99213

== ENCOUNTER 2024-12-05 13:28 | Outpatient (AMB) | payer MEDICAID, SELFPAY ==
--- NOTE | 2024-12-05 13:34 | MHC.OFFVIS ---
Intake Visit Reasons: US follow up Accompanied by: Mother Allergies SEASONAL ALLERGIES Allergy (Intermediate, Uncoded 11/06/24 19:16) NASAL CONGESTION Is last menstrual period known: No Post menopausal: No Patient : Yes HPI Comments Details: Presenting at 9 weeks of gestation by early ultrasound for follow-up, no pelvic cramping and or vaginal bleeding, no nausea or vomiting or any other concerns. On vitamin 1 tablet p.o. q.d.. The patient is in the process of schedulinge an appointment [facility] 11/20/2024 ultrasound showed the following: There is a single intrauterine gestational sac with visible yolk sac, embryo/fetus, and cardiac activity. There is no significant subchorionic hemorrhage or hematoma. HR: 123 beats per minute. CRL (crown rump length): 0.90 cm (6 weeks and 6 days +/- 4 days). KALPANA (estimated date of delivery): 07/10/2025 +/- 4 days. MATERNAL ADNEXA: The right maternal ovary measures 2.8 x 2.2 x 2.3 cm. Normal sonographic appearance. The left maternal ovary measures 4.1 x 1.9 x 2.9 cm. Normal sonographic appearance. 1.9 cm dominant follicular cyst. There is no significant maternal adnexal mass. No maternal pelvic ascites. 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 vitamin tablet p.o. q.d.. Term B6 p.r.n. for nausea and vomiting. The patient was instructed to call to inform of this next scheduled visit at [facility] next visit here, initial OB labs and first-trimester screening scheduled. All questions answered, the patient verbalized understanding and agreed with the plan. Coding Level of Care Code Est Pt Level 3 (35869) Diagnoses Z34.90
--- OUTSIDE RECORDS SUMMARY | 2024-12-05 15:04 | XMS_ITS | Clinical Summary ---
Author Organization [facility] ity Address [address] [place] [address] Care Team Providers Care Dairy Nutritionist Name Role Phone Unavailable Primary Care Provider [...]
== END 2024-12-05 13:55 | disposition home or self-care (01) ==
LOC: HO.HWS 13:28
PROVIDERS: PCP General Practice; Visit Provider Obstetrics & Gynecology
DX: Z34.90 Encounter for supervision of normal pregnancy, unspecified, unspecified trimester (principal)
CPT/HCPCS: 99213

== ENCOUNTER → 2024-12-05 13:28 | Outpatient (BNVA) | payer MEDICAID, SELFPAY | PROVIDERS: PCP General Practice; Visit Provider Obstetrics & Gynecology | DX: O99.331 Smoking (tobacco) complicating pregnancy, first trimester (principal); F17.210 Nicotine dependence, cigarettes, uncomplicated; Z3A.09 9 weeks gestation of pregnancy | CPT/HCPCS: 99212 ==

== ENCOUNTER 2024-12-13 13:42 | Emergency (ER) | payer MEDICAID, SELFPAY ==
[2024-12-13 13:44] VITALS: BP 122/64; PULSE 63; RESP 22; TEMP 37; O2SAT 100; BMI 23.7
[2024-12-13 14:09] LABS: MANUAL DIFF FLAG NO
--- NOTE | 2024-12-13 14:15 | ED_ITS ---
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 she has been nauseous and vomiting for most of this . She reports the vomiting is usually in the morning. Last night she did have an episode of vomiting as well. It was the 1st time she ever vomited at nighttime. Today she woke up with worsening vomiting than usual. She also had left upper quadrant discomfort, diffuse body aches and generalized weakness. She denies any pelvic cramping or vaginal bleeding. She is due to see [facility] in 2 weeks. MD elicited complaint: nausea, vomiting and abdominal pain Onset (ago): day(s) Description of vomiting: food contents and bilious Associated nausea: Yes Associated abdominal pain: Yes Location of pain: LUQ Pain consistency: intermittent Quality: cramping Exacerbating factors: eating Relieving factors: none Context: other () Associated symptoms: myalgias, loss of appetite, malaise, nausea/vomiting and weakness Related Data Home Medications ?Medication ?Instructions ?Recorded ?Confirmed vit no.95-ferrous 1 tab PO DAILY 07/30/24 fumarate 28 mg-folic acid 800 mcg tablet () Previous Rx's ?Medication ?Instructions ?Recorded pyridoxine (vitamin B6) 25 mg 25 mg PO tid PRN nausea 30 days 11/20/24 tablet (Vitamin B-6) #90 tabs Allergies Allergy/AdvReac Type Severity Reaction Status Date / Time SEASONAL ALLERGIES Allergy Intermediate NASAL Uncoded 12/13/24 13:51 CONGESTION Review of Systems 2 Review of Systems: Yes all other systems are reviewed and are negative Gastrointestinal: Gastrointestinal: Reports nausea PMFSH Family History Family History Mother Uterus cancer Maternal Aunt Breast cancer Father HTN (hypertension) Diabetes Maternal Grandfather HTN (hypertension) Maternal Grandfather Diabetes Social History Social History Household Members: Family Housing: Apartment Alcohol intake: former Patient Tobacco Use Status: Current everyday Tobacco user Cigarettes Per Day: 2 Years Smoked: 4 Smoked in Last 30 Days: No Use of substances other than those prescribed or required for medical reasons: No Substance Use Type: Marijuana Advance Directives: No Advance Directives Information Provided: No Patient : Yes Current occupational status: employed 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 Oriented X3. No acute distress. Head: normocephalic, atraumatic. Eyes: Pupils equal, round and reactive to light. ENT: Pharynx normal. No tonsillar swelling or exudate. Neck: Normal inspection. Neck supple. CVS: Normal heart rate and rhythm. Pulses normal. Respiratory: No respiratory distress. Breath sounds normal. Abdomen: Soft and nontender. uterus is not gravid. +BS x4. pelvic deferred Skin: Skin warm and dry. Normal skin color. Normal skin turgor. No rashes. Extremities: No lower extremity edema. No joint swelling. Neuro/psych: Oriented X 3. grossly normal, nonfocal Normal speech and cognition. 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 she has been nauseous and vomiting for most of this . She reports the vomiting is usually in the morning. Last night she did have an episode of vomiting as well. It was the 1st time she ever vomited at nighttime. Today she woke up with worsening vomiting than usual. She also had left upper quadrant discomfort, diffuse body aches and generalized weakness. abd exam is benign. nontender. VSS. Labs with a leukocytosis of 16.5, likely reactive due to her persistent vomiting. Potassium is normal. Renal function is normal. She has mildly low bicarbonate at 21 which is stable from prior and appears to be chronic. LFTs are normal and her beta hCG is reassuring. No vaginal bleeding or pelvic pain. Does not appear to be a threatened at this time She was given IV fluids and a dose of Zofran with significant improvement in her nausea. She is tolerating p.o.. heart tones at 164. She has OB follow- up in 2 weeks. Advised to start taking Unisom with her B6 to help prevent morning sickness. Patient is stable for discharge home and return precautions were discussed. Differential Diagnosis Differential Diagnoses: The differential diagnosis associated with the presentation includes Hyperemesis gravidarum, dehydration, metabolic derangement/electrolyte more abnormality, [place] Admission/Observation Consideration of admission/observation: Escalation of care including admission/observation considered Lab Data MDM Lab Attestation statement: I reviewed the patient's lab results. Reactive leukocytosis 12/13/24 14:03 12/13/24 14:03 Labs: Lab Results 12/13/24 12/13/24 Range/Units 14:03 14:49 WBC 16.5 H (4.8-10.8) X10*3/uL RBC 4.24 (4.20-5.50) X10*6/uL Hgb 13.5 (12.0-16.0) g/dl Hct 37.6 (37.0-47.0) % MCV 88.7 (80.0-98.0) fL MCH 31.8 (27.0-33.0) pg MCHC 35.9 H (31.0-35.0) g/dl RDW 13.2 (11.0-16.0) % Plt Count 255 (160-400) X10*3/uL MPV 11.4 (9.4-12.3) fL Immature Gran % (Auto) 0.4 (0.0-0.4) % Neut % (Auto) 80.4 H (45-73) % Lymph % (Auto) 13.2 L (20-40) % [place] % (Auto) 5.6 (2-11) % Eos % (Auto) 0.1 (0-4) % Baso % (Auto) 0.3 (0-2) % Lymph # (Auto) 2.2 (1.2-4.9) X10*3/uL [place] # (Auto) 0.9 (0.1-1.2) X10*3/uL Eos # (Auto) 0.0 (0.0-0.4) X10*3/uL Baso # (Auto) 0.1 (0.0-0.2) X10*3/uL Abs Immat Gran (auto) 0.07 H (0.00-0.03) X10*3/uL Absolute Neuts (auto) 13.3 H (2.0-8.3) x10*3/uL Absolute Nucleated RBC 0.000 (0.0-0.012) X10*3/uL Nucleated RBC % (auto) 0.0 (0.0-0.2) /100WBC Sodium 135 (135-145) mmol/L Potassium 4.1 (3.3-5.1) mmol/L Chloride 107 (96-108) mmol/L Carbon Dioxide 21 L (22-29) mmol/L Anion Gap 11 L (12-20) BUN 7 L (9-16) mg/dL Creatinine 0.68 (0.5-1.4) mg/dL Estim Creat Clear Calc 106.4 Estimated GFR > 60 Random Glucose 86 (60-115) mg/dL Calcium 9.6 (8.4-10.2) mg/dL Total Bilirubin 0.4 (0.0-1.0) mg/dL AST 19 (5-31) U/L ALT 11 (0-31) U/L Alkaline Phosphatase 42 (39-117) U/L Total Protein 7.7 (6.5-8.0) g/dL Albumin 4.1 (3.5-5.0) g/dL Beta HCG, Quant 645260 mIU/mL Urine Color Yellow Urine Appearance Cloudy Urine pH 7.5 (5.0-9.0) Ur Specific [place] 1.025 (1.005-1.025) Urine Protein Trace (Neg-Trace) mg/dL Urine Glucose (UA) Negative (Negative) mg/dL Urine Ketones 80 (Negative) mg/dL Urine Blood Negative (Negative) Urine Nitrite Negative (Negative) Ur Leukocyte Esterase Negative (Negative) Urine RBC 0-2 (0-2) /HPF Urine WBC 0-5 (0-5) /HPF Ur Squamous Epith Cells 0-2 (0-2) /HPF Urine Bacteria None Seen (None Seen) Hyaline Casts 0-2 (0-2) /LPF Influenza Type A (PCR) NEGATIVE (Negative) Influenza Type B (PCR) NEGATIVE (Negative) RSV RNA Qual (PCR) NEGATIVE (Negative) SARS-CoV-2 RNA (RT-PCR) NEGATIVE (Negative) External Record Review External record reviewed: Prior outpatient labs and Prior outpatient radiology Tests considered The following testing was considered but not selected: considered u/s, no indication today Prescription Management I considered prescription management with: Antibiotic Critical Care Time Critical Care Time Critical Care Time: No Discharge Plan Discharge Clinical Impression: Hyperemesis gravidarum Patient Disposition: Home, Self-Care Instructions: Hyperemesis Gravidarum (ED) Additional Instructions: continue your vitamins recommend over the counter Unisom - take it 30 minutes before you go to bed. it can make your sleepy. take it with the vitamin B6 eat small frequent meals throughout the day rest and drink plenty of fluids follow up with [facility] as scheduled if you develop vaginal bleeding, severe lower abdominal cramping or any other concerning signs/symptoms call 911 or some back to the ER for further evaluation and treatment Prescriptions: No Action pyridoxine (vitamin B6) [Vitamin B-6] 25 mg tablet 25 mg PO tid PRN (Reason: nausea) 30 Days Qty: 90 3RF Rx Instructions: may take every 6 - 8 hours for nausea PNV cmb#95-ferrous fumarate-FA [] 28 mg iron- 800 mcg tablet 1 tab PO DAILY Print Language: [place] Citizen
[2024-12-13 14:16] VITALS: BP 104/61; PULSE 72; RESP 16; TEMP 36.8; O2SAT 100
[2024-12-13 14:22] LABS: Basophils Absolute Auto 0.1 X10*3/uL (0.0-0.2); Basophils Percent Auto 0.3 % (0-2); Eosinophils Percent Auto 0.1 % (0-4); Hematocrit 37.6 % (37.0-47.0); Hemoglobin 13.5 g/dl (12.0-16.0); Imm Gran Abs Auto 0.07 X10*3/uL (0.00-0.03); Imm Gran Pct Auto 0.4 % (0.0-0.4); Lymphocytes Absolute Auto 2.2 X10*3/uL (1.2-4.9); Lymphocytes Percent Auto 13.2 % (20-40); Mean Corpuscular HGB Conc 35.9 g/dl (31.0-35.0); Mean Corpuscular Hemoglobin 31.8 pg (27.0-33.0); Mean Corpuscular Volume 88.7 fL (80.0-98.0); Mean Platelet Volume 11.4 fL (9.4-12.3); Monocytes Absolute Auto 0.9 X10*3/uL (0.1-1.2); Monocytes Percent Auto 5.6 % (2-11); Neutrophils Absolute Auto 13.3 x10*3/uL (2.0-8.3); Neutrophils Percent Auto 80.4 % (45-73); Platelet Count 255 X10*3/uL (160-400); Red Blood Count 4.24 X10*6/uL (4.20-5.50); Red Cell Distribution Width 13.2 % (11.0-16.0); White Blood Count 16.5 X10*3/uL (4.8-10.8)
[2024-12-13] MEDS: ondansetron HCL 4 MG/2 ML VIAL IVPUSH (14:42)
[2024-12-13] MEDS: Lactated Ringers 1,000 ML 999 ML IV (14:44)
[2024-12-13 14:45] LABS: Alanine Aminotransferase 11 U/L (0-31); Albumin Level 4.1 g/dL (3.5-5.0); Alkaline Phosphatase 42 U/L (39-117); Anion Gap 11 (12-20); Aspartate Amino Transferase 19 U/L (5-31); Bilirubin Total 0.4 mg/dL (0.0-1.0); Blood Urea Nitrogen 7 mg/dL (9-16); Calcium 9.6 mg/dL (8.4-10.2); Carbon Dioxide 21 mmol/L (22-29); Chloride 107 mmol/L (96-108); Creatinine Clr Calc Pharmacy 106.4; Estimated Glomerular Filt Rate > 60; Glucose Random 86 mg/dL (60-115); Potassium 4.1 mmol/L (3.3-5.1); Sodium 135 mmol/L (135-145); Total Protein 7.7 g/dL (6.5-8.0)
[2024-12-13 14:56] LABS: Appearance Urine Cloudy; Color Urine Yellow; Glucose Urine UA Negative (Negative); Leukocyte Esterase Urine Negative (Negative); Nitrite Urine Negative (Negative); PH 7.5 (5.0-9.0); Specific Gravity - Urine 1.025 (1.005-1.025); Urine Blood Negative (Negative); Urine Ketones 80 mg/dL (Negative); Urine Protein Trace mg/dL (Neg-Trace)
[2024-12-13 14:59] LABS: Bacteria Urine None Seen (None Seen); Hyaline Casts Urine 0-2 /LPF (0-2); RBC Urine 0-2 /HPF (0-2); Squamous Epithelial Cell Urine 0-2 /HPF (0-2); WBC Urine 0-5 /HPF (0-5)
--- NOTE | 2024-12-13 15:01 | PC.NURSE ---
20gIV placed in the right AC - IVF/medication administered per provider order. pt ambulates to the restroom w/ a strong/steady gait. no use of assistive devices needed. urine specimen obtained/sent to lab.
[2024-12-13 15:16] LABS: Influenza A PCR NEGATIVE (Negative); Influenza B PCR NEGATIVE (Negative); Resp Syncy Virus RNA Qual PCR NEGATIVE (Negative); SARS COV2 PCR INHOUSE NEGATIVE (Negative)
[2024-12-13 15:41] VITALS: BP 107/61; PULSE 70; RESP 18; TEMP 36.9; O2SAT 98
[2024-12-13 15:59] VITALS: BP 107/61; PULSE 70; RESP 18; TEMP 36.9; O2SAT 98
== END 2024-12-13 16:15 | disposition home or self-care (01) ==
PROVIDERS: Emergency Provider Emergency Medicine; PCP General Practice
DX: O21.0 Mild hyperemesis gravidarum (principal); Z3A.10 10 weeks gestation of pregnancy; Z03.818 Encounter for observation for suspected exposure to other biological agents ruled out
CPT/HCPCS: 0241U; 80053; 81001; 84702; 85025; 96361; 96374; 99284; J2405; J7120

== ENCOUNTER 2024-12-18 11:54 | Outpatient (AMB) | payer MEDICAID, SELFPAY ==
--- NOTE | 2024-12-18 12:13 | A.OFFVIS_ITS ---
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
--- NOTE | 2024-12-18 12:15 | A.OFFVISPN_ITS ---
Intake Vital Signs 12/18/24 12:23 Height 5 ft 3 in Weight 135 lb BMI 23.9 BP 92/64 Intake Visit Reasons: DA 20-24 week Intake Note: 11 weeks , difficulty sleeping and morning sickness. Road Commissioner: Road Commissioner Present (Ashly) Accompanied by: Mother Allergies SEASONAL ALLERGIES Allergy (Intermediate, Uncoded 12/13/24 13:51) NASAL CONGESTION Is last menstrual period known: No Post menopausal: No Patient : Yes PFSH Family History Mother Uterus cancer Maternal Aunt Breast cancer Father HTN (hypertension) Diabetes Maternal Grandfather HTN (hypertension) Maternal Grandfather Diabetes Social History Household Members: Family Housing: Apartment Alcohol intake: former Patient Tobacco Use Status: Current everyday Tobacco user Cigarettes Per Day: 2 Years Smoked: 4 Substance Use Type: Marijuana Current occupational status: employed 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
[2024-12-18 12:23] VITALS: BP 92/64; BMI 23.9
--- NOTE | 2024-12-18 12:26 | MHC.OFFVIS ---
Vital Signs 12/18/24 12:23 Height 5 ft 3 in Weight 135 lb BMI 23.9 BP 92/64 Intake Visit Reasons: DA 20-24 week Allergies SEASONAL ALLERGIES Allergy (Intermediate, Uncoded 12/13/24 13:51) NASAL CONGESTION HPI Comments Details: Presenting for follow-up at 10 weeks and 6 days of gestation with no complaints no pelvic cramping and or bleeding. On vitamin 1 tablet p.o. q.d.. No nausea or vomiting. The patient is scheduled 1st visit in few days at [facility] Family History Mother Uterus cancer Maternal Aunt Breast cancer Father HTN (hypertension) Diabetes Maternal Grandfather HTN (hypertension) Maternal Grandfather Diabetes Social History Household Members: Family Housing: Apartment Alcohol intake: former Patient Tobacco Use Status: Current everyday Tobacco user Cigarettes Per Day: 2 Years Smoked: 4 Substance Use Type: Marijuana Current occupational status: employed Current occupation: [employer] Review of Systems Const All systems reviewed & are unremarkable except as noted in HPI and below Reports as per HPI and Reports no additional complaints GI Reports no additional complaints Reports no additional complaints Physical Exam Vital Signs: Last Vital Signs BP 92/64 12/18/24 12:23 BMI result Body Mass Index 23.9 Assessment & Plan Assessment & Plan (1) : Code(s): Z34.90 - Encounter for supervision of normal , unspecified, unspecified trimester Category: Medical Plan: vitamin 1 tablet p.o. q.d.. SAB warnings given the patient, she is to call or go to emergency room in case of pelvic cramping and or bleeding. Instructions given the patient to call if her [facility] visit 1st appointment is not missed, rescheduled or canceled since timing is important regarding the 1st trimester screen. All questions answered, the patient verbalized understanding and agreed with the plan. Coding Level of Care Code Est Pt Level 3 (29216) Diagnoses Z34.90
--- OUTSIDE RECORDS SUMMARY | 2024-12-18 14:17 | XMS_ITS | Encounter Summary ---
Author Organization [employer] Address [address] [facility] [address] [place] [address] Care Team Providers Care Cash Register Operator Name Role Phone Shaneka Howard MD Primary Care Provider [phone] Encounter Details Date Type Department Care Team ([facility] st Contact Info) Description 12/12/2024 Population Health Risk Score [facility] (C3) Department [address] [facility] [address] [place] [id number] Provider, Population Health Generic Social History Tobacco Use Types Packs/Day Years [...] documented as of this encounter Care Teams Cash Register Operator Relationship Specialty Start Date End Date Shaneka Howard MD [address] [place] [phone] PCP - General Family Medicine 11/14/23 documented as of this encounter
--- OUTSIDE RECORDS SUMMARY | 2024-12-18 14:18 | XMS_ITS | Encounter Summary ---
Author Organization [employer] Address [address] [facility] [address] [place] [address] Care Team Providers Care Vortex Operator Name Role Phone [facility] Primary Care Provider [phone] Shaneka Howard MD Primary Care Provider [phone] Reason for Visit * Reason Onset Date Comments Nurse Triage 04/09/2023 Encounter Details Date Type Department Care Team ([facility] st Contact Info) Description 04/09/2023 Telephone [facility] MEDICINE [address] [place] [address] [facility] [address] [place] [address] Nurse Triage Social History Tobacco Use Types [...] answer x2. Left voice message to call [facility] triage line at [phone] . * Telephone Encounter - Jaimie Solis [...] on filedocumented in this encounter Care Teams Vortex Operator Relationship Specialty Start Date End Date Gogo Giordano FNP [address] [place] [address] PCP - General Family Medicine 05/27/22 11/13/23 Shaneka Howard MD [address] [place] [address] PCP - General Family Medicine 11/14/23 documented as of this encounter
--- OUTSIDE RECORDS SUMMARY | 2024-12-18 14:18 | XMS_ITS | Encounter Summary ---
Author Organization [employer] Address [address] [facility] [address] [place] [address] Care Team Providers Care Shot Blaster Name Role Phone Shaneka Howard MD Primary Care Provider [phone] Encounter Details Date Type Department Care Team ([facility] st Contact Info) Description 12/13/2024 Orders Only GENERIC EXTERNAL DATA DEPARTMENT Provider, [...] as of this encounter Plan of Treatment Pending Results Name Type Priority Associated Diagnoses Date /Time Comprehensive Metabolic Panel Lab Routine 12/13/2024 2:03 PM EDT documented as of this encounter Procedures Procedure Name Priority Date/Time Associated Diagnosis Comments URINALYSIS, COMPLETE, WITH REFLEX TO CULTURE Routine 12/13/2024 2:49 PM EDT SARS COV2/INFLUENZA A/B AND RSV RNA QL NAAT Routine 12/13/2024 2:03 PM EDT CBC WITH AUTO DIFFERENTIAL Routine 12/13/2024 2:03 PM EDT COMPREHENSIVE METABOLIC PANEL Routine 12/13/2024 2:03 PM EDT documented in this encounter Results * Urinalysis, Complete, with Reflex to Culture (12/13/2024 2:49 PM EDT) Color Urine Yellow [facility] Appearance Urine Cloudy [facility] PH 7.5 5.0 - 9.0 [facility] Glucose Urine UA Negative Negative mg/dL [facility] Urine Blood Negative Negative [facility] Specific [place] - Urine 1.025 1.005 - 1.025 [facility] Urine Protein Trace Neg-Trace mg/dL [facility] Urine Ketones 80 Negative mg/dL [facility] Nitrite Urine Negative Negative [facility] Leukocyte Esterase Urine Negative Negative [facility] RBC Urine 0-2 0 - 2 /HPF [facility] Urine WBC 0-5 0 - 5 /HPF [facility] Urine Squamous Epithelial Cell 0-2 0 - 2 /HPF [facility] Urine Bacteria None Seen None Seen [facility] Hyaline Casts, Urine 0-2 0 - 2 /LPF [facility] 12/13/2024 2:49 PM EDT 12/13/2024 2:53 PM EDT Narrative [facility] - 12/13/2024 2:59 PM EDT [id number], Clean Catch Generic External Data Provider LAB URINE ORDERAB LES Final Result Performing Organization Address [facility] Co de Phone Number [facility] [address] [place] [phone] * SARS-CoV-2 RNA, Influenza A/B, and RSV RNA, Ql NAAT (12/13/2024 2:03 PM EDT) Influenza A PCR NEGATIVE Negative [facility] Influenza B PCR NEGATIVE Negative [facility] Resp Syncy Virus RNA Qual PCR NEGATIVE Negative [facility] SARS COV2 PCR NEGATIVE Negative [facility] Comment:All test results mus t be [...] use by authorized laboratories.Testing performed on the [employer] GeneXpert utilizingreal-time RT-PCR.All SARS CoV2 and positive influenza A/B results arereported to [facility]. 12/13/2024 2:03 PM EDT 12/13/2024 2:06 PM EDT Generic External Data Provider LAB MICROBIOLOGY - GENERAL ORDERABLES Final Result Performing Organization Address [facility]/ZIP Co de Phone Number [facility] [address] [place] [phone] * (ABNORMAL) CBC auto differential (12/13/2024 2:03 PM EDT) White Blood Count 16.5(H) 4.8 - 10.8 X10*3/uL [facility] Red Blood Count 4.24 4.20 - 5.50 X10*6/uL [facility] Hemoglobin 13.5 12.0 - 16.0 g/dl [facility] Hematocrit 37.6 37.0 - 47.0 % [facility] Mean Corpuscular Volume 88.7 80.0 - 98.0 fL [facility] Mean Corpuscular Hemoglobin 31.8 27.0 - 33.0 pg [facility] Mean Corpuscular HGB Conc 35.9(H) 31.0 - 35.0 g/dl [facility] Red Cell Distribution Width 13.2 11.0 - 16.0 % [facility] Platelet Count 255 160 - 400 X10*3/uL [facility] Mean Platelet Volume 11.4 9.4 - 12.3 fL [facility] Neutrophils Percent Auto 80.4(H) 45 - 73 % [facility] Imm Gran Pct Auto 0.4 0.0 - 0.4 % [facility] Lymphocytes Percent Auto 13.2(L) 20 - 40 % [facility] Monocytes Percent Auto 5.6 2 - 11 % [facility] Eosinophils Percent Auto 0.1 0 - 4 % [facility] Basophils Percent Auto 0.3 0 - 2 % [facility] NRBC Pct Auto 0.0 0.0 - 0.2 /100WBC [facility] Neutrophils Absolute Auto 13.3(H) 2.0 - 8.3 x10*3/uL [facility] Imm Gran Abs Auto 0.07(H) 0.00 - 0.03 X10*3/uL [facility] Lymphocytes Absolute Auto 2.2 1.2 - 4.9 X10*3/uL [facility] Monocytes Absolute Auto 0.9 0.1 - 1.2 X10*3/uL [facility] Eosinophils Absolute Auto 0.0 0.0 - 0.4 X10*3/uL [facility] Basophils Absolute Auto 0.1 0.0 - 0.2 X10*3/uL [facility] NRBC Abs Auto 0.000 0.0 - 0.012 X10*3/uL [facility] 12/13/2024 2:03 PM EDT 12/13/2024 2:06 PM EDT us Generic External Data Provider LAB BLOOD ORDERAB LES Final Result [facility] [address] [place] [phone] documented in this encounter Visit Diagnoses Not on filedocumented in this encounter Additional Health Concerns Assessment Noted Time PHQ-9 Depression Total Score: 24 024 2:26 PM EDT documented as of this encounter Care Teams Shot Blaster Relationship Specialty Start Date End Date Shaneka Howard MD [address] [place] [address] PCP - General Family Medicine 11/14/23 documented as of this encounter
--- OUTSIDE RECORDS SUMMARY | 2024-12-18 14:18 | XMS_ITS | Encounter Summary ---
Demographics Address [address] [place] [address] Home Phone Mobile Phone Preferred Language en Marital Status Single Jehovah'S Witness Affiliation Unknown Race Other Race Ethnic Group or Author Organization [employer] Address [address] [place] [address] Care Team Providers Care Vaccinator Name Role Phone Shaneka Howard MD Primary Care Provider [phone] Encounter Details Date Type Department Care Team ([facility] st Contact Info) Description 11/20/2024 Orders Only [facility] External Provider, [facility] Social History Tobacco Use Types Packs/Day [...] EST Narrative 11/20/2024 3:03 PM EST ? [facility] ?[address] ?[place] [address] ? Ultrasound Report ? Signed ? Patient: Autumn Aggarwal ?MR#: [id number] ?? [id number] ? : 2000 ?Acct:[id number] ? Age/Sex: 24 / F ?ADM Date: 11/20/24 ? Loc: HO.US ? Attending Dr: Anthony Morris MD ? Ordering Physician: Anthony Morris MD ?? Date of Service: 11/20/24 ?? Procedure(s): US OB <= 14 weeks fetus ?? Accession Number(s): [id number] ? cc: Shaneka Howard; Anthony Morris MD [...] DD/ 1502 ? TD/TT: 11/20/24 1510 ? Software Firmware Engineer: ? Procedure Note Priscilla Fonseca - 11/20/[address] [address] Ultrasound Report Signed Patient: Jamal Aggarwal#: [id number] 68 : 2000Acct:[id number] Age/Sex: 24 / FADM Date: 11/20/24 Loc: HO.US Attending Dr: Anthony Morris MD Ordering Physician: Anthony Morris MD Date of Service: 11/20/24 Procedure(s): US OB <= 14 weeks fetus Accession Number(s): [id number] cc: Shaneka Howard; Anthony Morris MD EXAMINATION: [...] by: Jayden Marcus MD 11/20/2024 03:00 PM [facility] Dictated By: Jayden Marcus MD Signed By: <Electronically signed by Jayden Marcus MD in OV> 11/20/24 1500 DD/ 1502 TD/TT: 11/20/24 1510 Software Firmware Engineer: [facility] External Provider IMG OB US PROCEDURES Final Result documented in this encounter Visit Diagnoses Not on filedocumented in this encounter Additional Health Concerns Assessment Noted Time PHQ-9 Depression Total Score: 24 024 2:26 PM EDT documented as of this encounter Care Teams Vaccinator Relationship Specialty Start Date End Date Shaneka Howard MD [address] [place] [address] PCP - General Family Medicine 11/14/23 documented as of this encounter
--- OUTSIDE RECORDS SUMMARY | 2024-12-18 14:18 | XMS_ITS | Clinical Summary ---
Demographics Address [address] [facility] [address] [place] [address] Home Phone Mobile Phone Preferred Language en Marital Status Single Yazidism Affiliation Unknown Race Other Race Ethnic Group or Author Organization [employer] Address [address] [place] [address] Care Team Providers Care City Bus Driver Name Role Phone Shaneka Howard MD Primary Care Provider [phone] Allergies No known active allergies Medications * [...] blood and CBC -STAT pelvic/TV US -STAT TALENT SOURCER referral requested to referral at [facility] by pt prefernce- will inform pt results [...] & Plan (04/29/2024 10:14 AM EDT): During [facility] Consult Autumn presenting with depressed [...] Health Integration Plan Internal Follow up with [facility] External OP therapy referral and OP psychiatry Referral Patient Self Plan Patient to utilize skills provided in intervention , Patient to reach out to [facility] team as needed, Patient to engage [...] Health Integration Plan Internal Follow up with [facility] External OP BH therapy referral and OP psychiatry Referral Patient Self Plan Patient to utilize skills provided in intervention , Patient to reach out to [facility] team as needed, Patient to engage in OP therapy , and Patient to reach out to [facility] as needed Vitamin D deficiency 06/07/2018 Allergic rhinitis 06/18/2017 Mild intermittent asthma 11/27/2016 Developmental academic disorder 06/28/2015 Dyssomnia 06/08/2014 Impulse control disorder 06/08/2014 Comments Yes Encounters Date Type Department Care Team Description 12/13/2024 Orders Only GENERIC EXTERNAL DATA DEPARTMENT Provider, Generic External Data 12/12/2024 Population Health Risk Score Community [facility] () Department [address] [place] [phone] Provider, Population Health Generic 11/20/2024 Orders Only [facility] External Provider, [facility] 11/13/2024 Orders Only GENERIC EXTERNAL DATA DEPARTMENT Provider, Generic External Data 11/12/2024 Orders Only [facility] External Provider, [facility] 11/11/2024 Orders Only GENERIC EXTERNAL DATA DEPARTMENT Provider, Generic External Data 11/07/2024 Orders Only GENERIC EXTERNAL DATA DEPARTMENT Provider, Generic External Data 11/06/2024 Orders Only GENERIC EXTERNAL DATA DEPARTMENT Provider, Generic External Data 10/09/2024 Telephone [facility] MEDICINE [address] [place], [place] [phone] Janneth Dale ME RECALL 09/29/2024 Telephone [facility] ADULT DENTAL [address] [place], [place] [phone] [place] Hwang from Last 3 Months Immunizations Name Administration [...] TO CULTURE Routine 12/13/2024 2:49 PM EDT COMPREHENSIVE METABOLIC PANEL Routine 12/13/2024 2:03 PM EDT CBC WITH AUTO DIFFERENTIAL Routine 12/13/2024 2:03 PM EDT SARS COV2/INFLUENZA A/B AND RSV RNA QL NAAT Routine 12/13/2024 2:03 PM EDT US OB <14 WEEKS FETUS Routine 11/20/2024 [...] QL NAAT Routine 11/06/2024 9:09 PM EST from Last 3 Months Results * Urinalysis, Complete, with Reflex to Culture (12/13/2024 2:49 PM EDT) Only the most recent of2 resultswithin the time period is included. Color Urine Yellow [facility] Appearance Urine Cloudy [facility] PH 7.5 5.0 - 9.0 [facility] Glucose Urine UA Negative Negative mg/dL [facility] Urine Blood Negative Negative [facility] Specific Cope - Urine 1.025 1.005 - 1.025 [facility] Urine Protein Trace Neg-Trace mg/dL [facility] Urine Ketones 80 Negative mg/dL [facility] Nitrite Urine Negative Negative [facility] Leukocyte Esterase Urine Negative Negative [facility] RBC Urine 0-2 0 - 2 /HPF [facility] Urine WBC 0-5 0 - 5 /HPF [facility] Urine Squamous Epithelial Cell 0-2 0 - 2 /HPF [facility] Urine Bacteria None Seen None Seen [facility] Hyaline Casts, Urine 0-2 0 - 2 /LPF [facility] 12/13/2024 2:49 PM EDT 12/13/2024 2:53 PM EDT Narrative [facility] - 12/13/2024 2:59 PM EDT [id number], Clean Catch us Generic External Data Provider LAB URINE ORDERAB LES Final Result [facility] [address] [place] [phone] * SARS-CoV-2 RNA, Influenza A/B, and RSV RNA, Ql NAAT (12/13/2024 2:03 PM EDT) Only the most recent of2 resultswithin the time period is included. Influenza A PCR NEGATIVE Negative [facility] Influenza B PCR NEGATIVE Negative [facility] Resp Syncy Virus RNA Qual PCR NEGATIVE Negative [facility] SARS COV2 PCR NEGATIVE Negative [facility] [...] use by authorized laboratories.Testing performed on the o[employer] GeneXpert utilizingreal-time RT-PCR.All SARS CoV2 and positive influenza A/B results arereported to [facility]. 12/13/2024 2:03 PM EDT 12/13/2024 2:06 PM EDT us Generic External Data Provider LAB MICROBIOLOGY - GENERAL ORDERABLES Final Result [facility] [address] [place] [phone] * (ABNORMAL) CBC auto differential (12/13/2024 2:03 PM EDT) Only the most recent of2 resultswithin the time period is included. White Blood Count 16.5(H) 4.8 - 10.8 X10*3/uL [facility] Red Blood Count 4.24 4.20 - 5.50 X10*6/uL [facility] Hemoglobin 13.5 12.0 - 16.0 g/dl [facility] Hematocrit 37.6 37.0 - 47.0 % [facility] Mean Corpuscular Volume 88.7 80.0 - 98.0 fL [facility] Mean Corpuscular Hemoglobin 31.8 27.0 - 33.0 pg [facility] Mean Corpuscular HGB Conc 35.9(H) 31.0 - 35.0 g/dl [facility] Red Cell Distribution Width 13.2 11.0 - 16.0 % [facility] Platelet Count 255 160 - 400 X10*3/uL [facility] Mean Platelet Volume 11.4 9.4 - 12.3 fL [facility] Neutrophils Percent Auto 80.4(H) 45 - 73 % [facility] Imm Gran Pct Auto 0.4 0.0 - 0.4 % [facility] Lymphocytes Percent Auto 13.2(L) 20 - 40 % [facility] Monocytes Percent Auto 5.6 2 - 11 % [facility] Eosinophils Percent Auto 0.1 0 - 4 % [facility] Basophils Percent Auto 0.3 0 - 2 % [facility] NRBC Pct Auto 0.0 0.0 - 0.2 /100WBC [facility] Neutrophils Absolute Auto 13.3(H) 2.0 - 8.3 x10*3/uL [facility] Imm Gran Abs Auto 0.07(H) 0.00 - 0.03 X10*3/uL [facility] Lymphocytes Absolute Auto 2.2 1.2 - 4.9 X10*3/uL [facility] Monocytes Absolute Auto 0.9 0.1 - 1.2 X10*3/uL [facility] Eosinophils Absolute Auto 0.0 0.0 - 0.4 X10*3/uL [facility] Basophils Absolute Auto 0.1 0.0 - 0.2 X10*3/uL [facility] NRBC Abs Auto 0.000 0.0 - 0.012 X10*3/uL [facility] 12/13/2024 2:03 PM EDT 12/13/2024 2:06 PM EDT us Generic External Data Provider LAB BLOOD ORDERAB LES Final Result [facility] [address] [place] [phone] * US OB <14 WEEKS FETUS (11/20/2024 3:02 PM EST) Anatomical Region Laterality Modality Ultrasound 11/20/2024 3:02 PM EST Narrative 11/20/2024 3:03 PM EST ? [facility] ?[address] ?[place] [address] ? Ultrasound Report ? Signed ? Patient: Jasen,Autumn ?MR#: [id number] ?? 68 ? : 2000 ?Acct:[id number] ? Age/Sex: 24 / F ?ADM Date: 02/20/25 ? Loc: HO.US ? Attending Dr: Anthony Morris MD ? Ordering Physician: Anthony Morris MD ?? Date of Service: 11/20/24 ?? Procedure(s): US OB <= 14 weeks fetus ?? Accession Number(s): [id number] ? cc: Shaneka Howard; Anthony Morris MD [...] mass. ??No maternal pelvic ?? ascites. ? US/ OB <= 14 weeks fetus ?? IMPRESSION: [...] DD/ 1502 ? TD/TT: 11/20/24 1510 ? Treating Plant Operator: ? Procedure Note Donotuseinterpreter, Image - 11/20/2024 [place] [id number] Ultrasound Report Signed Patient: Jamal Aggarwal#: [id number] 68 : 2000Acct:[id number] Age/Sex: 24 / FADM Date: 11/20/24 Loc: HO.US Attending Dr: Anthony Morris MD Ordering Physician: Anthony Morris MD Date of Service: 11/20/24 Procedure(s): US OB <= 14 weeks fetus Accession Number(s): [id number] cc: Shaneka Howard; Anthony Morris MD EXAMINATION: [...] 11/20/24 1500 DD/ 1502 TD/TT: 11/20/24 1510 Treating Plant Operator: [facility] External Provider IMG OB US PROCEDURES Final Result * US OB Pelvis with Transvaginal (11/13/2024 2:50 PM EST) Only the most recent of3 resultswithin the time period is included. Anatomical Region Laterality Modality Pelvis Ultrasound 11/13/2024 2:50 PM EST Narrative 11/13/2024 3:32 PM EST ? [facility] ?[address] ?[place] [address] ? Ultrasound Report ? Signed ? Patient: Autumn Aggarwal ?MR#: [id number] ?? 68 ? : 2000 ?Acct:[id number] ? Age/Sex: 24 / F ?ADM Date: 11/13/24 ? Loc: HO.US ? Attending Dr: Anthony Morris MD ? Ordering Physician: Anthony Morris MD ?? Date of Service: 11/13/24 ?? Procedure(s): US OB pelvic and transvaginal ?? Accession Number(s): [id number] ? cc: Shaneka Howard; Anthony Morris MD [...] DD/ 1450 ? TD/TT: 11/13/24 1517 ? Treating Plant Operator: ? Procedure Note Priscilla Fonseca - 11/13/[address] [address] Ultrasound Report Signed Patient: Jamal Aggarwal#: [id number] 68 : 2000Acct:[id number] Age/Sex: 24 / FADM Date: 11/13/24 Loc: HO.US Attending Dr: Anthony Morris MD Ordering Physician: Anthony Morris MD Date of Service: 11/13/24 Procedure(s): US OB pelvic and transvaginal Accession Number(s): [id number] cc: Shaneka Howard; Anthony Morris MD EXAMINATION: [...] 11/13/2024 03:29 PM [facility] Dictated By: Jorje Asif MD Signed By: <Electronically signed by Jorje Aiken MDin OV> 11/13/24 1529 DD/ 1450 TD/TT: 11/13/24 1517 Treating Plant Operator: [facility] External Provider IMG US PROCEDURES Final Result * (ABNORMAL) Bacterial Vaginosis (11/13/2024 12:13 PM EST) Pathologist [facility] TRICHOMONAS VAGINALIS DETECTION BY PCR NOT DETECTED Not Detect [facility] BACTERIAL VAGINOSIS DETECTION BY PCR POSITIVE(A) Negative [facility] Comment:The BV organism targ ets of [...] DETECTION BY PCR NOT DETECTED Not Detect [facility] Muna glab krusei PCR NOT DETECTED Not Detect [facility] 11/13/2024 12:1 3 PM EST 11/13/2024 3:38 PM EST Generic External Data Provider LAB MICROBIOLOGY - GENERAL ORDERABLES Final Result Performing Organization Address City/State/[facility] Co de Phone Number [facility] [address] [place] [phone] * Chlamydia/N. Gonorrhoeae RNA, TMA, Urogenitial (11/13/2024 12:13 PM EST) Pathologist [facility] CT PCR NOT DETECTED Not Detect. [facility] Comment:A not detected test result does [...] psychologicalconsequences. NG PCR NOT DETECTED Not Detect. [facility] Comment:A not detected test result does [...] PM EST 11/13/2024 3:38 PM EST Narrative [facility] - 11/14/2024 1:58 PM EST Vaginal us Generic External Data Provider LAB MICROBIOLOGY - GENERAL ORDERABLES Final Result [facility] [address] [place] [phone] * hCG, Total, Quantitative (11/13/2024 11:40 AM EST) Only the most recent of3 resultswithin the time period is included. HCG Quantitative 9,800 mIU/mL [facility] Comment:Weeks post LMP Appro ximate hCG(Last Menstrual Period) Range (mIU/ml)3 - 4 weeks 9 - 1304 - 5 weeks 75 - 2,6005 - 6 weeks 850 - 20,8006 - 7 weeks 4000 - 100,2007 - 12 weeks 11,500 - 289,76061 - 16 weeks 18,300 - 137,41930 - 29 weeks (2nd trimester) 1,400 - 53,97084 - 41 weeks (3rd trimester) 940 - [...] ORDERAB LES Final Result Performing Organization Address [facility] Phone Number [facility] [address] [place] [phone] * Syphilis Screen (11/11/2024 1:05 PM EST) Pathologist [facility] Syphilis Screen Nonreactive Nonreactive [facility] 11/11/2024 1:05 PM EST 11/11/2024 1:05 PM EST [facility] External Data Provider LAB BLOOD ORDERAB LES Final Result Performing Organization Address [facility] Number [facility] [address] [place] [phone] * Hepatitis C Ab (11/11/2024 1:05 PM EST) [facility] Hepatitis C Antibody Nonreactive Nonreactive [facility] Comment:Antibodies to HCV no t detected; does not exclude early acuteHCV infection. 11/11/2024 1:05 PM EST 11/11/2024 1:05 PM EST [facility] External Data Provider LAB BLOOD ORDERAB LES Final Result Performing Organization Address [facility] Number [facility] [address] [place] [phone] * Hepatitis B surface antigen, EIA (11/11/2024 1:05 PM EST) Pathologist [facility] Hepatitis B Surface Ag Negative Negative [facility] 11/11/2024 1:05 PM EST 11/11/2024 1:05 PM EST us Generic External Data Provider LAB BLOOD ORDERAB LES Final Result Performing Organization Address [facility] Co de Phone Number [facility] [address] [place] [phone] * HIV-1/2 Antigen and Antibodies, Fourth [...] below the limit ofdetection of this assay.The [employer] HIV Ag/Ab Combo assay result andsupplemental assay results should be interpreted inconjunction with the patient's clinical presentation,history and other laboratory results. If the results areinconsistent with clinical evidence, additional testing issuggested to confirm the result. 11/11/2024 1:05 PM EST 11/11/2024 1:05 PM EST us Generic External Data Provider LAB BLOOD ORDERAB LES Final Result Performing Organization Address [facility] Co de Phone Number [facility] [address] [place] [phone] * Magnesium (11/06/2024 9:10 PM EST) Magnesium 1.8 1.6 - 2.6 mg/dL [facility] 11/06/2024 9:10 PM EST 11/06/2024 9:13 PM EST Generic External Data Provider LAB BLOOD ORDERAB LES Final Result Performing Organization Address [facility]/State/ZIP Co de Phone Number [facility] [address] [place] [phone] * (ABNORMAL) Comprehensive Metabolic Panel (11/06/2024 9:10 PM EST) Sodium 135 135 - 145 mmol/L [facility] Potassium 4.2 3.3 - 5.1 mmol/L [facility] Chloride 107 96 - 108 mmol/L [facility] Carbon Dioxide 21(L) 22 - 29 mmol/L [facility] Anion Gap 11(L) 12 - 20 [facility] Urea Nitrogen (BUN) 9 9 - 16 mg/dL [facility] Creatinine, Serum 0.66 0.5 - 1.4 mg/dL [facility] Creatinine Clr Calc Pharmacy 109.7 [facility] Comment:Provided height and weight: 160.02 cm,59.4 kg.eGFR (calculated from the MDRD study equation) and eCrCl(calculated from the Cockcroft-Gault equation) are based ondifferent parameters and may not yield comparable results.If eCrCl result is absurd, please check patient'sheight/weight. Estimated Glomerular Filt Rate >60 [facility] Comment:Chronic Kidney Disea se: Estimated GFR < 60 mL/min/1.37o7Pbrzrd Kidney Disease: Estimated GFR < 15 mL/min/1.73m2 Glucose 90 60 - 115 mg/dL [facility] Calcium 9.1 8.4 - 10.2 mg/dL [facility] Bilirubin, Total 0.7 0.0 - 1.0 mg/dL [facility] Aspartate Amino Transferase 25 5 - 31 U/L [facility] Alanine Aminotransferase 15 0 - 31 U/L [facility] Total Protein 7.9 6.5 - 8.0 g/dL [facility] Albumin Level 4.4 3.5 - 5.0 g/dL [facility] Alkaline Phosphatase 61 39 - 117 U/L [facility] 11/06/2024 9:10 PM EST 11/06/2024 9:13 PM EST us Generic External Data Provider LAB BLOOD ORDERAB LES Final Result Performing Organization Address City/State/[facility] Co de Phone Number [facility] [address] [place], [place] [phone] from Last 3 Months Insurance [id number] [facility] [address] MEDICAID STAND ADULT Care Teams City Bus Driver Relationship Specialty Start Date End Date Shaneka Howard MD [address] [place] [phone] PCP - General Family Medicine 11/14/23
--- OUTSIDE RECORDS SUMMARY | 2024-12-18 14:18 | XMS_ITS | Clinical Summary ---
Author Organization [facility] ity Address [address] [place] [address] Care Team Providers Care Residential Real Estate Sales Manager Name Role Phone Unavailable Primary Care Provider [...]
--- OUTSIDE RECORDS SUMMARY | 2024-12-18 14:18 | XMS_ITS | Encounter Summary ---
Author Organization [employer] Address [address] [place] [address] Care Team Providers Care Sleeve Ironer Name Role Phone Shaneka Howard MD Primary Care Provider [phone] Reason for Visit * Reason Onset Date Comments Nurse Triage 11/14/2023 Encounter Details Date Type Department Care Team ([facility] st Contact Info) Description 11/14/2023 Telephone [facility] MEDICINE [address] [place] [address] [facility] [address] [place] [address] Nurse Triage Social History Tobacco Use Types [...] away. Pt is advised to come to [facility] today open till 8pm and provider can see Pt. Home care advised and insurance is not verified as active, Pt is advised to contact insurance first. Pt reponds I was already told about this . Pt also requests not to call on [phone] number it is an emergency number. Protocol [...] on filedocumented in this encounter Care Teams Sleeve Ironer Relationship Specialty Start Date End Date Shaneka Howard MD [address] [place] [address] PCP - General Family Medicine 11/14/23 documented as of this encounter
--- OUTSIDE RECORDS SUMMARY | 2024-12-18 14:18 | XMS_ITS | Encounter Summary ---
Author Organization [employer] Address [address] [place] [address] Care Team Providers Care Paperback Machine Operator Name Role Phone Shaneka Howard MD Primary Care Provider [phone] Reason for Visit * Reason Onset Date Comments dental emergency/ 07/25/2024 Encounter Details Date Type Department Care Team ([facility] st Contact Info) Description 07/25/2024 Telephone [facility] ADULT DENTAL [address] [place] [address] Diana Rob DDS [address] [place] [address] dental emergency/ Social History Tobacco Use Types [...] with others, in a hotel, in [place], living outside on the street, on a [...] to providefor dental treatment). Provided fax number [phone] to have OB office send in clearance. [...] documented as of this encounter Care Teams Paperback Machine Operator Relationship Specialty Start Date End Date Shaneka Howard MD [address] [place] [address] PCP - General Family Medicine 11/14/23 documented as of this encounter
== END 2024-12-18 12:35 | disposition home or self-care (01) ==
LOC: HO.HWS 11:54
PROVIDERS: PCP General Practice; Visit Provider Obstetrics & Gynecology
DX: Z34.90 Encounter for supervision of normal pregnancy, unspecified, unspecified trimester (principal)
CPT/HCPCS: 99213

== ENCOUNTER → 2024-12-18 11:54 | Outpatient (BNVA) | payer MEDICAID, SELFPAY | PROVIDERS: PCP General Practice; Visit Provider Obstetrics & Gynecology | DX: Z34.90 Encounter for supervision of normal pregnancy, unspecified, unspecified trimester (principal) | CPT/HCPCS: 99212 ==

== ENCOUNTER 2024-12-21 22:32 | Emergency (ER) | payer MEDICAID, SELFPAY ==
[2024-12-21 22:45] VITALS: BP 115/65; PULSE 79; RESP 16; TEMP 36.8; O2SAT 98; BMI 23.8
--- NOTE | 2024-12-22 02:10 | ED_ITS ---
HPI - Animal Bite General Chief Complaint: Animal Bite Stated Complaint: dog bit Right hand Time Seen by Provider: 12/22/24 01:47 Source: patient Mode of arrival: ambulatory Limitations: no limitations History of Present Illness ED Provider: Dr. Mell Cedeño HPI narrative: patient comes to the emergency room complaining of a dog bite to the right hand. It has been 14 hours since this happened. Patient states it is her own dog, dog is up-to-date with immunizations. Seems that this was a provoked attack. According to the patient, she was putting the dog, the dog was growling because the patient was trying to get her toy and The dog bit her in the hand. Patient does not have any other injuries. Patient is a G5 a 4 P0 at approximately 10 weeks of gestational age. Patient states that she is getting care here at [facility]. Related Data Home Medications ?Medication ?Instructions ?Recorded ?Confirmed vit no.95-ferrous 1 tab PO DAILY 07/30/24 fumarate 28 mg-folic acid 800 mcg tablet () Previous Rx's ?Medication ?Instructions ?Recorded pyridoxine (vitamin B6) 25 mg 25 mg PO tid PRN nausea 30 days 11/20/24 tablet (Vitamin B-6) #90 tabs amoxicillin 500 mg-potassium 1 tab PO BID #10 tabs 12/22/24 clavulanate 125 mg tablet (Augmentin) Allergies Allergy/AdvReac Type Severity Reaction Status Date / Time SEASONAL ALLERGIES Allergy Intermediate NASAL Uncoded 12/21/24 22:48 CONGESTION Review of Systems Review of Systems: Constitutional : No Weight loss, No Fever, No Chills, No Night Sweats, No Fatigue, No Malaise ENT/Mouth : No Hearing loss, No Ear Pain, No Nasal Congestion, No Sinus Pain, No Hoarseness, No sore throat, No Rhinorrhea, No Swallowing Difficulty Eyes: No Eye Pain, No Swelling, No Redness, No Foreign Body, No Discharge, No Vision Changes Cardiovascular : No Chest Pain, No SOB, No Dyspnea on Exertion, No Orthopnea, No Edema, No Palpitations Respiratory : No Cough, No Sputum, No Wheezing, No Smoke Exposure, No Dyspnea Gastrointestinal : No Nausea, No Vomiting, No Diarrhea, No Constipation, No abdominal Pain, No Hematochezia, No Melena Genitourinary : no irregular bleeding, No Dysuria, No Urinary Frequency, No Hematuria, No Urinary Incontinence, No Urgency, No Flank Pain, No Urinary Flow Changes, No Hesitancy Musculoskeletal : No joint pain, No Myalgias, No Joint Swelling Skin : Dog bite to the right hand, between the 3rd and 4th finger and dorsal aspect of the 3rd finger Neuro : No Weakness, No Numbness, No Paresthesias, No Loss of Consciousness, No Dizziness, No Headache Psych : No Anxiety/Panic, No Depression, No SI/HI/AH/VH, No Social Issues, Heme/Lymph: No Bruising, No Bleeding,No Lymphadenopathy Endocrine : No Polyuria, No Polydipsia, No Temperature Intolerance [facility] Family History Family History Mother Uterus cancer Maternal Aunt Breast cancer Father HTN (hypertension) Diabetes Maternal Grandfather HTN (hypertension) Maternal Grandfather Diabetes Social History Social History Household Members: Family Housing: Apartment Alcohol intake: former Patient Tobacco Use Status: Current everyday Tobacco user Cigarettes Per Day: 2 Years Smoked: 4 Substance Use Type: Marijuana Advance Directives: No Advance Directives Information Provided: Yes Do you have a plan to hurt others: No Plan Current occupational status: employed 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 Oriented X3. No acute distress. Eyes: Pupils equal, round and reactive to light. ENT: Pharynx normal. Neck: Normal inspection. Neck supple. No lymph nodes noted. No crepitus CVS: Normal heart rate and rhythm. Pulses normal. Normal S1 and S2 Respiratory: No respiratory distress. Breath sounds normal. No Wheezing. No rales Abdomen: Soft and nontender. No rigidity. No distention. Skin: Skin warm and dry. Normal skin color. Normal skin turgor. see extremities below Extremities: No lower extremity edema. No Lacerations. No Rash in the right hand, the right middle finger is a bit swollen, no obvious deformity. There is a bite to the dorsum of the 3rd finger and in the webspace between the 3rd and 4th finger, superficial. Neuro: Oriented X 3. No motor deficit. No sensory deficit. Moving all extremities. No slurred speech. CN 2 through 12 grossly intact Psych: calm, cooperative, normal affect Medical Decision Making Medical Decision Making MDM Narrative: Discussed with the patient that contaminated wounds do not need stitches only as they are very large, this are small puncture wounds, not bleeding. Patient's wounds were cleaned patient was given a Tdap and Augmentin discussed with the patient signs and symptoms of cellulitis and went to return to emergency room. Discharge Plan Discharge Clinical Impression: Dog bite Patient Disposition: Home, Self-Care Instructions: Animal Bite (ED) Additional Instructions: Please follow-up with your primary care physician tomorrow. If you have any worsening or new symptoms, please return to the emergency room or call 911 Prescriptions: New amoxicillin-pot clavulanate [Augmentin] 500-125 mg tablet 1 tab PO BID Qty: 10 0RF No Action pyridoxine (vitamin B6) [Vitamin B-6] 25 mg tablet 25 mg PO tid PRN (Reason: nausea) 30 Days Qty: 90 3RF Rx Instructions: may take every 6 - 8 hours for nausea PNV cmb#95-ferrous fumarate-FA [] 28 mg iron- 800 mcg tablet 1 tab PO DAILY Print Language: Upper Sorbian
[2024-12-22] MEDS: Amoxicillin/Potassium Clav 500 MG TABLET PO (02:28)
[2024-12-22] MEDS: Diphth,Pertus(ACell),Tet Adult 0.5 ML SYRINGE IM (02:28)
[2024-12-22 02:35] VITALS: BP 115/65; PULSE 79; RESP 16; TEMP 36.8; O2SAT 98
== END 2024-12-22 02:37 | disposition home or self-care (01) ==
PROVIDERS: Emergency Provider Emergency Medicine; PCP General Practice
DX: S61.451A Open bite of right hand, initial encounter (principal); W54.0XXA Bitten by dog, initial encounter; Y92.9 Unspecified place or not applicable; Y99.9 Unspecified external cause status; Z79.899 Other long term (current) drug therapy; F17.210 Nicotine dependence, cigarettes, uncomplicated
CPT/HCPCS: 90471; 90715; 99284

== ENCOUNTER 2025-01-04 19:53 | Emergency (ER) | payer MEDICAID, SELFPAY ==
[2025-01-04 20:06] VITALS: BP 94/51; PULSE 70; RESP 16; TEMP 36.7; O2SAT 100; BMI 22.8
--- NOTE | 2025-01-04 20:07 | ED.GENADULT ---
HPI - General Adult General Chief complaint: Nausea/Vomiting/Diarrhea Stated complaint: 13 weeks preg feeling weak / vomitting Time Seen by Provider: 01/04/25 22:13 Source: patient Limitations: no limitations History of Present Illness ED Provider: Imani Galvez PA-C HPI narrative: 24-year-old female who is currently approximately 13 weeks presents with nausea vomiting. Patient states she has had ongoing nausea vomiting since she found out she was . Associated lower abdominal discomfort has been present as well. Denies change in symptoms. Patient states she made an appointment with her water control supervisor, she started vitamins, was given a prescription for vitamin B6, but does not have antiemetic. Denies diarrhea, vaginal discharge, vaginal bleeding, dysuria or fever. Patient had an outpatient obstetric ultrasound, results are pending; her formal appointment with water control supervisor is next week. Related Data Home Medications ?Medication ?Instructions ?Recorded ?Confirmed vit no.95-ferrous 1 tab PO DAILY 07/30/24 fumarate 28 mg-folic acid 800 mcg tablet () Previous Rx's ?Medication ?Instructions ?Recorded pyridoxine (vitamin B6) 25 mg 25 mg PO tid PRN nausea 30 days 11/20/24 tablet (Vitamin B-6) #90 tabs amoxicillin 500 mg-potassium 1 tab PO BID #10 tabs 12/22/24 clavulanate 125 mg tablet (Augmentin) metoclopramide HCl 10 mg tablet 10 mg PO Q6H PRN nausea and 01/04/25 vomiting #20 tabs Allergies Allergy/AdvReac Type Severity Reaction Status Date / Time SEASONAL ALLERGIES Allergy Intermediate NASAL Uncoded 01/04/25 20:11 CONGESTION Review of Systems Review of Systems: Yes all other systems are reviewed and are negative Constitutional: Constitutional: Denies fatigue and Denies fever(s) Cardiovascular: Cardiovascular: Denies chest pain and Denies dyspnea Respiratory: Respiratory: Denies dyspnea Gastrointestinal: Gastrointestinal: Reports abdominal pain, Denies diarrhea, Reports nausea and Reports vomiting Genitourinary: Genitourinary: Denies dysuria, Denies pelvic pain and Denies vaginal discharge Endocrine: Endocrine: Denies fatigue PMFSH Past Medical History Attestation statement: The following information was validated with the patient. 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 Physical Exam ED Vital Signs: Vital Signs - 24 hr 01/04/25 20:06 01/04/25 21:10 01/04/25 22:00 Temperature 98.1 F 99.3 F Pulse Rate 70 60 77 Respiratory Rate 16 12 15 Blood Pressure 94/51 L 102/53 L 109/60 Pulse Oximetry 100 99 99 Oxygen Delivery Method Room Air Room Air Room Air 01/04/25 23:55 01/04/25 23:57 Temperature 98.4 F 98.4 F Pulse Rate 69 69 Respiratory Rate 18 18 Blood Pressure 97/53 L 97/53 L Pulse Oximetry 99 99 Oxygen Delivery Method Room Air Room Air BMI result Body Mass Index 22.8 Const Other: Alert Orientation/consciousness: patient oriented x3 Resp Effort & Inspection: normal respiratory effort Cardio Other: Normal peripheral perfusion GI Other: Abdomen is soft, nontender nondistended no guarding Skin Other: Warm dry no rash Neuro General: patient oriented x3, gait normal, no focal motor deficits and CN's II-XI intact bilaterally Psych Other: Cooperative Course Course Course Narrative: RME performed by Haylee Romero PA-C. Patient is a 24 year old assigned female at presenting to the emergency department with nausea, vomiting, and diarrhea. Patient states that she is 13 weeks and has been having a lot of vomiting. Detailed physical exam and review of systems are deferred to the care clinician. Labs and swabs ordered. Patient placed back in the waiting room pending room availability and results. Medications Administered Discontinued Medications Generic Name Dose Route Start Last Admin Trade Name Freq PRN Reason Stop Dose Admin Sodium Chloride 1,000 mls @ 999 mls/hr 01/04/25 22:45 01/04/25 23:55 Ns IV 01/04/25 23:45 Infused .Q1H1M RUDY Infusion Metoclopramide HCl 10 mg 01/04/25 22:31 01/04/25 22:45 Metoclopramide Hcl 10 Mg/2 Ml Vial IVPUSH 01/04/25 22:32 10 mg ONCE ONE Administration Pyridoxine HCl 25 mg 01/04/25 22:31 01/04/25 23:00 Pyridoxine Hcl (Vitamin B6) 50 Mg Tablet PO 01/04/25 22:32 25 mg ONCE ONE Administration Procedures Procedure Narrative Procedure Narrative: Bedside transabdominal obstetric ultrasound Active movement, heart rate 141 Medical Decision Making Medical Decision Making MDM Narrative: 24-year-old female who is currently approximately 13 weeks presents with nausea vomiting. Patient states she has had ongoing nausea vomiting since she found out she was . Associated lower abdominal discomfort has been present as well. Denies change in symptoms. Patient states she made an appointment with her water control supervisor, she started vitamins, was given a prescription for vitamin B6, but does not have antiemetic. Denies diarrhea, vaginal discharge, vaginal bleeding, dysuria or fever. Patient had an outpatient obstetric ultrasound, results are pending; her formal appointment with water control supervisor is next week. Problem: Early History: Per patient I have considered the following differential diagnoses: Threatened , hyperemesis gravidarum, viral gastroenteritis, appendicitis, other acute intra-abdominal pathology Plan: Patient has had ongoing symptoms since she found out she was , this is hyperemesis gravidarum. She has an unremarkable abdominal exam. She is not having concurrent diarrhea to suggest viral gastroenteritis. She does not have focal right lower quadrant pain on exam to suggest appendicitis. Performed bedside ultrasound, the baby's actively moving, heart rate is appropriate at 1:41 a.m., this is not seemingly a threatened . The patient was not having any vaginal bleeding either. She does not have an antiemetic, she just has vitamin B6. We will medicate with B6 and Reglan, give fluid and reassess. Screening labs were obtained from triage. I have independently reviewed the following tests: Labs: leukocytosis, not anemic, no electrolyte abnormality quant [id number], urine not infected Lab Data 01/04/25 20:24 01/04/25 20:24 Labs: Lab Results 01/04/25 Range/Units 20:24 WBC 18.7 H (4.8-10.8) X10*3/uL RBC 4.32 (4.20-5.50) X10*6/uL Hgb 14.0 (12.0-16.0) g/dl Hct 38.7 (37.0-47.0) % MCV 89.6 (80.0-98.0) fL MCH 32.4 (27.0-33.0) pg MCHC 36.2 H (31.0-35.0) g/dl RDW 13.2 (11.0-16.0) % Plt Count 259 (160-400) X10*3/uL MPV 11.1 (9.4-12.3) fL Immature Gran % (Auto) 0.5 H (0.0-0.4) % Neut % (Auto) 82.3 H (45-73) % Lymph % (Auto) 12.3 L (20-40) % [place] % (Auto) 4.3 (2-11) % Eos % (Auto) 0.2 (0-4) % Baso % (Auto) 0.4 (0-2) % Lymph # (Auto) 2.3 (1.2-4.9) X10*3/uL [place] # (Auto) 0.8 (0.1-1.2) X10*3/uL Eos # (Auto) 0.0 (0.0-0.4) X10*3/uL Baso # (Auto) 0.1 (0.0-0.2) X10*3/uL Abs Immat Gran (auto) 0.09 H (0.00-0.03) X10*3/uL Absolute Neuts (auto) 15.4 H (2.0-8.3) x10*3/uL Absolute Nucleated RBC 0.000 (0.0-0.012) X10*3/uL Nucleated RBC % (auto) 0.0 (0.0-0.2) /100WBC Sodium 136 (135-145) mmol/L Potassium 4.1 (3.3-5.1) mmol/L Chloride 106 (96-108) mmol/L Carbon Dioxide 19 L (22-29) mmol/L Anion Gap 15 (12-20) BUN 5 L (9-16) mg/dL Creatinine 0.64 (0.5-1.4) mg/dL Estim Creat Clear Calc 113.1 Estimated GFR > 60 Random Glucose 83 (60-115) mg/dL Calcium 9.3 (8.4-10.2) mg/dL Magnesium 1.7 (1.6-2.6) mg/dL Total Bilirubin 0.4 (0.0-1.0) mg/dL AST 21 (5-31) U/L ALT 6 (0-31) U/L Alkaline Phosphatase 42 (39-117) U/L Total Protein 7.1 (6.5-8.0) g/dL Albumin 4.0 (3.5-5.0) g/dL Beta HCG, Quant [id number] mIU/mL Urine Color Yellow Urine Appearance Clear Urine pH 8.0 (5.0-9.0) Ur Specific [place] 1.020 (1.005-1.025) Urine Protein Negative (Neg-Trace) mg/dL Urine Glucose (UA) Negative (Negative) mg/dL Urine Ketones 80 (Negative) mg/dL Urine Blood Negative (Negative) Urine Nitrite Negative (Negative) Ur Leukocyte Esterase Negative (Negative) Influenza Type A (PCR) NEGATIVE (Negative) Influenza Type B (PCR) NEGATIVE (Negative) RSV RNA Qual (PCR) NEGATIVE (Negative) SARS-CoV-2 RNA (RT-PCR) NEGATIVE (Negative) Discharge Plan Discharge Clinical Impression: Hyperemesis gravidarum Patient Disposition: Home, Self-Care Instructions: Hyperemesis Gravidarum (ED) Additional Instructions: All of your screening labs were normal, we performed bedside obstetric ultrasound, the baby is active, with an appropriate heart rate. Use the metoclopramide as needed for nausea vomiting. Also use the B6 vitamin for nausea. Keep your pending appointment with your water control supervisor. Prescriptions: New metoclopramide HCl 10 mg tablet 10 mg PO Q6H PRN (Reason: nausea and vomiting) Qty: 20 0RF No Action amoxicillin-pot clavulanate [Augmentin] 500-125 mg tablet 1 tab PO BID Qty: 10 0RF pyridoxine (vitamin B6) [Vitamin B-6] 25 mg tablet 25 mg PO tid PRN (Reason: nausea) 30 Days Qty: 90 3RF Rx Instructions: may take every 6 - 8 hours for nausea PNV cmb#95-ferrous fumarate-FA [] 28 mg iron- 800 mcg tablet 1 tab PO DAILY Interventions: ED Discharge Assessment Last Done: 01/04/25 23:57 Discharge Date/Time: 01/04/25 23:58 Print Language: Slovak
[2025-01-04 20:30] LABS: MANUAL DIFF FLAG NO
[2025-01-04 20:37] LABS: Basophils Absolute Auto 0.1 X10*3/uL (0.0-0.2); Basophils Percent Auto 0.4 % (0-2); Eosinophils Percent Auto 0.2 % (0-4); Hematocrit 38.7 % (37.0-47.0); Imm Gran Abs Auto 0.09 X10*3/uL (0.00-0.03); Imm Gran Pct Auto 0.5 % (0.0-0.4); Lymphocytes Absolute Auto 2.3 X10*3/uL (1.2-4.9); Lymphocytes Percent Auto 12.3 % (20-40); Mean Corpuscular HGB Conc 36.2 g/dl (31.0-35.0); Mean Corpuscular Hemoglobin 32.4 pg (27.0-33.0); Mean Corpuscular Volume 89.6 fL (80.0-98.0); Mean Platelet Volume 11.1 fL (9.4-12.3); Monocytes Absolute Auto 0.8 X10*3/uL (0.1-1.2); Monocytes Percent Auto 4.3 % (2-11); Neutrophils Absolute Auto 15.4 x10*3/uL (2.0-8.3); Neutrophils Percent Auto 82.3 % (45-73); Platelet Count 259 X10*3/uL (160-400); Red Blood Count 4.32 X10*6/uL (4.20-5.50); Red Cell Distribution Width 13.2 % (11.0-16.0); White Blood Count 18.7 X10*3/uL (4.8-10.8)
[2025-01-04 20:39] LABS: Appearance Urine Clear; Color Urine Yellow; Glucose Urine UA Negative (Negative); Leukocyte Esterase Urine Negative (Negative); Nitrite Urine Negative (Negative); Urine Blood Negative (Negative); Urine Ketones 80 mg/dL (Negative); Urine Protein Negative (Neg-Trace)
--- OUTSIDE RECORDS SUMMARY | 2025-01-04 20:53 | XMS_ITS | Encounter Summary ---
Author Organization [employer] Address [address] [place] [address] Care Team Providers Care Tap Dancer Name Role Phone Shaneka Howard MD Primary Care Provider [phone] Reason for Visit * Reason Onset Date Comments dental emergency/ 07/25/2024 Encounter Details Date Type Department Care Team ([facility] st Contact Info) Description 07/25/2024 Telephone [facility] AD[facility] D[facility] [address] [place] [address] Diana Rob DDS [address] [place] [address] dental emergency/ Social History Tobacco Use Types [...] with others, in a hotel, in a residential, living outside on the street, on a [...] to providefor dental treatment). Provided fax number [phone] to have OB office send in clearance. [...] documented as of this encounter Care Teams Tap Dancer Relationship Specialty Start Date End Date Shaneka Howard MD [address] [place] [address] PCP - General Family Medicine 11/14/23 documented as of this encounter
--- OUTSIDE RECORDS SUMMARY | 2025-01-04 20:53 | XMS_ITS ---
Author Organization [employer] Address [address] [place] [address] Care Team Providers Care Welcome Wagon Host/Hostess Name Role Phone Shaneka Howard MD Primary Care Provider [phone] CM Maternal Advocate Status:Outreach In Progress (Enrolling) Start date:12/23/2024 Enrollment reason:ADT Feed Overview ADT- [facility] ED 12/22/24. Pt is 10 weeks . Case Team Name Relationship Phone Liu Cedillo (Responsible Staff) Continued Care and Services Coordination
--- OUTSIDE RECORDS SUMMARY | 2025-01-04 20:53 | XMS_ITS | Clinical Summary ---
Author Organization [facility] it[facility] Address [address] [place] [address] Care Team Providers Care Machine Made Shoe Unit Worker Name Role Phone Unavailable Primary Care Provider [...]
--- OUTSIDE RECORDS SUMMARY | 2025-01-04 20:53 | XMS_ITS | Encounter Summary ---
Author Organization [facility] [employer] Address [address] [place] [address] Care Team Providers Care Hasher Operator Name Role Phone Shaneka Howard MD Primary Care Provider [phone] Reason for Visit * Reason Onset Date Comments Nurse Triage 11/14/2023 Encounter Details Date Type Department Care Team ([facility] st Contact Info) Description 11/14/[address] [facility] [address] [place] [address] [facility] [address] [place] [address] Nurse Triage Social History Tobacco Use Types [...] away. Pt is advised to come to [facility] today open till 8pm and provider can see Pt. Home care advised and insurance is not verified as active, Pt is advised to contact insurance first. Pt reponds I was already told about this . Pt also requests not to call on [phone] number it is an emergency number. Protocol [...] on filedocumented in this encounter Care Teams Hasher Operator Relationship Specialty Start Date End Date Shaneka Howard MD [address] [place] [address] PCP - General Family Medicine 11/14/23 documented as of this encounter
--- OUTSIDE RECORDS SUMMARY | 2025-01-04 20:53 | XMS_ITS | Clinical Summary ---
Demographics Address [address] [place] [address] Home Phone Mobile Phone Preferred Language en Marital Status Single Baptist Affiliation Unknown Race Other Race Ethnic Group or Author Organization [employer] Address [address] [place] [address] Care Team Providers Care Systems Analyst Developer Name Role Phone Shaneka Howard MD Primary Care Provider [phone] Allergies No known active allergies Medications * [...] blood and CBC -STAT pelvic/TV US -STAT DEVELOPER AUTOMATIC referral requested to referral at [facility] by pt prefernce- will inform pt [...] & Plan (04/29/2024 10:14 AM EDT): During [facility] Consult Autumn presenting with depressed [...] Health Integration Plan Internal [facility] External OP therapy referral and OP psychiatry Referral Patient Self Plan Patient to utilize skills provided in intervention , Patient to reach out to [facility] team as needed, Patient to [...] Health Integration Plan Internal Follow up with [facility] External OP BH therapy referral and OP psychiatry Referral Patient Self Plan Patient to utilize skills provided in intervention , Patient to reach out to [facility] team as needed, Patient to engage in OP therapy , and Patient to reach out to [facility] as needed Vitamin D deficiency 06/07/2018 Allergic rhinitis 06/18/2017 Mild intermittent asthma 11/27/2016 Developmental academic disorder 06/28/2015 Dyssomnia 06/08/2014 Impulse control disorder 06/08/2014 Comments Yes Encounters Date Type Department Care Team Description 01/01/2025 Patient Outreach [facility] [address] [place] [phone] Shaneka Howard MD Care Coordination (C3/CHW Yarlene Mamadou, TC#3-ED Outreach-LVM) 12/26/2024 Patient Outreach [address] [address] Shaneka Howard MD Care Coordination ([facility] Liu Cedillo, TC#2- ADT Outreach-LVM) 12/23/2024 Patient Outreach [address] [address] Shaneka Howard MD Care Coordination ([facility] Liu Cedillo-ADT Outreach-Pt requested call back ) 12/23/2024 Patient Outreach [address] [address] Shaneka Howard MD Care Coordination ([facility] Liu Cedillo, Chart Review) 12/23/2024 Patient Outreach [address] [address] Shaneka Howard MD Care Management ([facility] chart review) 12/23/2024 Patient Outreach [address] [address] Shaneka Howard MD 12/13/2024 Orders Only GENERIC EXTERNAL DATA DEPARTMENT Provider, Generic External Data 12/12/2024 Population Health Risk Score [facility] (C3) Department [address] [place] [phone] Provider, Population Health Generic 11/20/2024 Orders Only [facility] External Provider, [facility] 11/13/2024 Orders Only GENERIC EXTERNAL DATA DEPARTMENT Provider, Generic External Data 11/12/2024 Orders Only [facility] External Provider, [facility] 11/11/2024 Orders Only GENERIC EXTERNAL DATA DEPARTMENT Provider, Generic External Data 11/07/2024 Orders Only GENERIC EXTERNAL DATA DEPARTMENT Provider, Generic External Data 11/06/2024 Orders Only GENERIC EXTERNAL DATA DEPARTMENT Provider, Generic External Data 10/09/[address] [address] Janneth Dale [place] RECALL from Last 3 Months Immunizations Name Administration [...] time period is included. Color Urine Yellow [facility] Appearance Urine Cloudy [facility] PH 7.5 5.0 - 9.0 [facility] Glucose Urine UA Negative Negative mg/dL [facility] Urine Blood Negative Negative [facility] Specific [place] - Urine 1.025 1.005 - 1.025 [facility] Urine Protein Trace Neg-Trace mg/dL [facility] Urine Ketones 80 Negative mg/dL [facility] Nitrite Urine Negative Negative [facility] Leukocyte Esterase Urine Negative Negative [facility] RBC Urine 0-2 0 - 2 /HPF [facility] Urine WBC 0-5 0 - 5 /HPF [facility] Urine Squamous Epithelial Cell 0-2 0 - 2 /HPF [facility] Urine Bacteria None Seen None Seen [facility] Hyaline Casts, Urine 0-2 0 - 2 /LPF [facility] 12/13/2024 2:49 PM EDT 12/13/2024 2:53 PM EDT Narrative [facility] - 12/13/2024 2:59 PM EDT [id number], Clean Catch us Generic External Data Provider LAB URINE ORDERAB LES Final Result [facility] [address] [place] [address] [phone] * SARS-CoV-2 RNA, Influenza A/B, and RSV RNA, Ql NAAT (12/13/2024 2:03 PM EDT) Only the most recent of2 resultswithin the time period is included. Pathologist [facility] Influenza A PCR NEGATIVE Negative [facility] Influenza B PCR NEGATIVE Negative [facility] Resp Syncy Virus RNA Qual PCR NEGATIVE Negative [facility] SARS COV2 PCR NEGATIVE Negative [facility] Comment:All test results mus t be [...] use by authorized laboratories.Testing performed on the Nitro PDF GeneXpert utilizingreal-time RT-PCR.All SARS CoV2 and positive influenza A/B results arereported to [facility]. 12/13/2024 2:03 PM EDT 12/13/2024 2:06 PM EDT us Generic External Data Provider LAB MICROBIOLOGY - GENERAL ORDERABLES Final Result [facility] [address] [place] [address] [phone] * (ABNORMAL) CBC auto differential (12/13/2024 2:03 PM EDT) Only the most recent of2 resultswithin the time period is included. White Blood Count 16.5(H) 4.8 - 10.8 X10*3/uL [facility] Red Blood Count 4.24 4.20 - 5.50 X10*6/uL [facility] Hemoglobin 13.5 12.0 - 16.0 g/dl [facility] Hematocrit 37.6 37.0 - 47.0 % [facility] Mean Corpuscular Volume 88.7 80.0 - 98.0 fL [facility] Mean Corpuscular Hemoglobin 31.8 27.0 - 33.0 pg [facility] Mean Corpuscular HGB Conc 35.9(H) 31.0 - 35.0 g/dl [facility] Red Cell Distribution Width 13.2 11.0 - 16.0 % [facility] Platelet Count 255 160 - 400 X10*3/uL [facility] Mean Platelet Volume 11.4 9.4 - 12.3 fL [facility] Neutrophils Percent Auto 80.4(H) 45 - 73 % [facility] Imm Gran Pct Auto 0.4 0.0 - 0.4 % [facility] Lymphocytes Percent Auto 13.2(L) 20 - 40 % [facility] Monocytes Percent Auto 5.6 2 - 11 % [facility] Eosinophils Percent Auto 0.1 0 - 4 % [facility] Basophils Percent Auto 0.3 0 - 2 % [facility] NRBC Pct Auto 0.0 0.0 - 0.2 /100WBC [facility] Neutrophils Absolute Auto 13.3(H) 2.0 - 8.3 x10*3/uL [facility] Imm Gran Abs Auto 0.07(H) 0.00 - 0.03 X10*3/uL [facility] Lymphocytes Absolute Auto 2.2 1.2 - 4.9 X10*3/uL [facility] Monocytes Absolute Auto 0.9 0.1 - 1.2 X10*3/uL [facility] Eosinophils Absolute Auto 0.0 0.0 - 0.4 X10*3/uL [facility] Basophils Absolute Auto 0.1 0.0 - 0.2 X10*3/uL [facility] NRBC Abs Auto 0.000 0.0 - 0.012 X10*3/uL [facility] 12/13/2024 2:03 PM EDT 12/13/2024 2:06 PM EDT us Generic External Data Provider LAB BLOOD ORDERAB LES Final Result [facility] [address] [place] [address] [phone] * US OB <14 WEEKS FETUS (11/20/2024 3:02 PM EST) Anatomical Region Laterality Modality Ultrasound 11/20/2024 3:02 PM EST Narrative 11/20/2024 3:03 PM EST ? [facility] ?[address] ?[place] [address] ? Ultrasound Report ? Signed ? Patient: Autumn Aggarwal ?MR#: [id number] ?? 68 ? : 2000 ?Acct:[id number] ? Age/Sex: 24 / F ?ADM Date: 11/20/24 ? Loc: HO.US ? Attending Dr: Anthony Morris MD ? Ordering Physician: Anthony Morris MD ?? Date of Service: 11/20/24 ?? Procedure(s): US OB <= 14 weeks fetus ?? Accession Number(s): [id number] ? cc: Shaneka Howard; Anthony Morris MD [...] DD/ 1502 ? TD/TT: 11/20/24 1510 ? Mainframe Analyst: ? Procedure Note Raymundo, Image - 11/20/2024 [place] [address] Ultrasound Report Signed Patient: Jamal Aggarwal#: [id number] 68 : 2000Acct:[id number] Age/Sex: 24 / FADM Date: 11/20/24 Loc: HO.US Attending Dr: Anthony Morris MD Ordering Physician: Anthony Morris MD Date of Service: 11/20/24 Procedure(s): US OB <= 14 weeks fetus Accession Number(s): [id number] cc: Shaneka Howard; Anthony Morris MD EXAMINATION: [...] Jayden Marcus MD 11/20/2024 03:00 PM EST Dictated By: Jayden Marcus MD Signed By: <Electronically signed by Jayden Marcus MD in OV> 11/20/24 1500 DD/ 1502 TD/TT: 11/20/24 1510 Mainframe Analyst: us [facility] External Provider IMG OB US PROCEDURES Final Result * US OB Pelvis with Transvaginal (11/13/2024 2:50 PM EST) Only the most recent of3 resultswithin the time period is included. Anatomical Region Laterality Modality Pelvis Ultrasound 11/13/2024 2:50 PM EST Narrative 11/13/2024 3:32 PM EST ? [facility] ?[address] ?[place] [address] ? Ultrasound Report ? Signed ? Patient: Jasen,Autumn ?MR#: [id number] ?? 68 ? : 2000 ?Acct:[id number] ? Age/Sex: 24 / F ?ADM Date: 11/13/24 ? Loc: HO.US ? Attending Dr: Anthony Morris MD ? Ordering Physician: Anthony Morris MD ?? Date of Service: 11/13/24 ?? Procedure(s): US OB pelvic and transvaginal ?? Accession Number(s): [id number] ? cc: Shaneka Howard; Anthony Morris MD [...] and 6 days +/- 4 days). ? KALPAAN (estimated date of delivery): ??07/09/2025 +/- 4 [...] DD/ 1450 ? TD/TT: 11/13/24 1517 ? Mainframe Analyst: ? Procedure Note Donotuseinterpreter, Image - 11/13/2024 [place] [address] Ultrasound Report Signed Patient: Jamal Aggarwal#: [id number] 68 : 2000Acct:[id number] Age/Sex: Date: 11/13/24 Loc: HO.US Attending Dr: Anthony Morris MD Ordering Physician: Anthony Morris MD Date of Service: 11/13/24 Procedure(s): US OB pelvic and transvaginal Accession Number(s): [id number] cc: Shaneka Howard; Anthony Morris MD EXAMINATION: [...] by: Jorje Villalta MD 11/13/2024 03:29 PM EST Dictated By: Jorje Asif MD Signed By: <Electronically signed by Jorje Aiken MDin OV> 11/13/24 1529 DD/ 1450 TD/TT: 11/13/24 1517 Mainframe Analyst: us [facility] External Provider IMG US PROCEDURES Final Result * (ABNORMAL) Bacterial Vaginosis (11/13/2024 12:13 PM EST) TRICHOMONAS VAGINALIS DETECTION BY PCR NOT DETECTED Not Detect [facility] BACTERIAL VAGINOSIS DETECTION BY PCR POSITIVE(A) Negative [facility] Comment:The BV organism targ ets [...] DETECTION BY PCR NOT DETECTED Not Detect [facility] Muna glab krusei PCR NOT DETECTED Not Detect [facility] 11/13/2024 12:1 3 PM EST 11/13/2024 3:38 PM EST us Generic External Data Provider LAB MICROBIOLOGY - GENERAL ORDERABLES Final Result [facility] [address] [place] [address] [phone] * Chlamydia/N. Gonorrhoeae RNA, TMA, Urogenitial (11/13/2024 12:13 PM EST) CT PCR NOT DETECTED Not Detect. [facility] Comment:A not detected test result [...] psychologicalconsequences. NG PCR NOT DETECTED Not Detect. [facility] Comment:A not detected test result [...] PM EST 11/13/2024 3:38 PM EST Narrative [facility] - 11/14/2024 1:58 PM EST Vaginal Generic External Data Provider LAB MICROBIOLOGY - GENERAL ORDERABLES Final Result Performing Organization Address [facility] Co de Phone Number [facility] [address] [place] [phone] * hCG, Total, Quantitative (11/13/2024 11:40 AM EST) Only the most recent of3 resultswithin the time period is included. HCG Quantitative 9,800 mIU/mL [facility] Comment:Weeks post LMP Appro ximate hCG(Last Menstrual Period) Range (mIU/ml)3 - 4 weeks 9 - 1304 - 5 weeks 75 - 2,6005 - 6 weeks 850 - 20,8006 - 7 weeks 4000 - 100,2007 - 12 weeks 11,500 - 289,96747 - 16 weeks 18,300 - 137,27488 - 29 weeks (2nd trimester) 1,400 - 53,16893 - 41 weeks (3rd trimester) 940 - [...] ORDERAB LES Final Result Performing Organization Address [facility] Co de Phone Number [facility] [address] [place] [phone] * Syphilis Screen (11/11/2024 1:05 PM EST) Syphilis Screen Nonreactive Nonreactive [facility] 11/11/2024 1:05 PM EST 11/11/2024 1:05 PM EST Generic External Data Provider LAB BLOOD ORDERAB LES Final Result Performing Organization Address [facility] Co de Phone Number [facility] [address] [place] [phone] * Hepatitis C Ab (11/11/2024 1:05 PM EST) Hepatitis C Antibody Nonreactive Nonreactive [facility] Comment:Antibodies to HCV no t detected; does not exclude early acuteHCV infection. 11/11/2024 1:05 PM EST 11/11/2024 1:05 PM EST Generic External Data Provider LAB BLOOD ORDERAB LES Final Result Performing Organization Address [facility] Phone Number [facility] [address] [place] [phone] * Hepatitis B surface antigen, EIA (11/11/2024 1:05 PM EST) Hepatitis B Surface Ag Negative Negative [facility] 11/11/2024 1:05 PM EST 11/11/2024 1:05 PM EST Generic External Data Provider LAB BLOOD ORDERAB LES Final Result Performing Organization Address [facility] de Phone Number [facility] [address] [place] [phone] * HIV-1/2 Antigen and Antibodies, Fourth Generation, with Reflexes (11/11/2024 1:05 PM EST) HIV AB/AG Nonreactive Nonreactive [facility] Comment:HIV-1 p24 Ag and/or HIV-1/HIV-2 Ab not detected.A test result that is nonreactive does not exclude thepossibility of exposure to or infection with HIV-1 and/orHIV-2. Nonreactive results in this assay for individualswith prior exposure to HIV-1 and/or HIV-2 may be due toantigen and antibody levels that are below the limit ofdetection of this assay.The [employer] HIV Ag/Ab Combo assay result andsupplemental assay results should be interpreted inconjunction with the patient's clinical presentation,history and other laboratory results. If the results areinconsistent with clinical evidence, additional testing issuggested to confirm the result. 11/11/2024 1:05 PM EST 11/11/2024 1:05 PM EST Generic External Data Provider LAB BLOOD ORDERAB LES Final Result Performing Organization Address [facility]/ZIP Co de Phone Number [facility] [address] [place] [phone] * Magnesium (11/06/2024 9:10 PM EST) [facility] Magnesium 1.8 1.6 - 2.6 mg/dL [facility] 11/06/2024 9:10 PM EST 11/06/2024 9:13 PM EST Generic External Data Provider LAB BLOOD ORDERAB LES Final Result Performing Organization Address [facility] Co de Phone Number [facility] [address] [place] [phone] * (ABNORMAL) Comprehensive Metabolic Panel (11/06/2024 9:10 PM EST) Pathologist [facility] Sodium 135 135 - 145 mmol/L [facility] Potassium 4.2 3.3 - 5.1 mmol/L [facility] Chloride 107 96 - 108 mmol/L [facility] Carbon Dioxide 21(L) 22 - 29 mmol/L [facility] Anion Gap 11(L) 12 - 20 [facility] Urea Nitrogen (BUN) 9 9 - 16 mg/dL [facility] Creatinine, Serum 0.66 0.5 - 1.4 mg/dL [facility] Creatinine Clr Calc Pharmacy 109.7 [facility] Comment:Provided height and weight: 160.02 cm,59.4 kg.eGFR (calculated from the MDRD study equation) and eCrCl(calculated from the Cockcroft-Gault equation) are based ondifferent parameters and may not yield comparable results.If eCrCl result is absurd, please check patient'sheight/weight. Estimated Glomerular Filt Rate >60 [facility] Comment:Chronic Kidney Disea se: Estimated GFR < 60 mL/min/1.11h5[place] Kidney Disease: Estimated GFR < 15 mL/min/1.73m2 Glucose 90 60 - 115 mg/dL [facility] Calcium 9.1 8.4 - 10.2 mg/dL [facility] Bilirubin, Total 0.7 0.0 - 1.0 mg/dL [facility] Aspartate Amino Transferase 25 5 - 31 U/L [facility] Alanine Aminotransferase 15 0 - 31 U/L [facility] Total Protein 7.9 6.5 - 8.0 g/dL [facility] Albumin Level 4.4 3.5 - 5.0 g/dL [facility] Alkaline Phosphatase 61 39 - 117 U/L [facility] 11/06/2024 9:10 PM EST 11/06/2024 9:13 PM EST us Generic External Data Provider LAB BLOOD ORDERAB LES Final Result Performing Organization Address City/State/[facility] Co de Phone Number [facility] [address] [place] [address] [phone] from Last 3 Months Insurance [facility] [place] Care Teams Systems Analyst Developer Relationship Specialty Start Date End Date Shaneka Howard MD [address] [place] [phone] PCP - General Family Medicine 11/14/23
--- OUTSIDE RECORDS SUMMARY | 2025-01-04 20:53 | XMS_ITS | Encounter Summary ---
Author Organization [employer] Address [address] [address] [facility] [address] [place] [address] Care Team Providers Care Environmental Protection Officer Name Role Phone Shaneka Howard MD Primary Care Provider [phone] Reason for Visit * Reason Comments Care Coordination C3JANUARY/ALLEY Ramirez#3-ED Outreach-LVM Encounter Details Date Type Department Care Team (Latest Contact Info) Description 01/01/2025 Patient Outreach [facility] [address] [place] [address] Shaneka Howard MD [address] [place] [address] Care Coordination (ROLANDO/ALLEY Funes#3-ED Outreach-LVM) Social History Tobacco Use Types Packs/Day Years [...] AM EDT documented as of this encounter Progress Notes * Liu Cedillo - 01/01/2025 2:23 PM EDT CHW Liu Cedillo, [facility]CHW [facility]. No answer at this time. CHW LVM introducing herself from [facility] CM Department with CHW's name, department and direct contact number requesting call back. Will re-attempt to contact within 5 days. and address not confirmed. documented in this encounter Plan of Treatment Not on file documented as of this encounter Visit Diagnoses Not on filedocumented in this encounter Additional Health Concerns Assessment Noted Time PHQ-9 Depression Total Score: 24 024 2:26 PM EDT documented as of this encounter Care Teams Environmental Protection Officer Relationship Specialty Start Date End Date Shaneka Howard MD [address] [place] [address] PCP - General Family Medicine 11/14/23 documented as of this encounter
--- OUTSIDE RECORDS SUMMARY | 2025-01-04 20:53 | XMS_ITS | Encounter Summary ---
Author Organization [employer] Address [address] [facility] 7[address] [place] [address] Care Team Providers Care Visual Merchandising Assistant Name Role Phone [facility] Primary Care Provider [phone] Shaneka Howard MD Primary Care Provider [phone] Reason for Visit * Reason Onset Date Comments Nurse Triage 04/09/2023 Encounter Details Date Type Department Care Team ([facility] st Contact Info) Description 04/09/2023 Telephone [facility] [address] [place] [address] [facility] [address] [place] [address] Nurse Triage Social History Tobacco Use Types [...] answer x2. Left voice message to call [facility] triage line at [phone] . * Telephone Encounter - Jaimie Solis [...] on filedocumented in this encounter Care Teams Visual Merchandising Assistant Relationship Specialty Start Date End Date Gogo Giordano FNP [address] [place] [address] PCP - General Family Medicine 05/27/22 11/13/23 Shaneka Howard MD [address] [place] [address] PCP - General Family Medicine 11/14/23 documented as of this encounter
--- OUTSIDE RECORDS SUMMARY | 2025-01-04 20:53 | XMS_ITS ---
Author Organization [employer] Address [address] [facility] [address] [place] [address] Care Team Providers Care Rigging Man Name Role Phone Shaneka Howard MD Primary Care Provider [phone] C3 CM High Risk Maternity Status:Outreach In Progress (Enrolling) Start date:12/23/2024 Enrollment reason:ADT Feed Overview ADT- [facility] ED 12/22/24. Pt is 10 weeks . Case Team Name Relationship Phone Laine Solorio Registered Nurse(Responsible S taff) Continued Care and Services Coordination
[2025-01-04 20:57] LABS: Alanine Aminotransferase 6 U/L (0-31); Alkaline Phosphatase 42 U/L (39-117); Anion Gap 15 (12-20); Aspartate Amino Transferase 21 U/L (5-31); Bilirubin Total 0.4 mg/dL (0.0-1.0); Blood Urea Nitrogen 5 mg/dL (9-16); Calcium 9.3 mg/dL (8.4-10.2); Carbon Dioxide 19 mmol/L (22-29); Chloride 106 mmol/L (96-108); Creatinine Clr Calc Pharmacy 113.1; Estimated Glomerular Filt Rate > 60; Glucose Random 83 mg/dL (60-115); Magnesium 1.7 mg/dL (1.6-2.6); Potassium 4.1 mmol/L (3.3-5.1); Sodium 136 mmol/L (135-145); Total Protein 7.1 g/dL (6.5-8.0)
[2025-01-04 21:08] LABS: Influenza A PCR NEGATIVE (Negative); Influenza B PCR NEGATIVE (Negative); Resp Syncy Virus RNA Qual PCR NEGATIVE (Negative); SARS COV2 PCR INHOUSE NEGATIVE (Negative)
--- NOTE | 2025-01-04 21:08 | PC.NURSE ---
Patient presents with c/o mid abdominal pain with N/V since this morning. 13 weeks . Denies any spotting. Patient noted to be dry heaving upon arrival to the room
[2025-01-04 21:10] VITALS: BP 102/53; PULSE 60; RESP 12; O2SAT 99
[2025-01-04 21:14] LABS: HCG Quantitative 102768 mIU/mL
[2025-01-04 22:00] VITALS: BP 109/60; PULSE 77; RESP 15; TEMP 37.4; O2SAT 99
[2025-01-04] MEDS: Metoclopramide HCl 10 MG/2 ML VIAL IVPUSH (22:45)
[2025-01-04] MEDS: 0.9 % Sodium Chloride 1,000 ML 999 ML IV (22:45)
[2025-01-04] MEDS: Pyridoxine HCl (Vitamin B6) 50 MG TABLET 25 MG PO (23:00)
[2025-01-04 23:55] VITALS: BP 97/53; PULSE 69; RESP 18; TEMP 36.9; O2SAT 99
[2025-01-04 23:57] VITALS: BP 97/53; PULSE 69; RESP 18; TEMP 36.9; O2SAT 99
== END 2025-01-04 23:58 | disposition home or self-care (01) ==
PROVIDERS: Physician Assistant Medical; Emergency Provider Emergency Medicine; PCP General Practice
DX: O21.0 Mild hyperemesis gravidarum (principal); Z3A.13 13 weeks gestation of pregnancy; Z03.818 Encounter for observation for suspected exposure to other biological agents ruled out
CPT/HCPCS: 0241U; 36415; 80053; 81003; 83735; 84702; 85025; 96361; 96374; 99284; J2765

== ENCOUNTER 2025-01-12 07:59 | Emergency (ER) | payer MEDICAID, SELFPAY ==
--- NOTE | ~2025-01-12 | US_ITS ---
EXAMINATION: US LIMITED HISTORY: abdominal pain, 4 months COMPARISON: Comparison is made with the prior examination dated 11/20/2024. FINDINGS: A single live intrauterine gestation is identified. The heart rate is 156 bpm. gross body movements are identified. The placenta is anterior and unremarkable in appearance. No abnormal uterine fluid collections are identified. Detailed anatomic survey was not performed due to early gestational age. The right ovary measures 1.6 x 1.9 x 1.8 cm and is unremarkable. The left ovary measures 2.3 x 1.6 x 1.3 cm and is unremarkable. US/US OB limited IMPRESSION: Single live intrauterine gestation identified. Normal-appearing ovaries. Electronically signed by: Des Sims MD 01/12/2025 10:27 AM EDT
[2025-01-12 08:02] VITALS: BP 110/59; PULSE 77; RESP 24; TEMP 36.7; O2SAT 100; BMI 23.0
[2025-01-12 08:21] VITALS: BP 112/62; PULSE 74; RESP 21; TEMP 36.8; O2SAT 100
--- NOTE | 2025-01-12 08:28 | ED.GENADULT ---
HPI - General Adult General Chief complaint: Abdominal Pain Stated complaint: Abd Pain 4 Mos Vomiting Time Seen by Provider: 01/12/25 08:27 Source: patient and family (patient's mother) Mode of arrival: ambulatory Limitations: no limitations History of Present Illness ED Provider: Haylee Romero PA-C HPI narrative: Patient is a 24 year old assigned female at with a history of current - 14 weeks and hyperemesis presenting to the emergency department today with abdominal pain, nausea, and vomiting. Patient states that she continues to have abdominal pain, nausea, and vomiting. Patient states that she has been unable to keep anything down. Patient denies any dizziness, lightheadedness, fever, chills, blurry vision, double vision, loss of vision, chest pain, difficulty breathing, shortness of breath, back pain, night sweats, pain with urination, increased urinary frequency, increased urinary urgency, blood in her urine or stool, syncope or a near syncopal episode, recent trauma or falls, bowel incontinence, bladder incontinence, or any other complaints at this time. Onset (ago): day(s) Location: abdomen Relieving factors: none Exacerbating factors: none Associated symptoms: nausea/vomiting Treatments prior to arrival: none Related Data Home Medications ?Medication ?Instructions ?Recorded ?Confirmed vit no.95-ferrous 1 tab PO DAILY 07/30/24 fumarate 28 mg-folic acid 800 mcg tablet () Previous Rx's ?Medication ?Instructions ?Recorded pyridoxine (vitamin B6) 25 mg 25 mg PO tid PRN nausea 30 days 11/20/24 tablet (Vitamin B-6) #90 tabs amoxicillin 500 mg-potassium 1 tab PO BID #10 tabs 12/22/24 clavulanate 125 mg tablet (Augmentin) metoclopramide HCl 10 mg tablet 10 mg PO Q6H PRN nausea and 01/04/25 vomiting #20 tabs Allergies Allergy/AdvReac Type Severity Reaction Status Date / Time SEASONAL ALLERGIES Allergy Intermediate NASAL Uncoded 01/12/25 08:04 CONGESTION Review of Systems Constitutional: Constitutional: Reports no additional constitutional complaints, Denies chills, Denies fever(s) and Denies night sweats Eyes: Eyes: Reports no additional eye complaints, Denies blurry vision, Denies change in vision, Denies diplopia, Denies eye discharge, Denies loss of vision and Denies eye pain ENT: Denies dizziness Cardiovascular: Cardiovascular: Reports no additional cardiovascular complaints, Denies chest pain, Denies lightheadedness, Denies Loss of Consciousness and Denies dyspnea Respiratory: Respiratory: Reports no additional respiratory complaints and Denies dyspnea Gastrointestinal: Gastrointestinal: Reports no additional gastrointestinal complaints, Reports abdominal pain, Denies melena, Denies hematochezia, Denies change in bowel habits, Denies change in stool character, Reports nausea and Reports vomiting Genitourinary: Genitourinary: Denies hematuria, Denies urinary frequency, Denies dysuria, Denies urinary incontinence, Denies urinary hesitancy and Denies urinary urgency Musculoskeletal: Musculoskeletal: Reports no additional musculoskeletal complaints, Denies numbness and Denies tingling Neurologic: Denies dizziness, Denies loss of vision, Denies numbness and Denies tingling Psychiatric: Psychiatric: Reports no additional psychiatric complaints Endocrine: Endocrine: Reports no additional endocrine complaints Hematologic/Lymphatic: Hematologic/Lymphatic: Reports no additional hematologic/lymphatic complaints Allergic/Immunologic: Allergic/Immunologic: Reports no additional allergic/immunologic complaints PMFSH Past Medical History Attestation statement: The following information was validated with the patient. (all information validated with the patient's mother) Source: old records reviewed, obtained from family (patient's mother provided additional history and confirmed the history provided by the patient. ) and nursing notes reviewed Family History Family History Mother Uterus cancer Maternal Aunt Breast cancer Father HTN (hypertension) Diabetes Maternal Grandfather HTN (hypertension) Maternal Grandfather Diabetes Social History Social History Household Members: Family Housing: Apartment Alcohol intake: never Patient Tobacco Use Status: Current everyday Tobacco user Cigarettes Per Day: 2 Years Smoked: 4 Smoked in Last 30 Days: Yes Use of substances other than those prescribed or required for medical reasons: Yes Substance Use Type: Marijuana Substance Use Frequency: Daily Advance Directives: No Advance Directives Information Provided: Yes Current occupational status: employed Current occupation: [employer] Physical Exam ED Vital Signs: Vital Signs - 24 hr 01/12/25 08:02 01/12/25 08:21 Temperature 98.1 F 98.2 F Pulse Rate 77 74 Respiratory Rate 24 H 21 H Blood Pressure 110/59 L 112/62 Pulse Oximetry 100 100 Oxygen Delivery Method Room Air Room Air BMI result Body Mass Index 23.0 Const General: cooperative, no acute distress, alert and awake Nutritional Appearance: well nourished Orientation/consciousness: patient oriented x3 Limitations: no limitations HENMT Head: Yes normal to inspection and Yes atraumatic Ears: hearing grossly normal bilaterally and external ears normal General nose exam: Normal external nose present, no nasal discharge noted and no epistaxis Face and sinus: Yes normal facial exam, No abrasion and No laceration Mouth: Normal oral and palatal mucosa present, no drooling and no muffled voice Eyes General: appearance normal, both eyes and all related structures Periorbital: periorbital findings normal Eyelids: Yes eyelids normal Conjunctivae: conjunctivae normal Pupils: Equal, round and reactive pupils present EOM: EOMs intact bilaterally Neck Neck: Yes normal visual inspection, Yes full ROM and Yes no lymphadenopathy Chest Chest palpation & inspection: normal inspection of the chest Resp Effort & Inspection: normal respiratory effort and able to speak in complete sentences GI Inspection: Yes normal to inspection Palpation (GI): Soft to palpation, not firm, nontender and no guarding Neuro General: patient oriented x3, moves all extremities and CN's II-XI intact bilaterally Cranial nerves: Yes Equal, round and reactive pupils present Cognition (Neuro): normal cognition Extrem General: Yes normal to inspection, Yes full ROM and Yes capillary refill normal Psych Appearance: grossly normal Mental Status: mental status grossly normal Affect: normal affect Attitude: cooperative Thought process: Normal thought process present Thought content: Normal thought content present Insight: Good insight present (Psych) Medications Administered Discontinued Medications Generic Name Dose Route Start Last Admin Trade Name Mamta PRN Reason Stop Dose Admin Diphenhydramine HCl 25 mg 01/12/25 08:36 01/12/25 08:48 Diphenhydramine Hcl 50 Mg/Ml Vial IVPUSH 01/12/25 08:37 25 mg ONCE ONE Administration Sodium Chloride 1,000 mls @ 999 mls/hr 01/12/25 08:45 01/12/25 08:47 Ns IV 01/12/25 09:45 999 mls/hr .Q1H1M RUDY Administration Magnesium Sulfate/Dextrose 1 gm in 100 mls @ 100 mls/hr 01/12/25 09:43 01/12/25 09:52 Magnesium Sulfate/D5w IV 01/12/25 10:42 100 mls/hr ONCE ONE Administration Metoclopramide HCl 10 mg 01/12/25 08:36 01/12/25 08:47 Metoclopramide Hcl 10 Mg/2 Ml Vial IVPUSH 01/12/25 08:37 10 mg ONCE ONE Administration Metoclopramide HCl 10 mg 01/12/25 10:01 01/12/25 10:24 Metoclopramide Hcl 10 Mg/2 Ml Vial IVPUSH 01/12/25 10:02 10 mg ONCE ONE Administration Pantoprazole Sodium 40 mg 01/12/25 08:36 01/12/25 08:47 Pantoprazole Sodium 40 Mg/10 Ml Vial IVPUSH 01/12/25 08:37 40 mg ONCE ONE Administration Potassium Chloride 40 meq 01/12/25 09:43 01/12/25 09:52 Potassium Chloride Packet 20 Meq Packet PO 01/12/25 09:44 40 meq ONCE ONE Administration Medical Decision Making Medical Decision Making [facility] Narrative: Patient is a 24 year old assigned female at with a history of current - 14 weeks and hyperemesis presenting to the emergency department today with abdominal pain, nausea, and vomiting. Patient's physical exam was as noted in the physical exam portion of this note. Patient's blood work showed mild hypokalemia and hypomagnesemia but otherwise unremarkable. Patient's urine showed no acute process. Patient's OB US showed an IUP with no acute concerns. I explained my physical exam findings as well as all test results to the patient and the patient's mother. I answered all questions asked by the patient and the patient's mother. Patient did admit to marijuana use. I had an extensive conversation with the patient about her marijuana use and how this is likely contributing to her symptoms. Patient received PO Potassium, IV magnesium, IV Benadryl, and IV reglan which, upon re-evaluation, she stated it helped her symptoms significantly. I stressed the importance of the patient taking her medication as directed (either prescribed or as the over the counter packaging recommends). I stressed the importance of the patient following up with her primary care provider and her OBGYN. I stressed the importance of the patient returning to the emergency department immediately if her symptoms were to worsen or if she were to develop any dizziness, shortness of breath, difficulty breathing, chest pain, blurry vision, loss of vision, nausea, vomiting, abdominal pain, fever, chills, back pain, or any other complaints. Patient and the patient's mother verbalized agreement and understanding with this treatment plan and discharge. Differential Diagnosis Differential Diagnoses: The differential diagnosis associated with the presentation includes Nausea / vomiting Marijuana use Hyperemesis Admission/Observation Consideration of admission/observation: Escalation of care including admission/observation considered Patient would have been admitted to the hospital had her work up had any findings where hospital admission was appropriate and her clinical presentation warranted hospital admission. Lab Data [facility] Lab Attestation statement: I reviewed the patient's lab results. My interpretation of these results are in the [facility] Rationale portion of this note. 01/12/25 08:51 01/12/25 08:51 Labs: Lab Results 01/12/25 01/12/25 Range/Units 08:51 09:39 WBC 19.7 H (4.8-10.8) X10*3/uL RBC 4.30 (4.20-5.50) X10*6/uL Hgb 13.8 (12.0-16.0) g/dl Hct 38.2 (37.0-47.0) % MCV 88.8 (80.0-98.0) fL MCH 32.1 (27.0-33.0) pg MCHC 36.1 H (31.0-35.0) g/dl RDW 13.0 (11.0-16.0) % Plt Count 260 (160-400) X10*3/uL MPV 11.3 (9.4-12.3) fL Immature Gran % (Auto) 0.5 H (0.0-0.4) % Neut % (Auto) 88.9 H (45-73) % Lymph % (Auto) 6.5 L (20-40) % [place] % (Auto) 3.8 (2-11) % Eos % (Auto) 0.0 (0-4) % Baso % (Auto) 0.3 (0-2) % Lymph # (Auto) 1.3 (1.2-4.9) X10*3/uL [place] # (Auto) 0.8 (0.1-1.2) X10*3/uL Eos # (Auto) 0.0 (0.0-0.4) X10*3/uL Baso # (Auto) 0.1 (0.0-0.2) X10*3/uL Abs Immat Gran (auto) 0.10 H (0.00-0.03) X10*3/uL Absolute Neuts (auto) 17.5 H (2.0-8.3) x10*3/uL Absolute Nucleated RBC 0.000 (0.0-0.012) X10*3/uL Nucleated RBC % (auto) 0.0 (0.0-0.2) /100WBC Sodium 136 (135-145) mmol/L Potassium 3.2 L D (3.3-5.1) mmol/L Chloride 107 (96-108) mmol/L Carbon Dioxide 15 L (22-29) mmol/L Anion Gap 17 (12-20) BUN 10 (9-16) mg/dL Creatinine 0.68 (0.5-1.4) mg/dL Estim Creat Clear Calc 106.4 Estimated GFR > 60 Random Glucose 119 H (60-115) mg/dL Calcium 10.0 D (8.4-10.2) mg/dL Magnesium 1.5 L (1.6-2.6) mg/dL Total Bilirubin 0.6 (0.0-1.0) mg/dL AST 19 (5-31) U/L ALT 9 (0-31) U/L Alkaline Phosphatase 45 (39-117) U/L Total Protein 7.4 (6.5-8.0) g/dL Albumin 4.1 (3.5-5.0) g/dL Beta HCG, Quant 29917 mIU/mL Urine Color Dark Yellow Urine Appearance Clear Urine pH 6.0 (5.0-9.0) Ur Specific [place] >= 1.030 H (1.005-1.025) Urine Protein 30 (1+) H (Neg-Trace) mg/dL Urine Glucose (UA) Negative (Negative) mg/dL Urine Ketones >=160 (Negative) mg/dL Urine Blood Negative (Negative) Urine Nitrite Negative (Negative) Ur Leukocyte Esterase Trace H (Negative) Urine RBC 0-2 (0-2) /HPF Urine WBC 0-5 (0-5) /HPF Ur Squamous Epith Cells 6-10 (0-2) /HPF Urine Bacteria Trace (None Seen) Hyaline Casts 0-2 (0-2) /LPF Influenza Type A (PCR) NEGATIVE (Negative) Influenza Type B (PCR) NEGATIVE (Negative) RSV RNA Qual (PCR) NEGATIVE (Negative) SARS-CoV-2 RNA (RT-PCR) NEGATIVE (Negative) Independent Interpretation I performed an independent interpretation of an: Ultrasound Interpretation: My interpretation is in agreement with the radiologist's impression of this imaging study. EXAMINATION: US LIMITED HISTORY: abdominal pain, 4 months COMPARISON: Comparison is made with the prior examination dated 11/20/2024. FINDINGS: A single live intrauterine gestation is identified. The heart rate is 156 bpm. gross body movements are identified. The placenta is anterior and unremarkable in appearance. No abnormal uterine fluid collections are identified. Detailed anatomic survey was not performed due to early gestational age. The right ovary measures 1.6 x 1.9 x 1.8 cm and is unremarkable. The left ovary measures 2.3 x 1.6 x 1.3 cm and is unremarkable. US/US OB limited IMPRESSION: Single live intrauterine gestation identified. Normal-appearing ovaries. Electronically signed by: Des Sims MD 01/12/2025 10:27 AM EDT RP Dictated By: Des Sims MD Signed By: Electronically signed by Des Sims MD 01/12/25 1027 Radiology Impression Discussion of test interpretation with radiology: I have reviewed the radiologist's reading. Independent Historian Clinical information obtained from an independent historian. History obtained from or confirmed by: Parent (patient's mother provided additional history and confirmed the history provided by the patient. ) Critical Care Time Critical Care Time Critical Care Time: Yes Total Critical Care Time: 49 Attestation: I spent 49 minutes of Critical Care Time with this patient. This does not include time spent on separately reported billable procedures. Discharge Plan Discharge Clinical Impression: Nausea & vomiting, , Marijuana use, Hypomagnesemia, Hypokalemia Patient Disposition: Home, Self-Care Instructions: (ED), Acute Nausea and Vomiting (ED), Hypokalemia (ED), Potassium Content of Foods List (ED), Hypomagnesemia (ED) Additional Instructions: Please consider cessation of Marijuana as it is very likely this is contributing to your symptoms. Follow up with your primary care provider and your OBGYN. Return to the emergency department immediately if your symptoms worsen or if you develop any numbness, tingling, dizziness, shortness of breath, difficulty breathing, chest pain, blurry vision, loss of vision, nausea, vomiting, abdominal pain, fever, chills, back pain, or any other complaints. Please see the information below about our Patient Portal. If you are not yet enrolled in the [facility] Patient Portal, you will receive an enrollment email invitation following your visit to any [facility] [place] care setting. You may also self-enroll in the Patient Portal by visiting our website: [email or web address] The following information is required to access the Patient Portal: - [place] [facility] [place] - Your personal home email address (must match what is in your electronic medical record, Registration staff can assist with this) - Name - Date of Capabilities of the Patient Portal: - Message some providers - View upcoming appointments - Access your health summary, medical history, and visit history - View current conditions and allergies - View procedure and lab results - View your medications, including guidelines, side effects, and precautions - Complete pre-appointment questionnaires requested by your provider - Ready summary reports of your office visits and procedures To access the Patient Portal Mobile Mary, follow these directions: - Search [employer] in the Mary Store or [employer] Store - Download the Mary - Search for [facility] - Enter your login/password Prescriptions: No Action amoxicillin-pot clavulanate [Augmentin] 500-125 mg tablet 1 tab PO BID Qty: 10 0RF metoclopramide HCl 10 mg tablet 10 mg PO Q6H PRN (Reason: nausea and vomiting) Qty: 20 0RF pyridoxine (vitamin B6) [Vitamin B-6] 25 mg tablet 25 mg PO tid PRN (Reason: nausea) 30 Days Qty: 90 3RF Rx Instructions: may take every 6 - 8 hours for nausea PNV cmb#95-ferrous fumarate-FA [] 28 mg iron- 800 mcg tablet 1 tab PO DAILY Referrals: Shaneka Howard MD [Primary Care Provider] - Print Language: Polish
[2025-01-12] MEDS: Metoclopramide HCl 10 MG/2 ML VIAL IVPUSH ×2 (08:47→10:24)
[2025-01-12] MEDS: 0.9 % Sodium Chloride 1,000 ML 999 ML IV (08:47)
[2025-01-12] MEDS: Pantoprazole Sodium 40 MG/10 ML VIAL IVPUSH (08:47)
[2025-01-12] MEDS: diphenhydrAMINE HCL 50 MG/ML VIAL 25 MG IVPUSH (08:48)
[2025-01-12 08:55] LABS: MANUAL DIFF FLAG NO
--- OUTSIDE RECORDS SUMMARY | 2025-01-12 08:57 | XMS_ITS | Encounter Summary ---
Author Organization [employer] Address [address] [place] [address] Care Team Providers Care Blending Kettle Tender Name Role Phone Shaneka Howard MD Primary Care Provider [phone] Encounter Details Date Type Department Care Team (Late st Contact Info) Description 01/07/2025 Patient Outreach [facility] [address] [place] [address] Shaneka Howard MD [address] [place] [address] Social History Tobacco Use Types Packs/Day Years [...] documented as of this encounter Care Teams Blending Kettle Tender Relationship Specialty Start Date End Date Shaneka Howard MD [address] [place] [address] PCP - General Family Medicine 11/14/23 documented as of this encounter
--- OUTSIDE RECORDS SUMMARY | 2025-01-12 08:57 | XMS_ITS | Clinical Summary ---
Author Organization [facility] ity Address [address] [place] [address] Care Team Providers Care Retina Subspecialist Name Role Phone Unavailable Primary Care Provider [...] (1 - 3-dose series) 2016 Meningococcal B Vaccine (1 of 2 - Standard) 2017 Cervical Cancer Screening: Pap Smear 2022 COVID-19 Vaccine ( season) 2024 Influenza Vaccine (Season Ended) 2025 HIB Vaccines Completed 06/10/2002, 10/02, 2001, Additional [...]
--- OUTSIDE RECORDS SUMMARY | 2025-01-12 08:57 | XMS_ITS | Encounter Summary ---
Author Organization [employer] Address [address] [place] [address] Care Team Providers Care Mental Health Orderly Name Role Phone [facility] Primary Care Provider [phone] Shaneka Howard MD Primary Care Provider [phone] Reason for Visit * Reason Onset Date Comments Nurse Triage 04/09/2023 Encounter Details Date Type Department Care Team ([facility] st Contact Info) Description 04/09/2023 Telephone [facility] [address] [place] [address] [facility] [address] [place] [address] Nurse Triage Social History Tobacco Use Types [...] answer x2. Left voice message to call [facility] triage line at [phone] . * Telephone Encounter - Jaimie Solis [...] on filedocumented in this encounter Care Teams Mental Health Orderly Relationship Specialty Start Date End Date Gogo Giordano FNP [address] [place] [address] PCP - General Family Medicine 05/27/22 11/13/23 Shaneka Howard MD [address] [place] [address] PCP - General Family Medicine 11/14/23 documented as of this encounter
--- OUTSIDE RECORDS SUMMARY | 2025-01-12 08:57 | XMS_ITS ---
Author Organization [employer] Address [address] [place] [address] Care Team Providers Care Route Vending Machine Servicer Name Role Phone Shaneka Howard MD Primary Care Provider [phone] CM Maternal [place] [facility] Status:Outreach In Progress (Enrolling) Start date:12/23/2024 Enrollment reason:ADT Feed Overview ADT- [facility] ED 12/22/24. Pt is 10 weeks . Case Team Name Relationship Phone Liu Cedillo (Responsible Staff) Continued Care and Services Coordination
--- OUTSIDE RECORDS SUMMARY | 2025-01-12 08:57 | XMS_ITS | Clinical Summary ---
Demographics Address [address] [facility] [address] [place] [address] Home Phone Mobile Phone Preferred Language en Marital Status Single Sabianism Affiliation Unknown Race Other Race Ethnic Group or Author Organization [employer] Address [address] [facility] [place] [place] [address] Care Team Providers Care Paper Core Machine Operator Name Role Phone Shaneka Howard MD Primary Care Provider [phone] Allergies No known active allergies Medications * [...] blood and CBC -STAT pelvic/TV US -STAT AMMONIUM SULFATE OPERATOR referral [facility] [...] & Plan (04/29/2024 10:14 AM EDT): During [facility] Consult Autumn presenting with depressed mood, loss [...] Health Integration Plan Internal Follow up with [facility] External OP therapy referral and OP psychiatry Referral Patient Self Plan Patient to utilize skills provided in intervention , Patient to reach out to [facility] team as needed, Patient to [...] Health Integration Plan Internal Follow up with [facility] External OP therapy referral and OP psychiatry Referral Patient Self Plan Patient to utilize skills provided in intervention , Patient to reach out to [facility] team as needed, Patient to engage in OP therapy , and Patient to reach out to [facility] as needed Vitamin D deficiency 06/07/2018 Allergic rhinitis 06/18/2017 Mild intermittent asthma 11/27/2016 Developmental academic disorder 06/28/2015 Dyssomnia 06/08/2014 Impulse control disorder 06/08/2014 Comments Yes Encounters Date Type Department Care Team Description 01/07/2025 Patient Outreach [facility] [address] [place] [phone] Shaneka Howard MD 01/05/2025 Patient Outreach [facility] [address] [place] [phone] Shaneka Howard MD Transition Of Care (Tcm) 01/01/2025 Patient Outreach [address] [address] Shaneka Howard MD Care Coordination ([facility] Liu Cedillo TC#3-ED Outreach-LVM) 12/26/2024 Patient Outreach [address] [address] Shaneka Howard MD Care Coordination ([facility]/Edie Cedillo TC#2- ADT Outreach-LVM) 12/23/2024 Patient Outreach [address] [address] Shaneka Howard MD Care Coordination ([facility]/Edie Cedillo-ADT Outreach-Pt requested call back ) 12/23/2024 Patient Outreach [address] [address] Shaneka Howard MD Care Coordination ([facility]/Edie Cedillo, Chart Review) 12/23/2024 Patient Outreach [address] [address] Shaneka Howard MD Care Management ([facility] chart review) 12/23/2024 Patient Outreach [address] [address] Shaneka Howard MD 12/13/2024 Orders Only GENERIC EXTERNAL DATA DEPARTMENT Provider, Generic External Data 12/12/2024 Population Health Risk Score [facility] (C3) Department [address] [place] [phone] Provider, Population Health Generic 11/20/2024 Orders Only [facility] External Provider, [facility] 11/13/2024 Orders Only GENERIC EXTERNAL DATA DEPARTMENT Provider, Generic External Data 11/12/2024 Orders Only [facility] External Provider, [facility] 11/11/2024 Orders Only GENERIC EXTERNAL DATA DEPARTMENT [...] Answer Date Recorded Patient Health Questionnaire-9 Score 04/23/2024 Patient Health Questionnaire-9 Score 04/23/2024 Last PHQ-9: Questionnaire Data Not on [...] 05/11/2006, 04/07/2003, Additional history exists Depression Monitoring 10/24/2024 04/23/2024, 024 SDOH Screening 12/25/2024 12/26/2023 Depression Screening 04/23/2025 [...] time period is included. Color Urine Yellow [facility] Appearance Urine Cloudy [facility] PH 7.5 5.0 - 9.0 [facility] Glucose Urine UA Negative Negative mg/dL [facility] Urine Blood Negative Negative [facility] Specific [place] - Urine 1.025 1.005 - 1.025 [facility] Urine Protein Trace Neg-Trace mg/dL [facility] Urine Ketones 80 Negative mg/dL [facility] Nitrite Urine Negative Negative [facility] Leukocyte Esterase Urine Negative Negative [facility] RBC Urine 0-2 0 - 2 /HPF [facility] Urine WBC 0-5 0 - 5 /HPF [facility] Urine Squamous Epithelial Cell 0-2 0 - 2 /HPF [facility] Urine Bacteria None Seen None Seen [facility] Hyaline Casts, Urine 0-2 0 - 2 /LPF [facility] 12/13/2024 2:49 PM EDT 12/13/2024 2:53 PM EDT Narrative [facility] - 12/13/2024 2:59 PM EDT [id number], Clean Catch Generic External Data Provider LAB URINE ORDERAB LES Final Result Performing Organization Address [facility] Co de Phone Number [facility] [address] [place] [phone] * SARS-CoV-2 RNA, Influenza A/B, and RSV RNA, Ql NAAT (12/13/2024 2:03 PM EDT) Only the most recent of2 resultswithin the time period is included. Pathologist [facility] Influenza A PCR NEGATIVE Negative [facility] Influenza B PCR NEGATIVE Negative [facility] Resp Syncy Virus RNA Qual PCR NEGATIVE Negative [facility] SARS COV2 PCR NEGATIVE Negative [facility] Comment:All test results mus t [...] use by authorized laboratories.Testing performed on the [employer] GeneXpert utilizingreal-time RT-PCR.All SARS CoV2 and positive influenza A/B results arereported to [facility]. 12/13/2024 2:03 PM EDT 12/13/2024 2:06 PM EDT Generic External Data Provider LAB MICROBIOLOGY - GENERAL ORDERABLES Final Result Performing Organization Address [facility]/ZIP Co de Phone Number [facility] [address] [place] [phone] * (ABNORMAL) CBC auto differential (12/13/2024 2:03 PM EDT) Only the most recent of2 resultswithin the time period is included. White Blood Count 16.5(H) 4.8 - 10.8 X10*3/uL [facility] Red Blood Count 4.24 4.20 - 5.50 X10*6/uL [facility] Hemoglobin 13.5 12.0 - 16.0 g/dl [facility] Hematocrit 37.6 37.0 - 47.0 % [facility] Mean Corpuscular Volume 88.7 80.0 - 98.0 fL [facility] Mean Corpuscular Hemoglobin 31.8 27.0 - 33.0 pg [facility] Mean Corpuscular HGB Conc 35.9(H) 31.0 - 35.0 g/dl [facility] Red Cell Distribution Width 13.2 11.0 - 16.0 % [facility] Platelet Count 255 160 - 400 X10*3/uL [facility] Mean Platelet Volume 11.4 9.4 - 12.3 fL [facility] Neutrophils Percent Auto 80.4(H) 45 - 73 % [facility] Imm Gran Pct Auto 0.4 0.0 - 0.4 % [facility] Lymphocytes Percent Auto 13.2(L) 20 - 40 % [facility] Monocytes Percent Auto 5.6 2 - 11 % [facility] Eosinophils Percent Auto 0.1 0 - 4 % [facility] Basophils Percent Auto 0.3 0 - 2 % [facility] NRBC Pct Auto 0.0 0.0 - 0.2 /100WBC [facility] Neutrophils Absolute Auto 13.3(H) 2.0 - 8.3 x10*3/uL [facility] Imm Gran Abs Auto 0.07(H) 0.00 - 0.03 X10*3/uL [facility] Lymphocytes Absolute Auto 2.2 1.2 - 4.9 X10*3/uL [facility] Monocytes Absolute Auto 0.9 0.1 - 1.2 X10*3/uL [facility] Eosinophils Absolute Auto 0.0 0.0 - 0.4 X10*3/uL [facility] Basophils Absolute Auto 0.1 0.0 - 0.2 X10*3/uL [facility] NRBC Abs Auto 0.000 0.0 - 0.012 X10*3/uL [facility] 12/13/2024 2:03 PM EDT 12/13/2024 2:06 PM EDT us Generic External Data Provider LAB BLOOD ORDERAB LES Final Result [facility] [address] [place] [phone] * US OB <14 WEEKS FETUS (11/20/2024 3:02 PM EST) Anatomical Region Laterality Modality Ultrasound 11/20/2024 3:02 PM EST Narrative 11/20/2024 3:03 PM EST ? [facility] ?[address] ?[place] [address] ? Ultrasound Report ? Signed ? Patient: Jasen,Autumn ?MR#: [id number] ?? 68 ? : 2000 ?Acct:[id number] ? Age/Sex: 24 / F ?ADM Date: 11/20/24 ? Loc: HO.US ? Attending Dr: Anthony Morris MD ? Ordering Physician: Anthony Morris MD ?? Date of Service: 11/20/24 ?? Procedure(s): US OB <= 14 weeks fetus ?? Accession Number(s): [id number] ? cc: Shaneka Howard; Anthony Morris MD [...] DD/ 1502 ? TD/TT: 11/20/24 1510 ? Executive Manager: ? Procedure Note Priscilla Fonseca - 11/20/[address] [address] Ultrasound Report Signed Patient: Jamal Aggarwal#: [id number] 68 : 2000Acct:[id number] Age/Sex: 24 / FADM Date: 11/20/24 Loc: HO.US Attending Dr: Anthony Morris MD Ordering Physician: Anthony Morris MD Date of Service: 11/20/24 Procedure(s): US OB <= 14 weeks fetus Accession Number(s): [id number] cc: Shaneka Howard; Anthony Morris MD EXAMINATION: [...] 11/20/24 1500 DD/ 1502 TD/TT: 11/20/24 1510 Executive Manager: us [facility] External Provider IMG OB US PROCEDURES Final Result * US OB Pelvis with Transvaginal (11/13/2024 2:50 PM EST) Only the most recent of3 resultswithin the time period is included. Anatomical Region Laterality Modality Pelvis Ultrasound 11/13/2024 2:50 PM EST Narrative 11/13/2024 3:32 PM EST ? [facility] ?[address] ?[place] [address] ? Ultrasound Report ? Signed ? Patient: Jasen,Autumn ?MR#: [id number] ?? 68 ? : 2000 ?Acct:[id number] ? Age/Sex: 24 / F ?ADM Date: 11/13/24 ? Loc: HO.US ? Attending Dr: Anthony Morris MD ? Ordering Physician: Anthony Morris MD ?? Date of Service: 11/13/24 ?? Procedure(s): US OB pelvic and transvaginal ?? Accession Number(s): [id number] ? cc: Shaneka Howard; Anthony Morris MD [...] DD/ 1450 ? TD/TT: 11/13/24 1517 ? Executive Manager: ? Procedure Note Donotuseinterpreter, Image - 11/13/2024 [place] [address] Ultrasound Report Signed Patient: Jamal Aggarwal#: [id number] 68 : 2000Acct:[id number] Age/Sex: Date: 11/13/24 Loc: HO.US Attending Dr: Anthony Morris MD Ordering Physician: Anthony Morris MD Date of Service: 11/13/24 Procedure(s): US OB pelvic and transvaginal Accession Number(s): [id number] cc: Shaneka Howard; Anthony Morris MD EXAMINATION: [...] 11/13/24 1529 DD/ 1450 TD/TT: 11/13/24 1517 Executive Manager: [facility] External Provider IMG US PROCEDURES Final Result * (ABNORMAL) Bacterial Vaginosis (11/13/2024 12:13 PM EST) TRICHOMONAS VAGINALIS DETECTION BY PCR NOT DETECTED Not Detect [facility] BACTERIAL VAGINOSIS DETECTION BY PCR POSITIVE(A) Negative [facility] Comment:The BV organism targ ets [...] DETECTION BY PCR NOT DETECTED Not Detect [facility] Muna glab krusei PCR NOT DETECTED Not Detect [facility] 11/13/2024 12:1 3 PM EST 11/13/2024 3:38 PM EST us Generic External Data Provider LAB MICROBIOLOGY - GENERAL ORDERABLES Final Result [facility] [address] [place] [address] [phone] * Chlamydia/N. Gonorrhoeae RNA, TMA, Urogenitial (11/13/2024 12:13 PM EST) CT PCR NOT DETECTED Not Detect. [facility] Comment:A not detected test result [...] psychologicalconsequences. NG PCR NOT DETECTED Not Detect. [facility] Comment:A not detected test result [...] PM EST 11/13/2024 3:38 PM EST Narrative [facility] - 11/14/2024 1:58 PM EST Vaginal Generic External Data Provider LAB MICROBIOLOGY - GENERAL ORDERABLES Final Result Performing Organization Address [facility] Co de Phone Number [facility] [address] [place] [phone] * hCG, Total, Quantitative (11/13/2024 11:40 AM EST) Only the most recent of3 resultswithin the time period is included. HCG Quantitative 9,800 mIU/mL [facility] Comment:Weeks post LMP Appro ximate hCG(Last Menstrual Period) Range (mIU/ml)3 - 4 weeks 9 - 1304 - 5 weeks 75 - 2,6005 - 6 weeks 850 - 20,8006 - 7 weeks 4000 - 100,2007 - 12 weeks 11,500 - 289,80170 - 16 weeks 18,300 - 137,57711 - 29 weeks (2nd trimester) 1,400 - 53,22011 - 41 weeks (3rd trimester) 940 - [...] Final Result Performing Organization Address [facility] Co de Phone Number [facility] [address] [place] [phone] * Syphilis Screen (11/11/2024 1:05 PM EST) Syphilis Screen Nonreactive Nonreactive [facility] 11/11/2024 1:05 PM EST 11/11/2024 1:05 PM EST Generic External Data Provider LAB BLOOD ORDERAB LES Final Result Performing Organization Address [facility] Co de Phone Number [facility] [address] [place] [phone] * Hepatitis C Ab (11/11/2024 1:05 PM EST) Pathologist [facility] Hepatitis C Antibody Nonreactive Nonreactive [facility] Comment:Antibodies to HCV no t detected; does not exclude early acuteHCV infection. 11/11/2024 1:05 PM EST 11/11/2024 1:05 PM EST Generic External Data Provider LAB BLOOD ORDERAB LES Final Result Performing Organization Address [facility] Phone Number [facility] [address] [place] [phone] * Hepatitis B surface antigen, EIA (11/11/2024 1:05 PM EST) Pathologist [facility] Hepatitis B Surface Ag Negative Negative [facility] 11/11/2024 1:05 PM EST 11/11/2024 1:05 PM EST Generic External Data Provider LAB BLOOD ORDERAB LES Final Result Performing Organization Address [facility] Phone Number [facility] [address] [place] [phone] * HIV-1/2 Antigen and Antibodies, Fourth Generation, with Reflexes (11/11/2024 1:05 PM EST) Pathologist [facility] HIV AB/AG Nonreactive Nonreactive [facility] Comment:HIV-1 p24 Ag and/or HIV-1/HIV-2 Ab not detected.A test result that is nonreactive does not exclude thepossibility of exposure to or infection with HIV-1 and/orHIV-2. Nonreactive results in this assay for individualswith prior exposure to HIV-1 and/or HIV-2 may be due toantigen and antibody levels that are below the limit ofdetection of this assay.The [employer] HIV Ag/Ab Combo assay result andsupplemental assay results should be interpreted inconjunction with the patient's clinical presentation,history and other laboratory results. If the results areinconsistent with clinical evidence, additional testing issuggested to confirm the result. 11/11/2024 1:05 PM EST 11/11/2024 1:05 PM EST us Generic External Data Provider LAB BLOOD ORDERAB LES Final Result Performing Organization Address City/[facility]/ZIP Co de Phone Number [facility] [address] [place] [phone] * Magnesium (11/06/2024 9:10 PM EST) Pathologist [facility] Magnesium 1.8 1.6 - 2.6 mg/dL [facility] 11/06/2024 9:10 PM EST 11/06/2024 9:13 PM EST us Generic External Data Provider LAB BLOOD ORDERAB LES Final Result Performing Organization Address [facility]/ZIP Co de Phone Number [facility] [address] [place] [phone] * (ABNORMAL) Comprehensive Metabolic Panel (11/06/2024 9:10 PM EST) Sodium 135 135 - 145 mmol/L [facility] Potassium 4.2 3.3 - 5.1 mmol/L [facility] Chloride 107 96 - 108 mmol/L [facility] Carbon Dioxide 21(L) 22 - 29 mmol/L [facility] Anion Gap 11(L) 12 - 20 [facility] Urea Nitrogen (BUN) 9 9 - 16 mg/dL [facility] Creatinine, Serum 0.66 0.5 - 1.4 mg/dL [facility] Creatinine Clr Calc Pharmacy 109.7 [facility] Comment:Provided height and weight: 160.02 cm,59.4 kg.eGFR (calculated from the MDRD study equation) and eCrCl(calculated from the Cockcroft-Gault equation) are based ondifferent parameters and may not yield comparable results.If eCrCl result is absurd, please check patient'sheight/weight. Estimated Glomerular Filt Rate >60 [facility] Comment:Chronic Kidney Disea se: Estimated GFR < 60 mL/min/1.09r5Maljvj Kidney Disease: Estimated GFR < 15 mL/min/1.73m2 Glucose 90 60 - 115 mg/dL [facility] Calcium 9.1 8.4 - 10.2 mg/dL [facility] Bilirubin, Total 0.7 0.0 - 1.0 mg/dL [facility] Aspartate Amino Transferase 25 5 - 31 U/L [facility] Alanine Aminotransferase 15 0 - 31 U/L [facility] Total Protein 7.9 6.5 - 8.0 g/dL [facility] Albumin Level 4.4 3.5 - 5.0 g/dL [facility] Alkaline Phosphatase 61 39 - 117 U/L [facility] 11/06/2024 9:10 PM EST 11/06/2024 9:13 PM EST us Generic External Data Provider LAB BLOOD ORDERAB LES Final Result Performing Organization Address City/State/[facility] Co de Phone Number [facility] [address] [place] [phone] from Last [address] [place] [address] [address] C3 * Guarantor: Autumn Aggarwal I Account Type Relation to Patient Date of Phone Billing Address Personal/Family Self [phone] Care Teams Paper Core Machine Operator Relationship Specialty Start Date End Date Shaneka Howard MD [address] [place] [phone] PCP - General Family Medicine 11/14/23
--- OUTSIDE RECORDS SUMMARY | 2025-01-12 08:57 | XMS_ITS | Encounter Summary ---
Author Organization [employer] Address [address] [place] [address] Care Team Providers Care High School Tutor Name Role Phone Shaneka Howard MD Primary Care Provider Reason for Visit * Reason Onset Date Comments Nurse Triage 11/14/2023 Encounter Details Date Type Department Care Team ([facility] st Contact Info) Description 11/14/2023 Telephone [facility] [address] [place] [address] [facility] [address] [place] [address] Nurse Triage Social History Tobacco Use Types [...] away. Pt is advised to come to [facility] today open till 8pm and provider can see Pt. Home care advised and insurance is not verified as active, Pt is advised to contact insurance first. Pt reponds I was already told about this . Pt also requests not to call on [phone] number it is an emergency number. Protocol [...] on filedocumented in this encounter Care Teams High School Tutor Relationship Specialty Start Date End Date Shaneka Howard MD [address] [place] [address] PCP - General Family Medicine 11/14/23 documented as of this encounter
--- OUTSIDE RECORDS SUMMARY | 2025-01-12 08:57 | XMS_ITS ---
Author Organization [employer] Address [address] [facility] [address]t [place] [address] Care Team Providers Care Instructor Private Name Role Phone Shaneka Howard MD Primary Care Provider [phone] CM High Risk Maternity Status:Outreach In Progress (Enrolling) Start date:12/23/2024 Enrollment reason:ADT Feed Overview ADT- [facility] ED 12/22/24. Pt is 10 weeks . Case Team Name Relationship Phone Laine Solorio Registered Nurse(Responsible S taff) Continued Care and Services Coordination
--- OUTSIDE RECORDS SUMMARY | 2025-01-12 08:57 | XMS_ITS | Encounter Summary ---
Author Organization [employer] Address [address] [facility] [address] [place] [address] Care Team Providers Care Drop Forge Operator Name Role Phone Shaneka Howard MD Primary Care Provider [phone] Reason for Visit * Reason Onset Date Comments dental emergency/ 07/25/2024 Encounter Details Date Type Department Care Team ([facility] st Contact Info) Description 07/25/2024 Telephone [facility] [address] [place] [address] Diana Rob DDS [address] [place] [address] dental emergency/ Social History Tobacco Use Types [...] to providefor dental treatment). Provided fax number [phone] to have OB office send in clearance. [...] documented as of this encounter Care Teams Drop Forge Operator Relationship Specialty Start Date End Date Shaneka Howard MD [address] [place] [address] PCP - General Family Medicine 11/14/23 documented as of this encounter
[2025-01-12 08:58] LABS: Basophils Absolute Auto 0.1 X10*3/uL (0.0-0.2); Basophils Percent Auto 0.3 % (0-2); Hematocrit 38.2 % (37.0-47.0); Hemoglobin 13.8 g/dl (12.0-16.0); Imm Gran Pct Auto 0.5 % (0.0-0.4); Lymphocytes Absolute Auto 1.3 X10*3/uL (1.2-4.9); Lymphocytes Percent Auto 6.5 % (20-40); Mean Corpuscular HGB Conc 36.1 g/dl (31.0-35.0); Mean Corpuscular Hemoglobin 32.1 pg (27.0-33.0); Mean Corpuscular Volume 88.8 fL (80.0-98.0); Mean Platelet Volume 11.3 fL (9.4-12.3); Monocytes Absolute Auto 0.8 X10*3/uL (0.1-1.2); Monocytes Percent Auto 3.8 % (2-11); Neutrophils Absolute Auto 17.5 x10*3/uL (2.0-8.3); Neutrophils Percent Auto 88.9 % (45-73); Platelet Count 260 X10*3/uL (160-400); White Blood Count 19.7 X10*3/uL (4.8-10.8)
--- NOTE | 2025-01-12 08:58 | PC.NURSE ---
pt is alert and oriented, skin slightly warm to the touch but appropriate for ethnicity, pt is thrashing all over the bed, not wanting to answer questions- does answer after multiple prompts that we need to know what is happening order to help her, pt finally states that she is having right sided neck pain, upper/epigastric area pain and all over back pain, pt is 4 months preg but denies any vaginal bleeding, pt does report to smoking marijuana daily, vs stable
--- NOTE | 2025-01-12 09:12 | PC.NURSE ---
pt keeps yelling and thrashing in bed, insisting on ice chips, pt explained that she needs to wait for a little longer for the medications to work
[2025-01-12 09:14] LABS: Alanine Aminotransferase 9 U/L (0-31); Albumin Level 4.1 g/dL (3.5-5.0); Alkaline Phosphatase 45 U/L (39-117); Anion Gap 17 (12-20); Aspartate Amino Transferase 19 U/L (5-31); Bilirubin Total 0.6 mg/dL (0.0-1.0); Blood Urea Nitrogen 10 mg/dL (9-16); Carbon Dioxide 15 mmol/L (22-29); Chloride 107 mmol/L (96-108); Creatinine Clr Calc Pharmacy 106.4; Estimated Glomerular Filt Rate > 60; Glucose Random 119 mg/dL (60-115); Magnesium 1.5 mg/dL (1.6-2.6); Potassium 3.2 mmol/L (3.3-5.1); Sodium 136 mmol/L (135-145); Total Protein 7.4 g/dL (6.5-8.0)
[2025-01-12 09:34] LABS: Influenza A PCR NEGATIVE (Negative); Influenza B PCR NEGATIVE (Negative); Resp Syncy Virus RNA Qual PCR NEGATIVE (Negative); SARS COV2 PCR INHOUSE NEGATIVE (Negative)
[2025-01-12 09:38] LABS: HCG Quantitative 77333 mIU/mL
--- NOTE | 2025-01-12 09:43 | PC.NURSE ---
pt is starting to relax and being more comfortable, pt is tolerating small amounts of ice chips at a time
[2025-01-12] MEDS: Potassium Chloride Packet 20 MEQ PACKET 40 MEQ PO (09:52)
[2025-01-12] MEDS: Magnesium Sulfate/D5W 1 GM/100 ML PIGGYBACK IV (09:52)
[2025-01-12 09:53] LABS: Appearance Urine Clear; Color Urine Dark Yellow; Glucose Urine UA Negative (Negative); Leukocyte Esterase Urine Trace (Negative); Nitrite Urine Negative (Negative); Specific Gravity - Urine >= 1.030 (1.005-1.025); UMIC TRIGGER UACC YES; Urine Blood Negative (Negative); Urine Ketones >=160 mg/dL (Negative); Urine Protein 30 (1+) mg/dL (Neg-Trace)
[2025-01-12 09:56] LABS: Bacteria Urine Trace (None Seen); Hyaline Casts Urine 0-2 /LPF (0-2); RBC Urine 0-2 /HPF (0-2); WBC Urine 0-5 /HPF (0-5)
--- NOTE | 2025-01-12 10:25 | PC.NURSE ---
pt is starting to dry heave again
[2025-01-12 11:00] VITALS: BP 94/46; PULSE 55; RESP 15; TEMP 36.4; O2SAT 99
--- NOTE | 2025-01-12 11:09 | PC.NURSE ---
Report received, taken over care at this time. D/C after mag is completed.
[2025-01-12 11:30] VITALS: BP 94/46; PULSE 55; RESP 15; TEMP 36.4; O2SAT 99
== END 2025-01-12 11:31 | disposition home or self-care (01) ==
PROVIDERS: Physician Assistant Medical; Emergency Provider Emergency Medicine; PCP General Practice
DX: O21.0 Mild hyperemesis gravidarum (principal); R10.2 Pelvic and perineal pain; Z3A.14 14 weeks gestation of pregnancy; Z79.899 Other long term (current) drug therapy; Z03.818 Encounter for observation for suspected exposure to other biological agents ruled out
CPT/HCPCS: 0241U; 36415; 76815; 80053; 81001; 83735; 84702; 85025; 96374; 96375; 99284; J1200; J2470; J2765; J3475

== ENCOUNTER → 2025-01-12 08:32 | Outpatient (BNV) | payer MEDICAID, SELFPAY | PROVIDERS: Emergency Provider Emergency Medicine; PCP General Practice; Visit Provider Radiology Diagnostic Radiology | DX: R10.84 Generalized abdominal pain (principal); Z3A.18 18 weeks gestation of pregnancy | CPT/HCPCS: 76815 ==

== ENCOUNTER 2025-05-26 23:48 | Emergency (ER) | payer MEDICAID, SELFPAY ==
[2025-05-26 23:51] VITALS: BP 124/57; PULSE 78; RESP 17; TEMP 36.7; O2SAT 99; BMI 23.4
--- NOTE | 2025-05-27 00:11 | ED_ITS ---
HPI - General Chief complaint: OB Stated complaint: 33 weeks preg + pelvic pain + back + vomiting Time Seen by Provider: 05/26/25 23:57 Source: patient and family Mode of arrival: ambulatory Limitations: no limitations History of Present Illness ED Provider: Dr. Martha Min HPI Narrative: 25-year-old female 33w 5d presenting with contractions and feeling pressure in her pelvis. States she has been feeling contractions since this morning when she woke up. Admits to having contractions throughout the last 2 months of this . Denies vaginal bleeding, loss of fluids, decreased movement. No reported complications with . Of note, she is having vomiting and diarrhea over the last 24 hours. No hematochezia. She has had vomiting throughout her and has medications at home but has not taken anything for them. Otherwise denies fevers, chest pain, difficulty breathing, cough or cold-type symptoms. Related Data Home Medications ?Medication ?Instructions ?Recorded ?Confirmed vit no.95-ferrous 1 tab PO DAILY 07/30/24 fumarate 28 mg-folic acid 800 mcg tablet () Previous Rx's ?Medication ?Instructions ?Recorded pyridoxine (vitamin B6) 25 mg 25 mg PO tid PRN nausea 30 days 11/20/24 tablet (Vitamin B-6) #90 tabs amoxicillin 500 mg-potassium 1 tab PO BID #10 tabs clavulanate 125 mg tablet (Augmentin) metoclopramide HCl 10 mg tablet 10 mg PO Q6H PRN nause a and 01/04/25 vomiting #20 tabs Allergies Allergy/AdvReac Type Severity Reaction Status Date / Time SEASONAL ALLERGIES Allergy Intermediate NASAL Uncoded 05/26/25 23:53 CONGESTION Review of Systems Review of Systems: As per HPI, full review of systems performed and negative but for the above mentioned pertinent positives and negatives. 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 SKIN: Normal skin color for ethnicity, warm, dry, no rashes noted. HEENT: Normocephalic, atraumatic, no stridor, EOMI. NECK: Full ROM. CHEST: Heart regular rate and rhythm, symmetric chest rise and fall. PULMONARY: No labored breathing. ABDOMINAL: Gravid, nontender, quiet bowel sounds : Normal external genitalia, no , no fluid or bleeding MUSCULOSKELETAL: Normal tone, full range of motion, no deformities, no peripheral edema. NEURO: Alert and oriented x3, no focal neurologic deficits. PSYCHIATRIC: Anxious affect, fluid speech, good eye contact and cooperative. Vital Signs: Vital Signs: Last Vital Signs Temp 98.1 F 05/26/25 23:51 Pulse 78 05/26/25 23:51 Resp 17 05/26/25 23:51 BP 124/57 L 05/26/25 23:51 Pulse Ox 99 05/26/25 23:51 O2 Del Method Room Air 05/26/25 23:51 BMI result Body Mass Index 23.4 Medical Decision Making Medical Decision Making [facility] Narrative: This patient presents today with a chief complaint of pelvic pain and feeling contractions. Differential diagnosis includes labor, [place] contractions, UTI, anxiety, among others. Patient is nontoxic, bedside ultrasound shows heart tones of 150, adequate amniotic fluid, normal movement, transverse lie. Very low suspicion for early labor. She is unable to characterize the pain and frequency of these ?contractions?. Urinalysis ordered. Case discussed with [facility] transfer. She will be transferred to [facility] for OB triage. Accepted by Dr. Fuentes OBGYN. Patient understands and agrees with plan for transfer. Transferred in stable condition. Differential Diagnosis Differential Diagnoses: The differential diagnosis associated with the presentation includes (As above) Admission/Observation Consideration of admission/observation: Escalation of care including admission/observation considered Consult Healthcare Provider Management of the patient was discussed with: Magnet Maker (OBGYN) Lab Data [facility] Lab Attestation statement: I reviewed the patient's lab results. Procedures Ultrasound ED POC Ultrasound: EMERGENCY ULTRASOUND INTERPRETATION-Limited Uterus US The study reveals:? Single IUP, heart tones 150, adequate movement and amniotic fluid levels Impression: IUP Indication: Performed by: Dr. Martha Min D.O. Date:Time: 12:41 AM 05/27/2025 ? CPT: 98644 ; Reference Codes? [email or web address] Discharge Plan Discharge Clinical Impression: Pelvic pain during in third trimester, antepartum, Uterine co ntractions during Patient Disposition: [facility] Transfer Details: [facility], Dr. Fuentes accepting Prescriptions: No Action amoxicillin-pot clavulanate [Augmentin] 500-125 mg tablet 1 tab PO BID Qty: 10 0RF metoclopramide HCl 10 mg tablet 10 mg PO Q6H PRN (Reason: nausea and vomiting) Qty: 20 0RF pyridoxine (vitamin B6) [Vitamin B-6] 25 mg tablet 25 mg PO tid PRN (Reason: nausea) 30 Days Qty: 90 3RF Rx Instructions: may take every 6 - 8 hours for nausea PNV no.95-ferrous fumarate-FA [] 28 mg iron- 800 mcg tablet 1 tab PO DAILY Print Language: Canadian
--- OUTSIDE RECORDS SUMMARY | 2025-05-27 00:26 | XMS_ITS | Encounter Summary ---
Author Organization [employer] Address [address] [place] [address] Care Team Providers Care Vba Developer Name Role Phone Shaneka Howard MD Primary Care Provider [phone] Encounter Details Date Type Department Care Team (Late st Contact Info) Description 05/05/2025 Orders Only [facility] MED & PEDS [address] [place], [place] [id number] Provider, MD Laure Social History Tobacco Use Types Packs/Day Years Used Date Smoking Tobacco: Every Day Cigarettes Depression Answer Date Recorded Patient Health Questionnaire-9 Score 4 04/13/2025 Patient Health Questionnaire-9 Score 4 04/13/2025 Last PHQ-9: Questionnaire Data Not on file 0 04/13/2025 Housing Stability Answer Date Recorded What is your housing situation today? I am not s ure 02/25/[address] you li ve. Do you have problems with any of the following? None of the above 02/25/2025 Food Insecurity Answer Date Recorded Within the past 12 months, y ou worried that your food would run out before you got money to buy more: Never True 02/25/2025 Within the past 12 months,th e food you bought just didn't last and you didn't have enough money to get more: Never True Transportation Answer Date Recorded In the past 12 months, has l ack of transportation kept you from medical appts, meetings, work or from getting things needed for daily living? No 02/25/2025 Utilities Answer Date Recorded In the past 12 months, has t he electric, gas, oil or water company threatened to shut off services in your home? No 02/25/2025 Depression Answer Date Recorded Patient Health Questionnaire-2 Score 1 04/13/2025 Internet Access Answer Date Recorded Internet Access Q1 Yes 02/25/2025 Internet Access Q2 Not on file 02/25/2025 Comments Unknown Sex and Gender Information Value Date Recorded Sex Assigned at Female 07/31/2022 10:16 AM EDT Legal Sex Female 10:16 AM EDT Gender Identity Female 07/31/2022 10:16 AM EDT Sexual Orientation Straight 07/31/2022 10 :16 AM EDT documented as of this encounter Plan of Treatment Not on file documented as of this encounter Procedures Procedure Name Priority Date/Time Associated Diagnosis Comments HM PAP/HPV Routine 01/14/2025 11:10 AM EDT documented in this encounter Results * HM PAP/HPV (01/14/2025 11:10 AM EDT) Historical Provider HEALTH MAINTENANCE Final Result documented in this encounter Visit Diagnoses Not on filedocumented in this encounter Additional Health Concerns Assessment Noted Time PHQ-9 Depression Total Score: 4 04/13/20 25 10:29 AM EDT documented as of this encounter Care Teams Vba Developer Relationship Specialty Start Date End Date Shaneka Howard MD [address] [place] [address] PCP - General Family Medicine 11/14/23 documented as of this encounter
--- OUTSIDE RECORDS SUMMARY | 2025-05-27 00:27 | XMS_ITS ---
Author Organization [employer] Address [address] [facility] [address] 7t [place] [address] Care Team Providers Care Assistant Plant Manager Name Role Phone Shaneka Howard MD Primary Care Provider [phone] C3 CM High Risk Maternity Status:Enrolled (Active) Start date:12/23/2024 Enrollment date:04/13/2025 Enrollment reason:ADT Feed Overview ADT- [facility] 12/22/24. Pt is 10 weeks . Case Team Name Relationship Phone Laine Solorio(Responsible Staff) Registered Nurse [phone] Continued Care and Services Coordination
--- OUTSIDE RECORDS SUMMARY | 2025-05-27 00:27 | XMS_ITS | Clinical Summary ---
Author Organization [employer] Address [address] [facility] [address] [place] [address] Care Team Providers Care Veterinary Attendant Name Role Phone Shaneka Howard MD Primary Care Provider [phone] Allergies No known active allergies Medications * This document contains information received from the source organization and may not represent a complete record from that organization. cetirizine (ZyrTEC) 10 MG tablet Take 1 tablet (10 mg) by mouth Once per day. 90 tablet 3 4 Active Additional Information Patient not taking.Reported on 04/13/2025 metoclopramide (Reglan) 10 MG tablet take 1 tablet by mouth every 6 hours as needed for nausea and vomiting 5 Active nicotine (Nicoderm, Step 3) 7 MG/24HR patch APPLY 1 PATCH TOPICALLY DAILY,X14 DAYS 5 Active pyridoxine (Vitamin B-6) 25 MG tablet TAKE 1 TABLET ORALLY 3 TIMES A DAY NEEDED FOR NAUSEA FOR 30 DAYS MAY TAKE EVERY 6 - 8 HOURS 5 Active Vit-Fe Fumarate-FA (M-Tod Plus) 27-1 MG tablet Take 1 tablet by mouth Once per day. 5 Active Ventolin HFA 108 (90 Base) MCG/ACT inhaler INHALE 1 PUFF EVERY 6 HOURS NEEDED FOR WHEEZE 18 g 1 5 Active Active Problems Problem Noted Date Diagnosed Date Acute stress disorder 01/20/2025 Anxiety 01/20/2025 Marijuana use 01/20/2025 Migraine 01/20/2025 Recurrent loss 01/20/2025 Tobacco user 01/20/2025 07/18/2024 Assessment & Plan (01/20/2025 3:05 PM EDT): Discussed reduction of marijuana and cigarette use, benefits to baby How to locate stress reduction within herself, rather than with substances or people Vaginal bleeding 07/18/2024 Assessment & Plan (07/18/2024 12:57 PM EDT): Pt abd exam is benign,reports ongoing vaginal spotting but improved Urinedisptick here is neg today, urine preg + -refuse ED evaluation today for ongoing bleeding -explained pt about possible miscarriage -explained alarm signs and symptoms -ordered today HCG blood and CBC -STAT pelvic/TV US -STAT BUSINESS PARTNER referral requested to referral at [facility] by pt prefernce- will inform pt [...] & Plan (04/29/2024 10:14 AM EDT): During [facility] Consult Autumn presenting with depressed mood, loss [...] Health Integration Plan Internal Follow up with [facility] External OP BH therapy referral and OP psychiatry Referral Patient Self Plan Patient to utilize skills provided in intervention , Patient to reach out to [facility] team as needed, Patient to engage in OP BH therapy , and Patient to reach out to [facility] as needed Severe episode of recurrent major depressive disorder, without psychotic features 04/23/2024 Assessment & Plan (05/02/2024 10:35 AM EDT): BE performed today No acute safety concerns Referral for OP therapy and pysch prescriber Assessment & Plan (04/29/2024 10:14 AM EDT): During [facility] Consult Autumn presenting with depressed mood, [...] impulsivity and anger outburst. She was under [facility] custody until she was 19 y/o and [...] Health Integration Plan Internal Follow up with I External OP BH therapy referral and OP psychiatry Referral Patient Self Plan Patient to utilize skills provided in intervention , Patient to reach out to [facility] team as needed, Patient to engage in OP therapy , and Patient to reach out to [facility] as needed Vitamin D deficiency 06/07/2018 Allergic rhinitis 06/18/2017 Mild intermittent asthma 11/27/2016 Assessment & Plan (01/20/2025 3:06 PM EDT): Quiescent so far this [facility] center advised for any increase or sudden worsening in asthma symptoms Developmental academic disorder 06/28/2015 Dyssomnia 06/08/2014 Impulse control disorder 06/08/2014 Estimated Date of Delivery Comme nts Yes 07/10/2025 Based on [employer] je[employer]ette [employer] [employer] Resolved Problems Problem Noted Date Diagnosed Date Resolved Date Asthma 01/20/2025 01/20/2025 Encounters Date Type Department Care Team Description 05/21/2025 Patient Outreach [address] [address] Shaneka Howard MD Care Management ([facility] follow up call) 05/14/2025 Patient Outreach [address] [address] Shaneka Howard MD Care Coordination ([facility]/CHW ALLEY Hilario-Follow up/Graduated CHW program) 05/05/2025 Orders Only [facility] CHC MED & PEDS [address] [place] [address] ProviderLaure MD 04/27/2025 Patient Outreach [address] [address] Shaneka Howard MD Care Management ([facility] follow up call) 04/20/2025 Patient Outreach [address] [address] Shaneka Howard MD Care Coordination ([facility]/CHW ALLEY Hilario- Follow up call) 04/13/2025 Plan of Care Documentation [address] [address] 04/13/2025 Patient Outreach [address] [address] Shaneka Howard MD Care Management ([facility] initial assessment/enrollmen t) 04/06/2025 Patient Outreach [address] [address] Shaneka Howard MD Care Coordination ([facility]/ALLEY Funes-R/S Maternity IA appt) 03/31/2025 Patient Outreach [address] [address] Shaneka Howard MD Care Coordination ([facility]/Edie Cedillo TC#1- Attempt to R/S missed IA-LVM) 03/24/2025 Patient Outreach [address] [address] Shaneka Howard MD Care Management ([facility] initial assessment-lvm) 03/23/2025 Patient Outreach [address] [address] Shaneka Howard MD Care Coordination ([facility]/ALLEY Wolfe- HR Maternity IA Appt reminder) 03/17/2025 Patient Outreach [address] [address] Shaneka Howard MD Care Coordination ([facility]/ALLEY Funes- R/S Missed HRMaternity IA appt) 03/11/2025 Patient Outreach [address] [address] Shaneka Howard MD 03/11/2025 Patient Outreach [address] [address] Shaneka Howard MD Care Management ([facility] initial assessment-lvm) 03/11/[address] [address] Shaneka Howard MD Nurse Triage 02/25/2025 Patient Outreach [address] [address] Shaneka Howard MD Care Coordination ([facility]/CHW Liu Cedillo, TC- ADT Outreach-Agrees to participate) from Last 3 Months Immunizations Immunization Administration Dates Next Due DTaP 05/11/2006, 3,2001,08/27,2001 [...] 13 04/07/2003, 001 Pneumococcal Conjugate PCV 7 04/07/2003, 2001,2001,06/18 Tdap 12/22/2024,08/31/2014 Varicella 11/13/2011,06/10/2002 Family History Medical History Relation [...] Internet Access Q2 Not on file 02/25/2025 Estimated Date of Delivery Comme nts Yes 07/10/2025 Based on [facility], [employer] Sex and Gender Information Value Date Recorded Sex Assigned at Female 07/31/2022 10:16 AM EDT Legal Sex Female 10:16 AM EDT Gender Identity Female 07/31/2022 10:16 AM EDT Sexual Orientation Straight 07/31/2022 10 :16 AM EDT Last Filed Vital Signs Vital Sign Reading Time Taken Comments Blood Pressure 116/63 01/20/2025 11:11 AM EDT Pulse 89 01/20/2025 11:11 AM EDT Temperature 36.2 C (97.2 F) 01/20/2025 11:11 AM EDT Respiratory Rate 20 01/20/2025 11:11 AM EDT Oxygen Saturation 99% 07/17/2024 1:12 PM EDT Inhaled Oxygen Concentration - - Weight 63.2 kg (139 lb 6.4 oz) 01/20/2025 11:11 AM EDT Height 160 cm (5' 3 ) 01/20/2025 11:11 AM EDT Body Mass Index 24.69 01/20/2025 11:11 AM EDT Plan of Treatment Health Maintenance Due Date Last Done Comments Dental Oral Exam 2001 Dental Prophylaxis 2001 Dental X-Ray: Bitewings 2001 Dental X-Ray: Full Mouth 2001 Lipid Panel 2001 Disability Screening 2001 Pneumococcal Vaccine: Pediatrics (0 to 5 Years) and At-Risk Patients (6 to 49) Years (1 of 1 - PPSV23) 2007 04/07/2003, 04/07/2003, 2001, Additional history exists Family Planning (PISQ) 2016 COVID-19 Vaccine ( season) 2024 Influenza Vaccine (#1) 2025 , 11/14/2017, 06/26/2016, Additional history exists RSV Patients and Patients Aged 60 years or older (1 - Risk 1-dose series) 06/01/2025 Tobacco Screening 01/20/2026 01/20/2025 SDOH Screening 02/25/2026 02/25/2025 Alcohol/Substance Use Screening 04/13/2026 04/13/2025 Depression Screening 04/13/2026 04/13/2025, 04/13/20 25 Pap Smear 01/15/2028 01/14/2025 DTaP/Tdap/Td Vaccines (8 - Td or Tdap) 12/22/2034 12/22/2024, 08/31/2014, 05/11/2006, Additional history exists Zoster Vaccines (1 of 2) 2051 HIB Vaccines Completed 06/10/2002, 06/01, 2001, Additional history exists Hepatitis B Vaccines Completed 08/22/2002, 2001, 2001, Additional history exists IPV Vaccines Completed 05/11/2006, 05/2003, 06/10/2002, Additional history exists HPV Vaccines Completed 11/24/2015, 11/02, 11/17/2014, Additional history exists Hepatitis A Vaccines Completed 11/24/2015, 11/24/2015, 08/31/2014, Additional history exists Meningococcal Vaccine Completed 04/06/2017 , 04/06/2017, 08/31/2014, Additional history exists HIV Screening Completed 11/11/2024, 04/23/2024 Hepatitis C Screening Completed 11/11/2024, 024 Meningococcal B Vaccine Aged Out No l onger eligible based on patient's age to complete this topic RSV under 20 months Aged Out No longe r eligible based on patient's age to complete this topic Rotavirus Vaccines Aged Out No longer eligible based on patient's age to complete this topic Procedures Procedure Name Priority Date/Time Associated Diagnosis Comments HM PAP/HPV Routine 01/14/2025 11:10 AM EDT HEPATITIS C ANTIBODY Routine 11/11/2024 1:05 PM EST HIV 1/2 ANTIGEN/ANTIBODY, FOURTH GENERATION W/RFL Routine 11/11/2024 1:05 PM EST from Last 3 Months or Most Recently Relevant to Health Maintenance Results * HM PAP/HPV (01/14/2025 11:10 AM EDT) Historical Provider MD HEALTH MAINTENANCE Final Result * Hepatitis C Ab (11/11/2024 1:05 PM EST) Hepatitis C Antibody Nonreactive Nonreactive [facility] Comment:Antibodies to HCV no t detected; does not exclude early acuteHCV infection. 11/11/2024 1:05 PM EST 11/11/2024 1:05 PM EST Generic External Data Provider LAB BLOOD ORDERAB LES Final Result [facility] [address] [place] [phone] * HIV-1/2 Antigen and Antibodies, Fourth Generation, with Reflexes (11/11/2024 1:05 PM EST) HIV AB/AG Nonreactive Nonreactive [facility] Comment:HIV-1 p24 Ag and/or HIV-1/HIV-2 Ab not detected.A test result that is nonreactive does not exclude thepossibility of exposure to or infection with HIV-1 and/orHIV-2. Nonreactive results in this assay for individualswith prior exposure to HIV-1 and/or HIV-2 may be due toantigen and antibody levels that are below the limit ofdetection of this assay.The [employer] HIV Ag/Ab Combo assay result andsupplemental assay results should be interpreted inconjunction with the patient's clinical presentation,history and other laboratory results. If the results areinconsistent with clinical evidence, additional testing issuggested to confirm the result. 11/11/2024 1:05 PM EST 11/11/2024 1:05 PM EST us Generic External Data Provider LAB BLOOD ORDERAB LES Final Result [facility] [address] [place] [phone] from Last 3 Months or Most Recently Relevant to Health Maintenance Insurance [facility] AD[facility] Care Teams Veterinary Attendant Relationship Specialty Start Date End Date Shaneka Howard MD [address] [place] [address] PCP - General Family Medicine 11/14/23
--- OUTSIDE RECORDS SUMMARY | 2025-05-27 00:27 | XMS_ITS | Encounter Summary ---
Author Organization [employer] Address [address] [facility] [address] [place] [address] Care Team Providers Care Shell Worker Name Role Phone Shaneka Howard MD Primary Care Provider [phone] Reason for Visit * Reason Onset Date Comments Nurse Triage 11/14/2023 Encounter Details Date Type Department Care Team ([facility] st Contact Info) Description 11/14/2023 Telephone [facility] MEDICINE [address] [place] [address] [facility] [address] [place] [address] Nurse Triage Social History Tobacco Use Types [...] away. Pt is advised to come to [facility] today open till 8pm and provider can see Pt. Home care advised and insurance is not verified as active, Pt is advised to contact insurance first. Pt reponds I was already told about this . Pt also requests not to call on [phone] number it is an emergency number. Protocol [...] on filedocumented in this encounter Care Teams Shell Worker Relationship Specialty Start Date End Date Shaneka Howard MD [address] [place] [address] PCP - General Family Medicine 11/14/23 documented as of this encounter
--- OUTSIDE RECORDS SUMMARY | 2025-05-27 00:27 | XMS_ITS | Encounter Summary ---
Author Organization [facility] [employer] Address [address] [facility] [address] [place] [address] Care Team Providers Care Campus Security Director Name Role Phone [facility] Primary Care Provider [phone] Shaneka Howard MD Primary Care Provider [phone] Reason for Visit * Reason Onset Date Comments Nurse Triage 04/09/2023 Encounter Details Date Type Department Care Team (Late st Contact Info) Description 04/09/2023 Telephone [facility] MEDICINE [address] [place] [address] [facility] [address] [place] [address] Nurse Triage Social History Tobacco Use Types [...] Left voice message to call [facility] triage line at [phone] . * Telephone Encounter - Jaimie Solis [...] on filedocumented in this encounter Care Teams Campus Security Director Relationship Specialty Start Date End Date Gogo Giordano FNP [address] [place] [address] PCP - General Family Medicine 05/27/22 11/13/23 Shaneka Howard MD [address] [place] [address] PCP - General Family Medicine 11/14/23 documented as of this encounter
--- OUTSIDE RECORDS SUMMARY | 2025-05-27 00:27 | XMS_ITS | Clinical Summary ---
Author Organization [facility] ity Address [address] [place] [address] Care Team Providers Care High Density Press Laborer Name Role Phone Unavailable Primary Care Provider [...] HPV Vaccines (1 - 3-dose series) 2016 Cervical Cancer Screening: Pap Smear 2022 COVID-19 Vaccine ( season) 2024 Depression Screening 10/01/2024 Influenza Vaccine (#1) 2025 HIB Vaccines Completed 06/10/2002, 10/02, 2001, Additional history exists Hepatitis B Vaccines Completed 08/22/2002, 2001, 2001 Pneumococcal Vaccine: Pediatrics (0 to 5 Years) and At-Risk Patients (6 to 49 Years) Completed 04/07/2003, 2001, 2001, Additional history exists IPV Vaccines Completed 05/11/2006, 05/2003, 06/10/2002, Additional history exists MMR Vaccines Completed 05/11/2006, 06/10/2002 Varicella Vaccines Completed 11/13/2011, 06/10/2002 Hepatitis A Vaccines Aged Out No long er eligible based on patient's age to complete this topic Meningococcal ACWY Vaccine Aged Out N o longer eligible based on patient's age to complete this topic Meningococcal B Vaccine Aged Out No l onger eligible based on patient's age to complete this topic RSV Immunization Patients Under 20 months Aged Out No longer eligible based on patient's age to complete this topic
--- OUTSIDE RECORDS SUMMARY | 2025-05-27 00:27 | XMS_ITS | Encounter Summary ---
Author Organization [employer] Address [address] [facility] [address] [facility] [place] [address] Care Team Providers Care Vocational Childcare Teacher Name Role Phone Shaneka Howard MD Primary Care Provider [phone] Reason for Visit * Reason Onset Date Comments Nurse Triage 03/11/2025 Encounter Details Date Type Department Care Team ([facility] st Contact Info) Description 03/11/2025 Telephone [facility] [address] [place] [address] Shaneka Howard MD [address] [place] [address] Nurse Triage Social History Tobacco Use Types [...] Recorded Patient Health Questionnaire-2 Score 6 04/23/2024 Internet Access Answer Date Recorded Internet Access Q1 Yes 02/25/2025 Internet Access Q2 Not on file 02/25/2025 Estimated Date of Delivery Comme nts Yes 07/10/[address] [facility] [place], [facility] Sex and Gender Information Value Date Recorded Sex Assigned at Female 07/31/2022 10:16 AM EDT Legal Sex Female 10:16 AM EDT Gender Identity Female 07/31/2022 10:16 AM EDT Sexual Orientation Straight 07/31/2022 10 :16 AM EDT documented as of this encounter Miscellaneous Notes * Telephone Encounter - Dorie Jorge RN - 03/11/2025 11:07 AM EDT Triage call Pt reports a large lump, located between labia and thigh. Pt reports has had a lump there for years but, in the last couple of days this lump has increased in size and become very painful. Size is described as long as pinky finger and large as thumb. Neg for fever, discharge. Pt is advised to come to [facility] for a provider to see Pt. No available apts today. Pt agrees with disposition andwill come to [facility]. Advised is [facility] is open till 8pm this evening. Insurance is verified as active. Protocol Used: Skin Lump or Localized Swelling (Adult) Protocol-Based Disposition: See in Office or Video Visit Today Video visit not offered Positive Triage Question: * Swelling is painful to touch and no fever * All higher-acuity triage questions were negative Care Advice Discussed: * Reasons To Call Back - Fever occurs - Spreading redness occurs - Swelling becomes painful - Swelling lasts over 1 week - You become worse * Telephone Encounter - Ella Herrera - 03/11/2025 10:51 AM EDT Symptom: Vulvar Symptoms Outcome: Schedule an urgent appointment (within 1 hour) or talk to a nurse or provider soon Reason: Trouble walking The caller accepted this outcome. [phone] documented in this encounter Plan of Treatment Not on file documented as of this encounter Visit Diagnoses Not on filedocumented in this encounter Additional Health Concerns Assessment Noted Time PHQ-9 Depression Total Score: 024 2:26 PM EDT documented as of this encounter Care Teams Vocational Childcare Teacher Relationship Specialty Start Date End Date Shaneka Howard MD [address] [place] [id number] PCP - General Family Medicine 11/14/23 documented as of this encounter
--- OUTSIDE RECORDS SUMMARY | 2025-05-27 00:27 | XMS_ITS | Encounter Summary ---
Author Organization [employer] Address [address] [facility] [address] [place] [address] Care Team Providers Care Traffic Monitor Specialist Name Role Phone Shaneka Howard MD Primary Care Provider [phone] Reason for Visit * Reason Onset Date Comments dental emergency/ 07/25/2024 Encounter Details Date Type Department Care Team ([facility] st Contact Info) Description 07/25/2024 Telephone [facility] D[facility] [address] [place] [address] Diana Rob DDS [address] [place] [address] dental emergency/ Social History Tobacco Use Types [...] to providefor dental treatment). Provided fax number [phone] to have OB office send in clearance. [...] documented as of this encounter Care Teams Traffic Monitor Specialist Relationship Specialty Start Date End Date Shaneka Howard MD [address] [place] [address] PCP - General Family Medicine 11/14/23 documented as of this encounter
[2025-05-27 00:50] LABS: Appearance Urine Clear; Glucose Urine UA Negative (Negative); PH 6.5 (5.0-9.0); Specific Gravity - Urine 1.020 (1.005-1.025); UMIC TRIGGER UACC YES
[2025-05-27 01:04] VITALS: BP 124/59; PULSE 78; RESP 17; TEMP 36.7; O2SAT 99
== END 2025-05-27 01:06 | disposition short-term general hospital (02) ==
PROVIDERS: Emergency Provider Emergency Medicine; PCP General Practice
DX: O47.03 False labor before 37 completed weeks of gestation, third trimester (principal); O21.0 Mild hyperemesis gravidarum; O99.333 Smoking (tobacco) complicating pregnancy, third trimester; Z3A.33 33 weeks gestation of pregnancy; Z79.899 Other long term (current) drug therapy
CPT/HCPCS: 81001; 81003; 99285